=== PATIENT | female | born 1960 | race Caucasian/White ===

== ENCOUNTER 2022-06-11 15:00 | Outpatient (RCR) | payer BC, SELFPAY ==
--- NOTE | 2022-05-21 16:33 | ONC.NURNOTE ---
zometa treatment plan q 28 days x 3 cycles, then q 3 months is plan per most recent office note by [place] Augustine CNP on 05/07/22. First cycle given 04/30/22. Documented in old clinical record. Added cycle 2 and 3 of zometa into [facility] on behalf of patient. Will need next set of orders from oncology for [id number] plan.
[2022-05-22 15:28] LABS: Basophils Absolute Auto 0.05 K/uL (0.00-0.30); Basophils Percent Auto 0.9 % (0.0-3.0); Eosinophils Absolute Auto 0.02 K/uL (0.00-0.50); Eosinophils Percent Auto 0.4 % (0.0-7.0); Hematocrit 34.9 % (33.0-51.0); Hemoglobin* 11.7 gm/dL (12.0-16.0); Immature Granulocytes Abs Auto 0.06 K/uL (0.00-0.30); Lymphocytes Absolute Auto 1.61 K/uL (0.90-2.90); Lymphocytes Percent Auto 28.6 % (20-44); Mean Corpuscular HGB Conc 34 gm/dL (32-36); Mean Corpuscular Hemoglobin 31 pg (26-34); Mean Corpuscular Volume 91 fL (80-100); Monocytes Percent Auto 9.8 % (0.0-11.0); Neutrophils Absolute Auto 3.34 K/uL (1.7-7.0); Neutrophils Percent Auto 59.2 % (42.0-72.0); Platelet Count* 295 K/uL (140-440); RDW Coefficient of Variation % 16.6 % (11.5-15.5); Red Blood Count 3.82 m/uL (4.00-5.20); White Blood Count* 5.63 K/uL (4.50-11.00)
[2022-05-22 15:47] LABS: Slide Review Reflex No
[2022-05-22] MEDS: SODIUM CHLORIDE 0.9 % (FLUSH) 10 ML SYRINGE IVF (16:03)
[2022-05-22 16:23] LABS: Albumin* 4.1 g/dL (3.3-5.0); Chloride* 106 mmol/L (96-114); Sodium* 137 mmol/L (135-149)
[2022-05-22 16:24] LABS: Potassium* 3.5 mmol/L (3.6-5.1)
[2022-05-22 16:26] LABS: Alanine Aminotransferase* 17 U/L (4-35); Alkaline Phosphatase* 72 U/L (40-150); Aspartate Amino Transferase* 33 U/L (12-35); Bilirubin Total* 0.5 mg/dL (0.1-1.5); Blood Urea Nitrogen* 16 mg/dL (7-30); Carbon Dioxide* 23 mmol/L (20-32); Creatinine* 0.9 mg/dL (0.5-1.5); Est. Creatinine Clearance* 60.93; Estimated Glomerular Filt Rate 73.19; Glucose* 115 mg/dL (60-115); Total Protein* 6.5 g/dL (6.0-8.3)
[2022-05-22 16:27] LABS: Calcium* 9.3 mg/dL (8.4-10.6)
[2022-05-25 19:53] LABS: Cancer Antigen 27.29 353.2 U/mL (<=39.0)
--- NOTE | 2022-05-28 15:41 | ONC.NURNOTE ---
Carolyn requested that her Zometa be moved to coincide with lab and provider appts rescheduled for 06/11/22
--- NOTE | 2022-06-05 18:54 | ONC.NURNOTE ---
Authorization: User: Adeline Jay Date: 04/24/22 13:07 Type: Eligibility Determination Note... Received request for prior auth for Zometa ([id number]). Per [facility] on behalf of [facility], clinical review is not required. valid 04/24/2022-07/22/2022. Order ID [id number]
[2022-06-10 15:06] LABS: Basophils Percent Auto 0.6 % (0.0-3.0); Eosinophils Percent Auto 4.2 % (0.0-7.0); Hematocrit 34.6 % (33.0-51.0); Hemoglobin* 11.5 gm/dL (12.0-16.0); Lymphocytes Percent Auto 37.3 % (20-44); Mean Corpuscular HGB Conc 33 gm/dL (32-36); Mean Corpuscular Hemoglobin 31 pg (26-34); Mean Corpuscular Volume 92 fL (80-100); Monocytes Percent Auto 3.3 % (0.0-11.0); Neutrophils Percent Auto 54.6 % (42.0-72.0); Platelet Count* 228 K/uL (140-440); RDW Coefficient of Variation % 16.1 % (11.5-15.5); Red Blood Count 3.76 m/uL (4.00-5.20); White Blood Count* 3.32 K/uL (4.50-11.00)
[2022-06-10 15:29] LABS: Albumin* 3.8 g/dL (3.3-5.0); Chloride* 105 mmol/L (96-114)
[2022-06-10 15:30] LABS: Potassium* 3.3 mmol/L (3.6-5.1); Sodium* 134 mmol/L (135-149)
[2022-06-10 15:31] LABS: Slide Review Reflex No
[2022-06-10 15:32] LABS: Bilirubin Total* 0.3 mg/dL (0.1-1.5); Carbon Dioxide* 22 mmol/L (20-32); Creatinine* 1.4 mg/dL (0.5-1.5); Est. Creatinine Clearance* 39.17; Estimated Glomerular Filt Rate 43 ml/min; Total Protein* 5.9 g/dL (6.0-8.3)
[2022-06-10 15:33] LABS: Alanine Aminotransferase* 19 U/L (4-35); Alkaline Phosphatase* 68 U/L (40-150); Aspartate Amino Transferase* 25 U/L (12-35); Blood Urea Nitrogen* 17 mg/dL (7-30); Calcium* 9.2 mg/dL (8.4-10.6); Glucose* 111 mg/dL (60-115)
[2022-06-11] MEDS: ZOLEDRONIC ACID 3 MG in 0.9 % SODIUM CHLORIDE 100 ml 100 ML 420 MG IVPB (15:43)
[2022-06-11] MEDS: HEPARIN 500 UNIT/5 ML SYRINGE IVF (16:04)
[2022-06-11] MEDS: SODIUM CHLORIDE 0.9 % (FLUSH) 10 ML SYRINGE IVF (16:04)
--- NOTE | 2022-06-11 16:25 | ONC.NURNOTE ---
Breast Transit Operations Supervisor Note Pt here today to f/u 2 weeks of Verzenio and monthly labs/Zometa; she is tolerating well. Per Lorie Rubio CNP, pt to continue same dosing; she will call for a refill when needed and notify BCN if any issues. Appts made to f/u with labs/Lorie/Zometa in 4 weeks.
== END 2022-06-21 23:59 | disposition home or self-care (01) ==
LOC: CCIC 15:00
PROVIDERS: PCP Physician Assistant; Visit Provider Nurse Practitioner Family
DX: C50.912 Malignant neoplasm of unspecified site of left female breast (principal); Z17.0 Estrogen receptor positive status [ER+]; Z79.810 Long term (current) use of selective estrogen receptor modulators (SERMs)
CPT/HCPCS: 36415; 36591; 80053; 85025; 86300; 96374; 99212; 99214; J1642; J3489

== ENCOUNTER 2022-09-17 14:18 | Outpatient (CLI) | payer BC, SELFPAY ==
--- NOTE | 2022-09-17 14:45 | CRLHL7_ITS ---
For Patients: As a result of the Century Cures Act, medical imaging exams and procedure reports are released immediately into your electronic medical record. You may view this report before your referring provider. If you have questions, please contact your health care provider. INDICATION: History of metastatic breast cancer patient status post bilateral mastectomy. Patient is ongoing systemic therapy. Exam is being performed for restaging. TECHNIQUE: The patient received 12.7 millicuries of 18 FDG (18 fluorodeoxyglucose) intravenously. PET-CT imaging has been performed from the mid skull to mid thigh level [address] images have been obtained for attenuation correction and localization only. Blood glucose level: 86 mg/dL. COMPARISON: PET-CT dated 04/16/2022. FINDINGS: Within the chest there is residual activity identified in the region of the right paratracheal region. Small lymph node is identified with a SUV max of 4.3 compared with 11.5 previously. Previous area of activity within the right hilum has nearly completely resolved. SUV max is 2.3 compared with 5.5 previously. No new areas of activity within the mediastinum are noted. Residual asymmetric area of increased activity in the left thyroid nodule is noted, SUV max is 3.9 and unchanged. There is a small linear density identified in the inferior lingula on the left. SUV max is 2.7 compared with 3.6 previously. The remaining lungs demonstrate no abnormal uptake. The patient is status post bilateral mastectomy. Chest wall and axilla demonstrates no abnormal uptake. The soft tissues of the neck demonstrate no significant abnormal uptake. The liver and spleen demonstrate no abnormal uptake. Pancreas and bilateral adrenal glands are within normal limits. Retrocrural region and retroperitoneum demonstrate no abnormal uptake. Iliac kirit chain and groin demonstrate no significant abnormal uptake. There are extensive skeletal metastases again identified throughout the axial and appendicular skeleton. Overall these demonstrate interval improvement. As an example, the activity within the thoracic spine vertebral body the SUV max is 7.3 compared with 15.1 previously. The SUV max within the lumbar spine 9.9 compared with 19.2 previously. The SUV max within the left iliac bone is in the 11.1 compared with 20.5 previously. SUV max within the left femoral head is 13.9 compared with 11.7. Similarly decreased activity within the contralateral right iliac bone and femur noted. Interval decrease activity within the bilateral shoulder region noted. SUV max on the left is 6.9 compared to 16.3. Interval decreased activity within the sternum, SUV max is 4.8 compared with 21.3 previously. IMPRESSION: 1. Overall improving PET-CT scan when compared to the prior study. 2. Extensive residual hypermetabolic skeletal lesions are identified throughout the axial and appendicular skeleton. Largest lesion along with the spine and pelvis as detailed above. These remain hypermetabolic but demonstrate interval decrease in overall SUV max values when compared to the prior study. 3. Improving activity identified within the right mediastinum and right hilum. Decreased activity within a linear inferior lingular nodule on the left. 4. Stable left thyroid nodule noted with increased activity. Dictated by Charles River MD @ 09/23/2022 10:12:24 AM (Electronically Signed)
== END 2022-09-17 14:19 | disposition home or self-care (01) ==
LOC: RAD 14:18
PROVIDERS: PCP Physician Assistant; Visit Provider Nurse Practitioner Family
DX: C79.89 Secondary malignant neoplasm of other specified sites (principal); M89.9 Disorder of bone, unspecified; E04.1 Nontoxic single thyroid nodule
CPT/HCPCS: 78815; A9552

== ENCOUNTER 2022-10-19 15:16 | Emergency (ER) | payer BC, SELFPAY ==
[2022-10-19 15:26] VITALS: BP 116/80; PULSE 102; RESP 18; TEMP 36.8; O2SAT 99; BMI 23.8
--- NOTE | 2022-10-19 18:02 | CRLHL7_ITS ---
For Patients: As a result of the Century Cures Act, medical imaging exams and procedure reports are released immediately into your electronic medical record. You may view this report before your referring provider. If you have questions, please contact your health care provider. INDICATION: Left-sided neck pain. TECHNIQUE: CT soft tissue of the neck was acquired with IV contrast. COMPARISON: PET-CT 04/16/2022. FINDINGS: Skull base: Unremarkable. Pharynx/Larynx/Trachea: Epiglottis is normal. Airway is patent. Adjacent soft tissues are normal. Salivary glands: Unremarkable. Thyroid gland: Unchanged partially calcified 1.2 cm left thyroid lobe nodule. Lymph nodes: No lymphadenopathy. Vessels: The left internal jugular vein is dominant. There is distension of the vein with hypodense material. A crescent of IV contrast is present within the vein superiorly; however, the vein is unopacified as it courses inferiorly to the level of the left chest port catheter. Bones: Ill-defined sclerotic foci within the C4, C6, and T4 vertebral bodies. Misc: Bilateral lens replacement. Partially imaged left-sided chest port. Atherosclerotic calcification of the bilateral carotid siphons. Lung apices: Unremarkable. IMPRESSION: Distended, unopacified left internal jugular vein with hypodense material superior to the level of the left chest port catheter. This could be on the basis of mixing artifact; however, thrombus cannot be entirely excluded. Recommend ultrasound for further evaluation Sclerotic foci within the C4, C6, and T4 vertebral body. These may represent hemangiomas; however, metastatic lesions cannot be excluded in the setting of malignancy. Please note that all CT scans at this facility use dose modulation, iterative reconstruction, and/or weight-based dosing when appropriate to reduce radiation dose to as low as reasonably achievable. Dictated by Arya Peralta MD @ 10/19/2022 7:41:53 PM (Electronically Signed)
--- NOTE | 2022-10-19 18:04 | ED.NECK ---
HPI - Neck Pain/Injury General Chief Complaint: Neck Injury/Pain Stated Complaint: neck pain Time Seen by Provider: 10/19/22 15:39 History of Present Illness HPI Narrative: This 62-year-old female comes in from oncology clinic with concern of pain and swelling in the left anterior neck. She has a history of breast cancer with metastatic disease. She has a port in place that is in the left upper anterior chest. She states that she also is had a deep venous thrombus in the upper extremity and had been on Xarelto but had trouble refilling this medicine. She is no longer on any anticoagulant. She does not report any chest pain or shortness of breath. She has mild swelling and distinct tenderness in the left anterior neck. Related Data Home Medications Medication Instructions Recorded Confirmed acetaminophen 325 mg capsule 650 mg PO Q4H PRN 06/09/22 10/19/22 calcium citrate 315 mg 1 tab PO QDAY 06/09/22 10/19/22 calcium-vitamin D3 6.25 mcg (250 unit) tablet (Citracal + Vitamin D Maximum) cholecalciferol (vitamin D3) 50 50 mcg PO QDAY 06/09/22 10/19/22 mcg (2,000 unit) capsule ibuprofen 400 mg tablet 400 mg PO TID 06/09/22 10/19/22 tamoxifen 20 mg tablet 20 mg PO QDAY 06/09/22 10/19/22 loratadine 10 mg tablet 10 mg PO .prn 06/11/22 10/19/22 multivitamin 1 tab PO QAM 06/11/22 10/19/22 Previous Rx's Medication Instructions Recorded potassium chloride 20 mEq 20 meq PO BID #120 tabs 08/06/22 tablet,extended release(part/cryst) abemaciclib 150 mg tablet 150 mg PO BID #60 tabs 10/08/22 (Verzenio) rivaroxaban 10 mg tablet (Xarelto) 10 mg PO QDAY #30 tabs 10/19/22 Allergies Allergy/AdvReac Type Severity Reaction Status Date / Time Bees Allergy Severe anaphalayti Uncoded 07/09/22 14:40 c Review of Systems Status of ROS: Reports: 10 or more systems reviewed and unremarkable except as noted in History and below Narrative: Constitutional: No fevers, no weight gain or loss. Eyes: No discharge. No vision changes. HENT: No congestion, no sore throat, no ear pain. Pain and swelling in the left anterior neck. Cardiovascular: No chest pain, no palpitations. Respiratory: No shortness of breath, no wheezes, no cough. Gastrointestinal: No abdominal pain, no vomiting, no diarrhea. Genitourinary: No dysuria, no hematuria. Musculoskeletal: Normal range of motion. Skin: No rashes, no pruritis. Neurological: No dizziness, weakness, sensory change, speech change. Endo/Heme/Allergies: No bruising or bleeding. No polydipsia. Pysch: no suicidality, no anxiety, no insomnia. All other systems reviewed and are negative. [facility] Medical History (Updated 10/19/22 @ 20:12 by Kenn Hope MD) Central venous catheter in place DVT of axillary vein, acute right Social History Smoking Status: Never smoker Do you use any of these nicotine containing products: None Second hand tobacco smoke exposure: No How often do you have a drink containing alcohol: never How often do you have six or more drinks on one occasion: Never AUDIT-C Alcohol total score: 0 Non-prescribed substance use: denies use service: No Exam Narrative: Exam Narrative: Constitutional: Well-developed, well-nourished, no acute distress. HEENT: There is a palpable tube extending from a port up into the left anterior neck. She has tenderness in this area with mild swelling. Neck: Normal range of motion. Nontender. Supple. Heart: Regular. No murmurs. Normal rate. Intact distal pulses. Lungs: Clear to auscultation. No chest discomfort. No wheezes, rhonchi, or rales. Abdomen: Normal bowel sounds. Nontender. No rebound tenderness. Genitalia: Deferred. Back: No midline tenderness. Normal range of motion. Extremities: Normal range of motion. No injury. Skin: Intact. No rash. Warm. No erythema or pallor. Neurologic: No altered sensation. No weakness. Alert and oriented. Psychiatric: No suicidality. No anxiety or depression. No insomnia. Nursing notes and vitals signs are reviewed. Const: Vital Signs, click to edit/add: Vital Signs - 24 hr 10/19/22 15:26 Temperature 98.2 F Pulse Rate [Right Pulse Oximeter] 102 H Respiratory Rate 18 Blood Pressure [Ri ght Upper Arm] 116/80 Pulse Oximetry 99 Oxygen Delivery Me thod Room Air Course Vital Signs Vital signs: Initial Vital Signs Temperature 98.2 F 10/19/22 15:26 Temperature Source Temporal Artery Scan 10/19/22 15:26 Pulse Rate 102 H 10/19/22 15:26 Respiratory Rate 18 10/19/22 15:26 Blood Pressure 116/80 10/19/22 15:26 Blood Pressure Mean 92 10/19/22 15:26 Blood Pressure Position Sitting 10/19/22 15:26 Pulse Oximetry 99 10/19/22 15:26 Oxygen Delivery Method 10/19/22 15:26 Vital Signs Temperature 98.2 F 10/19/22 15:26 Pulse Rate 102 H 10/19/22 15:26 Respiratory Rate 18 10/19/22 15:26 Blood Pressure 116/80 10/19/22 15:26 Pulse Oximetry 99 10/19/22 15:26 Oxygen Delivery Method 10/19/22 15:26 Temperature 98.2 F 10/19/22 15:26 Pulse Rate 102 H 10/19/22 15:26 Respiratory Rate 18 10/19/22 15:26 Blood Pressure 116/80 10/19/22 15:26 Pulse Oximetry 99 10/19/22 15:26 Oxygen Delivery Method 10/19/22 15:26 MDM - Neck Pain/Injury MDM Narrative Medical decision making narrative: This patient comes in with pain in her left anterior neck just superior to her port. She states the last time her port was accessed was about a month ago. This was accessed today for labs and arrangement for CT scan of the soft tissue of her neck with contrast. She did have heparin placed into the port and states that she is feeling better now. CT imaging does show evidence of a hypodense material in this area that could be suspicious for thrombus. The patient states that she was on Xarelto and is supposed to be continuing on this medicine but had trouble getting it refilled. She states that she does have a refill that she can get at the pharmacy tomorrow. I did discuss the role of an ultrasound to further evaluate this area. The patient declined this study for now. She did receive an oral dose of Eliquis here and will be able to continue with anticoagulant treatment tomorrow as she fills her prescription. Lab Data Labs: Lab Results 10/19/22 10/19/22 10/19/22 Range/Units 18:25 18:25 18:25 WBC 5.30 (4.50-11.00) K/uL RBC 3.20 L (4.00-5.20) m/uL Hgb 11.6 L (12.0-16.0) gm/dL Hct 33.5 (33.0-51.0) % MCV 105 H (80-100) fL MCH 36 H (26-34) pg MCHC 35 (32-36) gm/dL RDW Coeff of Delfino 12.8 (11.5-15.5) % Plt Count 179 (140-440) K/uL Neut % (Auto) 60.0 (42.0-72.0) % Lymph % (Auto) 30.2 (20-44) % [place] % (Auto) 8.1 (0.0-11.0) % Eos % (Auto) 0.4 (0.0-7.0) % Baso % (Auto) 0.9 (0.0-3.0) % Neut # (Auto) 3.18 (1.7-7.0) K/uL Lymph # (Auto) 1.60 (0.90-2.90) K/uL [place] # (Auto) 0.40 (0.00-0.90) K/UL Eos # (Auto) 0.02 (0.00-0.50) K/uL Baso # (Auto) 0.05 (0.00-0.30) K/uL Abs Immat Gran (auto) 0.02 (0.00-0.30) K/uL Imm/Tot Granulo (auto) 0.4 % INR 1.03 (0.91-1.10) Sodium 137 (135-149) mmol/L Potassium 4.2 (3.6-5.1) mmol/L Chloride 109 (96-114) mmol/L Carbon Dioxide 23 (20-32) mmol/L BUN 14 (7-30) mg/dL Creatinine 1.2 (0.5-1.5) mg/dL Estimated Creat Clear 38.94 Estimated GFR 52 ml/min Glucose 76 (60-115) mg/dL Calcium 9.1 (8.4-10.6) mg/dL Total Bilirubin 0.5 (0.1-1.5) mg/dL Direct Bilirubin 0.1 (0.0-0.5) mg/dL AST 23 (12-35) U/L ALT 18 (4-35) U/L Alkaline Phosphatase 46 (40-150) U/L Total Protein 6.6 (6.0-8.3) g/dL Albumin 4.0 (3.3-5.0) g/dL Imaging Data CT Neck soft tissue: Radiologist's impression: Distended, unopacified left internal jugular vein with hypodense material superior to the level of the left chest port catheter. This could be on the basis of mixing artifact; however, thrombus cannot be entirely excluded. Recommend ultrasound for further evaluation Sclerotic foci within the C4, C6, and T4 vertebral body. These may represent hemangiomas; however, metastatic lesions cannot be excluded in the setting of malignancy. Discharge Plan Discharge Clinical Impression: DVT (deep venous thrombosis), Breast cancer metastasized to bone Patient Disposition: Home, Self-Care Additional Instructions: Take Xarelto as prescribed. Follow up with MD or return if worsening symptoms occur. Prescriptions: No Action tamoxifen 20 mg tablet 20 mg PO QDAY Label Comments: TAKE 1 TABLET BY MOUTH DAILY ibuprofen 400 mg tablet 400 mg PO TID cholecalciferol (vitamin D3) 50 mcg (2,000 unit) capsule 50 mcg PO QDAY calcium citrate-vitamin D3 [Citracal + D Maximum] 315 mg-6.25 mcg (250 unit) tablet 1 tab PO QDAY acetaminophen 325 mg capsule 650 mg PO Q4H PRN loratadine 10 mg tablet 10 mg PO .prn multivitamin Tablet 1 tab PO QAM potassium chloride 20 mEq tablet,ER particles/crystals 20 meq PO BID Qty: 120 3RF Verzenio 150 mg tablet 150 mg PO BID Qty: 60 6RF Xarelto 10 mg tablet 10 mg PO QDAY Qty: 30 3RF Follow Up/Referrals: Francie Marcos PA [Primary Care Provider] - [facility]: [facility] Info Instructions
[2022-10-19 18:37] LABS: Basophils Absolute Auto 0.05 K/uL (0.00-0.30); Basophils Percent Auto 0.9 % (0.0-3.0); Eosinophils Absolute Auto 0.02 K/uL (0.00-0.50); Eosinophils Percent Auto 0.4 % (0.0-7.0); Hematocrit 33.5 % (33.0-51.0); Hemoglobin* 11.6 gm/dL (12.0-16.0); Immature Granulocytes Abs Auto 0.02 K/uL (0.00-0.30); Immature Granulocytes Pct Auto 0.4 %; Lymphocytes Percent Auto 30.2 % (20-44); Mean Corpuscular HGB Conc 35 gm/dL (32-36); Mean Corpuscular Hemoglobin 36 pg (26-34); Mean Corpuscular Volume 105 fL (80-100); Monocytes Percent Auto 8.1 % (0.0-11.0); Neutrophils Absolute Auto 3.18 K/uL (1.7-7.0); Platelet Count* 179 K/uL (140-440); RDW Coefficient of Variation % 12.8 % (11.5-15.5)
[2022-10-19 18:47] LABS: Slide Review Reflex No
[2022-10-19 18:52] LABS: Chloride* 109 mmol/L (96-114)
[2022-10-19 18:53] LABS: Potassium* 4.2 mmol/L (3.6-5.1); Sodium* 137 mmol/L (135-149)
[2022-10-19 18:54] LABS: INR 1.03 (0.91-1.10); Prothrombin Time 14.1 Seconds
[2022-10-19 18:55] LABS: Aspartate Amino Transferase* 23 U/L (12-35); Bilirubin Direct* 0.1 mg/dL (0.0-0.5); Bilirubin Total* 0.5 mg/dL (0.1-1.5); Blood Urea Nitrogen* 14 mg/dL (7-30); Carbon Dioxide* 23 mmol/L (20-32); Creatinine* 1.2 mg/dL (0.5-1.5); Est. Creatinine Clearance* 38.94; Estimated Glomerular Filt Rate 52 ml/min; Total Protein* 6.6 g/dL (6.0-8.3)
[2022-10-19 18:56] LABS: Alanine Aminotransferase* 18 U/L (4-35); Alkaline Phosphatase* 46 U/L (40-150); Calcium* 9.1 mg/dL (8.4-10.6); Glucose* 76 mg/dL (60-115)
[2022-10-19] MEDS: HEPARIN 500 UNIT/5 ML SYRINGE IVF (20:31)
== END 2022-10-19 20:29 | disposition home or self-care (01) ==
PROVIDERS: Emergency Provider Emergency Medicine Emergency Medical Services; PCP Physician Assistant
DX: C50.919 Malignant neoplasm of unspecified site of unspecified female breast (principal); C79.51 Secondary malignant neoplasm of bone; I82.409 Acute embolism and thrombosis of unspecified deep veins of unspecified lower extremity
CPT/HCPCS: 36415; 70491; 80048; 80076; 85025; 85610; 99284; J1642; Q9967

== ENCOUNTER 2022-12-04 15:00 | Outpatient (RCR) | payer BC, SELFPAY ==
[2022-07-08 15:37] LABS: Basophils Percent Auto 1.1 % (0.0-3.0); Eosinophils Percent Auto 0.5 % (0.0-7.0); Hematocrit 31.3 % (33.0-51.0); Hemoglobin* 10.7 gm/dL (12.0-16.0); Immature Granulocytes Abs Auto 0.01 K/uL (0.00-0.30); Lymphocytes Percent Auto 39.3 % (20-44); Mean Corpuscular HGB Conc 34 gm/dL (32-36); Mean Corpuscular Hemoglobin 32 pg (26-34); Mean Corpuscular Volume 95 fL (80-100); Monocytes Percent Auto 7.9 % (0.0-11.0); Neutrophils Percent Auto 50.9 % (42.0-72.0); Platelet Count* 232 K/uL (140-440); RDW Coefficient of Variation % 18.2 % (11.5-15.5); White Blood Count* 3.79 K/uL (4.50-11.00)
[2022-07-08 15:55] LABS: Slide Review Reflex No
[2022-07-08 16:01] LABS: Chloride* 105 mmol/L (96-114)
[2022-07-08 16:02] LABS: Albumin* 3.7 g/dL (3.3-5.0); Potassium* 3.5 mmol/L (3.6-5.1); Sodium* 136 mmol/L (135-149)
[2022-07-08 16:05] LABS: Alanine Aminotransferase* 46 U/L (4-35); Alkaline Phosphatase* 58 U/L (40-150); Aspartate Amino Transferase* 49 U/L (12-35); Bilirubin Total* 0.1 mg/dL (0.1-1.5); Blood Urea Nitrogen* 18 mg/dL (7-30); Carbon Dioxide* 22 mmol/L (20-32); Creatinine* 1.3 mg/dL (0.5-1.5); Estimated Glomerular Filt Rate 47 ml/min; Glucose* 126 mg/dL (60-115); Total Protein* 6.3 g/dL (6.0-8.3)
[2022-07-08 16:06] LABS: Calcium* 9.1 mg/dL (8.4-10.6)
[2022-07-09] MEDS: ZOLEDRONIC ACID 3 MG in 0.9 % SODIUM CHLORIDE 100 ml 100 ML 420 MG IVPB (15:34)
[2022-07-09] MEDS: SODIUM CHLORIDE 0.9 % (FLUSH) 10 ML SYRINGE IVF (16:32)
[2022-07-09] MEDS: HEPARIN 500 UNIT/5 ML SYRINGE IVF (16:32)
[2022-07-09] MEDS: 0.9 % SODIUM CHLORIDE 250 ml IV (16:32)
[2022-07-11 01:22] LABS: Cancer Antigen 27.29 439.9 U/mL (<=39.0)
[2022-08-05 15:24] LABS: Basophils Percent Auto 1.4 % (0.0-3.0); Eosinophils Percent Auto 0.8 % (0.0-7.0); Hematocrit 30.4 % (33.0-51.0); Hemoglobin* 10.6 gm/dL (12.0-16.0); Immature Granulocytes Abs Auto 0.01 K/uL (0.00-0.30); Lymphocytes Percent Auto 38.7 % (20-44); Mean Corpuscular HGB Conc 35 gm/dL (32-36); Mean Corpuscular Hemoglobin 34 pg (26-34); Mean Corpuscular Volume 97 fL (80-100); Monocytes Percent Auto 7.1 % (0.0-11.0); Neutrophils Percent Auto 51.7 % (42.0-72.0); Platelet Count* 201 K/uL (140-440); RDW Coefficient of Variation % 18.1 % (11.5-15.5); Red Blood Count 3.12 m/uL (4.00-5.20); White Blood Count* 3.67 K/uL (4.50-11.00)
[2022-08-05 15:44] LABS: Albumin* 3.9 g/dL (3.3-5.0); Chloride* 104 mmol/L (96-114); Potassium* 3.1 mmol/L (3.6-5.1); Sodium* 135 mmol/L (135-149)
[2022-08-05 15:46] LABS: Creatinine* 1.3 mg/dL (0.5-1.5); Estimated Glomerular Filt Rate 47 ml/min; Slide Review Reflex No
[2022-08-05 15:47] LABS: Alanine Aminotransferase* 47 U/L (4-35); Alkaline Phosphatase* 51 U/L (40-150); Aspartate Amino Transferase* 36 U/L (12-35); Bilirubin Total* 0.4 mg/dL (0.1-1.5); Blood Urea Nitrogen* 11 mg/dL (7-30); Carbon Dioxide* 23 mmol/L (20-32); Glucose* 145 mg/dL (60-115); Total Protein* 6.2 g/dL (6.0-8.3)
[2022-08-05 15:48] LABS: Calcium* 8.6 mg/dL (8.4-10.6)
[2022-08-09 01:26] LABS: Cancer Antigen 27.29 448.7 U/mL (<=39.0)
[2022-09-02 15:22] LABS: Basophils Percent Auto 1.5 % (0.0-3.0); Hematocrit 31.8 % (33.0-51.0); Hemoglobin* 10.8 gm/dL (12.0-16.0); Lymphocytes Percent Auto 42.9 % (20-44); Mean Corpuscular HGB Conc 34 gm/dL (32-36); Mean Corpuscular Hemoglobin 36 pg (26-34); Mean Corpuscular Volume 106 fL (80-100); Monocytes Percent Auto 8.6 % (0.0-11.0); Platelet Count* 220 K/uL (140-440); RDW Coefficient of Variation % 15.8 % (11.5-15.5); White Blood Count* 3.96 K/uL (4.50-11.00)
[2022-09-02 15:24] LABS: Slide Review Reflex No
[2022-09-02 15:35] LABS: Chloride* 109 mmol/L (96-114); Potassium* 3.9 mmol/L (3.6-5.1); Sodium* 136 mmol/L (135-149)
[2022-09-02 15:38] LABS: Alanine Aminotransferase* 23 U/L (4-35); Alkaline Phosphatase* 65 U/L (40-150); Aspartate Amino Transferase* 27 U/L (12-35); Bilirubin Total* 0.3 mg/dL (0.1-1.5); Blood Urea Nitrogen* 15 mg/dL (7-30); Carbon Dioxide* 20 mmol/L (20-32); Creatinine* 1.3 mg/dL (0.5-1.5); Estimated Glomerular Filt Rate 47 ml/min; Glucose* 87 mg/dL (60-115); Total Protein* 6.4 g/dL (6.0-8.3)
[2022-09-02] MEDS: SODIUM CHLORIDE 0.9 % (FLUSH) 10 ML SYRINGE IVF (16:05)
[2022-09-02] MEDS: HEPARIN 500 UNIT/5 ML SYRINGE IVF (16:05)
[2022-09-06 02:05] LABS: Cancer Antigen 27.29 337.9 U/mL (<=39.0)
--- NOTE | 2022-09-08 09:04 | ONC.NURNOTE ---
Addendum entered by Romy Farley RN 09/08/22 14:24: PET Scan order and supporting documentation faxed to [facility]. Original Note: PET scheduled for 09/17/22 at 1445, 10/01/22 already full. Hat Block Maker left message for patient with PET scan information, and told [facility] will be calling her.
--- NOTE | 2022-10-01 12:58 | URNOTE ---
Request received for authorization for Zoledronic Acid ([id number]). Prior authorization per [facility] on behalf of [place], Zoledronic Acid approved #[id number] for 3 treatments from 10/07/22 to 06/16/23.
[2022-10-07] MEDS: SODIUM CHLORIDE 0.9 % (FLUSH) 10 ML SYRINGE IVF (15:10)
[2022-10-07] MEDS: HEPARIN 500 UNIT/5 ML SYRINGE IVF (15:11)
[2022-10-07 15:26] LABS: Basophils Absolute Auto 0.05 K/uL (0.00-0.30); Basophils Percent Auto 1.1 % (0.0-3.0); Eosinophils Absolute Auto 0.02 K/uL (0.00-0.50); Eosinophils Percent Auto 0.4 % (0.0-7.0); Hematocrit 34.4 % (33.0-51.0); Hemoglobin* 11.5 gm/dL (12.0-16.0); Immature Granulocytes Abs Auto 0.01 K/uL (0.00-0.30); Immature Granulocytes Pct Auto 0.2 %; Lymphocytes Percent Auto 35.2 % (20-44); Mean Corpuscular HGB Conc 33 gm/dL (32-36); Mean Corpuscular Hemoglobin 36 pg (26-34); Mean Corpuscular Volume 108 fL (80-100); Neutrophils Absolute Auto 2.45 K/uL (1.7-7.0); Neutrophils Percent Auto 54.1 % (42.0-72.0); Platelet Count* 242 K/uL (140-440); RDW Coefficient of Variation % 12.8 % (11.5-15.5); White Blood Count* 4.54 K/uL (4.50-11.00)
[2022-10-07 15:28] LABS: Slide Review Reflex No
[2022-10-07 15:58] LABS: Albumin* 4.1 g/dL (3.3-5.0); Chloride* 110 mmol/L (96-114); Potassium* 3.8 mmol/L (3.6-5.1); Sodium* 136 mmol/L (135-149)
[2022-10-07 16:00] LABS: Aspartate Amino Transferase* 24 U/L (12-35); Bilirubin Total* 0.4 mg/dL (0.1-1.5); Carbon Dioxide* 21 mmol/L (20-32); Creatinine* 1.3 mg/dL (0.5-1.5); Estimated Glomerular Filt Rate 47 ml/min; Total Protein* 6.5 g/dL (6.0-8.3)
[2022-10-07 16:01] LABS: Alanine Aminotransferase* 22 U/L (4-35); Alkaline Phosphatase* 48 U/L (40-150); Blood Urea Nitrogen* 13 mg/dL (7-30); Calcium* 8.5 mg/dL (8.4-10.6); Glucose* 120 mg/dL (60-115)
--- NOTE | 2022-10-08 15:27 | ONC.NURNOTE ---
creatine clearence 35.63. ok to give Zometa 4mg per Tmi Augustine BRAILLE TEACHER
[2022-10-08] MEDS: ZOLEDRONIC ACID 4 MG in 0.9 % SODIUM CHLORIDE 100 ml 100 ML 420 MG IVPB (15:43)
[2022-10-08] MEDS: HEPARIN 500 UNIT/5 ML SYRINGE IVF (15:44)
[2022-10-08] MEDS: 0.9 % SODIUM CHLORIDE 250 ml IV (15:44)
[2022-10-08] MEDS: SODIUM CHLORIDE 0.9 % (FLUSH) 10 ML SYRINGE IVF (15:45)
[2022-10-09 22:49] LABS: Cancer Antigen 27.29 261.1 U/mL (<=39.0)
[2022-11-04 15:28] LABS: Chloride* 112 mmol/L (96-114); Potassium* 3.9 mmol/L (3.6-5.1); Sodium* 140 mmol/L (135-149)
[2022-11-04 15:30] LABS: Creatinine* 1.3 mg/dL (0.5-1.5); Estimated Glomerular Filt Rate 47 ml/min
[2022-11-04 15:31] LABS: Alanine Aminotransferase* 20 U/L (4-35); Alkaline Phosphatase* 48 U/L (40-150); Aspartate Amino Transferase* 25 U/L (12-35); Bilirubin Total* 0.4 mg/dL (0.1-1.5); Blood Urea Nitrogen* 17 mg/dL (7-30); Carbon Dioxide* 24 mmol/L (20-32); Glucose* 71 mg/dL (60-115); Total Protein* 6.4 g/dL (6.0-8.3)
[2022-11-04 15:32] LABS: Basophils Percent Auto 1.2 % (0.0-3.0); Calcium* 9.2 mg/dL (8.4-10.6); Eosinophils Percent Auto 0.6 % (0.0-7.0); Hematocrit 31.9 % (33.0-51.0); Hemoglobin* 10.9 gm/dL (12.0-16.0); Lymphocytes Percent Auto 43.1 % (20-44); Mean Corpuscular HGB Conc 34 gm/dL (32-36); Mean Corpuscular Hemoglobin 36 pg (26-34); Mean Corpuscular Volume 105 fL (80-100); Monocytes Percent Auto 7.5 % (0.0-11.0); Neutrophils Percent Auto 47.6 % (42.0-72.0); Platelet Count* 236 K/uL (140-440); RDW Coefficient of Variation % 12.8 % (11.5-15.5); Red Blood Count 3.05 m/uL (4.00-5.20); White Blood Count* 3.46 K/uL (4.50-11.00)
[2022-11-04 15:33] LABS: Slide Review Reflex No
[2022-11-07 13:41] LABS: Cancer Antigen 27.29 212.1 U/mL (<=39.0)
[2022-12-03 15:08] LABS: Basophils Percent Auto 0.9 % (0.0-3.0); Eosinophils Percent Auto 0.6 % (0.0-7.0); Hematocrit 29.4 % (33.0-51.0); Hemoglobin* 10.3 gm/dL (12.0-16.0); Mean Corpuscular HGB Conc 35 gm/dL (32-36); Mean Corpuscular Hemoglobin 36 pg (26-34); Mean Corpuscular Volume 104 fL (80-100); Monocytes Percent Auto 7.1 % (0.0-11.0); Neutrophils Percent Auto 42.4 % (42.0-72.0); Platelet Count* 168 K/uL (140-440); RDW Coefficient of Variation % 14.1 % (11.5-15.5); Red Blood Count 2.83 m/uL (4.00-5.20); White Blood Count* 3.51 K/uL (4.50-11.00)
[2022-12-03 15:10] LABS: Slide Review Reflex No
[2022-12-03 15:25] LABS: Albumin* 3.7 g/dL (3.3-5.0); Chloride* 110 mmol/L (96-114)
[2022-12-03 15:26] LABS: Sodium* 138 mmol/L (135-149)
[2022-12-03 15:28] LABS: Aspartate Amino Transferase* 25 U/L (12-35); Bilirubin Total* 0.4 mg/dL (0.1-1.5); Carbon Dioxide* 20 mmol/L (20-32); Creatinine* 1.3 mg/dL (0.5-1.5); Estimated Glomerular Filt Rate 47 ml/min
[2022-12-03 15:29] LABS: Alanine Aminotransferase* 22 U/L (4-35); Alkaline Phosphatase* 45 U/L (40-150); Blood Urea Nitrogen* 9 mg/dL (7-30); Calcium* 8.7 mg/dL (8.4-10.6); Glucose* 138 mg/dL (60-115)
[2022-12-07 02:47] LABS: Cancer Antigen 27.29 153.6 U/mL (<=39.0)
== END 2023-01-04 23:59 | disposition home or self-care (01) ==
LOC: CCIC 15:00
PROVIDERS: Internal Medicine Medical Oncology; PCP Physician Assistant; Referring Provider Physician Assistant; Visit Provider Nurse Practitioner Family
DX: C50.912 Malignant neoplasm of unspecified site of left female breast (principal); Z17.0 Estrogen receptor positive status [ER+]; I82.A11 Acute embolism and thrombosis of right axillary vein; E87.6 Hypokalemia
CPT/HCPCS: 36415; 36591; 80053; 85025; 86300; 96374; 96409; 99204; 99212; 99214; 99215; J1642; J3489; J7050

== ENCOUNTER 2023-02-18 14:31 | Outpatient (CLI) | payer BC, SELFPAY ==
--- NOTE | 2023-02-18 14:45 | CRLHL7_ITS ---
For Patients: As a result of the 21st Century Cures Act, medical imaging exams and procedure reports are released immediately into your electronic medical record. You may view this report before your referring provider. If you have questions, please contact your health care provider. INDICATION: History of metastatic breast cancer to the skeletal system. Patient with prior chemotherapy. Exam is being performed for restaging. TECHNIQUE: Patient received 12.1 millicuries of 18 FDG (18 fluorodeoxyglucose) intravenously. PET-CT imaging has been performed from the mid skull to mid thigh level at [address] images have been obtained for attenuation correction and localization only. Blood glucose level: 96 mg/dL. COMPARISON: 09/17/2022 PET-CT. FINDINGS: Within the chest there has been interval resolution of hypermetabolic right paratracheal and right hilar lymph node. There is residual increased activity identified in the upper left mediastinum associated with the posterior left thyroid. The SUV max is 3.5 versus 3.9 previously. No new hypermetabolic lymph nodes are seen in the mediastinum or hilar regions. The lungs demonstrate no significant abnormal uptake. No suspicious infiltrates or masses are seen. The bilateral axilla and chest wall demonstrate no significant abnormal uptake. Patient is status post bilateral mastectomy. The neck demonstrates symmetric salivary and oropharyngeal activity, no suspicious hypermetabolic lymph nodes are seen. Skullbase is unremarkable. Liver and spleen demonstrate no significant abnormal uptake. Pancreas and bilateral adrenal glands are within normal limits. The retrocrural region and retroperitoneum demonstrate no abnormal uptake. The iliac kirit chain and groin demonstrate no significant abnormal uptake. Small gallstones are noted. There is a small cyst in the right adnexa. Patient status post hysterectomy. Skeletal system demonstrates multiple areas of abnormal uptake identified throughout the skeletal system consistent with residual viable tumor. This includes multiple lesions throughout the spine, pelvis, bilateral femurs, bilateral shoulders, sternum. Overall there has been interval improvement when compared to the prior study. As an example, the multiple lesions adjacent to the thoracic spine SUV max is 5.8 compared with 7.2 previously. The left acetabular lesion SUV max is 7.8 versus 11.1 previously. The hypermetabolic lesion in the left femoral head SUV max is 8.5 compared with 11.6. Similarly the other lesions throughout the pelvis have demonstrated interval improvement. The multiple large lesions throughout the sacrum have decreased. SUV max right sacrum is 6.6 compared with 10.2 previously. There are scattered sclerotic lesions noted throughout the skeletal system. No significant new skeletal lesions are seen. IMPRESSION: 1. Improving PET-CT scan when compared to the prior study. 2. There are numerous abnormal hypermetabolic residual skeletal lesions consistent with residual viable tumor. Overall these demonstrate interval improvement and less hypermetabolic activity. No significant new skeletal lesions are seen. 3. Previous focus of activity in the right paratracheal and right hilar region has resolved. There is persistent activity along the left thyroid which is relatively stable. No significant new soft tissue metastases are seen. 4. Patient status post bilateral mastectomy. No suspicious chest wall lesions are seen. Dictated by Charles River MD @ 02/24/2023 9:59:11 AM (Electronically Signed)
== END 2023-02-18 14:32 | disposition home or self-care (01) ==
PROVIDERS: PCP Physician Assistant; Visit Provider Nurse Practitioner Family
DX: C79.89 Secondary malignant neoplasm of other specified sites (principal)
CPT/HCPCS: 78815; A9552

== ENCOUNTER 2023-05-21 15:00 | Outpatient (RCR) | payer BC, SELFPAY ==
[2023-01-06 15:44] LABS: Eosinophils Percent Auto 0.3 % (0.0-7.0); Hematocrit 29.8 % (33.0-51.0); Hemoglobin* 10.4 gm/dL (12.0-16.0); Immature Granulocytes Pct Auto 0.3 %; Lymphocytes Percent Auto 44.5 % (20-44); Mean Corpuscular HGB Conc 35 gm/dL (32-36); Mean Corpuscular Hemoglobin 37 pg (26-34); Mean Corpuscular Volume 107 fL (80-100); Monocytes Percent Auto 7.6 % (0.0-11.0); Neutrophils Percent Auto 46.3 % (42.0-72.0); Platelet Count* 201 K/uL (140-440); RDW Coefficient of Variation % 14.1 % (11.5-15.5); Red Blood Count 2.79 m/uL (4.00-5.20); White Blood Count* 3.93 K/uL (4.50-11.00)
[2023-01-06 15:45] LABS: Slide Review Reflex No
[2023-01-06 16:02] LABS: Albumin* 3.6 g/dL (3.3-5.0); Chloride* 112 mmol/L (96-114); Potassium* 3.9 mmol/L (3.6-5.1); Sodium* 137 mmol/L (135-149)
[2023-01-06 16:04] LABS: Aspartate Amino Transferase* 33 U/L (12-35); Bilirubin Total* 0.4 mg/dL (0.1-1.5); Carbon Dioxide* 20 mmol/L (20-32); Creatinine* 1.5 mg/dL (0.5-1.5); Estimated Glomerular Filt Rate 39 ml/min; Total Protein* 6.1 g/dL (6.0-8.3)
[2023-01-06 16:05] LABS: Alanine Aminotransferase* 21 U/L (4-35); Alkaline Phosphatase* 41 U/L (40-150); Blood Urea Nitrogen* 14 mg/dL (7-30); Calcium* 8.7 mg/dL (8.4-10.6); Glucose* 80 mg/dL (60-115)
[2023-01-07] MEDS: ZOLEDRONIC ACID 4 MG in 0.9 % SODIUM CHLORIDE 100 ml 100 ML 420 MG IVPB (15:07)
[2023-01-07 15:12] LABS: Magnesium* 1.7 mg/dL (1.5-2.6)
--- NOTE | 2023-01-07 15:19 | ONC.NURNOTE ---
pts creat. 1.5 , est. grf 39. per Lorie O DIRECTOR MEETINGS decrease dose of Zometa to 3mg. Pharmacy aware. no xtra fluids ordered per Lorie O. DIRECTOR MEETINGS
[2023-01-07] MEDS: ZOLEDRONIC ACID 3 MG in 0.9 % SODIUM CHLORIDE 100 ml 100 ML 415 MG IVPB (15:44)
[2023-01-09 05:28] LABS: Cancer Antigen 27.29 130.2 U/mL (<=39.0)
[2023-02-03 15:27] LABS: Basophils Percent Auto 1.1 % (0.0-3.0); Eosinophils Percent Auto 0.6 % (0.0-7.0); Hematocrit 30.7 % (33.0-51.0); Hemoglobin* 10.4 gm/dL (12.0-16.0); Immature Granulocytes Pct Auto 0.3 %; Lymphocytes Percent Auto 37.7 % (20-44); Mean Corpuscular HGB Conc 34 gm/dL (32-36); Mean Corpuscular Hemoglobin 37 pg (26-34); Mean Corpuscular Volume 110 fL (80-100); Monocytes Percent Auto 8.1 % (0.0-11.0); Neutrophils Percent Auto 52.2 % (42.0-72.0); Platelet Count* 171 K/uL (140-440); RDW Coefficient of Variation % 13.8 % (11.5-15.5); White Blood Count* 3.58 K/uL (4.50-11.00)
[2023-02-03 15:28] LABS: Slide Review Reflex No
[2023-02-03 15:40] LABS: Chloride* 112 mmol/L (96-114)
[2023-02-03 15:41] LABS: Albumin* 3.6 g/dL (3.3-5.0); Sodium* 138 mmol/L (135-149)
[2023-02-03 15:44] LABS: Alanine Aminotransferase* 21 U/L (4-35); Alkaline Phosphatase* 40 U/L (40-150); Aspartate Amino Transferase* 27 U/L (12-35); Bilirubin Total* 0.3 mg/dL (0.1-1.5); Blood Urea Nitrogen* 13 mg/dL (7-30); Carbon Dioxide* 20 mmol/L (20-32); Creatinine* 1.3 mg/dL (0.5-1.5); Estimated Glomerular Filt Rate 47 ml/min; Glucose* 85 mg/dL (60-115); Total Protein* 6.1 g/dL (6.0-8.3)
[2023-02-03 15:45] LABS: Calcium* 9.1 mg/dL (8.4-10.6)
--- NOTE | 2023-02-05 16:16 | ONC.NURNOTE ---
Pet scheduled for 02/18/23 @ 1445. Order, insurance card, records faxed.
[2023-02-05 18:39] LABS: Cancer Antigen 27.29 111.9 U/mL (<=39.0)
[2023-03-03 15:10] LABS: Basophils Percent Auto 1.2 % (0.0-3.0); Eosinophils Percent Auto 0.5 % (0.0-7.0); Hematocrit 31.5 % (33.0-51.0); Hemoglobin* 10.7 gm/dL (12.0-16.0); Immature Granulocytes Pct Auto 0.9 %; Lymphocytes Percent Auto 31.6 % (20-44); Mean Corpuscular HGB Conc 34 gm/dL (32-36); Mean Corpuscular Hemoglobin 37 pg (26-34); Mean Corpuscular Volume 109 fL (80-100); Monocytes Percent Auto 8.1 % (0.0-11.0); Neutrophils Percent Auto 57.7 % (42.0-72.0); Platelet Count* 212 K/uL (140-440); RDW Coefficient of Variation % 12.8 % (11.5-15.5); White Blood Count* 4.34 K/uL (4.50-11.00)
[2023-03-03 15:11] LABS: Slide Review Reflex No
[2023-03-03 15:19] LABS: Albumin* 3.8 g/dL (3.3-5.0); Chloride* 109 mmol/L (96-114); Potassium* 4.1 mmol/L (3.6-5.1); Sodium* 136 mmol/L (135-149)
[2023-03-03 15:22] LABS: Alanine Aminotransferase* 24 U/L (4-35); Alkaline Phosphatase* 44 U/L (40-150); Aspartate Amino Transferase* 25 U/L (12-35); Bilirubin Total* 0.3 mg/dL (0.1-1.5); Blood Urea Nitrogen* 12 mg/dL (7-30); Carbon Dioxide* 21 mmol/L (20-32); Creatinine* 1.2 mg/dL (0.5-1.5); Estimated Glomerular Filt Rate 52 ml/min; Glucose* 94 mg/dL (60-115); Total Protein* 6.3 g/dL (6.0-8.3)
[2023-03-05 23:07] LABS: Cancer Antigen 27.29 109.8 U/mL (<=39.0)
[2023-04-07 15:22] LABS: Basophils Percent Auto 1.1 % (0.0-3.0); Eosinophils Percent Auto 0.8 % (0.0-7.0); Hematocrit 31.6 % (33.0-51.0); Hemoglobin* 10.8 gm/dL (12.0-16.0); Immature Granulocytes Pct Auto 0.5 %; Lymphocytes Percent Auto 40.2 % (20-44); Mean Corpuscular HGB Conc 34 gm/dL (32-36); Mean Corpuscular Hemoglobin 37 pg (26-34); Mean Corpuscular Volume 108 fL (80-100); Monocytes Percent Auto 9.8 % (0.0-11.0); Neutrophils Percent Auto 47.6 % (42.0-72.0); Platelet Count* 213 K/uL (140-440); RDW Coefficient of Variation % 13.2 % (11.5-15.5); Red Blood Count 2.92 m/uL (4.00-5.20); White Blood Count* 3.76 K/uL (4.50-11.00)
[2023-04-07 15:26] LABS: Chloride* 104 mmol/L (96-114)
[2023-04-07 15:27] LABS: Albumin* 3.7 g/dL (3.3-5.0); Sodium* 135 mmol/L (135-149)
[2023-04-07 15:28] LABS: Potassium* 3.8 mmol/L (3.6-5.1)
[2023-04-07 15:30] LABS: Alanine Aminotransferase* 26 U/L (4-35); Alkaline Phosphatase* 46 U/L (40-150); Aspartate Amino Transferase* 35 U/L (12-35); Bilirubin Total* 0.3 mg/dL (0.1-1.5); Blood Urea Nitrogen* 11 mg/dL (7-30); Carbon Dioxide* 23 mmol/L (20-32); Creatinine* 1.4 mg/dL (0.5-1.5); Est. Creatinine Clearance* 33.38; Estimated Glomerular Filt Rate 43 ml/min; Slide Review Reflex No; Total Protein* 6.2 g/dL (6.0-8.3)
[2023-04-07 15:31] LABS: Calcium* 9.7 mg/dL (8.4-10.6); Glucose* 108 mg/dL (60-115)
--- NOTE | 2023-04-08 14:25 | ONC.FOLLOWUP ---
Intake Vital Signs 03/04/23 14:52 Height 157.48 cm Weight 60.384 kg Intake Visit Reasons: breast cancer Allergies Bees Allergy (Severe, Uncoded 07/09/22 14:40) anaphalaytic Home Medications Zoledronic Acid 3 mg/ Sodium (Chloride) 103.75 mls @ 0 mls/hr IVPB ONCE ONE Stop: 04/08/23 23:59 Referred by:: JARROD Heart HPI HPI Patient Seen On:: April 08, 2023 [facility] Medical History (Updated 01/07/23 @ 14:49 by Nadege Baptiste PA-C) Cramp in lower leg ?R25.2 - Cramp and spasm (ICD-10) Central venous catheter in place ?Z78.9 - Other specified health status (ICD-10) DVT of axillary vein, acute right ?I82.A11 - Acute embolism and thrombosis of right axillary vein (ICD-10) Social History Smoking Status: Former smoker (7-8 years ago) Do you use any of these nicotine containing products: None Second hand tobacco smoke exposure: No How often do you have a drink containing alcohol: never How often do you have six or more drinks on one occasion: Never AUDIT-C Alcohol total score: 0 Non-prescribed substance use: denies use service: No Results Results [facility] Chemistry: Sodium 135 mmol/L (135-149) 04/07/23 Potassium 3.8 mmol/L (3.6-5.1) 04/07/23 Chloride 104 mmol/L (96-114) 04/07/23 Carbon Dioxide 23 mmol/L (20-32) 04/07/23 Calcium 9.7 mg/dL (8.4-10.6) 04/07/23 Glucose 108 mg/dL (60-115) 04/07/23 BUN 11 mg/dL (7-30) 04/07/23 Creatinine 1.4 mg/dL (0.5-1.5) 04/07/23 Total Protein 6.2 g/dL (6.0-8.3) 04/07/23 Albumin 3.7 g/dL (3.3-5.0) 04/07/23 AST 35 U/L (12-35) 04/07/23 ALT 26 U/L (4-35) 04/07/23 Alkaline Phosphatase 46 U/L (40-150) 04/07/23 Total Bilirubin 0.3 mg/dL (0.1-1.5) 04/07/23 Estimated GFR 43 ml/min 04/07/23 [facility] Hematology: WBC 3.76 K/uL (4.50-11.00) L 04/07/23 RBC 2.92 m/uL (4.00-5.20) L 04/07/23 Hgb 10.8 gm/dL (12.0-16.0) L 04/07/23 Hct 31.6 % (33.0-51.0) L 04/07/23 MCV 108 fL (80-100) H 04/07/23 MCH 37 pg (26-34) H 04/07/23 MCHC 34 gm/dL (32-36) 04/07/23 Plt Count 213 K/uL (140-440) 04/07/23 Neut % (Auto) 47.6 % (42.0-72.0) 04/07/23 Neut # (Auto) 1.80 K/uL (1.7-7.0) 04/07/23 Lymph % (Auto) 40.2 % (20-44) 04/07/23 [place] % (Auto) 9.8 % (0.0-11.0) 04/07/23 Eos % (Auto) 0.8 % (0.0-7.0) 04/07/23 Baso % (Auto) 1.1 % (0.0-3.0) 04/07/23 Hypothyroidism Results Results Hypothyroid Results: No Data to Display
[2023-04-10 03:45] LABS: Cancer Antigen 27.29 92.2 U/mL (<=39.0)
[2023-05-19 15:14] LABS: Basophils Absolute Auto 0.06 K/uL (0.00-0.30); Basophils Percent Auto 1.3 % (0.0-3.0); Eosinophils Absolute Auto 0.09 K/uL (0.00-0.50); Hematocrit 31.6 % (33.0-51.0); Hemoglobin* 10.7 gm/dL (12.0-16.0); Immature Granulocytes Abs Auto 0.01 K/uL (0.00-0.30); Immature Granulocytes Pct Auto 0.2 %; Lymphocytes Absolute Auto 1.91 K/uL (0.90-2.90); Lymphocytes Percent Auto 41.6 % (20-44); Mean Corpuscular HGB Conc 34 gm/dL (32-36); Mean Corpuscular Hemoglobin 36 pg (26-34); Mean Corpuscular Volume 108 fL (80-100); Monocytes Percent Auto 8.3 % (0.0-11.0); Neutrophils Absolute Auto 2.14 K/uL (1.7-7.0); Neutrophils Percent Auto 46.6 % (42.0-72.0); Platelet Count* 222 K/uL (140-440); RDW Coefficient of Variation % 13.6 % (11.5-15.5); Red Blood Count 2.94 m/uL (4.00-5.20); White Blood Count* 4.59 K/uL (4.50-11.00)
[2023-05-19 15:25] LABS: Slide Review Reflex No
[2023-05-19 15:36] LABS: Albumin* 3.7 g/dL (3.3-5.0); Chloride* 106 mmol/L (96-114)
[2023-05-19 15:37] LABS: Potassium* 3.9 mmol/L (3.6-5.1); Sodium* 135 mmol/L (135-149)
[2023-05-19 15:39] LABS: Alkaline Phosphatase* 41 U/L (40-150); Aspartate Amino Transferase* 24 U/L (12-35); Bilirubin Total* 0.3 mg/dL (0.1-1.5); Carbon Dioxide* 22 mmol/L (20-32); Creatinine* 1.4 mg/dL (0.5-1.5); Est. Creatinine Clearance* 33.38; Estimated Glomerular Filt Rate 43 ml/min; Total Protein* 6.2 g/dL (6.0-8.3)
[2023-05-19 15:40] LABS: Alanine Aminotransferase* 22 U/L (4-35); Blood Urea Nitrogen* 13 mg/dL (7-30); Calcium* 9.1 mg/dL (8.4-10.6); Glucose* 70 mg/dL (60-115)
--- NOTE | 2023-05-27 11:33 | URNOTE ---
Request received for authorization for Zoledronic Acid ([id number]). Prior authorization per [facility] on behalf of FRANDY Mitchell Zoledronic Acid clinical review not required #[id number].
== END 2023-07-05 23:59 | disposition home or self-care (01) ==
LOC: CCIC 15:00
PROVIDERS: Clinical Nurse Specialist; Internal Medicine Hematology & Oncology; Physician Assistant; PCP Physician Assistant; Referring Provider Physician Assistant; Visit Provider Nurse Practitioner Family
DX: C50.912 Malignant neoplasm of unspecified site of left female breast (principal); Z17.0 Estrogen receptor positive status [ER+]; Z79.810 Long term (current) use of selective estrogen receptor modulators (SERMs); K52.1 Toxic gastroenteritis and colitis; N18.9 Chronic kidney disease, unspecified
CPT/HCPCS: 36415; 36591; 80053; 83735; 85025; 86300; 96365; 96374; 99212; 99213; 99214; 99215; J3489

== ENCOUNTER 2023-08-19 14:37 | Outpatient (CLI) | payer BC, SELFPAY ==
--- NOTE | 2023-08-19 15:30 | CRLHL7_ITS ---
For Patients: As a result of the Century Cures Act, medical imaging exams and procedure reports are released immediately into your electronic medical record. You may view this report before your referring provider. If you have questions, please contact your health care provider. CLINICAL HISTORY: Metastatic breast cancer. TECHNIQUE: Following IV injection of 07-xaaypa-9-deoxyglucose (FDG) and a standard uptake period of approximately 60 minutes, a non-contrast CT scan followed by a PET scan were acquired along the length of the body from the mid portion of the head to the mid thighs. The non-contrast CT was used for anatomic localization and photon attenuation correction of the PET scan. Blood Glucose Level (mg/dL): 95 FDG Dose (mCi): 12.5 COMPARISON: PET-CT scans dated 16 Apr 2022 and 23 January 2021. FINDINGS: Head/Neck: Slightly decreased activity in the left lobe of the thyroid gland, SUV max 3.2 previously 3.9. No other abnormal activity identified in the head and neck. Chest: Left-sided Port-A-Cath. Resolution of the mediastinal and right hilar adenopathy. No axillary adenopathy. The lungs show focal ground-glass opacity in the anterior aspect of the right lung apex is new, SUV max 3.0. Small subpleural nodular opacity in the anterior aspect of the right upper lobe is new, SUV max 4.3. No other focal pulmonary opacities. No pneumothorax. Abdomen/Pelvis: No focal abnormalities identified in the visualized portions of the liver, spleen, pancreas, adrenal glands, and kidneys. No hydronephrosis. The GI tract is incompletely distended but shows no gross abnormalities. No retroperitoneal, pelvic sidewall, or mesenteric adenopathy. Atherosclerotic vascular calcifications. Bones: Diffuse sclerotic bone metastases with significant improvement in the active lesions, examples: Left humeral head SUV max 13.9 previously 2.9. L4 vertebral body SUV max 4.1 previously 11.6. L1 vertebral body SUV max 5.4 previously 14.6 Sacrum, SUV max 4.7 previously 17.9. IMPRESSION: 1. Resolution of the mediastinal and right hilar adenopathy. 2. Diffuse bone metastases are improved. 3. Two small new pulmonary opacities in the right upper lobe may represent an infectious/inflammatory process. Dictated by Demetrio Barbosa MD @ 08/25/2023 6:08:58 AM ----- ADDENDUM ----- Addendum : Under the Bones section, the report should read: Left humeral head SUV max 4.1 previously 16.3. Dictated by Demetrio Barbosa MD @ Aug 26 2023 1:31PM Signed by:?Demetrio Barbosa MD @08/25/2023 6:08:58 AM (Electronic Signature)
== END 2023-08-19 14:38 | disposition home or self-care (01) ==
PROVIDERS: PCP Student in an Organized Health Care Education/Training Program; Visit Provider Internal Medicine Hematology & Oncology
DX: C79.81 Secondary malignant neoplasm of breast (principal); R91.8 Other nonspecific abnormal finding of lung field; C79.89 Secondary malignant neoplasm of other specified sites
CPT/HCPCS: 78815; A9552

== ENCOUNTER 2023-12-02 15:20 | Outpatient (RCR) | payer BC, OTHER, SELFPAY ==
[2023-07-06 15:21] LABS: Sodium* 137 mmol/L (135-149)
[2023-07-06 15:23] LABS: Basophils Percent Auto 0.8 % (0.0-3.0); Eosinophils Percent Auto 1.1 % (0.0-7.0); Hematocrit 28.1 % (33.0-51.0); Hemoglobin* 9.6 gm/dL (12.0-16.0); Lymphocytes Percent Auto 36.1 % (20-44); Mean Corpuscular HGB Conc 34 gm/dL (32-36); Mean Corpuscular Hemoglobin 37 pg (26-34); Mean Corpuscular Volume 108 fL (80-100); Monocytes Percent Auto 9.4 % (0.0-11.0); Neutrophils Percent Auto 52.6 % (42.0-72.0); Platelet Count* 188 K/uL (140-440); RDW Coefficient of Variation % 13.3 % (11.5-15.5); Red Blood Count 2.61 m/uL (4.00-5.20); White Blood Count* 3.63 K/uL (4.50-11.00)
[2023-07-06 15:24] LABS: Slide Review Reflex No
[2023-07-06 15:39] LABS: Albumin* 3.4 g/dL (3.3-5.0); Chloride* 106 mmol/L (96-114)
[2023-07-06 15:40] LABS: Potassium* 3.7 mmol/L (3.6-5.1)
[2023-07-06 15:42] LABS: Alanine Aminotransferase* 24 U/L (4-35); Alkaline Phosphatase* 43 U/L (40-150); Aspartate Amino Transferase* 29 U/L (12-35); Bilirubin Total* 0.3 mg/dL (0.1-1.5); Blood Urea Nitrogen* 10 mg/dL (7-30); Calcium* 8.3 mg/dL (8.4-10.6); Carbon Dioxide* 19 mmol/L (20-32); Creatinine* 1.1 mg/dL (0.5-1.5); Estimated Glomerular Filt Rate 57 ml/min; Glucose* 137 mg/dL (60-115); Total Protein* 5.8 g/dL (6.0-8.3)
[2023-07-07] MEDS: ZOLEDRONIC ACID 3.3 MG in 0.9 % SODIUM CHLORIDE 100 ml 100 ML 416.5 MG IVPB (15:42)
[2023-07-07] MEDS: SODIUM CHLORIDE 0.9 % (FLUSH) 10 ML SYRINGE IVF (16:07)
[2023-07-07] MEDS: HEPARIN 500 UNIT/5 ML SYRINGE IVF (16:07)
[2023-07-09 01:00] LABS: Cancer Antigen 27.29 80.3 U/mL (<=39.0)
[2023-08-19 15:19] LABS: Albumin* 3.7 g/dL (3.3-5.0); Chloride* 105 mmol/L (96-114)
[2023-08-19 15:20] LABS: Sodium* 135 mmol/L (135-149)
[2023-08-19 15:21] LABS: Basophils Absolute Auto 0.04 K/uL (0.00-0.30); Basophils Percent Auto 0.9 % (0.0-3.0); Eosinophils Absolute Auto 0.03 K/uL (0.00-0.50); Eosinophils Percent Auto 0.6 % (0.0-7.0); Hematocrit 29.6 % (33.0-51.0); Hemoglobin* 10.2 gm/dL (12.0-16.0); Immature Granulocytes Abs Auto 0.02 K/uL (0.00-0.30); Immature Granulocytes Pct Auto 0.4 %; Lymphocytes Absolute Auto 1.55 K/uL (0.90-2.90); Lymphocytes Percent Auto 33.5 % (20-44); Mean Corpuscular HGB Conc 35 gm/dL (32-36); Mean Corpuscular Hemoglobin 37 pg (26-34); Mean Corpuscular Volume 107 fL (80-100); Monocytes Percent Auto 7.4 % (0.0-11.0); Neutrophils Absolute Auto 2.64 K/uL (1.7-7.0); Neutrophils Percent Auto 57.2 % (42.0-72.0); Platelet Count* 214 K/uL (140-440); RDW Coefficient of Variation % 13.5 % (11.5-15.5); Red Blood Count 2.78 m/uL (4.00-5.20); White Blood Count* 4.62 K/uL (4.50-11.00)
[2023-08-19 15:22] LABS: Anion Gap 8 mEq/L (7-15); Aspartate Amino Transferase* 29 U/L (12-35); Bilirubin Total* 0.4 mg/dL (0.1-1.5); Carbon Dioxide* 22 mmol/L (20-32); Creatinine* 1.2 mg/dL (0.5-1.5); Estimated Glomerular Filt Rate 51 ml/min; Total Protein* 6.4 g/dL (6.0-8.3)
[2023-08-19 15:23] LABS: Alanine Aminotransferase* 23 U/L (4-35); Alkaline Phosphatase* 50 U/L (40-150); Blood Urea Nitrogen* 9 mg/dL (7-30); Calcium* 8.9 mg/dL (8.4-10.6); Glucose* 85 mg/dL (60-115); Slide Review Reflex No
[2023-08-21 18:25] LABS: Cancer Antigen 27.29 83.8 U/mL (<=39.0)
[2023-08-25 14:48] VITALS: BP 122/73; PULSE 107; RESP 16; TEMP 36.3; O2SAT 100
[2023-09-15 15:16] LABS: Basophils Absolute Auto 0.03 K/uL (0.00-0.30); Basophils Percent Auto 0.7 % (0.0-3.0); Eosinophils Absolute Auto 0.02 K/uL (0.00-0.50); Eosinophils Percent Auto 0.4 % (0.0-7.0); Hematocrit 30.7 % (33.0-51.0); Hemoglobin* 10.4 gm/dL (12.0-16.0); Immature Granulocytes Abs Auto 0.02 K/uL (0.00-0.30); Immature Granulocytes Pct Auto 0.4 %; Lymphocytes Absolute Auto 1.31 K/uL (0.90-2.90); Mean Corpuscular HGB Conc 34 gm/dL (32-36); Mean Corpuscular Hemoglobin 36 pg (26-34); Mean Corpuscular Volume 107 fL (80-100); Neutrophils Absolute Auto 2.77 K/uL (1.7-7.0); Neutrophils Percent Auto 61.5 % (42.0-72.0); Platelet Count* 199 K/uL (140-440); Red Blood Count 2.88 m/uL (4.00-5.20); White Blood Count* 4.51 K/uL (4.50-11.00)
[2023-09-15 15:20] LABS: Slide Review Reflex No
[2023-09-15 15:48] LABS: Albumin* 3.6 g/dL (3.3-5.0); Chloride* 106 mmol/L (96-114); Sodium* 136 mmol/L (135-149)
[2023-09-15 15:49] LABS: Potassium* 3.1 mmol/L (3.6-5.1)
[2023-09-15 15:51] LABS: Alkaline Phosphatase* 58 U/L (40-150); Anion Gap 6 mEq/L (7-15); Aspartate Amino Transferase* 42 U/L (12-35); Bilirubin Total* 0.3 mg/dL (0.1-1.5); Blood Urea Nitrogen* 11 mg/dL (7-30); Carbon Dioxide* 24 mmol/L (20-32); Creatinine* 1.1 mg/dL (0.5-1.5); Estimated Glomerular Filt Rate 57 ml/min; Total Protein* 6.1 g/dL (6.0-8.3)
[2023-09-15 15:52] LABS: Alanine Aminotransferase* 20 U/L (4-35); Calcium* 9.1 mg/dL (8.4-10.6); Glucose* 83 mg/dL (60-115)
--- NOTE | 2023-09-16 12:18 | ONC.NURNOTE ---
Addendum entered by Romy Farley RN 09/22/23 10:11: Recheck of potassium 4.0 on 09/20. Reviewed results with Carole Williamson APRN. Left message with pt that potassium level improved and to take potassium as prescribed. Instructed pt to call if she has any questions. Addendum entered by Romy Farley RN 09/16/23 16:04: Discussed with Carole Williamson APRN. Carloe would like pt to come in on 09/17 to recheck her potassium. Left message for pt to call [facility] in the morning to schedule an appt. Original Note: Left message for pt to call [facility] regarding labs from yesterday. K-3.1. Need clarification if pt is taking her potassium supplement? Any diarrhea? Other symptoms?
[2023-09-20] MEDS: HEPARIN 500 UNIT/5 ML SYRINGE IVF (15:21)
[2023-09-20] MEDS: SODIUM CHLORIDE 0.9 % (FLUSH) 10 ML SYRINGE IVF (15:21)
[2023-10-04 15:11] LABS: Basophils Absolute Auto 0.03 K/uL (0.00-0.30); Basophils Percent Auto 0.6 % (0.0-3.0); Eosinophils Absolute Auto 0.01 K/uL (0.00-0.50); Eosinophils Percent Auto 0.2 % (0.0-7.0); Hematocrit 31.6 % (33.0-51.0); Hemoglobin* 10.7 gm/dL (12.0-16.0); Immature Granulocytes Abs Auto 0.03 K/uL (0.00-0.30); Immature Granulocytes Pct Auto 0.6 %; Lymphocytes Absolute Auto 1.53 K/uL (0.90-2.90); Lymphocytes Percent Auto 32.1 % (20-44); Mean Corpuscular HGB Conc 34 gm/dL (32-36); Mean Corpuscular Hemoglobin 36 pg (26-34); Mean Corpuscular Volume 107 fL (80-100); Neutrophils Absolute Auto 2.78 K/uL (1.7-7.0); Neutrophils Percent Auto 58.5 % (42.0-72.0); Platelet Count* 179 K/uL (140-440); RDW Coefficient of Variation % 13.7 % (11.5-15.5); Red Blood Count 2.96 m/uL (4.00-5.20); White Blood Count* 4.76 K/uL (4.50-11.00)
[2023-10-04 15:24] LABS: Albumin* 3.7 g/dL (3.3-5.0); Chloride* 107 mmol/L (96-114); Sodium* 137 mmol/L (135-149)
[2023-10-04 15:25] LABS: Potassium* 3.8 mmol/L (3.6-5.1)
[2023-10-04 15:27] LABS: Alanine Aminotransferase* 26 U/L (4-35); Alkaline Phosphatase* 55 U/L (40-150); Anion Gap 8 mEq/L (7-15); Aspartate Amino Transferase* 63 U/L (12-35); Bilirubin Total* 0.2 mg/dL (0.1-1.5); Blood Urea Nitrogen* 13 mg/dL (7-30); Carbon Dioxide* 22 mmol/L (20-32); Creatinine* 1.2 mg/dL (0.5-1.5); Estimated Glomerular Filt Rate 51 ml/min; Total Protein* 6.3 g/dL (6.0-8.3)
[2023-10-04 15:28] LABS: Calcium* 9.4 mg/dL (8.4-10.6); Glucose* 142 mg/dL (60-115)
[2023-10-04 15:37] LABS: Slide Review Reflex No
[2023-10-05 14:53] VITALS: BP 110/77; PULSE 103; RESP 16; TEMP 36.1; O2SAT 98
[2023-10-05] MEDS: ZOLEDRONIC ACID 3.3 MG in 0.9 % SODIUM CHLORIDE 100 ml 100 ML 420 MG IVPB (15:21)
[2023-10-05] MEDS: SODIUM CHLORIDE 0.9 % (FLUSH) 10 ML SYRINGE IVF (15:41)
[2023-10-05] MEDS: HEPARIN 500 UNIT/5 ML SYRINGE IVF (15:41)
[2023-11-01 15:37] LABS: Alanine Aminotransferase* 23 U/L (4-35); Alkaline Phosphatase* 44 U/L (40-150); Aspartate Amino Transferase* 28 U/L (12-35); Basophils Percent Auto 0.9 % (0.0-3.0); Bilirubin Total* 0.3 mg/dL (0.1-1.5); Blood Urea Nitrogen* 11 mg/dL (7-30); Calcium* 8.5 mg/dL (8.4-10.6); Carbon Dioxide* 22 mmol/L (20-32); Chloride* 108 mmol/L (96-114); Creatinine* 1.2 mg/dL (0.5-1.5); Eosinophils Percent Auto 0.5 % (0.0-7.0); Estimated Glomerular Filt Rate 51 ml/min; Glucose* 96 mg/dL (60-115); Hematocrit 32.2 % (33.0-51.0); Hemoglobin* 10.8 gm/dL (12.0-16.0); Immature Granulocytes Pct Auto 0.2 %; Lymphocytes Percent Auto 29.4 % (20-44); Mean Corpuscular HGB Conc 34 gm/dL (32-36); Mean Corpuscular Hemoglobin 36 pg (26-34); Mean Corpuscular Volume 108 fL (80-100); Monocytes Percent Auto 7.2 % (0.0-11.0); Neutrophils Percent Auto 61.8 % (42.0-72.0); Platelet Count* 190 K/uL (140-440); Potassium* 3.7 mmol/L (3.6-5.1); RDW Coefficient of Variation % 13.5 % (11.5-15.5); Red Blood Count 2.99 m/uL (4.00-5.20); Sodium* 136 mmol/L (135-149); Total Protein* 6.6 g/dL (6.0-8.3); White Blood Count* 4.28 K/uL (4.50-11.00)
[2023-11-01 15:39] LABS: Anion Gap 6 mEq/L (7-15)
[2023-11-01 15:41] LABS: Slide Review Reflex No
[2023-11-29] MEDS: SODIUM CHLORIDE 0.9 % (FLUSH) 10 ML SYRINGE IVF (15:33)
[2023-11-29] MEDS: HEPARIN 500 UNIT/5 ML SYRINGE IVF (15:33)
[2023-11-29 15:39] LABS: Basophils Absolute Auto 0.05 K/uL (0.00-0.30); Eosinophils Absolute Auto 0.02 K/uL (0.00-0.50); Eosinophils Percent Auto 0.4 % (0.0-7.0); Hematocrit 34.7 % (33.0-51.0); Hemoglobin* 11.5 gm/dL (12.0-16.0); Immature Granulocytes Abs Auto 0.01 K/uL (0.00-0.30); Immature Granulocytes Pct Auto 0.2 %; Lymphocytes Absolute Auto 1.27 K/uL (0.90-2.90); Lymphocytes Percent Auto 26.4 % (20-44); Mean Corpuscular HGB Conc 33 gm/dL (32-36); Mean Corpuscular Hemoglobin 36 pg (26-34); Mean Corpuscular Volume 107 fL (80-100); Monocytes Percent Auto 6.4 % (0.0-11.0); Neutrophils Absolute Auto 3.15 K/uL (1.7-7.0); Neutrophils Percent Auto 65.6 % (42.0-72.0); Platelet Count* 240 K/uL (140-440); RDW Coefficient of Variation % 13.5 % (11.5-15.5); Red Blood Count 3.23 m/uL (4.00-5.20); Slide Review Reflex No; White Blood Count* 4.81 K/uL (4.50-11.00)
[2023-11-29 15:47] LABS: Albumin* 4.2 g/dL (3.3-5.0); Chloride* 105 mmol/L (96-114); Potassium* 3.8 mmol/L (3.6-5.1); Sodium* 137 mmol/L (135-149)
[2023-11-29 15:49] LABS: Anion Gap 9 mEq/L (7-15); Bilirubin Total* 0.3 mg/dL (0.1-1.5); Carbon Dioxide* 23 mmol/L (20-32); Creatinine* 1.3 mg/dL (0.5-1.5); Estimated Glomerular Filt Rate 46 ml/min
[2023-11-29 15:50] LABS: Alanine Aminotransferase* 39 U/L (4-35); Alkaline Phosphatase* 62 U/L (40-150); Aspartate Amino Transferase* 29 U/L (12-35); Blood Urea Nitrogen* 13 mg/dL (7-30); Calcium* 8.7 mg/dL (8.4-10.6); Glucose* 131 mg/dL (60-115); Total Protein* 6.9 g/dL (6.0-8.3)
--- NOTE | 2023-12-03 09:50 | URNOTE ---
Request received for authorization for Zoledronic Acid (J3489). Prior authorization per [facility] Rep. Saritha Milligan, Zoledronic Acid prior authorization not required Ref# [id number].
== END 2024-01-02 23:59 | disposition home or self-care (01) ==
LOC: CCIC 15:20
PROVIDERS: Internal Medicine Hematology & Oncology; PCP Student in an Organized Health Care Education/Training Program; Referring Provider Student in an Organized Health Care Education/Training Program; Visit Provider Physician Assistant
DX: C50.912 Malignant neoplasm of unspecified site of left female breast (principal); Z17.0 Estrogen receptor positive status [ER+]; Z79.810 Long term (current) use of selective estrogen receptor modulators (SERMs); C79.81 Secondary malignant neoplasm of breast; C79.51 Secondary malignant neoplasm of bone; Z86.718 Personal history of other venous thrombosis and embolism; M25.552 Pain in left hip; Z79.01 Long term (current) use of anticoagulants
CPT/HCPCS: 36415; 36591; 80053; 84132; 85025; 86300; 96374; 99212; 99213; 99214; 99215; G0463; J1642; J3489

== ENCOUNTER 2024-03-02 13:02 | Outpatient (CLI) | payer OTHER, SELFPAY ==
--- NOTE | 2024-03-02 13:15 | PE_ITS ---
[facility] [address] [address] Phone:?[phone] Fax:?[phone] Referring Physician Information: Nadege Baptiste PA-C [address] [address] Phone:?[phone] Fax:?[phone] Patient:Kole Arnold.O.B:?1960 Sex:?Female Phone:?[phone] [facility] MRN:?[id number] Exam Date:?03/02/2024 EXAM: PET/CT EYES TO THIGHS, CANCER RESTAGING CLINICAL INFORMATION: Metastatic breast cancer. TECHNICAL INFORMATION: Helical acquisition of data was obtained from the orbits to the upper thighs with reconstruction of 3.75 mm thick images at 3.[address] data was used for attenuation correction. PET scanning was performed through the same anatomic range 60 minutes following administration of 11.36 mCi of 18-FDG delivered intravenously. The patient's glucose at the time of the injection was 85 mg/dL. PET, CT and PET/CT fusion images are interpreted using a computer viewing workstation. PET, CT and PET/CT fusion images were archived and saved in the patient's permanent medical record. COMPARISON: PET-CT from 08/19/2023. INTERPRETATION: Head and Neck: There are no abnormal hypermetabolic foci within the head or neck. There is physiologic uptake in the intracranial soft tissues. Chest: There are no abnormal hypermetabolic foci within the chest. Background mediastinal blood pool uptake has a maximum SUV of 2.1. No lung nodules or masses detected on this free-breathing exam. No lymphadenopathy detected. Left chest port catheter in situ. Abdomen and Pelvis: There are no abnormal hypermetabolic foci within the abdomen or pelvis. Background hepatic parenchymal uptake has a maximum SUV of 2.41. There is physiologic excretion of radiotracer in the urine and bowel. Skeleton, Musculature, and Integument: Diffuse sclerotic bone metastases, with worsened disease burden since July 2023. Index lesions include: ...a) left humeral head lesion (Se 2 Im 46) has a maximum SUV of 9.88, previously 13.9. ...b) L1 vertebral body lesion (Se 2 Im 143) has a maximum SUV of 23.02, previously 5.4. ...c) L4 vertebral body lesion (Se 2 Im 174) has a maximum SUV of 13.1, previously 4.1. ...d) sacral lesion (Se 2 Im 189) has a maximum SUV of 11.04, previously 4.7. Multiple new lesions are scattered throughout the spine, acetabula, and proximal extremities. Possible new uptake involving the spinal cord/dura (e.g., Se 2 Im 138) with maximum SUV of 9.73. Right maxillary uptake (Se 2 Im 27) has a maximum SUV of 11.45, indeterminate but possibly inflammatory/periodontal. CONCLUSION: 1. When compared to the PET-CT from July 2023, there is worsened skeletal metastatic disease burden, with index lesions provided above. 2. Possible new abnormal uptake along the spinal cord/dura. Recommend contrast- enhanced MRI of the spine (at least thoracolumbar) for further evaluation. Electronically signed on 03/06/2024 11:09:00 AM by Arya Mcghee M.D.
== END 2024-03-02 13:03 | disposition home or self-care (01) ==
LOC: RAD 13:03
PROVIDERS: PCP Student in an Organized Health Care Education/Training Program; Visit Provider Physician Assistant
DX: R79.89 Other specified abnormal findings of blood chemistry (principal); C50.919 Malignant neoplasm of unspecified site of unspecified female breast
CPT/HCPCS: 78815; A9552

== ENCOUNTER 2024-03-07 15:20 | Outpatient (CLI) | payer OTHER, SELFPAY ==
--- NOTE | 2024-03-07 15:30 | MR_ITS ---
Patient: LYLA SUAREZ Facility:?[facility] Patient ID:?[id number] Site Patient ID:?[id number]. Site :?1960 Study:?MRI-Spine Lumbar W/WO 15 CC DOTAREM-03/07/2024 5:29:27 PM Ordering Physician:DANA DURAN Final Report: ----- ADDENDUM ----- On further review, it should be noted that there is diffuse pathologic leptomeningeal enhancement throughout the mid and distal thoracic cord and conus medullaris, as well as scattered along the cauda equina nerve roots, compatible with metastatic disease. Dictated by Martha tSevens MD @ Mar 30 2024 3:19PM Indication: Secondary malignant neoplasm Technique: Multiplanar, multisequence, MRI of the lumbar spine, obtained without and with contrast. A total of 15 mL of Dotarem IV contrast was administered. Comparison: PET-CT 03/02/2024, MRI lumbar spine 03/26/2022 Findings: The normal lumbar lordosis is preserved. Redemonstration of widespread osseous metastases throughout the visualized lumbosacral spine and bony pelvis. Vertebral body heights are grossly maintained, without evidence of recent pathologic fracture. No suspicious enhancing soft tissue identified to suggest extraosseous spread of neoplasm. The conus medullaris terminates at L2. No concerning findings identified in the paraspinal soft tissues. Incidental small right renal cysts. Unremarkable included SI joints. T12-L1: No significant neural foraminal or spinal canal stenosis. L1-L2: Trace degenerative retrolisthesis. No significant neural foraminal or spinal canal stenosis. L2-L3: Trace degenerative retrolisthesis, mild facet arthropathy. No significant neural foraminal or spinal canal stenosis. L3-L4: Mild facet arthropathy. No significant neural foraminal or spinal canal stenosis. L4-L5: Shallow posterior disc bulge, moderate left asymmetric facet arthropathy. Mild bilateral neural foraminal narrowing. No spinal canal stenosis. L5-S1: Broad-based central disc protrusion, contacting/dorsally displacing the descending S1 nerve roots without imaging evidence of impingement, stable. Moderate facet arthropathy. No significant neural foraminal or central spinal canal stenosis. Impression: 1. Redemonstration of widespread osseous metastases involving the included spine and bony pelvis. No evidence of recent pathologic fracture or extraosseous spread of neoplasm. 2. At L5-S1, stable broad-based central disc protrusion contacts/dorsally displaces the descending S1 nerve roots without imaging evidence of impingement. 3. No high-grade neural foraminal or central spinal canal stenosis. Dictated by Martha Stevens MD @ 03/08/2024 11:54:16 AM Signed by:?Martha Stevens MD @03/08/2024 11:54:16 AM (Electronic Signature)
--- NOTE | 2024-03-07 16:30 | MR_ITS ---
Patient: LYLA SUAREZ Facility:?[facility] Patient ID:?[id number] Site Patient ID:?[id number]. Site :?1960 Study:?MRI-Spine Thoracic W/WO 15 CC DOTAREM-03/07/2024 5:29:03 PM Ordering Physician:DANA DURAN Final Report: ADDENDUM: On further review, it should be noted that there is diffuse pathologic leptomeningeal enhancement throughout the mid and distal thoracic cord and conus medullaris, as well as scattered along the cauda equina nerve roots, compatible with metastatic disease. Martha Stevens D.O. [employer] [email or web address] / Indication: Secondary malignant neoplasm Technique: Multiplanar, multisequence, MRI of the thoracic spine, obtained without and with contrast. A total of 15 mL of Dotarem IV contrast was administered. Comparison: PET-CT 03/02/2024, MRI thoracic spine 03/26/2022 Findings: The normal thoracic kyphosis is preserved. No significant spondylolisthesis. Redemonstration of widespread osseous metastases involving the anterior and posterior elements of every visualized vertebral level. No evidence of recent pathologic fracture. No suspicious enhancing soft tissue lesions to suggest extraosseous spread of neoplasm. Scattered spondylosis, with shallow degenerative disc bulges and multilevel facet arthropathy. No high-grade neural foraminal or spinal canal stenosis. The spinal cord appears normal in course, caliber, and intrinsic signal. No concerning findings identified in the paraspinal soft tissues. IMPRESSION: 1. Redemonstration of widespread osseous metastases, without evidence of extraosseous extension or recent pathologic fracture. 2. Scattered spondylosis, without high-grade neural foraminal or spinal canal stenosis. Dictated by Martha Stevens MD @ 03/08/2024 11:45:34 AM Signed by:?Martha Stevens MD @03/08/2024 11:45:34 AM (Electronic Signature)
== END 2024-03-07 15:21 | disposition home or self-care (01) ==
PROVIDERS: PCP Student in an Organized Health Care Education/Training Program; Visit Provider Internal Medicine Hematology & Oncology
DX: C79.51 Secondary malignant neoplasm of bone (principal); M50.23 Other cervical disc displacement, cervicothoracic region
CPT/HCPCS: 72157; 72158; A9575

== ENCOUNTER 2024-03-16 07:01 | Outpatient (CLI) | payer OTHER, SELFPAY ==
--- NOTE | 2024-03-16 07:21 | MR_ITS ---
Patient: LYLA SUAREZ Facility:?[facility] Patient ID:?[id number] Site Patient ID:?[id number]. Site :?1960 Study:?MRI-Head W/ and W/O Cont 15 CC DOTAREM-03/16/2024 10:47:33 AM Ordering Physician:?MASSIMO OVERTON Final Report: Indication: Breast cancer. Evaluate for metastases. Technique: Noncontrast sagittal T1, axial FLAIR, T2 turbo spine echo, and diffusion weighted images. Supplemental post contrast T1 weighted axial and coronal sequences are provided after administration of 15 mL gadolinium-based IV contrast. Comparison: No prior studies available for comparison at this institution. Findings: The ventricles, sulci and gyri are normal size, shape and contour for age. The midline structures are centrally located with no evidence of shift. There are no suspicious intra or extra-axial fluid collections. No evidence of restricted diffusion to suggest acute ischemia. The pituitary gland, optic chiasm, and cerebellar tonsils are unremarkable. Expected flow voids in the cavernous carotids and basilar artery. No abnormal contrast enhancement involving the brain parenchyma, meninges. A 1.6 cm T1 hypointense T2 hyperintense enhancing lesion in the right frontal bone, as well as a small lesion in the clivus compatible with osseous metastases. Bilateral pseudophakia. Moderate mucosal thickening in the right maxillary sinus. Leftward deviation of the nasal septum. Trace mastoid effusions. Impression: 1. Few osseous metastases in the calvarium. No intracranial extension. 2. No acute intracranial abnormality. Dictated by Remigio Stoner MD @ 03/16/2024 3:10:10 PM Signed by:?Remigio Stoner MD @03/16/2024 3:10:10 PM (Electronic Signature)
--- NOTE | 2024-03-16 08:15 | MR_ITS ---
Patient: LYLA SUAREZ Facility:?[facility] Patient ID:?[id number] Site Patient ID:?[id number]. Site :?1960 Study:?MRI-Spine Cervical W/WO 15 CC DOTAREM-03/16/2024 10:48:19 AM Ordering Physician:MASSIMO CADENA Final Report: Indication: Breast cancer. Evaluate for metastases. Technique: Noncontrast sagittal T1, T2, STIR and axial GRE sequences are provided. Sagittal and axial T1 postcontrast images obtained after administration of 15 cc Dotarem IV contrast. Comparison: PET-CT 03/02/2024 Findings: Normal alignment. Mild loss of T1 vertebral body height due to superior and inferior endplate compression fractures. T1 hypointense T2 hyperintense enhancing lesions are noted in the C5, C7 T1 and T2 vertebral bodies and in the T1 and T2 spinous processes compatible with osseous metastases. No abnormal intramedullary spinal cord signal. Left-sided chest wall Port-A-Cath. Retropharyngeal course of the right ICA. Partially calcified 1.5 centimeter left thyroid lobe nodule. C1-2: No spinal canal stenosis. C2-3: No significant spinal canal stenosis or neural foramen narrowing. C3-4: Small central protrusion. Bilateral facet arthrosis. Mild spinal canal narrowing and contact with the ventral cord surface. No neural foramen narrowing. C4-5: No significant spinal canal stenosis or neural foramen narrowing. C5-6: Small central disc protrusion indents the thecal sac without significant spinal canal stenosis. Moderate left facet arthrosis. Mild left neural foramen narrowing. C6-7: No significant spinal canal stenosis or neural foramen narrowing. C7-T1: No significant spinal canal stenosis or neural foramen narrowing. T1-T2: No significant spinal canal stenosis or neural foramen narrowing. Impression: 1. Enhancing marrow replacing lesions in the C5, C7, T1 and T2 vertebral bodies compatible with osseous metastases. No evidence of extraosseous or epidural tumor extension. 2. Mild loss of T1 vertebral body height due to superior and inferior endplate pathologic compression fractures. 3. A central disc herniation at C3-4 contacts the ventral cord surface and results in mild spinal canal narrowing. Otherwise no significant spinal canal stenosis or neural foramen narrowing. 4. Partially calcified 1.5 centimeter left thyroid lobe nodule. Dictated by Remigio Stoner MD @ 03/16/2024 2:56:00 PM Signed by:?Remigio Stoner MD @03/16/2024 2:56:00 PM (Electronic Signature)
== END 2024-03-16 07:02 | disposition home or self-care (01) ==
LOC: MRI 07:02
PROVIDERS: PCP Student in an Organized Health Care Education/Training Program; Visit Provider Student in an Organized Health Care Education/Training Program
DX: C50.912 Malignant neoplasm of unspecified site of left female breast (principal); C79.49 Secondary malignant neoplasm of other parts of nervous system; M89.9 Disorder of bone, unspecified; M50.21 Other cervical disc displacement, high cervical region; E04.1 Nontoxic single thyroid nodule
CPT/HCPCS: 70553; 72156; A9575

== ENCOUNTER 2024-04-14 09:42 | Emergency (ER) | payer OTHER, SELFPAY ==
[2024-04-14] VITALS (23 sets, daily range): BP systolic 96–109; BP diastolic 55–73; PULSE 70–102; RESP 16–22; TEMP 37.1; O2SAT 95–100; BMI 22.7
--- NOTE | 2024-04-14 10:45 | ED.GENADULT ---
HPI - General Adult General Time Seen by Provider: 10:45 Date Seen: 04/14/24 Chief complaint: Difficulty Swallowing Stated complaint: Difficulty swallowing Time Seen by Provider: 04/14/24 10:45 Source: patient and RN notes reviewed Mode of arrival: ambulatory Limitations: no limitations History of Present Illness HPI narrative: This 63-year-old female is coming in with pain and difficulty swallowing. She states it feels like it is inside at the base of her neck behind that when she swallows. She is having no difficulty breathing. There is no pain in her mouth no mouth sores no pain in the upper throat when swallowing. She does not have anything caught but states she has had difficulty even swallowing the smallest bites. Symptoms started on Wednesday with more of a tickle or irritation and has progressed to severe pain. She is having difficulty even swallowing liquids, has an emesis bag near her but is not needing to spit out her saliva yet. She has had no fevers, no chills. She is getting radiation this week for stage IV breast cancer, getting radiation to her spine and brain. She states the 1st 3 days she did get radiation through the chest wall. She did drive herself here today. States she does not need anything for pain at this time. She obviously is not been getting good oral intake in. Her daughter is been driving her to her treatments at [place]. She is also getting chemotherapy per report. Patient is on Xarelto, has a history of DVT an her axillary vein on the right side. Related Data Home Medications ?Medication ?Instructions ?Recorded ?Confirmed acetaminophen 325 mg capsule 650 mg PO Q4H PRN 06/09/22 03/28/24 cholecalciferol (vitamin D3) 50 50 mcg PO QDAY 06/09/22 03/28/24 mcg (2,000 unit) capsule loratadine 10 mg tablet 10 mg PO DAILY PRN 06/11/22 03/28/24 multivitamin 1 tab PO QAM 06/11/22 03/28/24 calcium citrate 315 mg 2 tab PO BID 11/05/22 03/28/24 calcium-vitamin D3 6.25 mcg (250 unit) tablet (Citracal + Vitamin D Maximum) ibuprofen 400 mg tablet 400 mg PO TID PRN 01/07/23 03/28/24 loperamide 2 mg capsule (Imodium 2 mg PO Q6H PRN 04/08/23 03/28/24 A-D) albuterol sulfate 90 mcg/actuation 2 puff inhalation Q2H PRN 05/21/23 03/28/24 aerosol inhaler Previous Rx's ?Medication ?Instructions ?Recorded prochlorperazine maleate 5 mg 5 mg PO BID PRN nausea and 03/06/24 tablet (Compazine) vomiting #30 tabs potassium chloride 20 mEq 20 meq PO QDAY #120 tabs 03/29/24 tablet,extended release(part/cryst) rivaroxaban 10 mg tablet (Xarelto) 10 mg PO QDAY #30 tabs 03/29/24 miscellaneous medical supply #60 mL 04/14/24 sucralfate 1 gram tablet (Carafate) 1 g PO Q6H PRN #180 tabs 04/14/24 Allergies Allergy/AdvReac Type Severity Reaction Status Date / Time Bees Allergy Severe anaphalayti Uncoded 04/14/24 12:32 c Review of Systems Status of ROS: Reports: 6 or more systems reviewed and unremarkable except as noted in History and below [facility] Medical History Cramp in lower leg ?R25.2 - Cramp and spasm (ICD-10) Central venous catheter in place ?Z78.9 - Other specified health status (ICD-10) DVT of axillary vein, acute right ?I82.A11 - Acute embolism and thrombosis of right axillary vein (ICD-10) Social History Smoking Status: Former smoker Do you use any of these nicotine containing products: None Second hand tobacco smoke exposure: No How often do you have a drink containing alcohol: never How often do you have six or more drinks on one occasion: Never AUDIT-C Alcohol total score: 0 Non-prescribed substance use: denies use service: No Exam Const: Vital Signs, click to edit/add: Vital Signs - 24 hr 04/14/24 09:50 04/14/24 10:52 04/14/24 11:29 Temperature 98.8 F Pulse Rate 84 Pulse Rate [Pulse Oximeter] 102 H Respiratory Rate 22 Blood Pressure Blood Pressure [Ri ght Upper Arm] 109/70 Pulse Oximetry 98 98 98 Oxygen Delivery Me thod Room Air 04/14/24 11:30 04/14/24 11:31 04/14/24 11:45 Temperature Pulse Rate 81 80 72 Pulse Rate [Pulse Oximeter] Respiratory Rate Blood Pressure 96/58 L Blood Pressure [Ri ght Upper Arm] Pulse Oximetry 97 97 96 Oxygen Delivery Me thod 04/14/24 12:00 04/14/24 12:02 04/14/24 12:32 Temperature Pulse Rate 73 82 79 Pulse Rate [Pulse Oximeter] Respiratory Rate Blood Pressure 101/55 L Blood Pressure [Ri ght Upper Arm] Pulse Oximetry 95 96 100 Oxygen Delivery Me thod 04/14/24 12:45 04/14/24 13:00 04/14/24 13:02 Temperature Pulse Rate 79 95 89 Pulse Rate [Pulse Oximeter] Respiratory Rate Blood Pressure 106/73 Blood Pressure [Ri ght Upper Arm] Pulse Oximetry 100 99 98 Oxygen Delivery Me thod That this 63-year-old female is alert, interactive, no apparent distress. She is able to speak normally, speech is normal, can speak in complete sentences. Pupils equal round reactive, sclera clear, face atraumatic. Oropharynx shows bifid uvula but otherwise no mucosa changes, posterior pharynx is normal, no oral pharyngeal swelling. She has no mouth sores. Neck is supple, no adenopathy, no masses, no reproducible tenderness. Lungs are clear, good air entry, no wheezing or crackles. CV slightly fast but regular, no murmur, normal S1-S2, no S3-S4. Abdomen is soft, nontender, nondistended, no organomegaly. See no skin changes of the anterior chest wall. Documenting provider has reviewed patient's vital signs: yes Course Course ED Course: This patient certainly is at risk for esophagitis from radiation. She is not having any complaints of any airway compromise. She does not have food bolus impaction at this time. Will proceed with soft tissue neck CT. Will talk to endoscopy, do see the patient is on Xarelto. This patient maybe above are abilities for endoscopy here but she may very well need 1. Will get baseline labs, start IV fluids. Reevaluation(s) Time of Reevaluation #1: 13:02 Reevaluation #1: Reviewed with patient that we are waiting her soft tissue neck CT to be read, I actually have not seen images yet. Her white blood count is low, she is on chemotherapy but we did review that her absolute neutrophil count is 500. She is not febrile. Did review with her though that this is more concerning to me given her symptoms that infection could start and take off. I am awaiting a call back from Oncology at [place]. She states she is post to be there for radiation at 5:00 p.m. today anyway. I have reviewed with her that she may need to be transferred, maybe on IV antibiotics. She would prefer to go by car if possible, will keep that in mind if we can do so. She denies any need for any pain management. Her IV fluids were just recently started. Time of Reevaluation #2: 14:21 Reevaluation #2: Patient tolerated the oral Carafate emulsion and the viscous lidocaine. Feels less painful swallowing already. Plans to discharge to home, will send these medications in. She is very aware to watch for fever. Consultations Consultation #1: Natalie CARPIO at the transfer center at [place] was contacted. She is going to await the soft tissue neck CT images to go through. Have reviewed with her that I did discuss this with 1 of our endoscopists . Given that this could be esophagitis, patient being on Xarelto and low white blood count, she really is not an acceptable candidate for us to do here. She very well may need endoscopy in this workup. Awaiting soft tissue neck CT. 1:24 p.m.: Did speak with Dr. Hartman from Radiation Oncology. He thinks we should try some viscous lidocaine, see if that will allow her to drink. I did ask about adding an Carafate, he thought that certainly would be fine. She does not have a fever. He would like to try these 1st, patient is stable to trial this. If this does not help her symptoms, she can proceed to the ER later tonight after her radiation treatment. Did review this with the patient afterwards. She is happy with this plan. Will see if she can tolerate some viscous lidocaine and Carafate here. Time: 12:42 Vital Signs Vital signs: Initial Vital Signs Temperature 98.8 F 04/14/24 09:50 Temperature Source Temporal Artery Scan 04/14/24 09:50 Pulse Rate 102 H 04/14/24 09:50 Pulse Rhythm Regular 04/14/24 09:50 Respiratory Rate 04/14/24 09:50 Blood Pressure 109/70 04/14/24 09:50 Blood Pressure Mean 83 04/14/24 09:50 Blood Pressure Position Supine 04/14/24 09:50 Pulse Oximetry 98 04/14/24 09:50 Oxygen Delivery Method Room Air 04/14/24 09:50 Vital Signs Temperature 98.8 F 04/14/24 09:50 Pulse Rate 102 H 04/14/24 09:50 Respiratory Rate 04/14/24 09:50 Blood Pressure 109/70 04/14/24 09:50 Pulse Oximetry 98 04/14/24 09:50 Oxygen Delivery Method Room Air 04/14/24 09:50 Temperature 98.8 F 04/14/24 09:50 Pulse Rate 89 04/14/24 13:02 Respiratory Rate 04/14/24 09:50 Blood Pressure 106/73 04/14/24 13:02 Pulse Oximetry 98 04/14/24 13:02 Oxygen Delivery Method Room Air 04/14/24 09:50 Medications Administered Medications: Discontinued Medications Generic Name Dose Route Start Last Admin Trade Name Freq PRN Reason Stop Dose Admin Lactated Ringer's 1,000 mls @ 500 mls/hr 04/14/24 11:11 04/14/24 14:16 Lactated Ringers 1000 Ml IV 04/14/24 13:10 1,200 mls/hr .Q2H ISABELLE Infusion Lidocaine HCl 10 ml 04/14/24 13:32 04/14/24 14:05 Lidocaine Viscous 2% 15 Ml Solution SWISH/SWAL 04/14/24 13:33 10 ml ONCE ONE Administration Sucralfate 1 gm 04/14/24 13:33 04/14/24 14:05 Sucralfate 1 Gm Tablet PO 04/14/24 13:34 1 gm ONCE ONE Administration Medical Decision Making Lab Data Lab results reviewed: Yes I reviewed the patient's lab results Labs: Lab Results 04/14/24 Range/Units 11:30 WBC 1.05 L* (4.50-11.00) K/uL RBC 2.71 L (4.00-5.20) m/uL Hgb 9.4 L (12.0-16.0) gm/dL Hct 28.0 L (33.0-51.0) % MCV 103 H (80-100) fL MCH 35 H (26-34) pg MCHC 34 (32-36) gm/dL RDW Coeff of Delfino 13.3 (11.5-15.5) % Plt Count 131 L (140-440) K/uL Neut % (Auto) 48.5 (42.0-72.0) % Lymph % (Auto) 28.6 (20-44) % [place] % (Auto) 19.0 H (0.0-11.0) % Eos % (Auto) 1.9 (0.0-7.0) % Baso % (Auto) 1.0 (0.0-3.0) % Neut # (Auto) 0.50 L (1.7-7.0) K/uL Lymph # (Auto) 0.30 L (0.90-2.90) K/uL [place] # (Auto) 0.20 (0.00-0.90) K/UL Eos # (Auto) 0.00 (0.00-0.50) K/uL Baso # (Auto) 0.00 (0.00-0.30) K/uL Abs Immat Gran (auto) 0.00 (0.00-0.30) K/uL Imm/Tot Granulo (auto) 1.0 % Sodium 137 (135-149) mmol/L Potassium 3.8 (3.6-5.1) mmol/L Chloride 113 (96-114) mmol/L Carbon Dioxide 25 (20-32) mmol/L Anion Gap -1 L (7-15) mEq/L BUN 10 (7-30) mg/dL Creatinine 0.8 (0.5-1.5) mg/dL Estimated Creat Clear 41.90 Estimated GFR 83 ml/min Glucose 76 (60-115) mg/dL Lactate 0.6 (0.5-1.9) mmol/L Calcium 8.2 L (8.4-10.6) mg/dL Total Bilirubin 0.5 (0.1-1.5) mg/dL AST 24 (12-35) U/L ALT 18 (4-35) U/L Alkaline Phosphatase 71 (40-150) U/L C-Reactive Protein 2.5 H (0.5-1.0) mg/dL Total Protein 6.2 (6.0-8.3) g/dL Albumin 3.5 (3.3-5.0) g/dL Procalcitonin 0.12 (<0.50) ng/mL Discharge Plan Discharge Clinical Impression: Pain on swallowing Patient Disposition: Home, Self-Care Condition: Stable Instructions: Esophagitis (ED) Additional Instructions: I do think that you have developed esophagitis as a complication from the radiation. Try the viscous lidocaine and Carafate (will need to mix with some water to emulsify) to help with symptoms. If this isn't helping, if you feel that you are worsening at any point, would have you re-evaluated and consider [place] for this if stable to get there. May need small frequent sips of liquids and very soft foods in small bites until you are improving. Activity Level: Activity as Tolerated Prescriptions: New sucralfate [Carafate] 1 gram tablet 1 g PO Q6H PRNQty: 180 3RF Rx Instructions: Mix in small amount of water to make a slurry to be able to drink. (DME) miscellaneous medical supply Liquid See Rx Instructions .Route Qty: 60 1RF Rx Instructions: Viscous lidocaine, 5-10 mL q.6 hours p.r.n., 60 mL No Action albuterol sulfate 90 mcg/actuation HFA aerosol inhaler 2 puff inhalation Q2H PRN prochlorperazine maleate [Compazine] 5 mg tablet 5 mg PO BID PRN (Reason: nausea and vomiting) Qty: 30 0RF cholecalciferol (vitamin D3) 50 mcg (2,000 unit) capsule 50 mcg PO QDAY acetaminophen 325 mg capsule 650 mg PO Q4H PRN loratadine 10 mg tablet 10 mg PO DAILY PRN multivitamin Tablet 1 tab PO QAM calcium citrate-vitamin D3 [Citracal + D Maximum] 315 mg-6.25 mcg (250 unit) tablet 2 tab PO BID ibuprofen 400 mg tablet 400 mg PO TID PRN loperamide [Imodium A-D] 2 mg capsule 2 mg PO Q6H PRN Xarelto 10 mg tablet 10 mg PO QDAY Qty: 30 3RF potassium chloride 20 mEq tablet,ER particles/crystals 20 meq PO QDAY Qty: 120 3RF Follow Up/Referrals: Nahomi Valera PA-C [Primary Care Provider] - Stand Alone Forms: [employer] Info Instructions
--- NOTE | 2024-04-14 10:52 | CRLHL7_ITS ---
For Patients: As a result of the Century Cures Act, medical imaging exams and procedure reports are released immediately into your electronic medical record. You may view this report before your referring provider. If you have questions, please contact your health care provider. INDICATION: DIFFICULTY SWALLOWING TECHNIQUE: CT soft tissue of the neck was acquired with 57CC ISOVUE 370 IV contrast. COMPARISON: PET-CT March 02, 2024. FINDINGS: Skull base: Unremarkable. Pharynx/Larynx/Trachea: Epiglottis is normal. Airway is patent. Adjacent soft tissues are normal. Salivary glands: Unremarkable. Thyroid gland: Subcentimeter hypodense left thyroid nodule. Lymph nodes: No lymphadenopathy. Vessels: Unremarkable for age. Bones: Diffuse skeletal sclerotic metastases lesions again noted. Misc: No inflammation or fluid collection. Or fluid collection. Moderate mucosal thickening and periosteal thickening of the maxillary wall, likely sequela of chronic sinusitis. Left IJ port. Lung apices: Unremarkable. IMPRESSION: 1. No identifiable cause for the patient`s reported difficulty swallowing. If there is further clinical concern recommend endoscopic evaluation. 2. Diffuse skeletal sclerotic metastases lesions again noted. 3. Moderate right maxillary mucosal thickening and periosteal thickening of the maxillary wall, likely sequela of chronic sinusitis. Please note that all CT scans at this facility use dose modulation, iterative reconstruction, and/or weight-based dosing when appropriate to reduce radiation dose to as low as reasonably achievable. Dictated by Quinten Hale MD @ 04/14/2024 1:07:40 PM (Electronically Signed)
[2024-04-14 11:37] LABS: Lactate* 0.6 mmol/L (0.5-1.9)
[2024-04-14 11:41] LABS: Eosinophils Percent Auto 1.9 % (0.0-7.0); Hemoglobin* 9.4 gm/dL (12.0-16.0); Lymphocytes Percent Auto 28.6 % (20-44); Mean Corpuscular HGB Conc 34 gm/dL (32-36); Mean Corpuscular Hemoglobin 35 pg (26-34); Mean Corpuscular Volume 103 fL (80-100); Neutrophils Percent Auto 48.5 % (42.0-72.0); Platelet Count* 131 K/uL (140-440); RDW Coefficient of Variation % 13.3 % (11.5-15.5); Red Blood Count 2.71 m/uL (4.00-5.20)
[2024-04-14 11:53] LABS: Chloride* 113 mmol/L (96-114)
[2024-04-14 11:54] LABS: Albumin* 3.5 g/dL (3.3-5.0); Sodium* 137 mmol/L (135-149)
[2024-04-14 11:55] LABS: Potassium* 3.8 mmol/L (3.6-5.1); Slide Review Reflex No; White Blood Count* 1.05 K/uL (4.50-11.00)
[2024-04-14 11:57] LABS: Anion Gap -1 mEq/L (7-15); Bilirubin Total* 0.5 mg/dL (0.1-1.5); Carbon Dioxide* 25 mmol/L (20-32); Creatinine* 0.8 mg/dL (0.5-1.5); Estimated Glomerular Filt Rate 83 ml/min
[2024-04-14 11:58] LABS: Alanine Aminotransferase* 18 U/L (4-35); Alkaline Phosphatase* 71 U/L (40-150); Aspartate Amino Transferase* 24 U/L (12-35); Blood Urea Nitrogen* 10 mg/dL (7-30); Calcium* 8.2 mg/dL (8.4-10.6); Glucose* 76 mg/dL (60-115); Total Protein* 6.2 g/dL (6.0-8.3)
[2024-04-14 12:00] LABS: C Reactive Protein* 2.5 mg/dL (0.5-1.0)
[2024-04-14 12:14] LABS: Procalcitonin* 0.12 ng/mL (<0.50)
[2024-04-14] MEDS: LACTATED RINGERS 1000 ML 1,000 ML 500 ML IV (13:14)
[2024-04-14] MEDS: SUCRALFATE 1 GM TABLET PO (14:05)
[2024-04-14] MEDS: HEPARIN 500 UNIT/5 ML SYRINGE IVF (15:00)
== END 2024-04-14 15:00 | disposition home or self-care (01) ==
PROVIDERS: Emergency Provider Family Medicine; PCP Student in an Organized Health Care Education/Training Program
DX: R13.19 Other dysphagia (principal)
CPT/HCPCS: 36415; 70491; 80053; 83605; 84145; 85025; 86140; 94761; 96361; 96374; 99284; 99285; A9270; J1642; J7120; Q9967

== ENCOUNTER 2024-06-15 15:37 | Emergency (ER) | payer OTHER, SELFPAY ==
[2024-06-15] VITALS (23 sets, daily range): BP systolic 92–107; BP diastolic 56–69; PULSE 81–114; RESP 18; TEMP 36.1–37.2; O2SAT 97–100; BMI 19.4
--- NOTE | 2024-06-15 16:21 | CRLHL7_ITS ---
For Patients: As a result of the Century Cures Act, medical imaging exams and procedure reports are released immediately into your electronic medical record. You may view this report before your referring provider. If you have questions, please contact your health care provider. INDICATION: Dizziness. TECHNIQUE: Multiplanar multisequence MR imaging of the brain prior to and following intravenous contrast. COMPARISON: MRI brain 05/14/2022. FINDINGS: Mild diffuse cerebral volume loss. No mass effect or midline shift. Few punctate FLAIR hyperintensities in the supratentorial white matter, typical for minimal chronic microvascular ischemic changes. No pathologic intracranial enhancement. No intracranial hemorrhage or pathologic extra-axial fluid collection. No diffusion restriction to suggest acute infarction. The major arterial flow voids of the skullbase are preserved. Thinning of the ocular lenses. Moderately severe right maxillary sinus mucosal thickening. Small bilateral mastoid effusions. IMPRESSION: 1. No acute intracranial abnormality. 2. Mild diffuse cerebral volume loss and minimal chronic microvascular ischemic changes. 3. Small bilateral mastoid effusions. Dictated by Bora Hurley MD @ 06/15/2024 5:46:45 PM (Electronically Signed)
[2024-06-15 16:51] LABS: Lactate* 1.4 mmol/L (0.5-1.9)
[2024-06-15 17:00] LABS: Basophils Percent Auto 0.6 % (0.0-3.0); Lymphocytes Percent Auto 15.6 % (20-44); Mean Corpuscular HGB Conc 34 gm/dL (32-36); Mean Corpuscular Hemoglobin 34 pg (26-34); Mean Corpuscular Volume 100 fL (80-100); Monocytes Percent Auto 17.5 % (0.0-11.0); Neutrophils Percent Auto 66.3 % (42.0-72.0); Platelet Count* 124 K/uL (140-440); RDW Coefficient of Variation % 16.9 % (11.5-15.5)
[2024-06-15 17:20] LABS: Chloride* 101 mmol/L (96-114); Sodium* 129 mmol/L (135-149)
[2024-06-15 17:21] LABS: Potassium* 3.7 mmol/L (3.6-5.1); Slide Review Reflex Yes
[2024-06-15 17:22] LABS: Est. Creatinine Clearance* 44.27; Estimated Glomerular Filt Rate 64 ml/min
[2024-06-15 17:23] LABS: Alkaline Phosphatase* 51 U/L (40-150); Anion Gap 5 mEq/L (7-15); Aspartate Amino Transferase* 25 U/L (12-35); Bilirubin Direct* 0.3 mg/dL (0.0-0.5); Bilirubin Total* 0.6 mg/dL (0.1-1.5); Blood Urea Nitrogen* 8 mg/dL (7-30); Carbon Dioxide* 23 mmol/L (20-32); Total Protein* 6.2 g/dL (6.0-8.3)
[2024-06-15 17:24] LABS: Alanine Aminotransferase* 13 U/L (4-35); Calcium* 8.9 mg/dL (8.4-10.6); Glucose* 97 mg/dL (60-115); Magnesium* 1.9 mg/dL (1.5-2.6)
[2024-06-15 17:26] LABS: Hemoglobin* 7.7 gm/dL (12.0-16.0); White Blood Count* 1.54 K/uL (4.50-11.00)
[2024-06-15 17:35] LABS: Troponin I* 0.02 ng/mL (0.01-0.04)
[2024-06-15 17:42] LABS: PCR FLU A Negative PCR FLU A (Negative); PCR FLU B Negative PCR FLU B (Negative); SARS PCR* Negative SARS-CoV-2 (Negative)
[2024-06-15] MEDS: 0.9 % SODIUM CHLORIDE 1000 ml 1,000 ML IV (17:51)
--- NOTE | 2024-06-15 17:59 | ED.GENADULT ---
HPI - General Adult General Chief complaint: Unspecified Complaint, Adult Stated complaint: Imbalance Time Seen by Provider: 06/15/24 16:01 Source: patient Mode of arrival: ambulatory Limitations: no limitations History of Present Illness HPI narrative: 63-year-old female presenting today with dizziness. Patient states that she ?feels like a drunken jackscrew man?. She states that she feels wobbly when she walks and she really has to concentrate hard not to fall. She does deny falling. She denies the room spinning around her. She denies nausea or vomiting. She states that she has felt this way for several days now. She denies any vision or hearing changes. Patient denies any recent illness. Patient has a history of breast cancer with metastasis. Her diagnosis was 1st done in 2013. She has had years of chemotherapy he and recent radiation that just ended in a March of this year. 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 Patient is due for a follow-up next week where she will have a brain MRI and PET scan done. She has had chronic anemia due to her her therapies and cancer. Related Data Home Medications ?Medication ?Instructions ?Recorded ?Confirmed acetaminophen 325 mg capsule 650 mg PO Q4H PRN 06/09/22 05/03/24 cholecalciferol (vitamin D3) 50 50 mcg PO QDAY 06/09/22 05/03/24 mcg (2,000 unit) capsule loratadine 10 mg tablet 10 mg PO DAILY PRN 06/11/22 05/03/24 multivitamin 1 tab PO QAM 06/11/22 05/03/24 calcium citrate 315 mg 2 tab PO BID 11/05/22 05/03/24 calcium-vitamin D3 6.25 mcg (250 unit) tablet (Citracal + Vitamin D Maximum) ibuprofen 400 mg tablet 400 mg PO TID PRN 01/07/23 05/03/24 albuterol sulfate 90 mcg/actuation 2 puff inhalation Q2H PRN 05/21/23 05/03/24 aerosol inhaler potassium chloride 20 mEq 20 meq PO BID 05/03/24 05/31/24 tablet,extended release(part/cryst) Previous Rx's ?Medication ?Instructions ?Recorded prochlorperazine maleate 5 mg 5 mg PO BID PRN nausea and 03/06/24 tablet (Compazine) vomiting #30 tabs rivaroxaban 10 mg tablet (Xarelto) 10 mg PO QDAY #30 tabs 03/29/24 miscellaneous medical supply #60 mL 04/14/24 cyclobenzaprine 5 mg tablet 5 mg PO QHS #30 tabs 05/03/24 hydrocodone 5 mg-acetaminophen 325 1 tab PO Q8H PRN pain #60 tabs 05/03/24 mg tablet Allergies Allergy/AdvReac Type Severity Reaction Status Date / Time bee venom protein (honey bee) Allergy Verified 05/31/24 13:46 Review of Systems Status of ROS: Reports: 10 or more systems reviewed and unremarkable except as noted in History and below [facility] Medical History Cramp in lower leg ?R25.2 - Cramp and spasm (ICD-10) Central venous catheter in place ?Z78.9 - Other specified health status (ICD-10) DVT of axillary vein, acute right ?I82.A11 - Acute embolism and thrombosis of right axillary vein (ICD-10) Social History Smoking Status: Smoker, status unknown Do you use any of these nicotine containing products: None Second hand tobacco smoke exposure: No How often do you have a drink containing alcohol: never How often do you have six or more drinks on one occasion: Never AUDIT-C Alcohol total score: 0 Non-prescribed substance use: denies use service: No Exam Narrative: Exam Narrative: Frail appearing patient in no acute distress. Alert and oriented x3. Answers questions appropriately. Mood and affect are appropriate. Thoughts are goal oriented and rational. No tangential or magical thinking noted. Patient speaks in full sentences without needing to catch her breath. HEENT: Normocephalic atraumatic, patient does not have any hair. Pupils are equally round reactive to light. Extraocular muscles are intact. Conjunctivae are moist without any icterus noted, quite pale. Dry, pale mucous membranes. Cardiovascular: Regular rhythm, tachycardic. Lungs: Clear to auscultation bilaterally. Abdomen: Soft with normal bowel sounds. Extremities: Bilateral lower extremities are without edema. For delete that Skin: Well perfused without any obvious rashes. Strength is 5/5 of the upper and lower extremities. Cranial nerves 3-12 are normal. [id number] is normal. There is no nystagmus either horizontally or vertically. Const: Vital Signs, click to edit/add: Vital Signs - 24 hr 06/15/24 15:46 06/15/24 18:34 06/15/24 18:37 Temperature 98.9 F Pulse Rate 93 Pulse Rate [Left P ulse Oximeter] 114 H Respiratory Rate Blood Pressure Blood Pressure [Ri ght Upper Arm] 107/69 Pulse Oximetry 98 100 100 Oxygen Delivery Me thod Room Air 06/15/24 18:37 06/15/24 18:45 06/15/24 20:19 Temperature 97.9 F Pulse Rate 90 90 Pulse Rate [Left P ulse Oximeter] 93 Respiratory Rate Blood Pressure 99/59 L Blood Pressure [Ri ght Upper Arm] 105/56 L Pulse Oximetry 100 100 99 Oxygen Delivery Me thod Room Air 06/15/24 20:35 06/15/24 21:20 Temperature 97.1 F L 97 F L Pulse Rate 86 88 Pulse Rate [Left P ulse Oximeter] Respiratory Rate 18 18 Blood Pressure 101/65 97/60 Blood Pressure [Ri ght Upper Arm] Pulse Oximetry Oxygen Delivery Me thod Course Course ED Course: IV was established we did start the patient on L of normal saline. Labs were drawn. I did call the Cancer Center: I spoke to Nora who is aware of this patient and familiar with her. She requested that we get her brain MRI today to make sure there are no lesions causing her dizziness and lack of balance. Again, she was going to get this done next week anyways. 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 EKG, read by me, shows sinus tachycardia with a pulse of 101. CBC did return showing a white cell count of 1.54 and hemoglobin of 7.7. This has to be the lowest that it has been. Sodium is low at 129, normal potassium. Normal BUN and creatinine. Normal LFTs. Normal troponin. Normal CRP. Negative for influenza and COVID. Brain MRI returned without any evidence of brain metastasis. We discussed risks and benefits of a blood transfusion, I do think that the benefits would outweigh the risks at this time as I do think that the patient's symptoms are likely due to her significant anemia. Patient wishes to proceed and we transfuse 1 unit of blood. She felt much better after treatment was ready for discharge. Pulse normalized. Vital Signs Vital signs: Initial Vital Signs Temperature 98.9 F 06/15/24 15:46 Temperature Source Tympanic 06/15/24 15:46 Pulse Rate 114 H 06/15/24 15:46 Blood Pressure 107/69 06/15/24 15:46 Blood Pressure Mean 81 06/15/24 15:46 Pulse Oximetry 98 06/15/24 15:46 Oxygen Delivery Method Room Air 06/15/24 15:46 Vital Signs Temperature 98.9 F 06/15/24 15:46 Pulse Rate 114 H 06/15/24 15:46 Blood Pressure 107/69 06/15/24 15:46 Pulse Oximetry 98 06/15/24 15:46 Oxygen Delivery Method Room Air 06/15/24 15:46 Temperature 97 F L 06/15/24 21:20 Pulse Rate 88 06/15/24 21:20 Respiratory Rate 18 06/15/24 21:20 Blood Pressure 97/60 06/15/24 21:20 Pulse Oximetry 99 06/15/24 20:19 Oxygen Delivery Method Room Air 06/15/24 18:37 Medications Administered Medications: Generic Name Dose Route Start Last Admin Trade Name Freq PRN Reason Stop Dose Admin Sodium Chloride 250 ml 06/15/24 17:24 06/15/24 20:30 0.9 % Sodium Chloride 250 Ml IV 06/16/24 23:59 250 ml ONCE PRN Administration Discontinued Medications Generic Name Dose Route Start Last Admin Trade Name Freq PRN Reason Stop Dose Admin Sodium Chloride 1,000 mls @ 1,000 mls/hr 06/15/24 16:15 06/15/24 18:50 0.9 % Sodium Chloride 1000 Ml IV 06/15/24 17:14 Infused .Q1H ISABELLE Infusion Medical Decision Making MDM Narrative Medical decision making narrative: 63-year-old female with metastatic breast cancer, presenting with dizziness and feeling off balance. Found to be profoundly anemic. Feeling significantly better after fluids and blood transfusion. Patient will follow-up with her oncology team. Medical Records Medical records reviewed: Yes I reviewed the patient's medical records Lab Data Lab results reviewed: Yes I reviewed the patient's lab results Labs: Lab Results 07/25/24 07/25/24 07/25/24 Range/Units 16:30 16:35 17:48 WBC 1.54 L* (4.50-11.00) K/uL RBC 2.30 L (4.00-5.20) m/uL Hgb 7.7 L* (12.0-16.0) gm/dL Hct 23.0 L (33.0-51.0) % MCV 100 (80-100) fL MCH 34 (26-34) pg MCHC 34 (32-36) gm/dL RDW Coeff of Delf[place] 16.9 H (11.5-15.5) % Plt Count 124 L (140-440) K/uL Neut % (Auto) 66.3 (42.0-72.0) % Lymph % (Auto) 15.6 L (20-44) % [place] % (Auto) 17.5 H (0.0-11.0) % Eos % (Auto) 0.0 (0.0-7.0) % Baso % (Auto) 0.6 (0.0-3.0) % Neut # (Auto) 1.00 L (1.7-7.0) K/uL Lymph # (Auto) 0.20 L (0.90-2.90) K/uL [place] # (Auto) 0.30 (0.00-0.90) K/UL Eos # (Auto) 0.00 (0.00-0.50) K/uL Baso # (Auto) 0.00 (0.00-0.30) K/uL Abs Immat Gran (auto) 0.00 (0.00-0.30) K/uL Imm/Tot Granulo (auto) 0.0 % Diff Slide Review Acceptable Review (Acceptable) Sodium 129 L (135-149) mmol/L Potassium 3.7 (3.6-5.1) mmol/L Chloride 101 (96-114) mmol/L Carbon Dioxide 23 (20-32) mmol/L Anion Gap 5 L (7-15) mEq/L BUN 8 (7-30) mg/dL Creatinine 1.0 (0.5-1.5) mg/dL Estimated Creat Clear 44.27 Estimated GFR 64 ml/min Glucose 97 (60-115) mg/dL Lactate 1.4 (0.5-1.9) mmol/L Calcium 8.9 (8.4-10.6) mg/dL Magnesium 1.9 (1.5-2.6) mg/dL Total Bilirubin 0.6 (0.1-1.5) mg/dL Direct Bilirubin 0.3 (0.0-0.5) mg/dL AST 25 (12-35) U/L ALT 13 (4-35) U/L Alkaline Phosphatase 51 (40-150) U/L Troponin I 0.02 (0.01-0.04) ng/mL C-Reactive Protein 1.0 (0.5-1.0) mg/dL Total Protein 6.2 (6.0-8.3) g/dL Albumin 4.0 (3.3-5.0) g/dL Urine Color (Yellow) Urine Appearance (Clear) Urine pH (5.0-8.5) Ur Specific [place] (1.000-1.030) Urine Protein (Negative) Urine Glucose (UA) (Negative) Urine Ketones (Negative) Urine Blood (Negative) Urine Nitrite (Negative) Urine Bilirubin (Negative) Urine Urobilinogen (0.2-1.0) Ur Leukocyte Esterase (Negative) Urine RBC (0-2) Urine WBC (0-5) Ur Squamous Epith Cells (None-Few) Urine Bacteria (None) SARS-CoV-2 (PCR) Negative SARS-CoV-2 (Negative) Influenza Type A (PCR) Negative PCR FLU A (Negative) Influenza Type B (PCR) Negative PCR FLU B (Negative) Blood Type O Positive Antibody Screen NEGATIVE Crossmatch (AHG) See Detail 06/15/24 Range/Units 18:26 WBC (4.50-11.00) K/uL RBC (4.00-5.20) m/uL Hgb (12.0-16.0) gm/dL Hct (33.0-51.0) % MCV (80-100) fL MCH (26-34) pg MCHC (32-36) gm/dL RDW Coeff of Delfino (11.5-15.5) % Plt Count (140-440) K/uL Neut % (Auto) (42.0-72.0) % Lymph % (Auto) (20-44) % [place] % (Auto) (0.0-11.0) % Eos % (Auto) (0.0-7.0) % Baso % (Auto) (0.0-3.0) % Neut # (Auto) (1.7-7.0) K/uL Lymph # (Auto) (0.90-2.90) K/uL [place] # (Auto) (0.00-0.90) K/UL Eos # (Auto) (0.00-0.50) K/uL Baso # (Auto) (0.00-0.30) K/uL Abs Immat Gran (auto) (0.00-0.30) K/uL Imm/Tot Granulo (auto) % Diff Slide Review (Acceptable) Sodium (135-149) mmol/L Potassium (3.6-5.1) mmol/L Chloride (96-114) mmol/L Carbon Dioxide (20-32) mmol/L Anion Gap (7-15) mEq/L BUN (7-30) mg/dL Creatinine (0.5-1.5) mg/dL Estimated Creat Clear Estimated GFR ml/min Glucose (60-115) mg/dL Lactate (0.5-1.9) mmol/L Calcium (8.4-10.6) mg/dL Magnesium (1.5-2.6) mg/dL Total Bilirubin (0.1-1.5) mg/dL Direct Bilirubin (0.0-0.5) mg/dL AST (12-35) U/L ALT (4-35) U/L Alkaline Phosphatase (40-150) U/L Troponin I (0.01-0.04) ng/mL C-Reactive Protein (0.5-1.0) mg/dL Total Protein (6.0-8.3) g/dL Albumin (3.3-5.0) g/dL Urine Color Yellow (Yellow) Urine Appearance Clear (Clear) Urine pH 6.5 (5.0-8.5) Ur Specific [place] 1.010 (1.000-1.030) Urine Protein Negative (Negative) Urine Glucose (UA) Negative (Negative) Urine Ketones Negative (Negative) Urine Blood Negative (Negative) Urine Nitrite Negative (Negative) Urine Bilirubin Negative (Negative) Urine Urobilinogen 0.2 (0.2-1.0) Ur Leukocyte Esterase Trace A (Negative) Urine RBC 0-2 (0-2) Urine WBC 2-5 (0-5) Ur Squamous Epith Cells None (None-Few) Urine Bacteria None (None) SARS-CoV-2 (PCR) (Negative) Influenza Type A (PCR) (Negative) Influenza Type B (PCR) (Negative) Blood Type Antibody Screen Crossmatch (AHG) Imaging Data MR Brain: Attestation: I have reviewed the pertinent imaging results. Radiologist's impression: [place] [address] Diagnostic Imaging Report Patient: Kimmy Castro MR#: [id number] : 1960 Acct:[id number] Loc: ED Service Date: 06/15/[address]: Ordering Physician: Mariajose Santa M.D. Date of Service: 06/15/24 Procedure(s): MR head/brain wo/w con Accession Number(s): [id number] cc: Nahomi Valera PA-C; Mariajose Santa M.D.~ For Patients: As a result of the Cures Act, medical imaging exams and procedure reports are released immediately into your electronic medical record. You may view this report before your referring provider. If you have questions, please contact your health care provider. INDICATION: Dizziness. TECHNIQUE: Multiplanar multisequence MR imaging of the brain prior to and following intravenous contrast. COMPARISON: MRI brain 05/14/2022. FINDINGS: Mild diffuse cerebral volume loss. No mass effect or midline shift. Few punctate FLAIR hyperintensities in the supratentorial white matter, typical for minimal chronic microvascular ischemic changes. No pathologic intracranial enhancement. No intracranial hemorrhage or pathologic extra-axial fluid collection. No diffusion restriction to suggest acute infarction. The major arterial flow voids of the skullbase are preserved. Thinning of the ocular lenses. Moderately severe right maxillary sinus mucosal thickening. Small bilateral mastoid effusions. IMPRESSION: 1. No acute intracranial abnormality. 2. Mild diffuse cerebral volume loss and minimal chronic microvascular ischemic changes. 3. Small bilateral mastoid effusions. ECG Data Attestation: I personally reviewed and interpreted this ECG as follows: Discharge Plan Discharge Clinical Impression: Anemia of chronic disease, Dizziness Patient Disposition: Home, Self-Care Condition: Improved Additional Instructions: Follow-up with your primary care or oncology team as scheduled. Prescriptions: No Action albuterol sulfate 90 mcg/actuation HFA aerosol inhaler 2 puff inhalation Q2H PRN prochlorperazine maleate [Compazine] 5 mg tablet 5 mg PO BID PRN (Reason: nausea and vomiting) Qty: 30 0RF cholecalciferol (vitamin D3) 50 mcg (2,000 unit) capsule 50 mcg PO QDAY acetaminophen 325 mg capsule 650 mg PO Q4H PRN loratadine 10 mg tablet 10 mg PO DAILY PRN multivitamin Tablet 1 tab PO QAM calcium citrate-vitamin D3 [Citracal + D Maximum] 315 mg-6.25 mcg (250 unit) tablet 2 tab PO BID ibuprofen 400 mg tablet 400 mg PO TID PRN potassium chloride 20 mEq tablet,ER particles/crystals 20 meq PO BID cyclobenzaprine 5 mg tablet 5 mg PO QHS Qty: 30 1RF Hold Instructions: pt doesn't think she is taking hydrocodone-acetaminophen 5-325 mg tablet 1 tab PO Q8H PRN (Reason: pain) Qty: 60 0RF (DME) miscellaneous medical supply Liquid See Rx Instructions .Route Qty: 60 1RF Rx Instructions: Viscous lidocaine, 5-10 mL q.6 hours p.r.n., 60 mL Xarelto 10 mg tablet 10 mg PO QDAY Qty: 30 3RF Follow Up/Referrals: Nahomi Valera PA-C [Primary Care Provider] - Stand Alone Forms: MyHealth Info Instructions
[2024-06-15 18:52] LABS: Appearance Urine Clear (Clear); Bilirubin Urine Negative (Negative); Blood Urine Negative (Negative); Color Urine Yellow (Yellow); Glucose Urine Negative (Negative); Ketones Urine Negative (Negative); Leukocyte Esterase Urine Trace (Negative); Nitrite Urine Negative (Negative); Protein Urine Negative (Negative); Urobilinogen Urine 0.2 (0.2-1.0); pH Urine 6.5 (5.0-8.5)
[2024-06-15 19:09] LABS: RBC Urine 0-2 (0-2)
[2024-06-15] MEDS: 0.9 % SODIUM CHLORIDE 250 ml IV (20:30)
[2024-06-15 21:18] LABS: Slide Review Acceptable Review (Acceptable)
[2024-06-15] MEDS: HEPARIN 500 UNIT/5 ML SYRINGE IVF (22:24)
== END 2024-06-15 22:31 | disposition home or self-care (01) ==
PROVIDERS: Emergency Provider Family Medicine; PCP Student in an Organized Health Care Education/Training Program
DX: R42 Dizziness and giddiness (principal); D63.8 Anemia in other chronic diseases classified elsewhere
CPT/HCPCS: 36415; 36430; 70553; 80048; 80076; 81001; 83605; 83735; 84484; 85025; 86140; 86850; 86900; 86901; 86922; 87086; 87186; 87631; 93005; 94761; 99285; A9575; J1642; J7030; J7050; P9016

== ENCOUNTER 2024-06-23 08:31 | Outpatient (CLI) | payer OTHER, SELFPAY ==
--- NOTE | 2024-06-23 08:15 | CRLHL7_ITS ---
For Patients: As a result of the Century Cures Act, medical imaging exams and procedure reports are released immediately into your electronic medical record. You may view this report before your referring provider. If you have questions, please contact your health care provider. INDICATION: Metastatic breast cancer. COMPARISON: 06/22/2024. TECHNIQUE: Sagittal T1, T2, and STIR sequences. Axial T2/gradient sequences. Post gadolinium T1 weighted sequences. FINDINGS: Normal vertebral body alignment. No fractures. No vertebral body loss of height. No spondylolisthesis. No ligamentous injury. No suspicious osseous lesions. Normal cord signal. No intradural mass or lesion. Multilevel abnormal osseous low T1 and T2 signal intensity lesions with enhancement the largest of which involves the C7 vertebral body. Finds consistent with widespread osseous metastases. Largest lesion at C7 correlates with the hypermetabolic activity seen on previous PET scan. No pathologic fractures. No tumor extending in the epidural space. Normal cord signal. No intradural mass or lesion. C1-2: No spinal canal narrowing. C2-3: No spinal canal or neural foraminal narrowing. C3-4: Disk degeneration posterior disc bulge. No narrowing of spinal canal. Mild narrowing of the right neural foramen. No narrowing of the left neural foramen. C4-5: No spinal canal or neural foraminal narrowing. C5-6: Disc generation posted disc bulge. Mild narrowing of spinal canal. No neural foraminal narrowing. C6-7: No spinal canal neural foraminal narrowing. C7-T1: No spinal canal or neural foraminal narrowing. No spinal canal or neural foraminal narrowing in the visualized thoracic spine. IMPRESSION: 1. Normal alignment. No fractures. 2. Normal cord signal. 3. Multilevel abnormal low T1 and T2 signal intensity lesions within the cervical spine, visualized upper thoracic spine, and clivus consistent with . Metastases. Largest lesion at C7 correlates with PET scan findings 4. No pathologic fractures. No tumor extending into the epidural space. 5. At C3-4, mild narrowing of the right neural foramen 6. At C5-6, mild narrowing of the spinal canal. 7. No spinal canal or neural foraminal narrowing at the remaining levels Dictated by Emmett Winston MD @ 06/25/2024 2:57:14 PM (Electronically Signed)
--- NOTE | 2024-06-23 09:15 | CRLHL7_ITS ---
For Patients: As a result of the Century Cures Act, medical imaging exams and procedure reports are released immediately into your electronic medical record. You may view this report before your referring provider. If you have questions, please contact your health care provider. INDICATION: Metastatic breast cancer. COMPARISON: 06/22/2024 PET scan. TECHNIQUE: Sagittal T1, T2, and STIR sequences. Axial T1 and T2 weighted sequences. FINDINGS: Normal vertebral body alignment. No fractures. No spondylolisthesis. Widespread osseous metastases throughout the lumbar spine, sacrum, and bilateral iliac bones. Abnormal enhancement along the surface of the lower thoracic cord and conus and involving the cauda equina nerve roots consistent with leptomeningeal metastases. Mild lumbar spondylosis. T12-L1 L1-2 L2-3: No spinal canal neural foraminal narrowing. L3-4: No spinal canal or neural foraminal narrowing. L4-5: Annular bulge. No narrowing of spinal canal. No neural foraminal narrowing. L5-S1: Disc degeneration posterior disc bulge. No narrowing of spinal canal. No impingement of the traversing S1 nerve roots. No neural foraminal narrowing. Degenerative changes of the SI joints. No presacral edema inflammation. IMPRESSION: 1. Normal alignment. No fractures. 2. Widespread osseous metastases. No pathologic fractures 3. 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 Mild lumbar spondylosis Dictated by Emmett Winston MD @ 06/25/2024 3:09:00 PM (Electronically Signed)
--- NOTE | 2024-06-23 10:15 | CRLHL7_ITS ---
For Patients: As a result of the Century Cures Act, medical imaging exams and procedure reports are released immediately into your electronic medical record. You may view this report before your referring provider. If you have questions, please contact your health care provider. INDICATION: Metastatic breast cancer. COMPARISON: PET scan 06/22/2024. Technique Sagittal T1, T2, and STIR sequences. Axial T2/gradient sequences. FINDINGS: Normal vertebral body facet alignment. Widespread osseous metastases throughout the thoracic and visualized upper lumbar spine. No pathologic fractures. Known tumor extending into the epidural space. Post gamma imaging demonstrates abnormal nodular enhancement along the surface of the midthoracic cord through the conus. Additional, there is abnormal enhancement and thickening of the visualized cauda equina nerve roots. Overall, finds the concerning for leptomeningeal metastases. No abnormal signal intensity of the cord parenchyma. Thoracic spondylosis with multilevel disc degeneration and facet arthropathy. No prominent disc protrusions or herniations. No spinal canal neural foraminal narrowing at all levels of the thoracic spine. IMPRESSION: 1. Normal alignment. No pathologic fractures. 2. Widespread osseous metastases. 3. Post gadolinium imaging demonstrates abnormal nodular enhancement along the surface of the mid and lower thoracic cord to the conus with the thickening enhancement of the cauda equina nerve roots. 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 4. No tumor extending into the epidural space. 5. Thoracic spondylosis Dictated by Emmett Winston MD @ 06/25/2024 3:04:37 PM (Electronically Signed)
== END 2024-06-23 08:32 | disposition home or self-care (01) ==
LOC: MRI 08:31
PROVIDERS: PCP Student in an Organized Health Care Education/Training Program; Visit Provider Internal Medicine Hematology & Oncology
DX: C50.919 Malignant neoplasm of unspecified site of unspecified female breast (principal); M50.222 Other cervical disc displacement at C5-C6 level; M50.21 Other cervical disc displacement, high cervical region; M47.894 Other spondylosis, thoracic region; M47.896 Other spondylosis, lumbar region
CPT/HCPCS: 72156; 72157; 72158; 99211; A9575

== ENCOUNTER 2024-06-28 13:30 | Outpatient (RCR) | payer OTHER, SELFPAY ==
[2024-01-03 15:32] LABS: Basophils Absolute Auto 0.05 K/uL (0.00-0.30); Basophils Percent Auto 0.9 % (0.0-3.0); Eosinophils Absolute Auto 0.02 K/uL (0.00-0.50); Eosinophils Percent Auto 0.4 % (0.0-7.0); Hematocrit 30.7 % (33.0-51.0); Hemoglobin* 10.2 gm/dL (12.0-16.0); Immature Granulocytes Abs Auto 0.08 K/uL (0.00-0.30); Immature Granulocytes Pct Auto 1.4 %; Lymphocytes Absolute Auto 1.19 K/uL (0.90-2.90); Lymphocytes Percent Auto 21.2 % (20-44); Mean Corpuscular HGB Conc 33 gm/dL (32-36); Mean Corpuscular Hemoglobin 34 pg (26-34); Mean Corpuscular Volume 102 fL (80-100); Monocytes Percent Auto 11.7 % (0.0-11.0); Neutrophils Absolute Auto 3.62 K/uL (1.7-7.0); Neutrophils Percent Auto 64.4 % (42.0-72.0); Platelet Count* 322 K/uL (140-440); RDW Coefficient of Variation % 13.4 % (11.5-15.5); White Blood Count* 5.62 K/uL (4.50-11.00)
[2024-01-03 15:36] LABS: Slide Review Reflex No
[2024-01-03 17:10] LABS: Albumin* 3.7 g/dL (3.3-5.0); Chloride* 101 mmol/L (96-114); Sodium* 135 mmol/L (135-149)
[2024-01-03 17:12] LABS: Creatinine* 1.2 mg/dL (0.5-1.5); Estimated Glomerular Filt Rate 51 ml/min
[2024-01-03 17:13] LABS: Alanine Aminotransferase* 29 U/L (4-35); Alkaline Phosphatase* 84 U/L (40-150); Anion Gap 5 mEq/L (7-15); Aspartate Amino Transferase* 34 U/L (12-35); Bilirubin Total* 0.4 mg/dL (0.1-1.5); Blood Urea Nitrogen* 9 mg/dL (7-30); Calcium* 9.2 mg/dL (8.4-10.6); Carbon Dioxide* 29 mmol/L (20-32); Glucose* 141 mg/dL (60-115); Total Protein* 6.9 g/dL (6.0-8.3)
[2024-01-04 15:00] VITALS: BP 109/69; PULSE 105; RESP 16; TEMP 35.9; O2SAT 96
[2024-01-04] MEDS: ZOLEDRONIC ACID 3.3 MG in 0.9 % SODIUM CHLORIDE 100 ml 100 ML 350 MG IVPB (15:31)
[2024-01-04] MEDS: 0.9 % SODIUM CHLORIDE 250 ml IV (15:59)
[2024-01-04] MEDS: SODIUM CHLORIDE 0.9 % (FLUSH) 10 ML SYRINGE IVF (15:59)
[2024-01-04] MEDS: HEPARIN 500 UNIT/5 ML SYRINGE IVF (15:59)
[2024-01-06 15:15] LABS: Potassium* 5.1 mmol/L (3.6-5.1)
--- NOTE | 2024-01-06 15:42 | ONC.NURNOTE ---
Patient called with potassium results, these were reviewed with INVESTMENT DIRECTOR. Patient instructed to just take one tablet tomorrow, then go back to one tablet twice daily starting Saturay. Patient verbalized understanding and will be in next month for another lab draw.
[2024-01-31] MEDS: SODIUM CHLORIDE 0.9 % (FLUSH) 10 ML SYRINGE IVF (15:00)
[2024-01-31] MEDS: HEPARIN 500 UNIT/5 ML SYRINGE IVF (15:00)
[2024-01-31 15:16] LABS: Basophils Percent Auto 0.9 % (0.0-3.0); Eosinophils Percent Auto 0.3 % (0.0-7.0); Hematocrit 31.8 % (33.0-51.0); Hemoglobin* 10.6 gm/dL (12.0-16.0); Lymphocytes Percent Auto 38.3 % (20-44); Mean Corpuscular HGB Conc 33 gm/dL (32-36); Mean Corpuscular Hemoglobin 35 pg (26-34); Mean Corpuscular Volume 105 fL (80-100); Monocytes Percent Auto 10.6 % (0.0-11.0); Neutrophils Percent Auto 49.9 % (42.0-72.0); Platelet Count* 199 K/uL (140-440); RDW Coefficient of Variation % 15.2 % (11.5-15.5); Red Blood Count 3.04 m/uL (4.00-5.20)
[2024-01-31 15:29] LABS: Albumin* 4.1 g/dL (3.3-5.0); Chloride* 107 mmol/L (96-114); Slide Review Reflex No
[2024-01-31 15:30] LABS: Potassium* 3.9 mmol/L (3.6-5.1); Sodium* 136 mmol/L (135-149)
[2024-01-31 15:32] LABS: Anion Gap 4 mEq/L (7-15); Bilirubin Total* 0.5 mg/dL (0.1-1.5); Carbon Dioxide* 25 mmol/L (20-32); Creatinine* 1.2 mg/dL (0.5-1.5); Estimated Glomerular Filt Rate 51 ml/min
[2024-01-31 15:33] LABS: Alanine Aminotransferase* 26 U/L (4-35); Alkaline Phosphatase* 68 U/L (40-150); Aspartate Amino Transferase* 29 U/L (12-35); Blood Urea Nitrogen* 7 mg/dL (7-30); Calcium* 9.2 mg/dL (8.4-10.6); Glucose* 97 mg/dL (60-115); Total Protein* 6.8 g/dL (6.0-8.3)
[2024-02-28 15:17] LABS: Basophils Percent Auto 1.4 % (0.0-3.0); Eosinophils Percent Auto 0.2 % (0.0-7.0); Hemoglobin* 11.6 gm/dL (12.0-16.0); Lymphocytes Percent Auto 35.6 % (20-44); Mean Corpuscular HGB Conc 33 gm/dL (32-36); Mean Corpuscular Hemoglobin 35 pg (26-34); Mean Corpuscular Volume 105 fL (80-100); Monocytes Percent Auto 9.4 % (0.0-11.0); Neutrophils Percent Auto 53.4 % (42.0-72.0); Platelet Count* 271 K/uL (140-440); RDW Coefficient of Variation % 15.3 % (11.5-15.5); Red Blood Count 3.35 m/uL (4.00-5.20); White Blood Count* 4.35 K/uL (4.50-11.00)
[2024-02-28 15:22] LABS: Slide Review Reflex No
[2024-02-28 15:59] LABS: Chloride* 104 mmol/L (96-114)
[2024-02-28 16:00] LABS: Albumin* 4.3 g/dL (3.3-5.0); Sodium* 135 mmol/L (135-149)
[2024-02-28 16:01] LABS: Potassium* 4.2 mmol/L (3.6-5.1)
[2024-02-28 16:03] LABS: Alanine Aminotransferase* 30 U/L (4-35); Alkaline Phosphatase* 74 U/L (40-150); Anion Gap 5 mEq/L (7-15); Aspartate Amino Transferase* 31 U/L (12-35); Bilirubin Total* 0.3 mg/dL (0.1-1.5); Blood Urea Nitrogen* 11 mg/dL (7-30); Carbon Dioxide* 26 mmol/L (20-32); Creatinine* 1.2 mg/dL (0.5-1.5); Estimated Glomerular Filt Rate 51 ml/min; Glucose* 85 mg/dL (60-115); Total Protein* 7.3 g/dL (6.0-8.3)
[2024-02-28 16:04] LABS: Calcium* 9.8 mg/dL (8.4-10.6)
--- NOTE | 2024-03-09 08:53 | ONC.NURNOTE ---
Refill request for Verzenio 150mg was sent to our office from [facility]. Per Dr. Fry last visit note, this medication is discontinued. Systems Testing Laboratory Technician called [facility] to discontinue sending refill requests.
--- NOTE | 2024-03-09 13:22 | URNOTE ---
?Request received for authorization for?Doxil (Doxorubicin (Liposomal))? (Q2050). Prior authorization is approved by [facility] Ref#[id number], date range: 03-20-2024 to 03-20-2025.
--- NOTE | 2024-03-14 15:52 | ONC.NURNOTE ---
Coordination of Care ~03/06 Liquid Biopsy sent 03/13 Radiation Oncology consult 03/14 Ang f/u; plan to start Doxil after radiation complete. Heart Echo pending scheduling around radiation schedule. 03/15 Possible Simulation in [place] for proton beam tx 03/16 MRI head and cervical spine -- ordered per Rad Tx (Originally Dr. Fry ordered Head MRI, but our order cancelled as not to duplicate.) 03/20 Treatment planning with Rad Tx originally scheduled for this day, but then moved up to possibly 03/15. BNNs following.
--- NOTE | 2024-03-20 16:44 | ONC.NURNOTE ---
Reviewed [facility] testing with Dr. Fry. Plan will still be to proceed with Doxil. Dr. Fry will discuss with [facility] team to see if it is appropriate to give a dose of Doxil prior to her radiation treatments starting 04/03. I left a message with Carolyn encouraging her to schedule her ECHO [facility] so that we can proceed with treatment. Will await Dr. Fry final recommendation.
--- NOTE | 2024-03-22 13:10 | ONC.NURNOTE ---
Addendum entered by Carolyn Hamm 03/23/24 15:18: Patient will have her ECHO 03/24 at [facility]. We will review the results with Dr. Fry on 03/27. I left a message with patient to see if she is available to tentatively start treatment on 03/28 with teaching prior. Original Note: I reviewed the plan of care with Dr. Fry. She would ideally like Carolyn to get her first Doxil infusion the beginning of next week (03/27 or 03/28) so that we do not interfere with her radiation appointments starting on 04/03 in [place]. I left a message with Carolyn informing her of the same. I have faxed an order for her ECHO to be done at [place] with [facility] ([phone]). We will wait to re-schedule her local ECHO and new start chemo 03/30 until we know if it is possible to get it done sooner at [place].
[2024-03-24 11:18] LABS: Basophils Percent Auto 1.3 % (0.0-3.0); Hematocrit 32.9 % (33.0-51.0); Hemoglobin* 11.1 gm/dL (12.0-16.0); Immature Granulocytes Pct Auto 0.3 %; Lymphocytes Percent Auto 36.7 % (20-44); Mean Corpuscular HGB Conc 34 gm/dL (32-36); Mean Corpuscular Hemoglobin 35 pg (26-34); Mean Corpuscular Volume 104 fL (80-100); Monocytes Percent Auto 14.6 % (0.0-11.0); Neutrophils Percent Auto 46.1 % (42.0-72.0); Platelet Count* 219 K/uL (140-440); RDW Coefficient of Variation % 14.4 % (11.5-15.5); Red Blood Count 3.15 m/uL (4.00-5.20); White Blood Count* 3.98 K/uL (4.50-11.00)
[2024-03-24 11:32] LABS: Chloride* 104 mmol/L (96-114)
[2024-03-24 11:33] LABS: Potassium* 3.9 mmol/L (3.6-5.1); Sodium* 139 mmol/L (135-149)
[2024-03-24 11:35] LABS: Anion Gap 9 mEq/L (7-15); Carbon Dioxide* 26 mmol/L (20-32); Estimated Glomerular Filt Rate 64 ml/min
[2024-03-24 11:36] LABS: Alanine Aminotransferase* 21 U/L (4-35); Alkaline Phosphatase* 59 U/L (40-150); Aspartate Amino Transferase* 28 U/L (12-35); Bilirubin Total* 0.3 mg/dL (0.1-1.5); Blood Urea Nitrogen* 8 mg/dL (7-30); Glucose* 109 mg/dL (60-115); Total Protein* 6.6 g/dL (6.0-8.3)
[2024-03-24 22:59] LABS: Slide Review Reflex No
[2024-03-28 13:14] VITALS: BP 114/78; PULSE 100; RESP 16; TEMP 36.4; O2SAT 99
[2024-03-28] MEDS: SODIUM CHLORIDE 0.9 % (FLUSH) 10 ML SYRINGE IVF ×2 (13:45→16:12)
[2024-03-28] MEDS: 5 % DEXTROSE 250 ML IV (14:16)
--- NOTE | 2024-03-28 14:17 | PC.NURSE ---
Pt present today at [facility] for her first dose of Doxil. Full pt assessment done. Pt education reviewed with Carolyn. RN noted hand/foot syndrome as a side effect. During property supervisor, Carolyn explained that for the last month she has been experiencing constant burning sensation in her feet. She also describes the sensation as dry and tight. Carolyn applies lotion frequently which offers immediate relief but then after the lotion absorbs/dries, she has the sensation return. Carolyn also shares that since her first treatment of chemo, she has tingling in her fingers adn toes when they are submerged in water. Drying the skin immediately resolves those symptoms. This newer foot burning is different and has only been going on for about a month. Discussed above symptoms with Dr. Fry. ok'd proceeding with treatment today. MD will discuss this neuropathy at their next visit. Also of note, pt inquired about Zometa infusion. No current orders. Discussed this with MD as well and this was also deferred to their next visit. No Zometa infusion scheduled at this time. Carolyn needs refills of Xarelto and Potassium. Will ask MD to refill when present at [facility] next.
[2024-03-28] MEDS: dexAMETHasone 10 MG in 0.9 % SODIUM CHLORIDE 100 ml 100 ML 420 MG IVPB (14:20)
[2024-03-28] MEDS: HEPARIN 500 UNIT/5 ML SYRINGE IVF (16:12)
--- NOTE | 2024-03-28 16:27 | ONC.NURNOTE ---
Pt tolerated first doxil without difficulty. Instructed pt to take Prochlorperazine this evening and again in the morning. Script is written for 2x/day. Instructed pt to call [facility] if she is having additional nausea. Pt verbalized understanding of plan of care.
--- NOTE | 2024-03-29 13:08 | ONC.NURNOTE ---
Follow up call to patient to see how she tolerated her first chemotherapy. Left patient message and encouraged her to call back with questions. Also informed patient of the followin. We will plan to hold Zometa until return visit in April 2. We will see her back with labs 05/02 at 3:30, doctor visit and infusion 05/03 at 1:00.
[2024-04-18 15:01] VITALS: BP 118/68; PULSE 108; RESP 20; TEMP 36.6; O2SAT 99
[2024-04-18 15:05] VITALS: BP 113/79; PULSE 123
[2024-04-18] MEDS: 0.9 % SODIUM CHLORIDE 1000 ml 1,000 ML IV (15:22)
--- NOTE | 2024-04-18 15:30 | ONC.NURNOTE ---
Addendum entered and electronically signed by Carole Maier APRN 04/18/24 17:59: Received return call from Shruthi Hammonds PA-C for Dr. Charles Ibarra regarding below. She shared that she discussed pt with Dr. Ibarra prior to our call. Discussed recent ED visit at [facility] for symptoms of radiation associated esophagitis. As per below. Requested treatment recommendation for IVF 3x per week prn dehydration, and repeat CBC, BMP lab work which we can complete for pt here and fax lab results back to them. Recommend for pt to try tums to help with calcium if she is not currently able to take her calcium citrate due to esophagitis. Shruthi will call Ms. Castro regarding trial of magic mouthwash, liquid tylenol or ibuprofen for pain control, electrolyte drinks. Confirmed with Shruthi that Ms. Castro is due for routine follow up with Dr. Subha Fry, [facility] on 05/03/24. Current chemotherapy has been on hold since 03/15 when Ms. Castro was referred to [facility] due to brain mets, spinal mets. Original Note: Pt presented to [facility] with concerns for dehydration. She notes she was seen in ED over the weekend for pain with swallowing; see Dr. 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 Pt is using viscous lidocaine and carafate as directed; she reports her pain is lower in her esophagus and is not covered by the swish and spit meds. She is sipping fluids throughout the day; estimates ~ 8oz water, milk and carnation instant breakfast/equivalent protein shake. She is able to eat small amounts of applesauce, cottage cheese, overcooked mac and cheese, mashed potatoes and gravy and popsicles. VS show stable BP but HR increased from 108 to 123 with standing. She denies dizziness or lightheadedness with position changes. Wt loss ~2 kg from previous wt. Reviewed with Carole Renee APRN. Pt's last Rad Tx 04/14. 1L NS IV given today. Pt also neutropenic per ED labs; WBC 1.05, ANC 0.5. Placed call to Dr. Charles Ibarra / [facility] - Юлия p: [phone]. Requesting treatment recommendations for local symptom management. Юлия sent priority msg to Dr. Ibarra. Previously scheduled to f/u in [address] Fry for beginning chemotx.
[2024-04-18] MEDS: HEPARIN 500 UNIT/5 ML SYRINGE IVF (16:27)
[2024-04-18] MEDS: SODIUM CHLORIDE 0.9 % (FLUSH) 10 ML SYRINGE IVF (16:27)
[2024-04-21 13:00] VITALS: BP 101/72; PULSE 111; RESP 18; TEMP 36.8; O2SAT 100
[2024-04-21 13:10] VITALS: BP 103/72; PULSE 120
[2024-04-21] MEDS: 0.9 % SODIUM CHLORIDE 1000 ml 1,000 ML IV (13:10)
[2024-04-21] MEDS: SODIUM CHLORIDE 0.9 % (FLUSH) 10 ML SYRINGE IVF (13:19)
[2024-04-21 13:26] LABS: Basophils Percent Auto 0.8 % (0.0-3.0); Hematocrit 28.5 % (33.0-51.0); Hemoglobin* 9.5 gm/dL (12.0-16.0); Immature Granulocytes Pct Auto 1.6 %; Lymphocytes Percent Auto 13.9 % (20-44); Mean Corpuscular HGB Conc 33 gm/dL (32-36); Mean Corpuscular Hemoglobin 34 pg (26-34); Mean Corpuscular Volume 102 fL (80-100); Monocytes Percent Auto 30.3 % (0.0-11.0); Neutrophils Percent Auto 53.4 % (42.0-72.0); Platelet Count* 219 K/uL (140-440); RDW Coefficient of Variation % 13.7 % (11.5-15.5); Red Blood Count 2.79 m/uL (4.00-5.20); White Blood Count* 2.44 K/uL (4.50-11.00)
[2024-04-21 13:28] LABS: Slide Review Reflex No
[2024-04-21 13:42] LABS: Potassium* 3.1 mmol/L (3.6-5.1); Sodium* 139 mmol/L (135-149)
[2024-04-21 13:43] LABS: Chloride* 104 mmol/L (96-114)
[2024-04-21 13:45] LABS: Anion Gap 7 mEq/L (7-15); Blood Urea Nitrogen* 9 mg/dL (7-30); Carbon Dioxide* 28 mmol/L (20-32); Creatinine* 0.9 mg/dL (0.5-1.5); Estimated Glomerular Filt Rate 72 ml/min; Glucose* 97 mg/dL (60-115)
[2024-04-21] MEDS: POTASSIUM CHLORIDE 10 MEQ/100 ML PIGGYBACK 100 MEQ IVPB ×2 (14:01→15:06)
--- NOTE | 2024-04-21 14:08 | ONC.NURNOTE ---
Pt here today for labs/IVF for poor PO intake d/t radiation esophagitis. She notes that her [facility] team, Shruthi Hammonds CNP, ordered Magic Mouthwash (1:1:1) 15 ml swish and swallow QID PRN. She began this last night and is having significant improvement in pain with swallowing. She continues to sip liquids and eat small amounts of soft food throughout the day, but notes her urine is quite concentrated when voiding. She began 2 Tums/day for low calcium and is tolerating sucking on them. Pt asks if she can dissolve her potassium pills in applesauce to help swallowing. Pt asked this Wednesday and we recommended this. She has not been taking her potassium since then; today K 3.1. Nahomi Mcclain RN managing [facility]; she reviewed with Carole Renee APRN, who ordered IV K replacement and will adjust followup next week accordingly per Carole's recommendations.
[2024-04-24] MEDS: SODIUM CHLORIDE 0.9 % (FLUSH) 10 ML SYRINGE IVF ×2 (13:00→14:09)
[2024-04-24] MEDS: 0.9 % SODIUM CHLORIDE 1000 ml 1,000 ML IV (13:00)
[2024-04-24 13:03] VITALS: BP 96/66; PULSE 112; RESP 17; TEMP 36.9; O2SAT 96
[2024-04-24 13:04] VITALS: BP 100/67; PULSE 120
[2024-04-24 13:15] LABS: Potassium* 3.7 mmol/L (3.6-5.1)
[2024-04-24] MEDS: HEPARIN 500 UNIT/5 ML SYRINGE IVF (14:09)
--- NOTE | 2024-04-25 14:54 | ONC.NURNOTE ---
Patient's doxil is off of her schedule from the regimen. This was due to her radiation, she will be assessed to restart on 05/03/2024 as scheduled.
[2024-04-27 15:07] LABS: Eosinophils Percent Auto 0.3 % (0.0-7.0); Hematocrit 27.6 % (33.0-51.0); Hemoglobin* 9.2 gm/dL (12.0-16.0); Immature Granulocytes Pct Auto 0.6 %; Lymphocytes Percent Auto 11.1 % (20-44); Mean Corpuscular HGB Conc 33 gm/dL (32-36); Mean Corpuscular Hemoglobin 34 pg (26-34); Mean Corpuscular Volume 103 fL (80-100); Monocytes Percent Auto 19.7 % (0.0-11.0); Neutrophils Percent Auto 67.3 % (42.0-72.0); Platelet Count* 211 K/uL (140-440); RDW Coefficient of Variation % 13.8 % (11.5-15.5); Red Blood Count 2.69 m/uL (4.00-5.20); White Blood Count* 3.15 K/uL (4.50-11.00)
[2024-04-27 15:08] LABS: Slide Review Reflex No
[2024-04-27 15:26] LABS: Chloride* 104 mmol/L (96-114); Potassium* 3.8 mmol/L (3.6-5.1); Sodium* 136 mmol/L (135-149)
[2024-04-27 15:29] LABS: Anion Gap 5 mEq/L (7-15); Blood Urea Nitrogen* 5 mg/dL (7-30); Carbon Dioxide* 27 mmol/L (20-32); Creatinine* 0.8 mg/dL (0.5-1.5); Estimated Glomerular Filt Rate 83 ml/min
[2024-04-27 15:30] LABS: Calcium* 9.1 mg/dL (8.4-10.6); Glucose* 111 mg/dL (60-115)
[2024-05-02] MEDS: HEPARIN 500 UNIT/5 ML SYRINGE IVF (14:53)
[2024-05-02] MEDS: SODIUM CHLORIDE 0.9 % (FLUSH) 10 ML SYRINGE IVF (14:53)
[2024-05-02 15:19] LABS: Basophils Percent Auto 0.6 % (0.0-3.0); Chloride* 102 mmol/L (96-114); Eosinophils Percent Auto 0.3 % (0.0-7.0); Hematocrit 29.5 % (33.0-51.0); Hemoglobin* 9.7 gm/dL (12.0-16.0); Immature Granulocytes Pct Auto 0.6 %; Lymphocytes Percent Auto 11.2 % (20-44); Mean Corpuscular HGB Conc 33 gm/dL (32-36); Mean Corpuscular Hemoglobin 34 pg (26-34); Mean Corpuscular Volume 103 fL (80-100); Monocytes Percent Auto 21.2 % (0.0-11.0); Neutrophils Percent Auto 66.1 % (42.0-72.0); Platelet Count* 242 K/uL (140-440); RDW Coefficient of Variation % 14.2 % (11.5-15.5); Red Blood Count 2.87 m/uL (4.00-5.20); White Blood Count* 3.58 K/uL (4.50-11.00)
[2024-05-02 15:20] LABS: Albumin* 4.2 g/dL (3.3-5.0); Sodium* 136 mmol/L (135-149)
[2024-05-02 15:22] LABS: Anion Gap 9 mEq/L (7-15); Aspartate Amino Transferase* 26 U/L (12-35); Bilirubin Total* 0.5 mg/dL (0.1-1.5); Carbon Dioxide* 25 mmol/L (20-32); Creatinine* 0.9 mg/dL (0.5-1.5); Estimated Glomerular Filt Rate 72 ml/min
[2024-05-02 15:23] LABS: Alanine Aminotransferase* 16 U/L (4-35); Alkaline Phosphatase* 57 U/L (40-150); Blood Urea Nitrogen* 8 mg/dL (7-30); Calcium* 9.8 mg/dL (8.4-10.6); Glucose* 80 mg/dL (60-115); Total Protein* 6.7 g/dL (6.0-8.3)
[2024-05-02 15:29] LABS: Slide Review Reflex No
[2024-05-03] MEDS: dexAMETHasone 10 MG in 0.9 % SODIUM CHLORIDE 100 ml 100 ML 404 MG IVPB (14:26)
--- NOTE | 2024-05-03 14:30 | ONC.NURNOTE ---
Per Dr. Fry, we will continue to hold Zometa. We will discuss at her next visit in June.
[2024-05-03] MEDS: 5 % DEXTROSE 250 ML IV (16:01)
[2024-05-03] MEDS: HEPARIN 500 UNIT/5 ML SYRINGE IVF (16:01)
[2024-05-03] MEDS: SODIUM CHLORIDE 0.9 % (FLUSH) 10 ML SYRINGE IVF (16:01)
--- NOTE | 2024-05-08 08:45 | ONC.NURNOTE ---
Patient scheduled for PET/CT at [facility] 06/22 at 2:30. Orders and supporting records faxed to [facility].
[2024-05-30] MEDS: SODIUM CHLORIDE 0.9 % (FLUSH) 10 ML SYRINGE IVF (15:13)
[2024-05-30] MEDS: HEPARIN 500 UNIT/5 ML SYRINGE IVF (15:13)
[2024-05-30 15:22] LABS: Basophils Percent Auto 0.6 % (0.0-3.0); Hematocrit 26.1 % (33.0-51.0); Hemoglobin* 8.6 gm/dL (12.0-16.0); Immature Granulocytes Pct Auto 1.2 %; Lymphocytes Percent Auto 9.6 % (20-44); Mean Corpuscular HGB Conc 33 gm/dL (32-36); Mean Corpuscular Hemoglobin 33 pg (26-34); Mean Corpuscular Volume 101 fL (80-100); Neutrophils Percent Auto 58.6 % (42.0-72.0); Platelet Count* 244 K/uL (140-440); RDW Coefficient of Variation % 15.6 % (11.5-15.5); Red Blood Count 2.58 m/uL (4.00-5.20); White Blood Count* 3.33 K/uL (4.50-11.00)
[2024-05-30 15:23] LABS: Slide Review Reflex No
[2024-05-30 15:36] LABS: Albumin* 3.9 g/dL (3.3-5.0)
[2024-05-30 15:37] LABS: Chloride* 102 mmol/L (96-114); Potassium* 3.6 mmol/L (3.6-5.1); Sodium* 134 mmol/L (135-149)
[2024-05-30 15:39] LABS: Anion Gap 11 mEq/L (7-15); Aspartate Amino Transferase* 26 U/L (12-35); Bilirubin Total* 0.4 mg/dL (0.1-1.5); Carbon Dioxide* 21 mmol/L (20-32); Creatinine* 0.8 mg/dL (0.5-1.5); Estimated Glomerular Filt Rate 83 ml/min; Total Protein* 6.4 g/dL (6.0-8.3)
[2024-05-30 15:40] LABS: Alanine Aminotransferase* 14 U/L (4-35); Alkaline Phosphatase* 73 U/L (40-150); Blood Urea Nitrogen* 11 mg/dL (7-30); Calcium* 9.3 mg/dL (8.4-10.6); Glucose* 118 mg/dL (60-115)
[2024-05-31 13:33] VITALS: BP 110/70; PULSE 95; TEMP 36.5; O2SAT 100
[2024-05-31] MEDS: SODIUM CHLORIDE 0.9 % (FLUSH) 10 ML SYRINGE IVF ×2 (14:25→16:04)
[2024-05-31] MEDS: dexAMETHasone 10 MG in 0.9 % SODIUM CHLORIDE 100 ml 100 ML 404 MG IVPB (14:27)
[2024-05-31] MEDS: HEPARIN 500 UNIT/5 ML SYRINGE IVF (16:05)
--- NOTE | 2024-06-12 15:36 | ONC.NURNOTE ---
Patient left a note for BCN to request an appointment to discuss new neuropathy. BCN called patient x2 to obtain additional information and to assist with scheduling. Left message requesting return call.
--- NOTE | 2024-06-15 15:22 | ONC.NURNOTE ---
Patient called to report a new onset of neurologic changes. She states that starting Wednesday, she is having a hard time walking and staying upright. 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 She also reports feeling shaky and having a hard time holding objects. Patient denies vision changes, headaches, incontinence, pain or dizziness. Patient reports she has been working all week and driving herself. Patient is drinking an adequate amount of fluids but reports decreased PO intake due to taste changes. Patient is due for scans next week. Discussed with EDISON Patel. Patient instructed to report to the ED immediately for assessment. Report called to SHIRIN Henry in ED.
--- NOTE | 2024-06-16 11:30 | ONC.NURNOTE ---
Lm for pt checking in after ED visit yesterday and 1 unit prbc transfusion. Requested pt call back today or Wednesday to give update on symptoms. Updated pt that with brain MRI completed yesterday in ED, she does not have to repeat the previously scheduled brain MRI 06/23. Reinforced that she is still scheduled for the other MRI's her spine that day. Arrival time updated from 0715 to 0815.
--- NOTE | 2024-06-19 16:53 | ONC.NURNOTE ---
Call to patient to check on status. Unable to reach patient. Patient later returned message to [facility], states she is doing pretty good and denies need for additional intervention.
[2024-06-22] MEDS: SODIUM CHLORIDE 0.9 % (FLUSH) 10 ML SYRINGE IVF (13:25)
[2024-06-22] MEDS: HEPARIN 500 UNIT/5 ML SYRINGE IVF (13:26)
[2024-06-27 15:19] LABS: Basophils Percent Auto 1.4 % (0.0-3.0); Eosinophils Percent Auto 0.5 % (0.0-7.0); Hematocrit 28.7 % (33.0-51.0); Hemoglobin* 9.6 gm/dL (12.0-16.0); Immature Granulocytes Pct Auto 0.5 %; Lymphocytes Percent Auto 11.5 % (20-44); Mean Corpuscular HGB Conc 33 gm/dL (32-36); Mean Corpuscular Hemoglobin 33 pg (26-34); Mean Corpuscular Volume 99 fL (80-100); Monocytes Percent Auto 29.4 % (0.0-11.0); Neutrophils Percent Auto 56.7 % (42.0-72.0); Platelet Count* 190 K/uL (140-440); RDW Coefficient of Variation % 16.8 % (11.5-15.5); Red Blood Count 2.89 m/uL (4.00-5.20); White Blood Count* 2.18 K/uL (4.50-11.00)
[2024-06-27 15:31] LABS: Slide Review Reflex No
[2024-06-27 15:37] LABS: Albumin* 3.9 g/dL (3.3-5.0); Chloride* 106 mmol/L (96-114); Potassium* 3.5 mmol/L (3.6-5.1); Sodium* 134 mmol/L (135-149)
[2024-06-27 15:39] LABS: Bilirubin Total* 0.7 mg/dL (0.1-1.5); Creatinine* 0.7 mg/dL (0.5-1.5); Estimated Glomerular Filt Rate 98 ml/min
[2024-06-27 15:40] LABS: Alanine Aminotransferase* 12 U/L (4-35); Alkaline Phosphatase* 59 U/L (40-150); Anion Gap 6 mEq/L (7-15); Aspartate Amino Transferase* 25 U/L (12-35); Blood Urea Nitrogen* 6 mg/dL (7-30); Carbon Dioxide* 22 mmol/L (20-32); Glucose* 86 mg/dL (60-115); Total Protein* 6.4 g/dL (6.0-8.3)
[2024-06-27 15:41] LABS: Calcium* 9.4 mg/dL (8.4-10.6)
[2024-06-28] MEDS: ZOLEDRONIC ACID 3.3 MG in 0.9 % SODIUM CHLORIDE 100 ml 100 ML 416 MG IVPB (15:05)
[2024-06-28] MEDS: HEPARIN 500 UNIT/5 ML SYRINGE IVF (15:28)
[2024-06-28] MEDS: SODIUM CHLORIDE 0.9 % (FLUSH) 10 ML SYRINGE IVF (15:28)
--- NOTE | 2024-06-29 14:08 | URNOTE ---
Addendum entered by Adeline Jay RN 07/07/24 11:01: dates for Udenyca are 06/29/2024-12/30/2024 Addendum entered by Adeline Jay RN 07/07/24 10:58: Udenyca has been approved for 7 doses 06/29/2024-06/29/2025. REf #[id number] Original Note: Sacituzumab govitecan-hziy (J9317), Fosaprepitant (J1453) and Palonosetron (J2469) has been approved by [facility], 06/29/2024-06/29/2025. ref #[id number] Udenyca Q5111 is pending with [facility]. ref #[id number]
== END 2024-07-01 23:59 | disposition home or self-care (01) ==
LOC: CCIC 13:30
PROVIDERS: Clinical Nurse Specialist; Physician Assistant; PCP Student in an Organized Health Care Education/Training Program; Referring Provider Student in an Organized Health Care Education/Training Program; Visit Provider Internal Medicine Hematology & Oncology
DX: C50.912 Malignant neoplasm of unspecified site of left female breast (principal); Z17.0 Estrogen receptor positive status [ER+]; C79.51 Secondary malignant neoplasm of bone; K52.1 Toxic gastroenteritis and colitis; Z79.811 Long term (current) use of aromatase inhibitors; Z79.01 Long term (current) use of anticoagulants; Z90.11 Acquired absence of right breast and nipple
CPT/HCPCS: 36415; 36591; 78815; 80048; 80053; 84132; 85025; 96360; 96361; 96365; 96366; 96374; 96376; 96413; 99211; 99214; 99215; G0463; A9552; J1100; J1642; J3480; J3489; J7030; J7050; Q2050

== ENCOUNTER 2024-09-01 07:52 | Outpatient (CLI) | payer OTHER, SELFPAY ==
--- NOTE | 2024-09-01 07:15 | CRLHL7_ITS ---
For Patients: As a result of the Century Cures Act, medical imaging exams and procedure reports are released immediately into your electronic medical record. You may view this report before your referring provider. If you have questions, please contact your health care provider. Indication : Breast cancer. COMPARISON: 06/15/2024. PET scan 08/31/2024. TECHNIQUE: Multiplanar T1, T2, FLAIR and diffusion-weighted imaging. Post gadolinium T1 weighted sequences. FINDINGS: Mild generalized volume loss. Few scattered foci of T2/FLAIR signal hyperintense to within the white matter of both cerebral hemispheres and lisa are nonspecific but likely represent chronic small vessel ischemic changes. No intracranial hemorrhage. No abnormal ventricular dilatation. Intracranial vascular flow voids are preserved. No mass effect or midline shift. No restricted diffusion to suggest acute ischemia. No susceptibility artifact of remote hemorrhage. No abnormal enhancement or enhancing lesions within the brain parenchyma. Bilateral orbits are unremarkable. Normal appearing sella. Visualized paranasal sinuses are unremarkable. Small bilateral mastoid effusions. IMPRESSION: 1. No acute intracranial abnormality. 2. No abnormal enhancement or enhancing lesions. No intracranial metastases 3. Mild generalized cerebral volume loss. Few scattered foci of T2 signal within the white matter of both cerebral hemispheres and lisa are nonspecific but likely represent chronic deep white matter small vessel ischemic changes. 4. No acute or chronic intracranial hemorrhage. Dictated by Emmett Winston MD @ 09/02/2024 10:30:32 PM (Electronically Signed)
--- NOTE | 2024-09-01 08:15 | CRLHL7_ITS ---
For Patients: As a result of the Century Cures Act, medical imaging exams and procedure reports are released immediately into your electronic medical record. You may view this report before your referring provider. If you have questions, please contact your health care provider. INDICATION: Breast cancer. COMPARISON: 06/23/2024 and PET scan 08/31/2024. TECHNIQUE: Sagittal T1, T2, and STIR sequences. Axial T2/gradient sequences.. Post gadolinium T1 weighted sequences. FINDINGS: Normal vertebral body and facet alignment. No fractures. No vertebral body loss of height. No spondylolisthesis. No evidence injury. Compared to the previous exam, again noted are widespread osseous metastases throughout the thoracic and visualized upper lumbar spine. No pathologic fractures. No spondylolisthesis. No tumor extending into the epidural space. There is stable nodular enhancement along the surface of the midthoracic cord through the conus consistent with leptomeningeal metastases. Similarly, there is stable abnormal thickening and enhancement of the cauda equina nerve roots also consistent with leptomeningeal metastases. Otherwise, normal signal intensity of the cord. Stable thoracic spondylosis. No prominent disc protrusions or herniations. No spinal canal or neural foraminal narrowing at all levels of the thoracic spine. IMPRESSION: 1. No interval change. 2. Stable widespread osseous metastases. No tumor extending into the epidural space. 3. Stable nodular enhancement along the surface of the mid thoracic cord through the conus. Abnormal thickening and enhancement of the cauda equina nerve roots. 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 4. No spinal canal or neural foraminal narrowing at all levels. 5. Stable thoracic spondylosis Dictated by Emmett Winston MD @ 09/02/2024 10:40:32 PM (Electronically Signed)
--- NOTE | 2024-09-01 09:15 | CRLHL7_ITS ---
For Patients: As a result of the Century Cures Act, medical imaging exams and procedure reports are released immediately into your electronic medical record. You may view this report before your referring provider. If you have questions, please contact your health care provider. INDICATION: Breast cancer. COMPARISON: PET scan 08/31/2024. TECHNIQUE: Sagittal T1, T2, and STIR sequences. Axial T2/gradient sequences.. Post gadolinium T1 weighted sequences FINDINGS: Normal vertebral body facet alignment. No fractures. No vertebral body loss of height. No spondylolisthesis. No evidence injury. Stable multilevel abnormal low T1 and T2 signal intensity lesions of the cervical vertebral bodies most prominent within the C7 vertebral body. Corresponding enhancement. Finding again is consistent with the osseous metastases. Post gadolinium imaging also demonstrates patchy enhancement along the dorsal surface of the cord at C3-4 and C7 through T2 which may represent leptomeningeal metastases. Otherwise, normal cord signal. C1-2: No spinal canal narrowing. C2-3: No spinal canal or neural foraminal narrowing. C3-4: Disk degeneration. Posterior disc bulge or disc osteophyte complex. No narrowing of spinal canal. No neural foraminal narrowing. C4-5: No spinal canal neural foraminal narrowing. C5-6: Disc degeneration with posterior disc bulge or disc osteophyte complex. Mild narrowing of spinal canal. No neural foraminal narrowing. C6-7: Disc degeneration. No spinal canal or neural foraminal narrowing. C7-T1: No spinal canal or neural foraminal narrowing. No spinal canal or neural foraminal narrowing in the visualized upper thoracic spine. IMPRESSION: 1. Normal alignment. No fractures. 2. Stable multilevel osseous metastases the largest of which is at C7. 3. No tumor extending into the epidural space. 4. Patchy enhancement along the dorsal surface of the cord at C3-4 and C7 through T2 may represent leptomeningeal metastases. 5. Otherwise normal cord signal. 6. At C5-6, mild narrowing of the spinal canal Dictated by Emmett Winston MD @ 09/02/2024 10:35:24 PM (Electronically Signed)
--- NOTE | 2024-09-01 10:15 | CRLHL7_ITS ---
For Patients: As a result of the Century Cures Act, medical imaging exams and procedure reports are released immediately into your electronic medical record. You may view this report before your referring provider. If you have questions, please contact your health care provider. INDICATION: Breast cancer. COMPARISON: PET scan 08/31/2024. MRI 06/23/2024. TECHNIQUE: Sagittal T1, T2, and STIR sequences. Axial T1 and T2 weighted sequences. Post gadolinium T1 weighted sequences. FINDINGS: Compared to the previous exam, stable widespread osseous metastases of lumbar spine, sacrum, and visualized iliac bones. No pathologic fractures. Stable abnormal enhancement along the surface of the lower thoracic cord and conus and involving the cauda equina nerve roots consistent with leptomeningeal metastases. Stable mild lumbar spondylosis. T12-L1 L1-2 L2-3: No spinal canal or neural foraminal narrowing. L3-4: No spinal canal or neural foraminal narrowing. L4-5: Annular bulge. No spinal canal or neural foraminal narrowing. L5-S1: Disc degeneration posterior disc bulge. No spinal canal or neural foraminal narrowing. Degenerative changes of the SI joints. Normal paraspinal soft tissues. IMPRESSION: 1. No interval change. 2. Stable widespread osseous metastases. 3. Stable leptomeningeal metastases. 4. No spinal canal or neural foraminal narrowing at all levels. 5. Mild lumbar spondylosis Dictated by Emmett Winston MD @ 09/02/2024 10:42:57 PM (Electronically Signed)
== END 2024-09-01 07:53 | disposition home or self-care (01) ==
LOC: MRI 07:52
PROVIDERS: PCP Student in an Organized Health Care Education/Training Program; Visit Provider Internal Medicine Hematology & Oncology
DX: C50.919 Malignant neoplasm of unspecified site of unspecified female breast (principal); M50.222 Other cervical disc displacement at C5-C6 level; M47.894 Other spondylosis, thoracic region; M47.896 Other spondylosis, lumbar region; M89.9 Disorder of bone, unspecified; G96.198 Other disorders of meninges, not elsewhere classified
CPT/HCPCS: 70553; 72156; 72157; 72158; A9575

== ENCOUNTER 2024-09-08 12:24 | Outpatient (CLI) | payer OTHER, SELFPAY ==
--- NOTE | 2024-09-08 13:00 | CRLHL7_ITS ---
For Patients: As a result of the Century Cures Act, medical imaging exams and procedure reports are released immediately into your electronic medical record. You may view this report before your referring provider. If you have questions, please contact your health care provider. Indication: Metastatic disease, pain Technique: Two views right femur Comparison: CT-PET 08/31/2024 Findings: Multifocal sclerotic metastatic foci are present through the right hemipelvis and right proximal femur. Chronic hypertrophic spurring at the greater trochanter and iliac crest. No pathologic fracture. The knee joint appears maintained without synovitis. Incidental soft tissue density in the medial distal thigh posteriorly. Impression: Metastatic osseous lesions are present within the right hemipelvis and proximal right femur without significant change. No pathologic fracture. Extensive enthesopathy at the iliac crest and greater trochanter. Dictated by Remigio Mejia MD @ 09/11/2024 12:25:13 PM (Electronically Signed)
--- NOTE | 2024-09-08 13:15 | CRLHL7_ITS ---
For Patients: As a result of the Cures Act, medical imaging exams and procedure reports are released immediately into your electronic medical record. You may view this report before your referring provider. If you have questions, please contact your health care provider. Indication: Hip pain Technique: Pelvis and right hip 3 views Comparison: CT PET 08/31/2024 Findings: Multifocal blastic metastatic lesions are present bilaterally. No pathologic fracture. Chronic ossicle adjacent to the left lateral acetabulum. Spurring at the iliac crests and greater trochanters. Incidental right pelvic phleboliths. Impression: Multifocal metastatic osseous disease, similar to the prior study without acute pathologic fracture. Dictated by Remigio Mejia MD @ 09/11/2024 12:26:40 PM (Electronically Signed)
== END 2024-09-08 12:25 | disposition home or self-care (01) ==
LOC: RAD 12:25
PROVIDERS: PCP Student in an Organized Health Care Education/Training Program; Visit Provider Internal Medicine Hematology & Oncology
DX: M25.551 Pain in right hip (principal); M89.761 Major osseous defect, right lower leg; M89.9 Disorder of bone, unspecified
CPT/HCPCS: 73502; 73552

== ENCOUNTER 2024-09-13 15:20 | Outpatient (CLI) | payer OTHER, SELFPAY | END 2024-09-13 15:21 | disposition home or self-care (01) | LOC: NFLDREF 09-14 11:12 | PROVIDERS: PCP Student in an Organized Health Care Education/Training Program; Referring Provider Student in an Organized Health Care Education/Training Program; Visit Provider Internal Medicine Hematology & Oncology | DX: C79.81 Secondary malignant neoplasm of breast (principal); D64.9 Anemia, unspecified | CPT/HCPCS: 80053; 85025 ==

== ENCOUNTER 2024-11-03 07:14 | Outpatient (CLI) | payer OTHER, SELFPAY ==
--- NOTE | 2024-11-03 07:15 | CRLHL7_ITS ---
For Patients: As a result of the Century Cures Act, medical imaging exams and procedure reports are released immediately into your electronic medical record. You may view this report before your referring provider. If you have questions, please contact your health care provider. INDICATION: Breast cancer. TECHNIQUE: Multiplanar multisequence MR imaging of the brain prior to and following intravenous contrast. COMPARISON: MRI brain 09/01/2024. FINDINGS: Mild diffuse cerebral volume loss. No mass effect or midline shift. Stable FLAIR hyperintensities in the supratentorial white matter, typical for mild chronic microvascular ischemic changes. No pathologic intracranial enhancement. No intracranial hemorrhage or pathologic extra-axial fluid collection. No diffusion restriction to suggest acute infarction. The major arterial flow voids of the skullbase are preserved. Thinning of the ocular lenses. Mild to moderate right maxillary sinus mucosal thickening. Left temporomandibular joint effusion. Small bilateral mastoid effusions. IMPRESSION: No acute intracranial abnormality or evidence for intracranial metastatic disease. No significant change compared to the prior MRI. Dictated by Bora Hurley MD @ 11/05/2024 8:02:33 PM (Electronically Signed)
--- NOTE | 2024-11-03 08:15 | CRLHL7_ITS ---
For Patients: As a result of the Century Cures Act, medical imaging exams and procedure reports are released immediately into your electronic medical record. You may view this report before your referring provider. If you have questions, please contact your health care provider. Indication: Breast cancer Technique: MR Cervical Spine: Multisequence multiplanar postcontrast MRI through the cervical spine. Sagittal T1 pre, T2, STIR, T1 post FS, and axial T2 and T1 post FS sequences obtained. MR Thoracic Spine: Multisequence multiplanar postcontrast MRI through the thoracic spine. Sagittal T1 pre, T2, STIR, T1 post FS, and axial T2 and T1 post FS sequences obtained. MR Lumbar Spine: Multisequence multiplanar postcontrast MRI through the lumbar spine. Sagittal T1 pre, T2, STIR, T1 post FS, and axial T2, T1 pre and post sequences obtained. 15 mL Dotarem IV contrast Comparison: MRI of the cervical, thoracic, and lumbar spine performed 09/01/2024, PET-CT performed 08/31/2024 Findings: Cervical Spine: Alignment: No significant malalignment appreciated. Cord: No cord signal abnormality is appreciated. Again noted are areas of enhancement along the outer margins of the cord compatible with leptomeningeal metastases. This overall appears not significantly changed compared to prior examination. Marrow: Diffuse heterogeneous marrow with enhancing metastases, overall not significantly changed from prior examination. No interval fracture. Cervical levels: Minimal degenerative changes with no high-grade central or foraminal stenosis. Soft tissues: Unremarkable. Thoracic Spine: Alignment: No significant malalignment appreciated. Cord: No cord signal abnormality is appreciated. Again noted are areas of enhancement along the outer margins of the cord compatible with leptomeningeal metastasis. This overall appears not significantly changed compared to prior examination. Marrow: Diffuse heterogeneous marrow with enhancing metastases, overall not significantly changed from prior examination. No interval fracture. Thoracic levels: Minimal degenerative changes with no high-grade central or foraminal stenosis appreciated. Soft tissues: Trace pleural effusions. Lumbar Spine: Alignment: No significant malalignment appreciated. Cauda equina and nerve roots: Diffuse nodular enhancement of the cauda equina nerve roots compatible with leptomeningeal metastasis. This overall appears unchanged from prior examination. Marrow: Diffuse heterogeneous marrow with enhancing metastases, overall not significantly changed from prior examination. No interval fracture. Lumbar levels: Mild degenerative changes similar appearance to prior examination with no high-grade central or foraminal stenosis appreciated. Soft tissues: Unremarkable. Impression: No significant interval change. Similar appearance of leptomeningeal metastases throughout the cervical, thoracic, and lumbar spine, along with diffuse osseous metastases, overall appearing similar to prior studies dated 09/01/2024. Dictated by Billy Ley MD @ 11/06/2024 12:58:55 AM (Electronically Signed)
== END 2024-11-03 07:15 | disposition home or self-care (01) ==
LOC: MRI 07:14
PROVIDERS: PCP Student in an Organized Health Care Education/Training Program; Visit Provider Physician Assistant
DX: C50.919 Malignant neoplasm of unspecified site of unspecified female breast (principal); C79.51 Secondary malignant neoplasm of bone; G96.198 Other disorders of meninges, not elsewhere classified
CPT/HCPCS: 70553; 72156; 72157; 72158; A9575

== ENCOUNTER 2024-11-25 15:03 | Outpatient (CLI) | payer OTHER, SELFPAY ==
--- NOTE | 2024-11-25 16:00 | PE_ITS ---
[facility] [address] [facility] [address] Phone:?[phone] Fax:?[phone] Referring Physician Information: Subha Fry M.D. [address] [facility] [address] Phone:?[phone] Fax:?[phone] Patient:?Kimmy Castro D.O.B:?1960 Sex:?Female Phone:?[phone] [facility] MRN:?[id number] Exam Date:?11/25/2024 EXAM:?PET EYES TO THIGHS, CANCER RESTAGING CLINICAL INFORMATION: Breast cancer, assess treatment response TECHNICAL INFORMATION: Helical acquisition of data was obtained from the orbits to the upper thighs with reconstruction of 3.75 mm thick images at 3.[address] data was used for attenuation correction. PET scanning was performed through the same anatomic range 60 minutes following administration of 11.86 mCi of 18-FDG delivered intravenously. The patient's glucose at the time of the injection was 91 mg/dL. PET, CT and PET/CT fusion images are interpreted using a computer viewing workstation. PET, CT and PET/CT fusion images were archived and saved in the patient's permanent medical record. COMPARISON: PET/CT 08/31/2024 and other prior exams INTERPRETATION: Mediastinal blood pool activity: 1.45 Background liver parenchymal uptake: 1.93 Head and Neck: There are no abnormal hypermetabolic foci within the head or neck. There is physiologic uptake in the intracranial soft tissues. Chest: There are no abnormal hypermetabolic foci within the chest. No lung nodules or masses detected on this free-breathing exam. No lymphadenopathy detected. Centrilobular emphysema. Left chest wall paxton catheter. Coronary artery atherosclerosis. Abdomen and Pelvis: There are no abnormal hypermetabolic foci within the abdomen or pelvis. There is physiologic excretion of radiotracer in the urine and bowel. Cholelithiasis. Aortoiliac atherosclerosis. Mild to moderate stool burden. The uterus is surgically absent. Skeleton, Musculature, and Integument: Redemonstrated diffuse sclerotic osseous metastasis with reference lesions below: * Left humeral head lesion (series 202 image 32) with an SUV max of 7.16, previously 9.28. * L1 vertebral body lesion (series 202 image 128) with an SUV max of 6.04, previously 9.26. * L4 vertebral body lesion (series 202 image 159) with an SUV max of 7.29, previously 9.74. * Sacral lesions (series 202 image 185) with an SUV max of 6.17, previously 5.83. * Proximal left femoral lesion (series 202 image 218) with an SUV max of 10.36, previously 20.71. * Sternal lesion (series 202 image 68) with an SUV max of 12.23, previously 16.13. CONCLUSION: Since the comparison exam PET/CT from 08/31/2024, there is overall similar appearance of diffuse osseous metastasis with slightly decreased metabolic activity. Electronically signed on 11/27/2024 4:45:00 PM by Raphael Will D.O
== END 2024-11-25 15:04 | disposition home or self-care (01) ==
LOC: RAD 15:04
PROVIDERS: PCP Student in an Organized Health Care Education/Training Program; Visit Provider Internal Medicine Hematology & Oncology
DX: C50.412 Malignant neoplasm of upper-outer quadrant of left female breast (principal); M89.9 Disorder of bone, unspecified
CPT/HCPCS: 78815; A9552

== ENCOUNTER 2024-12-13 07:42 | Emergency (ER) | payer OTHER, SELFPAY ==
[2024-12-13 07:52] VITALS: BP 105/72; PULSE 106; RESP 20; TEMP 37.1; O2SAT 97; BMI 17.0
--- NOTE | 2024-12-13 08:13 | ED.GENADULT ---
HPI - General Adult General Chief complaint: Chest Pain Stated complaint: Chest pain, vomiting Time Seen by Provider: 12/13/24 08:05 History of Present Illness HPI narrative: This 64-year-old female comes in reporting left-sided chest discomfort with nausea and some vomiting. She states that she went to a different emergency department yesterday and they did not do anything for her. She however did get a prescription for cefdinir to treat a urinary tract infection. She attempted to take this medicine twice and had vomiting soon thereafter. She arrives here with normal vital signs. She does have a history of metastatic breast cancer. She has metastatic disease in her left thigh bone. She did have a PET scan within the last week that was negative for any other activity. She states that the pain began about a day and a half ago and is constant since then. She states that it feels a little bit better if she presses on her left chest wall. She does not report any lightheadedness, shortness of breath, diaphoresis, or exercise intolerance. She did recently receive chemotherapy treatment but states that she normally tolerates this rather well. Related Data Home Medications ?Medication ?Instructions ?Recorded ?Confirmed acetaminophen 325 mg capsule 650 mg PO Q4H PRN 06/09/22 12/13/24 cholecalciferol (vitamin D3) 50 50 mcg PO QDAY 06/09/22 12/13/24 mcg (2,000 unit) capsule loratadine 10 mg tablet 10 mg PO DAILY PRN 06/11/22 12/13/24 multivitamin 1 tab PO QAM 06/11/22 12/13/24 calcium 315 mg (as 2 tab PO BID 11/05/22 12/13/24 citrate)-vitamin D3 6.25 mcg (250 unit) tablet (Citracal + Vitamin D Maximum) ibuprofen 400 mg tablet 400 mg PO TID PRN 01/07/23 12/13/24 albuterol sulfate 90 mcg/actuation 2 puff inhalation Q2H PRN 05/21/23 12/13/24 aerosol inhaler vitamin B complex 1 cap PO QDAY 08/16/24 12/13/24 abemaciclib 150 mg tablet mg PO 12/13/24 (Verzenio) Previous Rx's ?Medication ?Instructions ?Recorded miscellaneous medical supply #60 mL 04/14/24 prochlorperazine maleate 5 mg 5 mg PO BID PRN nausea and 06/28/24 tablet (Compazine) vomiting #30 tabs potassium chloride 20 mEq 20 meq PO BID #180 tabs 10/05/24 tablet,extended release(part/cryst) rivaroxaban 10 mg tablet (Xarelto) 10 mg PO QDAY #30 tabs 11/28/24 Allergies Allergy/AdvReac Type Severity Reaction Status Date / Time bee venom protein (honey bee) Allergy Verified 12/13/24 07:58 Review of Systems Status of ROS: Reports: 10 or more systems reviewed and unremarkable except as noted in History and below Narrative: Constitutional: No fevers, no weight gain or loss. Eyes: No discharge. No vision changes. HENT: No congestion, no sore throat, no ear pain. Cardiovascular: No palpitations. Respiratory: No shortness of breath, no wheezes, no cough. Gastrointestinal: No abdominal pain, no diarrhea. Nausea with vomiting. Genitourinary: No dysuria, no hematuria. Musculoskeletal: Normal range of motion. Skin: No rashes, no pruritis. Neurological: No dizziness, weakness, sensory change, speech change. Endo/Heme/Allergies: No bruising or bleeding. No polydipsia. Pysch: no suicidality, no anxiety, no insomnia. All other systems reviewed and are negative. [facility] Medical History Cramp in lower leg ?R25.2 - Cramp and spasm (ICD-10) Central venous catheter in place ?Z78.9 - Other specified health status (ICD-10) DVT of axillary vein, acute right ?I82.A11 - Acute embolism and thrombosis of right axillary vein (ICD-10) Social History Smoking Status: Former smoker Do you use any of these nicotine containing products: None Second hand tobacco smoke exposure: No How often do you have a drink containing alcohol: never How often do you have six or more drinks on one occasion: Never AUDIT-C Alcohol total score: 0 Non-prescribed substance use: denies use service: No Exam Narrative: Exam Narrative: Constitutional: Well-developed, well-nourished, no acute distress. HEENT: Normocephalic, atraumatic. Neck: Normal range of motion. Nontender. Supple. Heart: Regular. No murmurs. Normal rate. Intact distal pulses. Lungs: Clear to auscultation. No chest discomfort. No wheezes, rhonchi, or rales. Abdomen: Normal bowel sounds. Nontender. No rebound tenderness. Genitalia: Deferred. Back: No midline tenderness. Normal range of motion. Extremities: Normal range of motion. No injury. Skin: Intact. No rash. Warm. No erythema or pallor. Neurologic: No altered sensation. No weakness. Alert and oriented. Psychiatric: No suicidality. No anxiety or depression. No insomnia. Nursing notes and vitals signs are reviewed. Const: Vital Signs, click to edit/add: Vital Signs - 24 hr 12/13/24 07:52 Temperature 98.7 F Pulse Rate [Pulse Oximeter] 106 H Respiratory Rate 20 Blood Pressure [Ri ght Upper Arm] 105/72 Pulse Oximetry 97 Oxygen Delivery Me thod Room Air Course Vital Signs Vital signs: Initial Vital Signs Temperature 98.7 F 12/13/24 07:52 Temperature Source Temporal Artery Scan 12/13/24 07:52 Pulse Rate 106 H 12/13/24 07:52 Respiratory Rate 20 12/13/24 07:52 Blood Pressure 105/72 12/13/24 07:52 Blood Pressure Mean 83 12/13/24 07:52 Blood Pressure Position Sitting 12/13/24 07:52 Pulse Oximetry 97 12/13/24 07:52 Oxygen Delivery Method Room Air 12/13/24 07:52 Vital Signs Temperature 98.7 F 12/13/24 07:52 Pulse Rate 106 H 12/13/24 07:52 Respiratory Rate 20 12/13/24 07:52 Blood Pressure 105/72 12/13/24 07:52 Pulse Oximetry 97 12/13/24 07:52 Oxygen Delivery Method Room Air 12/13/24 07:52 Temperature 98.7 F 12/13/24 07:52 Pulse Rate 106 H 12/13/24 07:52 Respiratory Rate 20 12/13/24 07:52 Blood Pressure 105/72 12/13/24 07:52 Pulse Oximetry 97 12/13/24 07:52 Oxygen Delivery Method Room Air 12/13/24 07:52 Medications Administered Medications: Discontinued Medications Generic Name Dose Route Start Last Admin Trade Name Freq PRN Reason Stop Dose Admin Sodium Chloride 500 mls @ 500 mls/hr 12/13/24 08:12 12/13/24 09:45 0.9 % Sodium Chloride 500 Ml IV 12/13/24 09:11 Infused .Q1H ONE Infusion Ondansetron HCl 4 mg 12/13/24 08:12 12/13/24 08:43 Ondansetron 2 Mg/Ml Inj IVP 12/13/24 08:13 4 mg ONCE ONE Administration Medical Decision Making MDM Narrative Medical decision making narrative: This patient comes in feeling that she would benefit from some IV fluids. An IV was established through her port and she did receive 500 mL of normal saline. She states that she is feeling much better. I did check labs and these returned with reassuring results. Her troponin is 0. I did not check a D-dimer as she is on an anticoagulant. The patient feels okay to return home to continue her current plans. Lab Data Labs: Lab Results 12/13/24 12/13/24 Range/Units 08:13 08:43 WBC 8.67 (4.50-11.00) K/uL RBC 3.12 L (4.00-5.20) m/uL Hgb 10.4 L (12.0-16.0) gm/dL Hct 31.0 L (33.0-51.0) % MCV 99 (80-100) fL MCH 33 (26-34) pg MCHC 34 (32-36) gm/dL RDW Coeff of Delfino 15.4 (11.5-15.5) % Plt Count 171 (140-440) K/uL Neut % (Auto) 84.1 H (42.0-72.0) % Lymph % (Auto) 3.0 L (20-44) % [place] % (Auto) 11.2 H (0.0-11.0) % Eos % (Auto) 0.1 (0.0-7.0) % Baso % (Auto) 0.1 (0.0-3.0) % Neut # (Auto) 7.30 H (1.7-7.0) K/uL Lymph # (Auto) 0.30 L (0.90-2.90) K/uL [place] # (Auto) 1.00 H (0.00-0.90) K/UL Eos # (Auto) 0.01 (0.00-0.50) K/uL Baso # (Auto) 0.01 (0.00-0.30) K/uL Abs Immat Gran (auto) 0.13 (0.00-0.30) K/uL Imm/Tot Granulo (auto) 1.5 % Sodium 134 L (135-149) mmol/L Potassium 3.4 L (3.6-5.1) mmol/L Chloride 99 (96-114) mmol/L Carbon Dioxide 28 (20-32) mmol/L Anion Gap 7 (7-15) mEq/L BUN 13 (7-30) mg/dL Creatinine 0.7 (0.5-1.5) mg/dL Estimated Creat Clear 38.35 Estimated GFR 97 ml/min Glucose 106 (60-115) mg/dL Calcium 8.9 (8.4-10.6) mg/dL POC Troponin I 0.00 L (0.01-0.04) ng/ml Discharge Plan Discharge Clinical Impression: Malignant neoplasm metastatic to left breast, Fluid volume depletion Patient Disposition: Home, Self-Care Condition: Stable Additional Instructions: Continue current plans. Follow up with MD return if worsening. Prescriptions: No Action albuterol sulfate 90 mcg/actuation HFA aerosol inhaler 2 puff inhalation Q2H PRN vitamin B complex Capsule 1 cap PO QDAY Xarelto 10 mg tablet 10 mg PO QDAY Qty: 30 3RF cholecalciferol (vitamin D3) 50 mcg (2,000 unit) capsule 50 mcg PO QDAY acetaminophen 325 mg capsule 650 mg PO Q4H PRN loratadine 10 mg tablet 10 mg PO DAILY PRN multivitamin Tablet 1 tab PO QAM calcium citrate-vitamin D3 [Citracal + D Maximum] 315 mg-6.25 mcg (250 unit) tablet 2 tab PO BID ibuprofen 400 mg tablet 400 mg PO TID PRN prochlorperazine maleate [Compazine] 5 mg tablet 5 mg PO BID PRN (Reason: nausea and vomiting) Qty: 30 0RF potassium chloride 20 mEq tablet,ER particles/crystals 20 meq PO BID Qty: 180 0RF (DME) miscellaneous medical supply Liquid See Rx Instructions .Route Qty: 60 1RF Rx Instructions: Viscous lidocaine, 5-10 mL q.6 hours p.r.n., 60 mL Verzenio 150 mg tablet PO Patient Comments: [NO ORIGINAL SIG] Follow Up/Referrals: Nahomi Valera PA-C [Primary Care Provider] - Stand Alone Forms: [employer] Info Instructions
[2024-12-13] MEDS: ONDANSETRON 2 MG/ML inj 4 MG IVP (08:43)
[2024-12-13] MEDS: 0.9 % SODIUM CHLORIDE 500 ML 500 ML IV (08:43)
[2024-12-13 08:55] LABS: Basophils Absolute Auto 0.01 K/uL (0.00-0.30); Basophils Percent Auto 0.1 % (0.0-3.0); Eosinophils Absolute Auto 0.01 K/uL (0.00-0.50); Eosinophils Percent Auto 0.1 % (0.0-7.0); Hemoglobin* 10.4 gm/dL (12.0-16.0); Immature Granulocytes Abs Auto 0.13 K/uL (0.00-0.30); Immature Granulocytes Pct Auto 1.5 %; Mean Corpuscular HGB Conc 34 gm/dL (32-36); Mean Corpuscular Hemoglobin 33 pg (26-34); Mean Corpuscular Volume 99 fL (80-100); Monocytes Percent Auto 11.2 % (0.0-11.0); Neutrophils Percent Auto 84.1 % (42.0-72.0); Platelet Count* 171 K/uL (140-440); RDW Coefficient of Variation % 15.4 % (11.5-15.5); Red Blood Count 3.12 m/uL (4.00-5.20); White Blood Count* 8.67 K/uL (4.50-11.00)
[2024-12-13 09:08] LABS: Slide Review Reflex Yes
[2024-12-13 09:09] LABS: Chloride* 99 mmol/L (96-114)
[2024-12-13 09:10] LABS: Potassium* 3.4 mmol/L (3.6-5.1); Sodium* 134 mmol/L (135-149)
[2024-12-13 09:12] LABS: Creatinine* 0.7 mg/dL (0.5-1.5); Est. Creatinine Clearance* 38.35; Estimated Glomerular Filt Rate 97 ml/min
[2024-12-13 09:13] LABS: Anion Gap 7 mEq/L (7-15); Blood Urea Nitrogen* 13 mg/dL (7-30); Calcium* 8.9 mg/dL (8.4-10.6); Carbon Dioxide* 28 mmol/L (20-32); Glucose* 106 mg/dL (60-115)
[2024-12-13 10:24] LABS: Slide Review Acceptable Review (Acceptable)
== END 2024-12-13 10:12 | disposition home or self-care (01) ==
PROVIDERS: Emergency Provider Emergency Medicine Emergency Medical Services; PCP Student in an Organized Health Care Education/Training Program
DX: C50.912 Malignant neoplasm of unspecified site of left female breast (principal); E86.9 Volume depletion, unspecified
CPT/HCPCS: 36415; 80048; 84484; 85025; 96361; 96374; 96375; 99284; J2405; J7030

== ENCOUNTER 2024-12-14 19:09 | Emergency (ER) | payer OTHER, SELFPAY ==
[2024-12-14 19:22] VITALS: BP 105/68; PULSE 104; RESP 18; TEMP 37.2; O2SAT 95; BMI 17.0
[2024-12-14 20:45] LABS: PCR FLU A Negative PCR FLU A (Negative); PCR FLU B Negative PCR FLU B (Negative); PCR RSV Negative PCR RSV (Negative); SARS PCR* Negative SARS-CoV-2 (Negative)
--- NOTE | 2024-12-14 22:15 | ED.GENADULT ---
HPI - General Adult General Chief complaint: Nausea/Vomiting Stated complaint: vomiting, dehydrated Time Seen by Provider: 12/14/24 22:07 History of Present Illness HPI narrative: This 64-year-old female has breast cancer and is undergoing chemotherapy. She comes in with report of cough, nausea, and vomiting. She states that she has not eaten much recently. She did go to a different ER and was prescribed an antibiotic which she did not tolerate as she vomited soon thereafter. She states that she did not fill the prescription because of this initial dose given at that time. She is not sure what the antibiotic was to be treating. She was seen by me somewhat recently with similar situations and did improve with IV fluids. She arrives here with normal vital signs except she does have mild tachycardia. Nasal pharyngeal swab is negative for viruses tested prior to arrival here. Related Data Home Medications ?Medication ?Instructions ?Recorded ?Confirmed acetaminophen 325 mg capsule 650 mg PO Q4H PRN 06/09/22 12/13/24 cholecalciferol (vitamin D3) 50 50 mcg PO QDAY 06/09/22 12/13/24 mcg (2,000 unit) capsule loratadine 10 mg tablet 10 mg PO DAILY PRN 06/11/22 12/13/24 multivitamin 1 tab PO QAM 06/11/22 12/13/24 calcium 315 mg (as 2 tab PO BID 11/05/22 12/13/24 citrate)-vitamin D3 6.25 mcg (250 unit) tablet (Citracal + Vitamin D Maximum) ibuprofen 400 mg tablet 400 mg PO TID PRN 01/07/23 12/13/24 albuterol sulfate 90 mcg/actuation 2 puff inhalation Q2H PRN 05/21/23 12/13/24 aerosol inhaler vitamin B complex 1 cap PO QDAY 08/16/24 12/13/24 abemaciclib 150 mg tablet mg PO 12/13/24 (Verzenio) Previous Rx's ?Medication ?Instructions ?Recorded miscellaneous medical supply #60 mL 04/14/24 prochlorperazine maleate 5 mg 5 mg PO BID PRN nausea and 06/28/24 tablet (Compazine) vomiting #30 tabs potassium chloride 20 mEq 20 meq PO BID #180 tabs 10/05/24 tablet,extended release(part/cryst) rivaroxaban 10 mg tablet (Xarelto) 10 mg PO QDAY #30 tabs 11/28/24 Allergies Allergy/AdvReac Type Severity Reaction Status Date / Time bee venom protein (honey bee) Allergy Verified 12/14/24 19:29 Review of Systems Status of ROS: Reports: 10 or more systems reviewed and unremarkable except as noted in History and below Narrative: Constitutional: No fevers. Eyes: No discharge. No vision changes. HENT: No congestion, no sore throat, no ear pain. Cardiovascular: No chest pain, no palpitations. Respiratory: No shortness of breath, no wheezes. She reports a cough. Gastrointestinal: No abdominal pain, no vomiting, no diarrhea. Genitourinary: No dysuria, no hematuria. Musculoskeletal: Normal range of motion. Skin: No rashes, no pruritis. Neurological: No dizziness, weakness, sensory change, speech change. Endo/Heme/Allergies: No bruising or bleeding. No polydipsia. Pysch: no suicidality, no anxiety, no insomnia. All other systems reviewed and are negative. [facility] Medical History Cramp in lower leg ?R25.2 - Cramp and spasm (ICD-10) Central venous catheter in place ?Z78.9 - Other specified health status (ICD-10) DVT of axillary vein, acute right ?I82.A11 - Acute embolism and thrombosis of right axillary vein (ICD-10) Social History Smoking Status: Former smoker Do you use any of these nicotine containing products: None Second hand tobacco smoke exposure: No How often do you have a drink containing alcohol: never How often do you have six or more drinks on one occasion: Never AUDIT-C Alcohol total score: 0 Non-prescribed substance use: denies use service: No Exam Narrative: Exam Narrative: Constitutional: No acute distress. HEENT: Normocephalic, atraumatic. Neck: Normal range of motion. Nontender. Supple. Heart: Regular. No murmurs. Normal rate. Intact distal pulses. Lungs: Clear to auscultation. No chest discomfort. No wheezes, rhonchi, or rales. Abdomen: Normal bowel sounds. Nontender. No rebound tenderness. Genitalia: Deferred. Back: No midline tenderness. Normal range of motion. Extremities: Normal range of motion. No injury. Skin: Intact. No rash. Warm. No erythema or pallor. Neurologic: No altered sensation. No weakness. Alert and oriented. Psychiatric: No suicidality. No anxiety or depression. No insomnia. Nursing notes and vitals signs are reviewed. Const: Vital Signs, click to edit/add: Vital Signs - 24 hr 12/14/24 19:22 12/14/24 23:54 Temperature 99 F 98.8 F Pulse Rate [Right Pulse Oximeter] 104 H 84 Respiratory Rate 18 18 Blood Pressure [Ri ght Upper Arm] 105/68 126/67 Pulse Oximetry 95 91 Oxygen Delivery Me thod Room Air Room Air Course Vital Signs Vital signs: Initial Vital Signs Temperature 99 F 12/14/24 19:22 Temperature Source Temporal Artery Scan 12/14/24 19:22 Pulse Rate 104 H 12/14/24 19:22 Pulse Rhythm Regular 12/14/24 19:22 Respiratory Rate 18 12/14/24 19:22 Blood Pressure 105/68 12/14/24 19:22 Blood Pressure Mean 80 12/14/24 19:22 Blood Pressure Position Sitting 12/14/24 19:22 Pulse Oximetry 95 12/14/24 19:22 Oxygen Delivery Method Room Air 12/14/24 19:22 Vital Signs Temperature 99 F 12/14/24 19:22 Pulse Rate 104 H 12/14/24 19:22 Respiratory Rate 18 12/14/24 19:22 Blood Pressure 105/68 12/14/24 19:22 Pulse Oximetry 95 12/14/24 19:22 Oxygen Delivery Method Room Air 12/14/24 19:22 Temperature 98.8 F 12/14/24 23:54 Pulse Rate 84 12/14/24 23:54 Respiratory Rate 18 12/14/24 23:54 Blood Pressure 126/67 12/14/24 23:54 Pulse Oximetry 91 12/14/24 23:54 Oxygen Delivery Method Room Air 12/14/24 23:54 Medications Administered Medications: Generic Name Dose Route Start Last Admin Trade Name Freq PRN Reason Stop Dose Admin Dextrose/Lactated Ringer's 1,000 mls @ 1,000 mls/hr 12/14/24 22:32 12/14/24 23:10 5 % Dextrose In Lac Ringer's IV 1,000 mls/hr .Q1H ISABELLE Administration Discontinued Medications Generic Name Dose Route Start Last Admin Trade Name Kanika PRN Reason Stop Dose Admin Ondansetron HCl 4 mg 12/14/24 22:14 12/14/24 22:51 Ondansetron 2 Mg/Ml Inj IVP 12/14/24 22:15 4 mg ONCE ONE Administration Medical Decision Making MDM Narrative Medical decision making narrative: This patient has breast cancer and is under going chemotherapy. She comes in with nausea and has not taken much to eat and drink. She does arrive with normal vital signs except for a slight tachycardia. An IV was established through her port where she did receive D5 half lactated Ringer's. This also included Zofran 4 mg. She states that she is feeling better. She does have follow-up appointments with her cancer care providers. She received a [employer] prescription for Zofran. Lab Data Labs: Lab Results 12/14/24 12/14/24 Range/Units 19:30 22:50 WBC 13.45 H (4.50-11.00) K/uL RBC 3.28 L (4.00-5.20) m/uL Hgb 10.9 L (12.0-16.0) gm/dL Hct 33.0 (33.0-51.0) % MCV 101 H (80-100) fL MCH 33 (26-34) pg MCHC 33 (32-36) gm/dL RDW Coeff of Delfino 15.6 H (11.5-15.5) % Plt Count 204 (140-440) K/uL Neut % (Auto) 82.1 H (42.0-72.0) % Lymph % (Auto) 2.4 L (20-44) % [place] % (Auto) 13.4 H (0.0-11.0) % Eos % (Auto) 0.1 (0.0-7.0) % Baso % (Auto) 0.1 (0.0-3.0) % Neut # (Auto) 11.00 H (1.7-7.0) K/uL Lymph # (Auto) 0.30 L (0.90-2.90) K/uL [place] # (Auto) 1.80 H (0.00-0.90) K/UL Eos # (Auto) 0.00 (0.00-0.50) K/uL Baso # (Auto) 0.00 (0.00-0.30) K/uL Abs Immat Gran (auto) 0.30 (0.00-0.30) K/uL Imm/Tot Granulo (auto) 1.9 % Sodium 134 L (135-149) mmol/L Potassium 3.3 L (3.6-5.1) mmol/L Chloride 101 (96-114) mmol/L Carbon Dioxide 24 (20-32) mmol/L Anion Gap 9 (7-15) mEq/L BUN 14 (7-30) mg/dL Creatinine 0.7 (0.5-1.5) mg/dL Estimated Creat Clear 38.35 Estimated GFR 97 ml/min Glucose 105 (60-115) mg/dL Calcium 8.7 (8.4-10.6) mg/dL SARS-CoV-2 (PCR) Negative SARS-CoV-2 (Negative) Influenza Type A (PCR) Negative PCR FLU A (Negative) Influenza Type B (PCR) Negative PCR FLU B (Negative) RSV (PCR) Negative PCR RSV (Negative) Discharge Plan Discharge Clinical Impression: Fluid volume depletion Patient Disposition: Home, Self-Care Condition: Stable Additional Instructions: Take frequent fluids and increase diet as tolerated. Follow up with primary physicians as scheduled and needed. Return if worsening. Prescriptions: No Action albuterol sulfate 90 mcg/actuation HFA aerosol inhaler 2 puff inhalation Q2H PRN vitamin B complex Capsule 1 cap PO QDAY Xarelto 10 mg tablet 10 mg PO QDAY Qty: 30 3RF cholecalciferol (vitamin D3) 50 mcg (2,000 unit) capsule 50 mcg PO QDAY acetaminophen 325 mg capsule 650 mg PO Q4H PRN loratadine 10 mg tablet 10 mg PO DAILY PRN multivitamin Tablet 1 tab PO QAM calcium citrate-vitamin D3 [Citracal + D Maximum] 315 mg-6.25 mcg (250 unit) tablet 2 tab PO BID ibuprofen 400 mg tablet 400 mg PO TID PRN prochlorperazine maleate [Compazine] 5 mg tablet 5 mg PO BID PRN (Reason: nausea and vomiting) Qty: 30 0RF potassium chloride 20 mEq tablet,ER particles/crystals 20 meq PO BID Qty: 180 0RF (DME) miscellaneous medical supply Liquid See Rx Instructions .Route Qty: 60 1RF Rx Instructions: Viscous lidocaine, 5-10 mL q.6 hours p.r.n., 60 mL Verzenio 150 mg tablet PO Patient Comments: [NO ORIGINAL SIG] Follow Up/Referrals: Nahomi Valera PA-C [Primary Care Provider] - Stand Alone Forms: [employer] Info Instructions
[2024-12-14] MEDS: ONDANSETRON 2 MG/ML inj 4 MG IVP (22:51)
[2024-12-14] MEDS: 5 % DEXTROSE IN LAC RINGER'S 1,000 ML 1000 ML IV (23:10)
[2024-12-14 23:19] LABS: Chloride* 101 mmol/L (96-114); Potassium* 3.3 mmol/L (3.6-5.1); Sodium* 134 mmol/L (135-149)
[2024-12-14 23:21] LABS: Basophils Percent Auto 0.1 % (0.0-3.0); Eosinophils Percent Auto 0.1 % (0.0-7.0); Hemoglobin* 10.9 gm/dL (12.0-16.0); Immature Granulocytes Pct Auto 1.9 %; Lymphocytes Percent Auto 2.4 % (20-44); Mean Corpuscular HGB Conc 33 gm/dL (32-36); Mean Corpuscular Hemoglobin 33 pg (26-34); Mean Corpuscular Volume 101 fL (80-100); Monocytes Percent Auto 13.4 % (0.0-11.0); Neutrophils Percent Auto 82.1 % (42.0-72.0); Platelet Count* 204 K/uL (140-440); RDW Coefficient of Variation % 15.6 % (11.5-15.5); Red Blood Count 3.28 m/uL (4.00-5.20); White Blood Count* 13.45 K/uL (4.50-11.00)
[2024-12-14 23:22] LABS: Anion Gap 9 mEq/L (7-15); Blood Urea Nitrogen* 14 mg/dL (7-30); Carbon Dioxide* 24 mmol/L (20-32); Creatinine* 0.7 mg/dL (0.5-1.5); Est. Creatinine Clearance* 38.35; Estimated Glomerular Filt Rate 97 ml/min; Slide Review Reflex No
[2024-12-14 23:23] LABS: Calcium* 8.7 mg/dL (8.4-10.6); Glucose* 105 mg/dL (60-115)
[2024-12-14 23:54] VITALS: BP 126/67; PULSE 84; RESP 18; TEMP 37.1; O2SAT 91
[2024-12-15] MEDS: HEPARIN 500 UNIT/5 ML SYRINGE IVF (00:27)
== END 2024-12-15 00:42 | disposition home or self-care (01) ==
PROVIDERS: Emergency Provider Emergency Medicine Emergency Medical Services; PCP Student in an Organized Health Care Education/Training Program
DX: E86.9 Volume depletion, unspecified (principal); Z92.21 Personal history of antineoplastic chemotherapy; Z95.828 Presence of other vascular implants and grafts
CPT/HCPCS: 36415; 80048; 85025; 87631; 96361; 96374; 96375; 99284; J1642; J2405

== ENCOUNTER 2024-12-18 14:59 | Outpatient (CLI) | payer OTHER, SELFPAY ==
--- NOTE | 2024-12-18 15:15 | CRLHL7_ITS ---
For Patients: As a result of the Century Cures Act, medical imaging exams and procedure reports are released immediately into your electronic medical record. You may view this report before your referring provider. If you have questions, please contact your health care provider. INDICATION: Progressive upper respiratory symptoms. Immunocompromised. History of breast cancer. TECHNIQUE: Chest 2 views. COMPARISON: PET-CT 11/25/2024. MRI thoracic spine 11/03/2024. FINDINGS: Left-sided Port-A-Cath terminates in the distal SVC. No pneumothorax or definite pleural effusion. New patchy ill-defined opacities in the left lung. Cardiac and mediastinal contours are within normal limits. Upper abdomen and osseous structures as imaged show no acute abnormality. Multifocal sclerotic osseous metastasis are similar in appearance. IMPRESSION: Multifocal left lung opacities concerning for pneumonia or disease progression. Dictated by Yifan Hickman MD @ 12/18/2024 3:31:46 PM (Electronically Signed)
== END 2024-12-18 15:00 | disposition home or self-care (01) ==
LOC: RAD 15:00
PROVIDERS: PCP Student in an Organized Health Care Education/Training Program; Visit Provider Physician Assistant
DX: J06.9 Acute upper respiratory infection, unspecified (principal); Z85.3 Personal history of malignant neoplasm of breast
CPT/HCPCS: 71046

== ENCOUNTER 2024-12-18 16:52 | Inpatient (IN) | payer OTHER, SELFPAY ==
[2024-12-18 16:52] VITALS: O2SAT 82
[2024-12-18 17:02] VITALS: BP 103/68; PULSE 104; RESP 22; TEMP 37; O2SAT 92; O2SAT 94; BMI 18.1
[2024-12-18 17:05] VITALS: O2SAT 90
--- NOTE | 2024-12-18 17:23 | P.IMHP_ITS ---
Hospitalist- H&P: HPI History of Present Illness Date Seen: 12/18/24 Chief complaint: Direct admit Narrative: Kimmy Castro is a 64 year old female with a history of metastatic breast cancer who was seen in the oncology clinic today for illness. She has had a productive cough for about 1 week, no hemoptysis. No fevers or chest pain. Intermittent wheezing at home. Energy level is quite low and she has needed assistance with ADLs. Also noted to have vesicular rash over her trunk for the past 1-2 days. Last week, she was seen in the ER (12/13) with abdominal pain, diagnosed with UTI and placed on Cefdinir; then had emesis and seen again in ER (12/14) for v omiting, symptoms improved with IVFs and Dramamine. In Oncology Clinic, she had a chest x-ray that revealed multifocal L lung opacities concerning for pneumonia or disease progression. WBC 9 with PMN predominance, Na of 128, K of 3.1, negative COVID/RSV/Flu A and B. Oxygen saturation as low as 82% on RA. She was directly admitted to the hospital for acute hypoxic respiratory failure in the setting of PNA and known metastatic breast cancer. Histories updated below, Nahomi Valera is PCP at [facility]. Review of Systems Status of ROS: Reports: 10 or more systems reviewed and unremarkable except as noted in History and below Narrative: - decreased po intake over the past few days, no vomiting - Cefdinir and Dramamine only new exposures regarding rash, + itchy PFSH PFSH Medical History (Updated 12/18/24 @ 20:06 by Loreto Zuñiga MD) Breast cancer metastasized to multiple sites ?C50.919 - Malignant neoplasm of unspecified site of unspecified female breast (ICD-10) Leptomeningeal disease ?G96.198 - Other disorders of meninges, not elsewhere classified (ICD-10) Malignant neoplasm metastatic to left breast ?C79.81 - Secondary malignant neoplasm of breast (ICD-10) 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 ?C50.919 - Malignant neoplasm of unspecified site of unspecified female breast (ICD-10) CKD (chronic kidney disease) ?N18.9 - Chronic kidney disease, unspecified (ICD-10) S/P radiation therapy < 4 weeks ago ?Z92.3 - Personal history of irradiation (ICD-10) Left hip pain ?M25.552 - Pain in left hip (ICD-10) Metastasis to bone ?C79.51 - Secondary malignant neoplasm of bone (ICD-10) Central venous catheter in place ?Z78.9 - Other specified health status (ICD-10) DVT of axillary vein, acute right ?I82.A11 - Acute embolism and thrombosis of right axillary vein (ICD-10) Surgical History (Updated 12/18/24 @ 19:24 by Loreto Zuñiga MD) H/O mastectomy ?Z90.10 - Acquired absence of unspecified breast and nipple (ICD-10) Social History (Updated 12/18/24 @ 20:01 by Loreto Zuñiga MD) Narrative: Lives independently in [place], adult children check on her regularly. Daughter Telma would be medical decision maker if needed. Nonsmoker, no ETOH. Requests no intubation, would be open to one round of CPR. What is your current living situation?: I presently have a place to live Problems where you live: no known problems Problems where you live details: none In the past 12 months, utilities in danger of being shut off: no In past 12 months, lack of transportation kept you from medical appts, meetings, work, or getting things needed for daily living: no In the past 12 mos, have been you worried that your food would run out before you had money to buy more?: never true In the past 12 mos, the food you bought just didn't last and you didn't have mon ey to buy more?: never true Highest level of school completed/degree received: high school graduate Smoking Status: Former smoker Do you use any of these nicotine containing products: None Second hand tobacco smoke exposure: No How often do you have a drink containing alcohol: never How often do you have six or more drinks on one occasion: Never AUDIT-C Alcohol total score: 0 Non-prescribed substance use: denies use Caffeine: Yes How often does anyone, including family, friends and others, physically hurt you : never How often does anyone, including family, friends and others, insult or talk down to you: never How often does anyone, including family, friends and others, threaten you with harm: never How often does anyone, including family, friends and others, scream or curse at you: never service: No Meds Home Medications and Allergies Home Medications ?Medication ?Instructions ?Recorded ?Confirmed ?Type acetaminophen 325 mg capsule 650 mg PO Q4H PRN 06/09/22 12/18/24 History cholecalciferol (vitamin D3) 50 50 mcg PO QDAY 06/09/22 12/18/24 History mcg (2,000 unit) capsule loratadine 10 mg tablet 10 mg PO DAILY PRN 06/11/22 12/18/24 History multivitamin 1 tab PO QAM 06/11/22 12/18/24 History calcium 315 mg (as 2 tab PO BID 11/05/22 12/18/24 History citrate)-vitamin D3 6.25 mcg (250 unit) tablet (Citracal + Vitamin D Maximum) ibuprofen 400 mg tablet 400 mg PO TID PRN 01/07/23 12/18/24 History albuterol sulfate 90 mcg/actuation 2 puff inhalation Q2H PRN 05/21/23 12/18/24 History aerosol inhaler vitamin B complex 1 cap PO QDAY 08/16/24 12/18/24 History Allergies Allergy/AdvReac Type Severity Reaction Status Date / Time bee venom protein (honey bee) Allergy Verified 12/14/24 19:29 Exam Narrative: Exam Narrative: GEN: Alert and oriented, appears cachectic and chronically ill HEENT: EOMIs bilaterally, no scleral icterus CV: Sinus tachycardia, no concerning murmurs heard, heart sounds distant R: Intermittent coughing paroxysms during exam, no wheezing, bibasilar rhonchi that clears with cough Ext: wwp, no edema Skin: Rash on trunk with innumerable vesicular lesions, none currently draining, no excoriations Neuro: Nonfocal, no resting tremor, gait not observed Psych: Appropriate Const: Vital Signs, click to edit/add: Vital Signs - 24 hr 12/18/24 17:02 12/18/24 17:05 Temperature 98.6 F Pulse Rate [Right Radial] 104 H Blood Pressure [Ri ght Arm] 103/68 Pulse Oximetry 92 90 Oxygen Delivery Me thod Nasal Cannula Nasal Cannula Oxygen Flow Rate 2 2 Assessment and Plan Assessment and plan (1) Acute hypoxic respiratory failure: Problem comment: - noted to have L sided infiltrate on CXR 12/18/24 - Zosyn 12/18/24, RT referral, supplemental oxygen - ddx: disease progression, CHF, viral process, unlikely PE as anticoagulated - per Oncology: Sacituzumab can cause pneumonitis (would expect this to be bilateral) - low threshold for CT with any worsening of symptoms Status: Acute (2) Rash: Problem comment: - ddx: drug reaction, viral process (VZV, HSV), contact dermatitis - bacterial culture collected in Oncology, will collect a second swab for HSV/VZV Status: Acute (3) Hyponatremia: Problem comment: - noted over the past few weeks (was 134, currently 128) - 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 + poor po intake of solutes - nutrition consultation, IVFs, will not fluid restrict on admission given poor po intake at baseline, encourage protein supplementation Status: Acute (4) DVT of axillary vein, acute right: Problem comment: - 2015, anticoagulated chronically Status: Chronic (5) Breast cancer metastasized to multiple sites: Problem comment: - lung, bone, leptomeningeal disease - follows with Oncology team locally, currently on Sacituzamab (holding in the setting of acute illness) Status: Acute Plan - per above - Rivaroxaban for ppx - daughter updated at bedside, questions answered - patient appropriate for inpatient status given acute hypoxic respiratory failure, metastatic breast cancer, deconditioned status, high risk for disease complications
[2024-12-18] MEDS: 0.9 % SODIUM CHLORIDE 1000 ml 1,000 ML 125 ML IV (17:51)
[2024-12-18] MEDS: POTASSIUM CHLORIDE 10 MEQ CAPSULE ER 20 MEQ PO ×2 (17:51→21:22)
[2024-12-18] MEDS: PIPERACILLIN/TAZOBACTAM 3.375 GM in 0.9 % SODIUM CHLORIDE Mini-bag 100 ML IVPB (17:52)
[2024-12-18] MEDS: SODIUM CHLORIDE 0.9 % (FLUSH) 10 ML SYRINGE 5 ML IVF (17:52)
--- NOTE | 2024-12-18 18:36 | PC.NURSE ---
End of Shift Note: Patient was a direct admit from [facility]. She was hypoxic upon arrival. RT was in to see her as she arrived. Taught patient the use of aerobik. She is alert and orientated no complaints of pain. Tolerating regular diet. Need to get a few more lab test which may have to hand off to the next shift.
[2024-12-18 21:20] VITALS: BP 101/70; PULSE 91; RESP 16; TEMP 36.8; O2SAT 90
[2024-12-18 23:00] VITALS: PULSE 89; RESP 16
[2024-12-19] VITALS (16 sets, daily range): BP systolic 80–120; BP diastolic 62–72; PULSE 87–119; RESP 18–24; TEMP 36.7–37.7; O2SAT 86–94; BMI 18.1
[2024-12-19] MEDS: PIPERACILLIN/TAZOBACTAM 3.375 GM in 0.9 % SODIUM CHLORIDE Mini-bag 100 ML IVPB ×5 (00:16→23:48)
[2024-12-19 01:01] LABS: Legionella pneumo Ag Urine L. pneumo Negative (Negative); S pneumo Ag Urine S. pneumo Negative (Negative)
[2024-12-19] MEDS: 0.9 % SODIUM CHLORIDE 1000 ml 1,000 ML 125 ML IV ×2 (03:55→16:38)
[2024-12-19 06:12] LABS: Basophils Absolute Auto 0.01 K/uL (0.00-0.30); Basophils Percent Auto 0.1 % (0.0-3.0); Hematocrit 25.6 % (33.0-51.0); Hemoglobin* 8.5 gm/dL (12.0-16.0); Immature Granulocytes Abs Auto 0.09 K/uL (0.00-0.30); Immature Granulocytes Pct Auto 1.1 %; Lymphocytes Percent Auto 6.8 % (20-44); Mean Corpuscular HGB Conc 33 gm/dL (32-36); Mean Corpuscular Hemoglobin 33 pg (26-34); Mean Corpuscular Volume 99 fL (80-100); Platelet Count* 144 K/uL (140-440); RDW Coefficient of Variation % 15.9 % (11.5-15.5); White Blood Count* 8.14 K/uL (4.50-11.00)
[2024-12-19 06:16] LABS: Slide Review Reflex No
[2024-12-19 06:38] LABS: Albumin* 2.4 g/dL (3.3-5.0); Chloride* 104 mmol/L (96-114); Potassium* 3.6 mmol/L (3.6-5.1); Sodium* 132 mmol/L (135-149)
--- NOTE | 2024-12-19 06:39 | PC.NURSE ---
End of shift summary: Pt has been A&O, afebrile and VSS. Ax1 with 2ww to bathroom. She maintained O2 sats > 90% on 3L NC overnight. She was increased from 2L d/t O2 reading at 88-89% and feeling very SOB after ambulating. LS have bibasilar rhonchi. Wet, non-productive cough overnight, encouraged use of Aerobika. No edema noted, plexi pulses in place. TELE read NSR overnight. Left chest port patent & infusing NS @ 125 mL/hr. Vesicular rash noted throughout abdomen, flank, bilateral thighs, bilateral upper arms and on face. Wound culture obtained and varicella PCR drawn. IV Acyclovir q8H initiated. Pt slept well in between cares, up to the bathroom once & lindsay colored urine noted. Droplet & chemo precautions ongoing. ?
[2024-12-19 06:40] LABS: Creatinine* 0.5 mg/dL (0.5-1.5); Est. Creatinine Clearance* 40.82; Estimated Glomerular Filt Rate 105 ml/min
[2024-12-19 06:41] LABS: Alanine Aminotransferase* 26 U/L (4-35); Alkaline Phosphatase* 67 U/L (40-150); Anion Gap 5 mEq/L (7-15); Aspartate Amino Transferase* 40 U/L (12-35); Bilirubin Total* 0.2 mg/dL (0.1-1.5); Blood Urea Nitrogen* 10 mg/dL (7-30); Carbon Dioxide* 23 mmol/L (20-32); Glucose* 101 mg/dL (60-115); Total Protein* 4.4 g/dL (6.0-8.3)
[2024-12-19 06:42] LABS: Magnesium* 1.9 mg/dL (1.5-2.6)
[2024-12-19 06:58] LABS: Procalcitonin* 0.35 ng/mL (<0.50)
--- NOTE | 2024-12-19 07:26 | PM.IMPN1 ---
Progress Note: A&P Assessment and plan (1) Acute hypoxic respiratory failure: Problem details: - noted to have L sided infiltrate on CXR 12/18/24 - Zosyn 12/18/24, added azithromycin 12/19, RT referral, supplemental oxygen - ddx: disease progression, CHF, viral process, unlikely PE as anticoagulated - per Oncology: Sacituzumab can cause pneumonitis (would expect this to be bilateral) -onc requesting chest/abdomen/pelvis CT 12/19 Status: Acute (2) Community acquired pneumonia: Problem details: -zosyn, azithromycin, nebs, RT support, NC oxygen to titrate pulse ox >90% -Legionella and strep pneumo negative. Status: Acute (3) Breast cancer metastasized to multiple sites: Problem details: - bone, leptomeningeal disease - follows with Oncology team locally, currently on Sacituzamab (holding in the setting of acute illness) Status: Acute (4) Rash: Problem details: - ddx: drug reaction, viral process (VZV, HSV), contact dermatitis - bacterial culture collected in Oncology, will collect a second swab for HSV/VZV Status: Acute (5) Hyponatremia: Problem details: - noted over the past few weeks - 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 and poor po intake of solutes - nutrition consultation, IVFs, will not fluid restrict on admission given poor po intake at baseline, encourage protein supplementation Status: Acute (6) Hypokalemia due to loss of potassium: Problem details: -replace, follow Status: Acute (7) Anemia of chronic disease: Problem details: trend, transfuse when less than 7 or if active bleeding 12/19 = 8.5 Status: Acute (8) History of DVT (deep vein thrombosis): Problem details: - right axillary vein, 2014, anticoagulated chronically Status: Acute (9) Central venous catheter in place: Problem details: Left chest portacath Status: Acute Subjective Date Seen: 12/19/24 Interval history: Daily Progress Note - Hospital Medicine #: 2 CC: Non neutropenic fever, community-acquired pneumonia, vesicular rash consistent with varicella, widely metastatic breast cancer 24 HOUR UPDATE: About the same. Coughing is productive. Feels weak. End of shift summary: Pt has been A&O, afebrile and VSS. Ax1 with 2ww to bathroom. She maintained O2 sats > 90% on 3L NC overnight. She was increased from 2L d/t O2 reading at 88-89% and feeling very SOB after ambulating. LS have bibasilar rhonchi. Wet, non-productive cough overnight, encouraged use of Aerobika. No edema noted, plexi pulses in place. TELE read NSR overnight. Left chest port patent & infusing NS @ 125 mL/hr. Vesicular rash noted throughout abdomen, flank, bilateral thighs, bilateral upper arms and on face. Wound culture obtained and varicella PCR drawn. IV Acyclovir q8H initiated. Pt slept well in between cares, up to the bathroom once & lindsay colored urine noted. Droplet & chemo precautions ongoing. Notable Labs, Micro, Rads, Interventions: Her blood pressures have been soft but map has been greater than 65. Her pulses been 90s to low 100s. She is mildly tachypneic in the low 20s. She is currently afebrile and satting 92% on 2 L. Her CBC reveals an acute on chronic anemia, hemoglobin 8.5. Normocytic. Likely from chronic disease. Her platelets are normal in her white blood cell count is normal. Her sodium has improved to 132. Her renal function is normal. Her glucose is 101. Her albumin has markedly decreased overnight. Procalcitonin is normal. Negative strep pneumo and Legionella. Varicella PCR pending Blood cultures from 12/18 are negative to date. Preliminarily lesion culture is negative to date. Objective: Cachectic. Chronically ill. Aj. Vitals: see above Lungs: Wheezing and rhonchi bilaterally but worse on the left. Cardiac: S1S2. Disposition/Potential discharge - Home with home health in 2-3 days. Today I spent 50minutes seeing the patient, reviewing Expanse and EPIC notes/diagnostics, discussing the care plan with our care time that includes social work, PT/OT, pharmacy, RT, chcf and documenting my impressions and plan in the medical record. ? Exam Const: Vital Signs, click to edit/add: Vital Signs - 24 hr 12/18/24 16:52 12/18/24 17:02 12/18/24 17:02 Temperature 98.6 F Pulse Rate Pulse Rate [Right Radial] 104 H Respiratory Rate 22 Blood Pressure [Ri ght Arm] 103/68 Pulse Oximetry 82 L 92 94 Oxygen Delivery Me thod Room Air Nasal Cannula Nasal Cannula Oxygen Flow Rate 2 2 12/18/24 17:05 12/18/24 21:20 12/18/24 23:00 Temperature 98.2 F Pulse Rate 89 Pulse Rate [Right Radial] 91 Respiratory Rate 16 Blood Pressure [Ri ght Arm] 101/70 Pulse Oximetry 90 90 Oxygen Delivery Me thod Nasal Cannula Nasal Cannula Oxygen Flow Rate 2 2 12/18/24 23:00 12/19/24 00:10 12/19/24 00:20 Temperature 98.1 F Pulse Rate Pulse Rate [Right Radial] 89 94 Respiratory Rate 16 18 18 Blood Pressure [Ri ght Arm] 103/67 Pulse Oximetry 90 90 Oxygen Delivery Me thod Nasal Cannula Nasal Cannula Oxygen Flow Rate 2 2 12/19/24 00:25 12/19/24 00:31 12/19/24 04:00 Temperature 98.5 F Pulse Rate Pulse Rate [Right Radial] 87 Respiratory Rate 22 20 18 Blood Pressure [Ri ght Arm] 80/63 L Pulse Oximetry 86 L 92 93 Oxygen Delivery Me thod Nasal Cannula Nasal Cannula Nasal Cannula Oxygen Flow Rate 2 3 3 Labs Labs: Laboratory Results - last 24 hr 12/19/24 12/19/24 00:15 Unknown WBC 8.14 RBC 2.60 L Hgb 8.5 L Hct 25.6 L MCV 99 MCH 33 MCHC 33 RDW Coeff of Delfino 15.9 H Plt Count 144 Neut % (Auto) 86.0 H Lymph % (Auto) 6.8 L Imperial % (Auto) 6.0 Eos % (Auto) 0.0 Baso % (Auto) 0.1 Neut # (Auto) 7.00 Lymph # (Auto) 0.60 L Imperial # (Auto) 0.50 Eos # (Auto) 0.00 Baso # (Auto) 0.01 Abs Immat Gran (auto) 0.09 Imm/Tot Granulo (auto) 1.1 Sodium 132 L Potassium 3.6 Chloride 104 Carbon Dioxide 23 Anion Gap 5 L BUN 10 Creatinine 0.5 Estimated Creat Clear 40.82 Estimated GFR 105 Glucose 101 Calcium 7.0 L Magnesium 1.9 Total Bilirubin 0.2 AST 40 H ALT 26 Alkaline Phosphatase 67 Total Protein 4.4 L Albumin 2.4 L Procalcitonin 0.35 Urine L. pneumophilia Ag L. pneumo Negative Urine Strep pneumoniae Ag S. pneumo Negative
[2024-12-19] MEDS: POTASSIUM CHLORIDE 10 MEQ CAPSULE ER 20 MEQ PO ×2 (08:47→22:21)
[2024-12-19] MEDS: RIVAROXABAN 10 MG TABLET PO (08:48)
[2024-12-19] MEDS: AZITHROMYCIN 250 MG TABLET 500 MG PO (08:48)
[2024-12-19] MEDS: MULTIVITAMIN/MINERALS 1 TABLET 1 TAB PO (08:48)
--- NOTE | 2024-12-19 18:12 | PC.NURSE ---
End of Shift [id number]: Patient pleasant and cooperative. Patient vitally stable, lungs with Rhonchi/course, BS WNL, left chest port running NS at 125. Patient currently on 3 L NC with sats in the low 90s. Patient denies pain. Patient 1 assist/walker. Patient does not have much of an appetite but tolerating regular diet. Patient did not have breakfast but had a sandwich and banana for lunch and a popsicle for dinner. Patient has only used the toilet twice today but urinated larger amounts. Patient has spent majority of day in bed. Tele= sinus tachy. Patient with rash, pink papules on trunk, patient does not report itchiness.
[2024-12-20] VITALS (13 sets, daily range): BP systolic 117–129; BP diastolic 65–88; PULSE 99–118; RESP 22–23; TEMP 36.8–37.8; O2SAT 91–96; BMI 18.1
[2024-12-20] MEDS: ONDANSETRON 2 MG/ML inj 4 MG IVP (00:08)
[2024-12-20] MEDS: 0.9 % SODIUM CHLORIDE 1000 ml 1,000 ML 125 ML IV ×2 (02:51→13:34)
[2024-12-20] MEDS: PIPERACILLIN/TAZOBACTAM 3.375 GM in 0.9 % SODIUM CHLORIDE Mini-bag 100 ML IVPB ×3 (06:16→17:57)
[2024-12-20 06:43] LABS: Hematocrit 26.4 % (33.0-51.0); Hemoglobin* 8.7 gm/dL (12.0-16.0); Mean Corpuscular HGB Conc 33 gm/dL (32-36); Mean Corpuscular Hemoglobin 33 pg (26-34); Mean Corpuscular Volume 99 fL (80-100); Platelet Count* 145 K/uL (140-440); Red Blood Count 2.67 m/uL (4.00-5.20); White Blood Count* 9.38 K/uL (4.50-11.00)
[2024-12-20 06:46] LABS: Slide Review Reflex No
--- NOTE | 2024-12-20 06:52 | PC.NURSE ---
Shift note ([id number]): Patient pleasant, alert and oriented. Ambulated to bathroom with gait belt, walker and assist of one. Temp 99.7-99.9. Declined PRN Tylenol when offered. Denied itching or pain through the night.?
[2024-12-20 07:04] LABS: Albumin* 2.2 g/dL (3.3-5.0); Chloride* 101 mmol/L (96-114)
[2024-12-20 07:05] LABS: Potassium* 3.6 mmol/L (3.6-5.1); Sodium* 130 mmol/L (135-149)
[2024-12-20 07:07] LABS: Creatinine* 0.5 mg/dL (0.5-1.5); Est. Creatinine Clearance* 40.82; Estimated Glomerular Filt Rate 105 ml/min
[2024-12-20 07:08] LABS: Alanine Aminotransferase* 42 U/L (4-35); Alkaline Phosphatase* 79 U/L (40-150); Anion Gap 3 mEq/L (7-15); Aspartate Amino Transferase* 53 U/L (12-35); Bilirubin Direct* 0.2 mg/dL (0.0-0.5); Bilirubin Total* 0.2 mg/dL (0.1-1.5); Blood Urea Nitrogen* 6 mg/dL (7-30); Calcium* 7.3 mg/dL (8.4-10.6); Carbon Dioxide* 26 mmol/L (20-32); Glucose* 96 mg/dL (60-115); Phosphorus* 2.4 mg/dL (2.5-4.5); Total Protein* 3.8 g/dL (6.0-8.3)
[2024-12-20 07:27] LABS: C Reactive Protein* 17.9 mg/dL (0.5-1.0)
[2024-12-20 07:34] LABS: HCO3 VBG 26 mmol/L (21-28); PCO2 VBG 42 mmHG (40-50); PO2 VBG 54.8 mmHG (25-47); pH VBG 7.408 (7.32-7.43)
[2024-12-20] MEDS: MULTIVITAMIN/MINERALS 1 TABLET 1 TAB PO (08:32)
[2024-12-20] MEDS: RIVAROXABAN 10 MG TABLET PO (08:32)
[2024-12-20] MEDS: POTASSIUM CHLORIDE 10 MEQ CAPSULE ER 20 MEQ PO ×2 (08:32→20:10)
[2024-12-20] MEDS: AZITHROMYCIN 250 MG TABLET PO (08:32)
--- NOTE | 2024-12-20 09:22 | PM.IMPN1 ---
Progress Note: A&P Assessment and plan (1) Acute hypoxic respiratory failure: Problem details: - noted to have L sided infiltrate on CXR 12/18/24 - Zosyn 12/18/24, added azithromycin 12/19, RT referral, supplemental oxygen - ddx: disease progression, CHF, viral process, unlikely PE as anticoagulated - per Oncology: Sacituzumab can cause pneumonitis (would expect this to be bilateral) - CT C/A/P 12/19: Moderate to severe patchy B GGOs, L>R, small L pleural effusion (compatible with the reported pneumonia per formal radiology read) Status: Acute (2) Community acquired pneumonia: Problem details: - Zosyn, azithromycin, nebs, RT support, NC oxygen to titrate pulse ox >90% - Legionella and strep pneumo negative Status: Acute (3) Breast cancer metastasized to multiple sites: Problem details: - bone, leptomeningeal disease - follows with Oncology team locally, currently on Sacituzamab (holding in the setting of acute illness) Status: Acute (4) Rash: Problem details: - ddx: drug reaction, viral process (VZV, HSV), contact dermatitis - bacterial culture collected in Oncology (negative), Varicella PCR pending - on IV Acyclovir (12/18/24) Status: Acute (5) Hyponatremia: Problem details: - noted over the past few weeks - 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 and poor po intake of solutes - nutrition consultation, IVFs, will not fluid restrict given poor po intake at baseline, encourage protein supplementation Status: Acute (6) Hypokalemia due to loss of potassium: Problem details: - replace, follow Status: Acute (7) Anemia of chronic disease: Problem details: - trend, transfuse if Hgb < 7 or if active bleeding - Hgb 12/20: 8.7 Status: Acute (8) History of DVT (deep vein thrombosis): Problem details: - right axillary vein, 2015, anticoagulated chronically Status: Acute (9) Central venous catheter in place: Problem details: - Left chest portacath Status: Acute Plan - per above - continues to require inpatient level care; plans to go home with increased services when medically stable for d/c Subjective Date Seen: 12/20/24 Interval history: Carolyn was admitted to the hospital on 12/18/24 for community-acquired pneumonia and acute hypoxic respiratory failure in the setting of known metastatic breast cancer. She was also noted to have a rash concerning for varicella. Currently treating with Zosyn, azithromycin, and acyclovir. Remains hypoxic with an need for supplemental oxygen (1-3.5L) over the last 24 hours. Tmax 99.9 since yesterday. Still feeling somewhat weak this morning, therapies following. She's limited to ambulation between bathroom and her bed 2/2 fatigue and dyspnea. No pain, no other concerns for hospitalist team. Exam Narrative: Exam Narrative: GEN: Sitting comfortably in bedside chair, intermittently tachypneic. Appears chronically ill and cachectic HEENT: Alopecia, EOMIs bilaterally, no scleral icterus CV: Sinus tachycardia, no concerning murmurs R: Rhonchi throughout, clears with cough. Intermittent coughing paroxysms Ext: wwp, no concerning edema Skin: Persistent vesicular rash on trunk, some have formed eschar Neuro: No focal deficits or resting tremor Psych: Appropriate Const: Vital Signs, click to edit/add: Vital Signs - 24 hr 12/19/24 11:26 12/19/24 15:12 12/19/24 15:12 Temperature 98.5 F 98.6 F Pulse Rate Pulse Rate [Right Radial] 101 H 119 H 119 H Respiratory Rate 24 22 22 Blood Pressure [Ri t Arm] 109/64 116/62 Pulse Oximetry 92 90 Oxygen Delivery Me thod Nasal Cannula Nasal Cannula Oxygen Flow Rate 2 3.5 12/19/24 15:12 12/19/24 15:20 12/19/24 15:59 Temperature Pulse Rate 114 H Pulse Rate [Right Radial] Respiratory Rate 22 Blood Pressure [Ri t Arm] Pulse Oximetry 90 92 Oxygen Delivery Me thod Nasal Cannula Nasal Cannula Oxygen Flow Rate 3.5 3 12/19/24 19:00 12/19/24 22:22 12/19/24 22:47 Temperature 99.8 F H 99.9 F H Pulse Rate Pulse Rate [Right Radial] 105 H 108 H Respiratory Rate 20 18 18 Blood Pressure [Ri t Arm] 120/72 118/69 Pulse Oximetry 93 94 94 Oxygen Delivery Me thod Nasal Cannula Nasal Cannula Nasal Cannula Oxygen Flow Rate 3 3 12/19/24 23:00 12/20/24 03:00 12/20/24 07:07 Temperature 99.7 F H Pulse Rate 109 H 101 H Pulse Rate [Right Radial] 99 Respiratory Rate 22 Blood Pressure [Ri ght Arm] 124/72 Pulse Oximetry 91 Oxygen Delivery Me thod Nasal Cannula Oxygen Flow Rate 3.5 12/20/24 08:25 12/20/24 08:36 12/20/24 08:36 Temperature 98.6 F Pulse Rate Pulse Rate [Right Radial] 117 H 117 H Respiratory Rate 22 22 Blood Pressure [Ri ght Arm] 125/65 Pulse Oximetry 93 96 Oxygen Delivery Me thod Nasal Cannula Nasal Cannula Oxygen Flow Rate 2.5 2 12/20/24 08:36 Temperature Pulse Rate Pulse Rate [Right Radial] Respiratory Rate 22 Blood Pressure [Nd ght Arm] Pulse Oximetry 96 Oxygen Delivery Me thod Nasal Cannula Oxygen Flow Rate 2 Labs Labs: Laboratory Results - last 24 hr 12/20/24 06:10 WBC 9.38 RBC 2.67 L Hgb 8.7 L Hct 26.4 L MCV 99 MCH 33 MCHC 33 Plt Count 145 VBG pH 7.408 VBG pCO2 42 VBG pO2 54.8 H VBG HCO3 26 Sodium 130 L Potassium 3.6 Chloride 101 Carbon Dioxide 26 Anion Gap 3 L BUN 6 L Creatinine 0.5 Estimated Creat Clear 40.82 Estimated GFR 105 Glucose 96 Calcium 7.3 L Phosphorus 2.4 L Total Bilirubin 0.2 Direct Bilirubin 0.2 AST 53 H ALT 42 H Alkaline Phosphatase 79 C-Reactive Protein 17.9 H Total Protein 3.8 L Albumin 2.2 L
--- NOTE | 2024-12-20 19:56 | PC.NURSE ---
End of Shift: Patient pleasant and cooperative. Patient vitally stable, lungs with rhonchi, BS WNL, IV running NS at 125. Patient denies pain, and ambulates 1 assist/walker. Patient on 1 L oxygen by SD with sats in the low 90s. Patient tolerating regular diet and urinating well. Patient tolerating regular diet. Patient declined ensures today but had banana and milk twice today and pizza for dinner. Patients rash has become more itchy to the patient today. Tele=NSR.
[2024-12-21] VITALS (8 sets, daily range): BP systolic 120–134; BP diastolic 77–88; PULSE 99–122; RESP 20–24; TEMP 36.4–37.8; O2SAT 91–96
[2024-12-21] MEDS: PIPERACILLIN/TAZOBACTAM 3.375 GM in 0.9 % SODIUM CHLORIDE Mini-bag 100 ML IVPB ×4 (00:13→18:43)
[2024-12-21] MEDS: 0.9 % SODIUM CHLORIDE 1000 ml 1,000 ML 125 ML IV ×2 (03:07→15:20)
[2024-12-21 06:19] LABS: HCO3 VBG 30 mmol/L (21-28); Ionized Calcium* 1.11 mmol/L (1.11-1.30); PCO2 VBG 42 mmHG (40-50); PO2 VBG 36.9 mmHG (25-47); pH VBG 7.452 (7.32-7.43)
[2024-12-21 06:20] LABS: Hematocrit 24.9 % (33.0-51.0); Hemoglobin* 8.2 gm/dL (12.0-16.0); Mean Corpuscular HGB Conc 33 gm/dL (32-36); Mean Corpuscular Hemoglobin 32 pg (26-34); Mean Corpuscular Volume 98 fL (80-100); Platelet Count* 157 K/uL (140-440); Red Blood Count 2.55 m/uL (4.00-5.20); White Blood Count* 10.99 K/uL (4.50-11.00)
[2024-12-21 06:25] LABS: Slide Review Reflex No
[2024-12-21 06:42] LABS: Albumin* 2.5 g/dL (3.3-5.0); Chloride* 96 mmol/L (96-114)
[2024-12-21 06:43] LABS: Potassium* 3.3 mmol/L (3.6-5.1); Sodium* 129 mmol/L (135-149)
[2024-12-21 06:45] LABS: Alkaline Phosphatase* 125 U/L (40-150); Anion Gap 4 mEq/L (7-15); Aspartate Amino Transferase* 74 U/L (12-35); Bilirubin Direct* 0.3 mg/dL (0.0-0.5); Bilirubin Total* 0.5 mg/dL (0.1-1.5); Blood Urea Nitrogen* 4 mg/dL (7-30); Carbon Dioxide* 29 mmol/L (20-32); Creatinine* 0.5 mg/dL (0.5-1.5); Est. Creatinine Clearance* 40.82; Estimated Glomerular Filt Rate 105 ml/min; Total Protein* 4.7 g/dL (6.0-8.3)
[2024-12-21 06:46] LABS: Alanine Aminotransferase* 77 U/L (4-35); Calcium* 7.9 mg/dL (8.4-10.6); Glucose* 98 mg/dL (60-115)
[2024-12-21 07:01] LABS: C Reactive Protein* 18.4 mg/dL (0.5-1.0)
[2024-12-21 07:40] LABS: Varicella-Zoster Virus Source Blood; Varicella-Zoster Virus by PCR Detected
--- NOTE | 2024-12-21 07:50 | PM.IMPN1 ---
Progress Note: A&P Assessment and plan (1) Acute hypoxic respiratory failure: Problem details: - noted to have L sided infiltrate on CXR 12/18/24 - Zosyn 12/18/24, added azithromycin 12/19, RT referral, supplemental oxygen - ddx: disease progression, CHF, viral process, unlikely PE as anticoagulated - per Oncology: Sacituzumab can cause pneumonitis (would expect this to be bilateral) - CT C/A/P 12/19: Moderate to severe patchy B GGOs, L>R, small L pleural effusion (compatible with the reported pneumonia per formal radiology read) Status: Acute (2) Community acquired pneumonia: Problem details: - Zosyn, azithromycin, nebs, RT support, NC oxygen to titrate pulse ox >90% - Legionella and strep pneumo negative Status: Acute (3) Breast cancer metastasized to multiple sites: Problem details: - bone, leptomeningeal disease - follows with Oncology team locally, currently on Sacituzamab (holding in the setting of acute illness) Status: Acute (4) Rash: Problem details: - ddx: drug reaction, viral process (VZV, HSV), contact dermatitis - bacterial culture collected in Oncology (negative), Varicella PCR POSITIVE - on IV Acyclovir (12/18/24) Status: Acute (5) Hyponatremia: Problem details: - noted over the past few weeks - 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 and poor po intake of solutes - nutrition consultation, IVFs, will not fluid restrict given poor po intake at baseline, encourage protein supplementation Status: Acute (6) Hypokalemia due to loss of potassium: Problem details: - replace, follow Status: Acute (7) Anemia of chronic disease: Problem details: - trend, transfuse if Hgb < 7 or if active bleeding - Hgb 12/20: 8.7 Status: Acute (8) History of DVT (deep vein thrombosis): Problem details: - right axillary vein, 2015, anticoagulated chronically Status: Acute (9) Central venous catheter in place: Problem details: - Left chest portacath Status: Acute Plan - per above - Xarelto for ppx - still requiring hospital level care Subjective Date Seen: 12/21/24 Interval history: Carolyn was admitted to the hospital on 12/18/24 for community-acquired pneumonia and acute hypoxic respiratory failure in the setting of known metastatic breast cancer. She was also noted to have a rash, + VZV PCR. Currently treating with Zosyn, azithromycin, and acyclovir. Her oxygen needs have decreased over the past 24 hours (requiring 1L per NC) Tmax 101.1 in the last 24 hours. Continues to be tachycardic with exertion, no chest pain. Still feeling weak and easily exerted (only ambulating between bed and bathroom 2/2 BENITES and fatigue), therapies following. No pain, no other concerns for hospitalist team. Exam Narrative: Exam Narrative: GEN: Laying comfortably in bed, chronically ill/cachectic (baseline) HEENT: Alopecia, EOMIs bilaterally, no scleral icterus CV: RRR (rate in the 90s during my exam) R: Intermittent coughing paroxysms, no wheezing Ext: wwp, no concerning edema Skin: Vesicular rash on trunk, stable Neuro: Nonfocal Psych: Appropriate Const: Vital Signs, click to edit/add: Vital Signs - 24 hr 12/20/24 08:25 12/20/24 08:36 12/20/24 08:36 Temperature 98.6 F Pulse Rate Pulse Rate [Right Radial] 117 H 117 H Respiratory Rate 22 22 Blood Pressure [Ri ght Arm] 125/65 Pulse Oximetry 93 96 Oxygen Delivery Me thod Nasal Cannula Nasal Cannula Oxygen Flow Rate 2.5 2 12/20/24 08:36 12/20/24 11:17 12/20/24 11:21 Temperature 99.1 F Pulse Rate Pulse Rate [Right Radial] 108 H Respiratory Rate 22 22 Blood Pressure [Ri ght Arm] 123/81 Pulse Oximetry 96 96 94 Oxygen Delivery Me thod Nasal Cannula Nasal Cannula Nasal Cannula Oxygen Flow Rate 2 1.5 1 12/20/24 12:19 12/20/24 15:55 12/20/24 16:05 Temperature 99.2 F Pulse Rate Pulse Rate [Right Radial] 115 H Respiratory Rate 22 Blood Pressure [Ri ght Arm] 123/71 Pulse Oximetry 93 91 94 Oxygen Delivery Me thod Nasal Cannula Room Air Nasal Can nula Nasal Cannula Oxygen Flow Rate 0.5 1 1 12/20/24 16:05 12/20/24 16:05 12/20/24 16:31 Temperature Pulse Rate Pulse Rate [Right Radial] 115 H Respiratory Rate 22 22 Blood Pressure [Ri ght Arm] Pulse Oximetry 94 94 Oxygen Delivery Me thod Nasal Cannula Nasal Cannula Oxygen Flow Rate 1 1 12/20/24 16:35 12/20/24 19:00 12/20/24 23:00 Temperature 100.1 F H Pulse Rate 114 H Pulse Rate [Right Radial] 117 H Respiratory Rate 22 23 Blood Pressure [Ri ght Arm] 117/71 Pulse Oximetry 93 91 Oxygen Delivery Me thod Nasal Cannula Nasal Cannula Oxygen Flow Rate 1 1 12/20/24 23:00 12/20/24 23:00 12/21/24 03:00 Temperature 98.3 F 99.2 F Pulse Rate 109 H Pulse Rate [Right Radial] 118 H 112 H Respiratory Rate 23 20 Blood Pressure [Ri ght Arm] 129/88 Pulse Oximetry 92 93 Oxygen Delivery Me thod Nasal Cannula Nasal Cannula Oxygen Flow Rate 1 1 Labs Labs: Laboratory Results - last 24 hr 12/18/24 12/21/24 18:30 06:00 WBC 10.99 RBC 2.55 L Hgb 8.2 L Hct 24.9 L MCV 98 MCH 32 MCHC 33 Plt Count 157 VBG pH 7.452 H VBG pCO2 42 VBG pO2 36.9 VBG HCO3 30 H Sodium 129 L Potassium 3.3 L Chloride 96 Carbon Dioxide 29 Anion Gap 4 L BUN 4 L Creatinine 0.5 Estimated Creat Clear 40.82 Estimated GFR 105 Glucose 98 Calcium 7.9 L Ionized Calcium Saúl 1.11 Phosphorus 3.0 Total Bilirubin 0.5 Direct Bilirubin 0.3 AST 74 H ALT 77 H Alkaline Phosphatase 125 C-Reactive Protein 18.4 H Total Protein 4.7 L Albumin 2.5 L VZV (PCR) Source Blood VZV (Donnell-PCR) Quant Detected A
[2024-12-21] MEDS: ACETAMINOPHEN 325 MG TABLET 975 MG PO ×2 (09:32→15:31)
[2024-12-21] MEDS: RIVAROXABAN 10 MG TABLET PO (09:33)
[2024-12-21] MEDS: POTASSIUM CHLORIDE 10 MEQ CAPSULE ER 20 MEQ PO ×2 (09:33→20:25)
[2024-12-21] MEDS: AZITHROMYCIN 250 MG TABLET PO (09:33)
[2024-12-21] MEDS: MULTIVITAMIN/MINERALS 1 TABLET 1 TAB PO (09:33)
[2024-12-21] MEDS: 0.9 % SODIUM CHLORIDE 500 ML 500 ML IV (11:07)
--- NOTE | 2024-12-21 12:50 | PC.SOCIAL ---
Discharge planning: kiln worker met with pt to discuss early discharge planning. In rounds this morning it was shared that pt would be a good candidate for short-term rehab at a correction facility after discharge. kiln worker checked with pt's insurance and found that she does have coverage for short-term rehab at a correction facility for up to 120 days in a calendar year. Pt has met her yearly out of pocket deductible, but pt will still be responsible for 20% of the bill after insurance has paid their part. Pt shared that she does not think she can afford that and has family members that can stay with her when she discharges. Pt said either her sister or cousin can stay with her. Pt had to use the restroom, so this worker left the room, but pt did let this worker know before leaving the room that she would talk over the possibility of going to short-term rehab at discharge with her son and call this worker back if she had more questions/updates. Pt has this worker's contact information. kiln worker updated the provider on duty. Social work to follow-up as needed.
[2024-12-21] MEDS: POTASSIUM BICARB 25 MEQ EFFERVESCENT TAB PO ×2 (13:36→15:21)
--- NOTE | 2024-12-21 19:42 | PC.NURSE ---
End of shift-- Pleasant and cooperative, alert and oriented, but drowsy patient. VSS, though occasionally tachycardic today, and highest temp today was 100.0F. SPO2 maintained >90% on 1-1.5L O2 per n.c. She c/o a headache this evening, was given Tylenol with minimal relief and denied any other pain. LS diminished with occasional rhonchi noted. Pt has a frequent, moist non-productive cough. Telemetry shows sinus tachycardia. Pustules noted all over patient most closely clustered on patient's trunk. She stated that she has only minimal itching. She denied nausea, though appetite is poor. Pt ate a small breakfast, refused lunch and has eaten about half of her dinner. BS+ x4. She was up to the BR with assist of 1 and walker and tolerated it fair. She is unsteady. Family was at bedside this evening and appear loving and supportive. Report to SHIRIN Dumont.
[2024-12-22] VITALS (9 sets, daily range): BP systolic 126–140; BP diastolic 76–87; PULSE 96–127; RESP 16–22; TEMP 36.3–37; O2SAT 92–98
[2024-12-22] MEDS: PIPERACILLIN/TAZOBACTAM 3.375 GM in 0.9 % SODIUM CHLORIDE Mini-bag 100 ML IVPB ×4 (00:53→17:51)
[2024-12-22] MEDS: 0.9 % SODIUM CHLORIDE 1000 ml 1,000 ML 125 ML IV ×3 (00:56→23:37)
[2024-12-22 06:11] LABS: HCO3 VBG 26 mmol/L (21-28); PCO2 VBG 41 mmHG (40-50); PO2 VBG 50.2 mmHG (25-47)
[2024-12-22 06:14] LABS: Hematocrit 30.3 % (33.0-51.0); Mean Corpuscular HGB Conc 33 gm/dL (32-36); Mean Corpuscular Hemoglobin 33 pg (26-34); Mean Corpuscular Volume 98 fL (80-100); Platelet Count* 158 K/uL (140-440); Red Blood Count 3.08 m/uL (4.00-5.20); White Blood Count* 8.39 K/uL (4.50-11.00)
[2024-12-22 06:18] LABS: Slide Review Reflex No
[2024-12-22 06:27] LABS: Albumin* 2.7 g/dL (3.3-5.0); Chloride* 101 mmol/L (96-114); Sodium* 132 mmol/L (135-149)
[2024-12-22 06:29] LABS: Creatinine* 0.5 mg/dL (0.5-1.5); Est. Creatinine Clearance* 40.82; Estimated Glomerular Filt Rate 105 ml/min
[2024-12-22 06:30] LABS: Alanine Aminotransferase* 97 U/L (4-35); Alkaline Phosphatase* 161 U/L (40-150); Anion Gap 7 mEq/L (7-15); Aspartate Amino Transferase* 77 U/L (12-35); Bilirubin Direct* 0.4 mg/dL (0.0-0.5); Bilirubin Total* 0.6 mg/dL (0.1-1.5); Blood Urea Nitrogen* 5 mg/dL (7-30); Carbon Dioxide* 24 mmol/L (20-32); Glucose* 90 mg/dL (60-115); Total Protein* 5.2 g/dL (6.0-8.3)
[2024-12-22 06:31] LABS: Calcium* 8.1 mg/dL (8.4-10.6); Phosphorus* 3.1 mg/dL (2.5-4.5)
[2024-12-22 06:54] LABS: C Reactive Protein* 22.8 mg/dL (0.5-1.0)
--- NOTE | 2024-12-22 07:46 | PC.NURSE ---
Shift note ([id number]): Patient pleasant, alert and oriented. Slept well. Up to bathroom x2 during night. Ambulated with gait belt, walker and assist of one. Unsteady at times. Denied itching or pain. ?
[2024-12-22] MEDS: POTASSIUM CHLORIDE 10 MEQ CAPSULE ER 20 MEQ PO ×2 (09:06→21:50)
[2024-12-22] MEDS: RIVAROXABAN 10 MG TABLET PO (09:06)
[2024-12-22] MEDS: MULTIVITAMIN/MINERALS 1 TABLET 1 TAB PO (09:06)
[2024-12-22] MEDS: AZITHROMYCIN 250 MG TABLET PO (09:07)
--- NOTE | 2024-12-22 10:05 | P.IMPN_ITS ---
Progress Note: A&P Assessment and plan (1) Acute hypoxic respiratory failure: Problem details: - noted to have L sided infiltrate on CXR 12/18/24 - Zosyn 12/18/24, added azithromycin 12/19/24, RT referral, supplemental oxygen - ddx: disease progression, CHF, viral process, unlikely PE as anticoagulated - per Oncology: Sacituzumab can cause pneumonitis, history and exam most c/w pneumonia - CT C/A/P 12/19: Moderate to severe patchy B GGOs, L>R, small L pleural effusion (compatible with the reported pneumonia per formal radiology read) Status: Acute (2) Varicella: Problem details: - + PCR on admission - IV Acyclovir (12/18/24); treat for 7-10 days or until all lesions crusted over Status: Acute (3) Community acquired pneumonia: Problem details: - Zosyn, azithromycin, nebs, RT support, NC oxygen to titrate pulse ox >90% - Legionella and strep pneumo negative Status: Acute (4) Breast cancer metastasized to multiple sites: Problem details: - bone, leptomeningeal disease - follows with Oncology team locally, currently on Sacituzamab (holding in the setting of acute illness) Status: Acute (5) Elevated LFTs: Problem details: - mild, trending upward since admission - no abdominal pain, nausea, or vomiting - ddx: iatrogenic, varicella, disease progression - requested pharmacy med review 12/22 Status: Acute (6) Hyponatremia: Problem details: - noted over the past few weeks, mild - 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 and poor po intake of solutes - nutrition consultation, IVFs, will not fluid restrict given poor po intake at baseline, encourage protein supplementation Status: Acute (7) Hypokalemia due to loss of potassium: Problem details: - replace, follow Status: Acute (8) Anemia of chronic disease: Problem details: - trend, transfuse if Hgb < 7 or if active bleeding - Hgb 12/20: 8.7 Status: Acute (9) History of DVT (deep vein thrombosis): Problem details: - right axillary vein, 2014, anticoagulated chronically Status: Acute (10) Central venous catheter in place: Problem details: - Left chest portacath Status: Acute Plan - continue IV medications and oxygen supplementation, titrate down as tolerated - home with family when medically appropriate, possibly 1-2 days if continues to improve Subjective Date Seen: 12/22/24 Interval history: Carolyn was admitted to the hospital on 12/18/24 for community-acquired pneumonia and acute hypoxic respiratory failure in the setting of known metastatic breast cancer. She was also noted to have a rash, + VZV PCR. Currently treating with Zosyn, Azithromycin, and acyclovir. Her supplemental oxygen needs continue to decrease, currently stable on 1L per NC. Tmax 100.0 in the last 24 hours. Continues to be tachycardic with exertion, improving. No chest pain, + BENITES and fatigue with ambulation. Therapies following; recommending TCU vs home with 14/06 care. She plans to go home with family when medically appropriate. No pain, + small amounts of po intake, not tolerant of protein supplementation. No concerns for hospitalist team. Exam Narrative: Exam Narrative: GEN: Alert, sitting up in bed, appears more awake than yesterday, + cachexia HEENT: Alopecia, EOMIs bilaterally, no scleral icterus CV: Sinus tachycardia, HR 100s R: No wheezing, mild bibasilar rhonchi, better air movement today Ext: wwp, no concerning edema Skin: rash on trunk c/w varicella, approximately 60% of lesions crusted over Neuro: Nonfocal Psych: Appropriate Const: Vital Signs, click to edit/add: Vital Signs - 24 hr 12/21/24 11:01 12/21/24 11:04 12/21/24 15:00 Temperature 100.0 F H 100.0 F H Pulse Rate Pulse Rate [Right Radial] 112 H Respiratory Rate 24 20 Blood Pressure [Ri t Arm] 134/77 Pulse Oximetry 93 96 Oxygen Delivery Me thod Nasal Cannula Nasal Cannula Oxygen Flow Rate 1.5 1.5 12/21/24 15:00 12/21/24 15:00 12/21/24 15:22 Temperature 98.4 F Pulse Rate 101 H Pulse Rate [Right Radial] 106 H 106 H Respiratory Rate 20 20 Blood Pressure [Ri t Arm] 120/77 Pulse Oximetry 96 Oxygen Delivery Me thod Nasal Cannula Oxygen Flow Rate 1.5 12/21/24 19:00 12/21/24 23:00 12/22/24 00:10 Temperature 97.6 F Pulse Rate 99 Pulse Rate [Right Radial] 100 Respiratory Rate 20 22 Blood Pressure [Ri ght Arm] 130/88 Pulse Oximetry 92 95 Oxygen Delivery Me thod Nasal Cannula Nasal Cannula Oxygen Flow Rate 1 1 12/22/24 00:10 12/22/24 03:00 Temperature 97.3 F L 98.0 F Pulse Rate Pulse Rate [Right Radial] 96 111 H Respiratory Rate 22 [address] [facility] 132/81 133/84 Pulse Oximetry 95 92 Oxygen Delivery Me thod Nasal Cannula Nasal Cannula Oxygen Flow Rate 1 1 Labs Labs: Laboratory Results - last 24 hr 12/22/24 05:55 WBC 8.39 RBC 3.08 L Hgb 10.0 L Hct 30.3 L MCV 98 MCH 33 MCHC 33 Plt Count 158 VBG pH 7.400 VBG pCO2 41 VBG pO2 50.2 H VBG HCO3 26 Sodium 132 L Potassium 4.0 Chloride 101 Carbon Dioxide 24 Anion Gap 7 BUN 5 L Creatinine 0.5 Estimated Creat Clear 40.82 Estimated GFR 105 Glucose 90 Calcium 8.1 L Phosphorus 3.1 Total Bilirubin 0.6 Direct Bilirubin 0.4 AST 77 H ALT 97 H Alkaline Phosphatase 161 H C-Reactive Protein 22.8 H Total Protein 5.2 L Albumin 2.7 L
--- NOTE | 2024-12-22 23:54 | PC.NURSE ---
Pt alert, oriented and vitally stable, though tachycardic. Pt up via 1a, tolerates well. Port access, patent and running. Pt did have an episode of emesis, 100 cc, no nausea. Checked with pt 15 mins post, no complaints of nausea. Tele read sinus tach. Pt in bed, appears to be resting, call light within reach. ?
[2024-12-23] VITALS (10 sets, daily range): BP systolic 119–137; BP diastolic 71–86; PULSE 101–133; RESP 16–22; TEMP 36.4–36.9; O2SAT 90–99
[2024-12-23] MEDS: PIPERACILLIN/TAZOBACTAM 3.375 GM in 0.9 % SODIUM CHLORIDE Mini-bag 100 ML IVPB ×4 (00:48→18:16)
[2024-12-23 06:29] LABS: HCO3 VBG 27 mmol/L (21-28); PCO2 VBG 43 mmHG (40-50); PO2 VBG 35.2 mmHG (25-47)
--- NOTE | 2024-12-23 06:41 | PC.NURSE ---
End of shift [id number]: A&O pleasant and cooperative.denying pain. filing writer attempted to wean pt to room air. pt would desat to 87-88%. placed back on 1L and sats stayed in the high 90s. VS otherwise stable. up w/ A1 walker and GB. tolerated well. using call light appropriately.
[2024-12-23 06:47] LABS: Basophils Absolute Auto 0.02 K/uL (0.00-0.30); Basophils Percent Auto 0.2 % (0.0-3.0); Eosinophils Absolute Auto 0.05 K/uL (0.00-0.50); Eosinophils Percent Auto 0.5 % (0.0-7.0); Hematocrit 26.1 % (33.0-51.0); Hemoglobin* 8.5 gm/dL (12.0-16.0); Immature Granulocytes Pct Auto 4.3 %; Lymphocytes Percent Auto 8.5 % (20-44); Mean Corpuscular HGB Conc 33 gm/dL (32-36); Mean Corpuscular Hemoglobin 32 pg (26-34); Mean Corpuscular Volume 100 fL (80-100); Monocytes Percent Auto 9.7 % (0.0-11.0); Neutrophils Percent Auto 76.8 % (42.0-72.0); Platelet Count* 206 K/uL (140-440); RDW Coefficient of Variation % 16.6 % (11.5-15.5); Red Blood Count 2.62 m/uL (4.00-5.20); White Blood Count* 9.38 K/uL (4.50-11.00)
[2024-12-23 06:56] LABS: Slide Review Reflex No
[2024-12-23 06:58] LABS: Albumin* 2.8 g/dL (3.3-5.0); Chloride* 99 mmol/L (96-114)
[2024-12-23 06:59] LABS: Potassium* 3.8 mmol/L (3.6-5.1); Sodium* 132 mmol/L (135-149)
[2024-12-23 07:01] LABS: Creatinine* 0.5 mg/dL (0.5-1.5); Est. Creatinine Clearance* 40.82; Estimated Glomerular Filt Rate 105 ml/min
[2024-12-23 07:02] LABS: Alanine Aminotransferase* 76 U/L (4-35); Alkaline Phosphatase* 157 U/L (40-150); Anion Gap 7 mEq/L (7-15); Aspartate Amino Transferase* 45 U/L (12-35); Bilirubin Direct* 0.3 mg/dL (0.0-0.5); Bilirubin Total* 0.5 mg/dL (0.1-1.5); Blood Urea Nitrogen* 3 mg/dL (7-30); Calcium* 7.9 mg/dL (8.4-10.6); Carbon Dioxide* 26 mmol/L (20-32); Glucose* 94 mg/dL (60-115); Phosphorus* 3.2 mg/dL (2.5-4.5); Total Protein* 5.3 g/dL (6.0-8.3)
[2024-12-23 07:16] LABS: C Reactive Protein* 16.7 mg/dL (0.5-1.0)
[2024-12-23] MEDS: ONDANSETRON 2 MG/ML inj 4 MG IVP ×2 (08:25→14:20)
[2024-12-23] MEDS: IPRAT-ALBUT 0.5-2.5 MG/3 ML NEB 1 NEB IH (08:25)
[2024-12-23] MEDS: PROCHLORPERAZINE 10 MG TABLET 5 MG PO (10:13)
[2024-12-23] MEDS: ACETAMINOPHEN 325 MG TABLET 975 MG PO (10:47)
[2024-12-23] MEDS: 0.9 % SODIUM CHLORIDE 1000 ml 1,000 ML 125 ML IV ×2 (10:48→20:46)
--- NOTE | 2024-12-23 11:22 | RESP.RT ---
Oxygen assessment; Patient on 1 Lpm NC SaO2 98%, removed Oxygen, patient maintained SaO2 >95% on room air. Patient to use NC 1 Lpm when sleeping, during transfers to chair or bathroom as needed. Goal maintain SaO2 >90%, with Oxygen as needed. Noted patient is shallow breather, possibly more when sleeping.
[2024-12-23] MEDS: RIVAROXABAN 10 MG TABLET PO (12:13)
[2024-12-23] MEDS: AZITHROMYCIN 250 MG TABLET PO ×2 (12:14→12:18)
[2024-12-23] MEDS: SODIUM CHLORIDE 0.9 % (FLUSH) 10 ML SYRINGE 5 ML IVF (14:20)
--- NOTE | 2024-12-23 14:43 | PM.IMPN1 ---
Progress Note: A&P Assessment and plan (1) Acute hypoxic respiratory failure: Problem details: - Improving, off O2 on Dec 23. - noted to have L sided infiltrate on CXR 12/18/24 likely 2/2 PNA. - Zosyn 12/18/24, added azithromycin 12/19/24, RT referral, supplemental oxygen - ddx: disease progression, CHF, viral process, unlikely PE as anticoagulated - per Oncology: Sacituzumab can cause pneumonitis, history and exam most c/w pneumonia - CT C/A/P 12/19: Moderate to severe patchy B GGOs, L>R, small L pleural effusion (compatible with the reported pneumonia per formal radiology read) Status: Acute (2) Varicella: Problem details: - + PCR on admission - IV Acyclovir (12/18/24); treat for 7-10 days or until all lesions crusted over Status: Acute (3) Community acquired pneumonia: Problem details: - Zosyn, azithromycin, nebs, RT support, NC oxygen to titrate pulse ox >90% - Legionella and strep pneumo negative Status: Acute (4) Breast cancer metastasized to multiple sites: Problem details: - bone, leptomeningeal disease - follows with Oncology team locally, currently on Sacituzamab (holding in the setting of acute illness) Status: Acute (5) Elevated LFTs: Problem details: - mild, trending upward since admission - no abdominal pain, nausea, or vomiting - ddx: iatrogenic, varicella, disease progression - requested pharmacy med review 12/22 Status: Acute (6) Hyponatremia: Problem details: - noted over the past few weeks, mild - 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 and poor po intake of solutes - nutrition consultation, IVFs, will not fluid restrict given poor po intake at baseline, encourage protein supplementation Status: Acute (7) Hypokalemia due to loss of potassium: Problem details: - replace, follow Status: Acute (8) Anemia of chronic disease: Problem details: - trend, transfuse if Hgb < 7 or if active bleeding - Hgb 12/20: 8.7 Status: Acute (9) History of DVT (deep vein thrombosis): Problem details: - right axillary vein, 2015, anticoagulated chronically Status: Acute (10) Central venous catheter in place: Problem details: - Left chest portacath Status: Acute Plan -PT/OT recommending TCU vs home with 24/7 care. She plans to go home with family when medically appropriate. Time Spent With Patient Total time spent: Today I spent 50 minutes seeing the patient, reviewing Expanse and EPIC notes/diagnostics, discussing the care plan with our care time that includes social work, PT/OT, pharmacy, RT, retirement and documenting my impressions and plan in the medical record. Subjective Date Seen: 12/23/24 Interval history: Pt was seen and examined this AM. Pt states that she is nauseated, had vomited prior to my exam and anti-emetic Tx given. Small amounts of po intake, not tolerant of protein supplementation. PT/OT recommending TCU vs home with 24/7 care. She plans to go home with family when medically appropriate. Exam Narrative: Exam Narrative: Physical exam GENERAL: Frail, hair loss, no acute distress. HEAD AND NECK: Atraumatic, normocephalic CARDIOVASCULAR: RRR. Normal S1, S2. No murmurs. RESPIRATORY: Clear to auscultation B/L. Good air entry B/L. GASTROINTESTINAL: Not distended, not tender to palpation. NEUROLOGY: Alert, awake. Normal speech. PSYCH: Normal mood, normal affect. Const: Vital Signs, click to edit/add: Vital Signs - 24 hr 12/22/24 15:00 12/22/24 15:00 12/22/24 15:00 Temperature 97.7 F Pulse Rate 118 H Pulse Rate [Pulse Oximeter] 127 H Respiratory Rate 20 20 Blood Pressure [Ri ght Arm] 136/81 Pulse Oximetry 94 94 Oxygen Delivery Me thod Nasal Cannula Nasal Cannula Oxygen Flow Rate 1 1 12/22/24 15:00 12/22/24 21:49 12/22/24 23:03 Temperature 98.5 F Pulse Rate 100 Pulse Rate [Pulse Oximeter] 108 H 109 H Respiratory Rate 16 18 Blood Pressure [Ri ght Arm] 126/80 Pulse Oximetry 96 Oxygen Delivery Me thod Nasal Cannula Oxygen Flow Rate 1 12/22/24 23:38 12/22/24 23:44 12/23/24 03:23 Temperature 97.9 F Pulse Rate Pulse Rate [Pulse Oximeter] 108 H 101 H Respiratory Rate 16 18 Blood Pressure [Ri ght Arm] 137/76 Pulse Oximetry 97 93 99 Oxygen Delivery Me thod Nasal Cannula Room Air Nasal Cannula Oxygen Flow Rate 1 1 02/01/25 07:00 12/23/24 07:56 12/23/24 08:09 Temperature 97.6 F Pulse Rate 107 H Pulse Rate [Pulse Oximeter] 133 H Respiratory Rate 18 22 Blood Pressure [Ri ght Arm] 134/86 Pulse Oximetry 99 90 Oxygen Delivery Me thod Nasal Cannula Room Air Oxygen Flow Rate 1 12/23/24 11:20 Temperature Pulse Rate Pulse Rate [Pulse Oximeter] Respiratory Rate 20 [facility] Pulse Oximetry 97 Oxygen Delivery Me thod Nasal Cannula Oxygen Flow Rate 1 Labs Labs: Laboratory Results - last 24 hr 12/23/24 Unknown WBC 9.38 RBC 2.62 L Hgb 8.5 L Hct 26.1 L MCV 100 MCH 32 MCHC 33 RDW Coeff of Delfino 16.6 H Plt Count 206 Neut % (Auto) 76.8 H Lymph % (Auto) 8.5 L [place] % (Auto) 9.7 Eos % (Auto) 0.5 Baso % (Auto) 0.2 Neut # (Auto) 7.20 H Lymph # (Auto) 0.80 L [place] # (Auto) 0.90 Eos # (Auto) 0.05 Baso # (Auto) 0.02 Abs Immat Gran (auto) 0.40 H Imm/Tot Granulo (auto) 4.3 VBG pH 7.410 VBG pCO2 43 VBG pO2 35.2 VBG HCO3 27 Sodium 132 L Potassium 3.8 Chloride 99 Carbon Dioxide 26 Anion Gap 7 BUN 3 L Creatinine 0.5 Estimated Creat Clear 40.82 Estimated GFR 105 Glucose 94 Calcium 7.9 L Phosphorus 3.2 Total Bilirubin 0.5 Direct Bilirubin 0.3 AST 45 H ALT 76 H Alkaline Phosphatase 157 H C-Reactive Protein 16.7 H Total Protein 5.3 L Albumin 2.8 L
[2024-12-23] MEDS: diphenhydrAMINE 25 MG CAPSULE PO (16:14)
[2024-12-23] MEDS: POTASSIUM CHLORIDE 10 MEQ CAPSULE ER 20 MEQ PO (21:36)
[2024-12-24] VITALS (20 sets, daily range): BP systolic 131–157; BP diastolic 75–94; PULSE 109–133; RESP 16–22; TEMP 36.6–37.5; O2SAT 86–99
[2024-12-24] MEDS: PIPERACILLIN/TAZOBACTAM 3.375 GM in 0.9 % SODIUM CHLORIDE Mini-bag 100 ML IVPB ×4 (00:24→19:42)
[2024-12-24] MEDS: 0.9 % SODIUM CHLORIDE 1000 ml 1,000 ML 125 ML IV ×2 (05:56→22:28)
--- NOTE | 2024-12-24 06:11 | PC.NURSE ---
End of shift [id number]: A&O pleasant and cooperative. Reports nausea during the night. Pt refuses PRN medication. Emesis bag at bedside. Pt continent of the bladder. Pt had an incontinent/continent BM during the shift. Hourly Sign Language Interpreter attempted to wean pt to room air. Pt would desat to 86%. Placed back on 1L and sats stayed in the high 90s. A1 GB W. Using call light appropriately. Pt is in bed resting with call light in reach. No pain reported.
[2024-12-24 06:24] LABS: HCO3 VBG 25 mmol/L (21-28); PCO2 VBG 42 mmHG (40-50); PO2 VBG 49.4 mmHG (25-47); pH VBG 7.382 (7.32-7.43)
[2024-12-24 06:37] LABS: Basophils Absolute Auto 0.02 K/uL (0.00-0.30); Basophils Percent Auto 0.2 % (0.0-3.0); Eosinophils Absolute Auto 0.06 K/uL (0.00-0.50); Eosinophils Percent Auto 0.6 % (0.0-7.0); Hematocrit 23.1 % (33.0-51.0); Immature Granulocytes Abs Auto 0.47 K/uL (0.00-0.30); Immature Granulocytes Pct Auto 4.5 %; Lymphocytes Percent Auto 5.1 % (20-44); Mean Corpuscular HGB Conc 32 gm/dL (32-36); Mean Corpuscular Hemoglobin 32 pg (26-34); Mean Corpuscular Volume 100 fL (80-100); Monocytes Percent Auto 9.5 % (0.0-11.0); Neutrophils Percent Auto 80.1 % (42.0-72.0); Platelet Count* 228 K/uL (140-440); RDW Coefficient of Variation % 16.3 % (11.5-15.5); White Blood Count* 10.49 K/uL (4.50-11.00)
[2024-12-24 06:40] LABS: Hemoglobin* 7.4 gm/dL (12.0-16.0); Slide Review Reflex No
[2024-12-24 06:53] LABS: Albumin* 2.6 g/dL (3.3-5.0); Chloride* 101 mmol/L (96-114)
[2024-12-24 06:54] LABS: Potassium* 3.6 mmol/L (3.6-5.1); Sodium* 133 mmol/L (135-149)
[2024-12-24 06:56] LABS: Alkaline Phosphatase* 130 U/L (40-150); Anion Gap 8 mEq/L (7-15); Aspartate Amino Transferase* 39 U/L (12-35); Bilirubin Direct* 0.3 mg/dL (0.0-0.5); Bilirubin Total* 0.3 mg/dL (0.1-1.5); Carbon Dioxide* 24 mmol/L (20-32); Creatinine* 0.5 mg/dL (0.5-1.5); Est. Creatinine Clearance* 40.82; Estimated Glomerular Filt Rate 105 ml/min; Total Protein* 5.1 g/dL (6.0-8.3)
[2024-12-24 06:57] LABS: Alanine Aminotransferase* 62 U/L (4-35); Blood Urea Nitrogen* 3 mg/dL (7-30); Calcium* 7.7 mg/dL (8.4-10.6); Glucose* 64 mg/dL (60-115)
[2024-12-24 06:59] LABS: C Reactive Protein* 6.6 mg/dL (0.5-1.0)
[2024-12-24] MEDS: PANTOPRAZOLE SODIUM 40 MG INJ 80 MG IVP (07:55)
[2024-12-24] MEDS: RIVAROXABAN 10 MG TABLET PO (11:10)
[2024-12-24] MEDS: MULTIVITAMIN/MINERALS 1 TABLET 1 TAB PO (11:10)
[2024-12-24] MEDS: POTASSIUM CHLORIDE 10 MEQ CAPSULE ER 20 MEQ PO ×2 (11:10→21:22)
--- NOTE | 2024-12-24 13:11 | P.IMPN_ITS ---
Progress Note: A&P Assessment and plan (1) Acute hypoxic respiratory failure: Problem details: - Improving, off O2. Patient is able to ambulate off oxygen to the bathroom and back without shortness of breath with P.T./OT. - noted to have L sided infiltrate on CXR 12/18/24 likely 2/2 PNA. - Zosyn 12/18/24, added azithromycin 12/19/24, RT referral, supplemental oxygen - ddx: disease progression, CHF, viral process, unlikely PE as anticoagulated - per Oncology: Sacituzumab can cause pneumonitis, history and exam most c/w pneumonia - CT C/A/P 12/19: Moderate to severe patchy B GGOs, L>R, small L pleural effusion (compatible with the reported pneumonia per formal radiology read) Status: Acute (2) Varicella: Problem details: - + PCR on admission - IV Acyclovir (12/18/24); treat for 7-10 days or until all lesions crusted over Status: Acute (3) Community acquired pneumonia: Problem details: - Zosyn, azithromycin, nebs, RT support, NC oxygen to titrate pulse ox >90% - Legionella and strep pneumo negative Status: Acute (4) Breast cancer metastasized to multiple sites: Problem details: - bone, leptomeningeal disease - follows with Oncology team locally, currently on Sacituzamab (holding in the setting of acute illness) Status: Acute (5) Elevated LFTs: Problem details: - mild, trending upward since admission - no abdominal pain, nausea, or vomiting - ddx: iatrogenic, varicella, disease progression - requested pharmacy med review 12/22 Status: Acute (6) Hyponatremia: Problem details: - noted over the past few weeks, mild - 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 and poor po intake of solutes - nutrition consultation, IVFs, will not fluid restrict given poor po intake at baseline, encourage protein supplementation Status: Acute (7) Hypokalemia due to loss of potassium: Problem details: - replace, follow Status: Acute (8) Anemia of chronic disease: Problem details: - trend, transfuse if Hgb < 7 or if active bleeding - Hgb 12/20: 8.7 Status: Acute (9) History of DVT (deep vein thrombosis): Problem details: - right axillary vein, 2015, anticoagulated chronically Status: Acute (10) Central venous catheter in place: Problem details: - Left chest portacath Status: Acute Plan Home with family supervision 14/06 mostly on WednesdayDecember 25. Discussed with the patient and family and they are in agreement, this is what they want. Time Spent With Patient Total time spent: Today I spent 50 minutes seeing the patient, reviewing Expanse and EPIC notes/diagnostics, discussing the care plan with our care time that includes social work, PT/OT, pharmacy, RT, residential and documenting my impressions and plan in the medical record. Subjective Date Seen: 12/24/24 Interval history: Pt was seen and examined this AM. Pt states that she is feeling much better. Nausea improved. Planing to go home with family on Wednesday. Exam Narrative: Exam Narrative: GENERAL: Frail, hair loss, no acute distress. HEAD AND NECK: Atraumatic, normocephalic CARDIOVASCULAR: RRR. Normal S1, S2. No murmurs. RESPIRATORY: Clear to auscultation B/L. Good air entry B/L. GASTROINTESTINAL: Not distended, not tender to palpation. NEUROLOGY: Alert, awake. Normal speech. PSYCH: Normal mood, normal affect. Const: Vital Signs, click to edit/add: Vital Signs - 24 hr 12/23/24 15:00 12/23/24 15:00 12/23/24 16:16 Temperature 97.8 F Pulse Rate Pulse Rate [Pulse Oximeter] Pulse Rate [Right Radial] 117 H 117 H Respiratory Rate 16 16 16 Blood Pressure Blood Pressure [Ri ght Arm] 137/81 Pulse Oximetry 98 98 Oxygen Delivery Me thod Nasal Cannula Nasal Cannula Oxygen Flow Rate 1 1 12/23/24 19:00 12/23/24 22:43 12/23/24 23:00 Temperature 98.5 F 98.5 F Pulse Rate 111 H Pulse Rate [Pulse Oximeter] 109 H 107 H Pulse Rate [Right Radial] Respiratory Rate 18 16 Blood Pressure Blood Pressure [Ri ght Arm] 119/71 137/85 Pulse Oximetry 96 97 Oxygen Delivery Me thod Nasal Cannula Nasal Cannula Oxygen Flow Rate 1 1 12/23/24 23:00 12/24/24 03:00 12/24/24 07:00 Temperature 98 F Pulse Rate Pulse Rate [Pulse Oximeter] 110 H Pulse Rate [Right Radial] Respiratory Rate 16 18 Blood Pressure Blood Pressure [Ri ght Arm] 136/89 Pulse Oximetry 97 95 96 Oxygen Delivery Me thod Nasal Cannula Nasal Cannula Nasal Cannula Oxygen Flow Rate 1 1 2 12/24/24 07:00 12/24/24 08:01 12/24/24 10:13 Temperature 98.8 F 99.5 F Pulse Rate 113 H 121 H Pulse Rate [Pulse Oximeter] 124 H Pulse Rate [Right Radial] Respiratory Rate 16 18 Blood Pressure 137/77 Blood Pressure [Ri ght Arm] 139/78 Pulse Oximetry 86 L 96 Oxygen Delivery Me thod Room Air Room Air Oxygen Flow Rate 12/24/24 10:32 12/24/24 10:33 12/24/24 11:03 Temperature 99 F 97.8 F 98.5 F Pulse Rate 121 H 118 H 133 H Pulse Rate [Pulse Oximeter] Pulse Rate [Right Radial] Respiratory Rate 16 16 18 Blood Pressure 131/75 132/77 138/93 H Blood Pressure [Ri ght Arm] Pulse Oximetry 96 96 96 Oxygen Delivery Me thod Nasal Cannula Nasal Cannula Nasal Cannula Oxygen Flow Rate 2 2 1.5 12/24/24 11:33 12/24/24 12:03 12/24/24 12:33 Temperature 98.5 F 99.2 F 99.5 F Pulse Rate 119 H 113 H 112 H Pulse Rate [Pulse Oximeter] Pulse Rate [Right Radial] Respiratory Rate 22 18 16 Blood Pressure 133/86 154/89 H 157/88 H Blood Pressure [Ri ght Arm] Pulse Oximetry 97 99 97 Oxygen Delivery Me thod Nasal Cannula Nasal Cannula Nasal Cannula Oxygen Flow Rate 1.5 1.5 1.5 Labs Labs: Laboratory Results - last 24 hr 12/24/24 12/24/24 12/24/24 07:52 07:52 07:52 WBC RBC Hgb Hct MCV MCH MCHC RDW Coeff of Delfino Plt Count Neut % (Auto) Lymph % (Auto) [place] % (Auto) Eos % (Auto) Baso % (Auto) Neut # (Auto) Lymph # (Auto) [place] # (Auto) Eos # (Auto) Baso # (Auto) Abs Immat Gran (auto) Imm/Tot Granulo (auto) VBG pH VBG pCO2 VBG pO2 VBG HCO3 Sodium Potassium Chloride Carbon Dioxide Anion Gap BUN Creatinine Estimated Creat Clear Estimated GFR Glucose Calcium Phosphorus Total Bilirubin Direct Bilirubin AST ALT Alkaline Phosphatase C-Reactive Protein Total Protein Albumin Blood Type O Positive Cancelled Rho(D) Type Cancelled Antibody Screen NEGATIVE Cancelled Crossmatch ([facility]) See Detail 12/24/24 Unknown WBC 10.49 RBC 2.30 L Hgb 7.4 L* Hct 23.1 L MCV 100 MCH 32 MCHC 32 RDW Coeff of Delfino 16.3 H Plt Count 228 Neut % (Auto) 80.1 H Lymph % (Auto) 5.1 L [place] % (Auto) 9.5 Eos % (Auto) 0.6 Baso % (Auto) 0.2 Neut # (Auto) 8.40 H Lymph # (Auto) 0.50 L [place] # (Auto) 1.00 H Eos # (Auto) 0.06 Baso # (Auto) 0.02 Abs Immat Gran (auto) 0.47 H Imm/Tot Granulo (auto) 4.5 VBG pH 7.382 VBG pCO2 42 VBG pO2 49.4 H VBG HCO3 25 Sodium 133 L Potassium 3.6 Chloride 101 Carbon Dioxide 24 Anion Gap 8 BUN 3 L Creatinine 0.5 Estimated Creat Clear 40.82 Estimated GFR 105 Glucose 64 Calcium 7.7 L Phosphorus 3.0 Total Bilirubin 0.3 Direct Bilirubin 0.3 AST 39 H ALT 62 H Alkaline Phosphatase 130 C-Reactive Protein 6.6 H Total Protein 5.1 L Albumin 2.6 L Blood Type Rho(D) Type Antibody Screen Crossmatch ([facility])
[2024-12-24 18:27] LABS: Hemoglobin* 9.5 gm/dL (12.0-16.0)
--- NOTE | 2024-12-24 19:29 | PC.NURSE ---
shift note: pt received 1 unit PRB over 4 hours. Pt's HR elevated 120-130's at times and BP 150's x3 at end of transfusion. Temp elevated to 99.5 PO at end of transfusion. Dr. Greco notified verbally and no further orders given. Port patent. LS dim. Pt on 1.5 L pnc O2 to keep sats >90%. Pt tolerated breakfast and protein shake for lunch. No emesis or nausea. 2 moderate loose stool/urine mix. varicella on skin dry. buttocks red.
[2024-12-25] MEDS: PIPERACILLIN/TAZOBACTAM 3.375 GM in 0.9 % SODIUM CHLORIDE Mini-bag 100 ML IVPB ×2 (01:41→10:48)
[2024-12-25 01:48] VITALS: BP 135/84; PULSE 112; RESP 16; TEMP 37.1; O2SAT 95
[2024-12-25 06:52] LABS: Basophils Absolute Auto 0.03 K/uL (0.00-0.30); Basophils Percent Auto 0.3 % (0.0-3.0); Eosinophils Absolute Auto 0.06 K/uL (0.00-0.50); Eosinophils Percent Auto 0.6 % (0.0-7.0); Hematocrit 27.6 % (33.0-51.0); Hemoglobin* 9.1 gm/dL (12.0-16.0); Immature Granulocytes Abs Auto 0.55 K/uL (0.00-0.30); Immature Granulocytes Pct Auto 5.2 %; Lymphocytes Percent Auto 5.4 % (20-44); Mean Corpuscular HGB Conc 33 gm/dL (32-36); Mean Corpuscular Hemoglobin 32 pg (26-34); Mean Corpuscular Volume 96 fL (80-100); Monocytes Percent Auto 10.9 % (0.0-11.0); Neutrophils Percent Auto 77.6 % (42.0-72.0); Platelet Count* 243 K/uL (140-440); RDW Coefficient of Variation % 17.5 % (11.5-15.5); Red Blood Count 2.87 m/uL (4.00-5.20); White Blood Count* 10.56 K/uL (4.50-11.00)
--- NOTE | 2024-12-25 06:53 | PC.NURSE ---
End of shift [id number]: AxOx4, pleasant, and cooperative. Upon initial assessment, Pt reported having an emesis episode an hour prior. Pt had one episode during writers shift. Pt reported relief immediately after. Associate Consulting Engineer offered PRN nausea medication and Pt refused. A1 GB W. Continent of the bladder. Remained on 1.5 L NC with sats staying around 95%. Pt uses call light appropriately. Port remains patent. Denies pain. Call light within reach. ?
[2024-12-25 07:00] VITALS: PULSE 113
[2024-12-25 07:00] LABS: Slide Review Reflex No
[2024-12-25 07:09] LABS: Albumin* 2.7 g/dL (3.3-5.0); Chloride* 100 mmol/L (96-114); Potassium* 3.4 mmol/L (3.6-5.1); Sodium* 133 mmol/L (135-149)
[2024-12-25 07:11] LABS: Creatinine* 0.5 mg/dL (0.5-1.5); Est. Creatinine Clearance* 40.82; Estimated Glomerular Filt Rate 105 ml/min
[2024-12-25 07:12] LABS: Alanine Aminotransferase* 51 U/L (4-35); Alkaline Phosphatase* 121 U/L (40-150); Anion Gap 8 mEq/L (7-15); Aspartate Amino Transferase* 32 U/L (12-35); Bilirubin Direct* 0.2 mg/dL (0.0-0.5); Bilirubin Total* 0.4 mg/dL (0.1-1.5); Blood Urea Nitrogen* 2 mg/dL (7-30); Calcium* 7.9 mg/dL (8.4-10.6); Carbon Dioxide* 25 mmol/L (20-32); Glucose* 72 mg/dL (60-115); Phosphorus* 2.9 mg/dL (2.5-4.5); Total Protein* 5.3 g/dL (6.0-8.3)
[2024-12-25 08:15] VITALS: BP 138/90; PULSE 112; PULSE 113; RESP 16; TEMP 36.9; O2SAT 96
[2024-12-25] MEDS: POTASSIUM CHLORIDE 10 MEQ CAPSULE ER 30 MEQ PO (08:20)
[2024-12-25] MEDS: RIVAROXABAN 10 MG TABLET PO (08:20)
[2024-12-25] MEDS: MULTIVITAMIN/MINERALS 1 TABLET 1 TAB PO (08:20)
[2024-12-25 08:28] VITALS: RESP 20; O2SAT 92
[2024-12-25] MEDS: 0.9 % SODIUM CHLORIDE 1000 ml 1,000 ML 125 ML IV (09:35)
--- NOTE | 2024-12-25 10:39 | PM.DS1 ---
DS: Providers Provider Date Seen: 12/25/24 Date of admission: 12/18/24 17:21 Primary care physician: Nahomi Valera PA-C Admitting Clinician: Loreto Zuñiga MD Consults: 12/18/24 17:21 Consult to Nutrition [CONS] Routine Comment: Reason for consult:: Miscellaneous Consult to Physical Therapy [CONS] Routine Comment: Reason(s) for PT Consult:: Evaluate and Treat Any Restrictions?:: No Restrictions Consult to Respiratory Therapy [CONS] Routine Comment: Reason(s) for RT Consult:: Consult Consult to Customer Account Administrator [CONS] Routine Comment: Reason for Consult:: Discharge Planning Needs 12/18/24 17:23 Consult to Occupational Therapy [CONS] Routine Comment: Reason(s) for OT Consult:: Evaluate and Treat Any Restrictions?:: No Restrictions Attending Physician on discharge: LIANE MCFADDEN MD DS: Diagnosis Discharge Diagnosis (1) Acute hypoxic respiratory failure: Status: Acute Problem details: - Improving, off O2. Patient is able to ambulate off oxygen to the bathroom and back without shortness of breath with P.T./OT. - noted to have L sided infiltrate on CXR 12/18/24 likely 2/2 PNA. - Zosyn 12/18/24, added azithromycin 12/19/24, RT referral, supplemental oxygen - ddx: disease progression, CHF, viral process, unlikely PE as anticoagulated - per Oncology: Sacituzumab can cause pneumonitis, history and exam most c/w pneumonia - CT C/A/P 12/19: Moderate to severe patchy B GGOs, L>R, small L pleural effusion (compatible with the reported pneumonia per formal radiology read) (2) Varicella: Status: Acute Problem details: - + PCR on admission - IV Acyclovir (12/18/24); treat for 7-10 days or until all lesions crusted over (3) Community acquired pneumonia: Status: Acute Problem details: - Zosyn, azithromycin, nebs, RT support, NC oxygen to titrate pulse ox >90% - Legionella and strep pneumo negative (4) Breast cancer metastasized to multiple sites: Status: Acute Problem details: - bone, leptomeningeal disease - follows with Oncology team locally, currently on Sacituzamab (holding in the setting of acute illness) (5) Elevated LFTs: Status: Acute Problem details: - mild, trending upward since admission - no abdominal pain, nausea, or vomiting - ddx: iatrogenic, varicella, disease progression - requested pharmacy med review 12/22 (6) Hyponatremia: Status: Acute Problem details: - noted over the past few weeks, mild - 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 and poor po intake of solutes - nutrition consultation, IVFs, will not fluid restrict given poor po intake at baseline, encourage protein supplementation (7) Hypokalemia due to loss of potassium: Status: Acute Problem details: - replace, follow (8) Anemia of chronic disease: Status: Acute Problem details: - trend, transfuse if Hgb < 7 or if active bleeding - Hgb 12/20: 8.7 (9) History of DVT (deep vein thrombosis): Status: Acute Problem details: - right axillary vein, 2014, anticoagulated chronically (10) Central venous catheter in place: Status: Acute Problem details: - Left chest portacath DS: Summary Hospital Course Hospital Course: Kimmy Castro is a 64 year old female with a history of metastatic breast cancer who was seen in the oncology clinic today for illness. She has had a productive cough for about 1 week and hypoxia and was found w/ rash and +ve varicella PCR. Last week, she was seen in the ER (12/13) with abdominal pain, diagnosed with UTI and placed on Cefdinir; then had emesis and seen again in ER (12/14) for vomiting, symptoms improved with IVFs and Dramamine. Pt was admitted and treated for PNA w/ IV ABX, Tx chickenpox w/ Acyclovir and treated for chronic anemia w/ 1x PRBCs unit transfusion. Pt improved immensly and is currently off O2. Family prefers to care for pt at home w/ 14/06 care. PT/OT HH ordered. Pt to F/up after completing PO Abx w/ PCP and oncology. Status at Discharge Functional status at discharge: uses cane/walker Overall status at discharge: patient is progressing back to baseline Time Spent with Patient Time attestation: Total time spent providing and/or coordinating discharge services: 50 min Exam Narrative: Exam Narrative: Physical exam GENERAL: Comfortable, no acute distress. Off O2. HEAD AND NECK: Atraumatic, normocephalic CARDIOVASCULAR: RRR. Normal S1, S2. No murmurs. RESPIRATORY: Clear to auscultation B/L. Good air entry B/L. GASTROINTESTINAL: Not distended, not tender to palpation. NEUROLOGY: Alert, awake, oriented X 3. Normal speech. PSYCH: Normal mood, normal affect. Const: Vital Signs, click to edit/add: Vital Signs - 24 hr 12/24/24 11:00 12/24/24 11:03 12/24/24 11:33 Temperature 98.5 F 98.5 F 98.5 F Pulse Rate 133 H 119 H Pulse Rate [Pulse Oximeter] 133 H Respiratory Rate 18 18 22 Blood Pressure 138/93 H 133/86 Blood Pressure [Ri ght Arm] 138/93 H Pulse Oximetry 96 96 97 Oxygen Delivery Me thod Room Air Nasal Cannula Nasal Cannula Oxygen Flow Rate 1.5 1.5 12/24/24 12:03 12/24/24 12:33 12/24/24 13:03 Temperature 99.2 F 99.5 F 99.5 F Pulse Rate 113 H 112 H 119 H Pulse Rate [Pulse Oximeter] Respiratory Rate 18 16 16 Blood Pressure 154/89 H 157/88 H 157/88 H Blood Pressure [Ri ght Arm] Pulse Oximetry 99 97 97 Oxygen Delivery Me thod Nasal Cannula Nasal Cannula Nasal Cannula Oxygen Flow Rate 1.5 1.5 1.5 12/24/24 13:33 12/24/24 15:00 12/24/24 15:00 Temperature 99.1 F Pulse Rate 116 H Pulse Rate [Pulse Oximeter] 109 H Respiratory Rate 16 16 16 Blood Pressure 153/90 H Blood Pressure [Ri ght Arm] Pulse Oximetry 98 98 Oxygen Delivery Me thod Nasal Cannula Nasal Cannula Oxygen Flow Rate 1.5 1.5 12/24/24 16:40 12/24/24 19:00 12/24/24 22:32 Temperature 99.5 F 99.5 F Pulse Rate 118 H Pulse Rate [Pulse Oximeter] 113 H 117 H Respiratory Rate 18 18 Blood Pressure Blood Pressure [Ri ght Arm] 140/94 H 133/88 Pulse Oximetry 95 96 Oxygen Delivery Me thod Nasal Cannula Nasal Cannula Oxygen Flow Rate 1.5 1.5 12/24/24 22:42 12/24/24 22:49 12/24/24 22:55 Temperature Pulse Rate 109 H Pulse Rate [Pulse Oximeter] Respiratory Rate 18 18 Blood Pressure Blood Pressure [Ri ght Arm] Pulse Oximetry 96 Oxygen Delivery Me thod Nasal Cannula Oxygen Flow Rate 1.5 12/25/24 01:48 12/25/24 07:00 12/25/24 08:15 Temperature 98.7 F 98.4 F Pulse Rate 113 H Pulse Rate [Pulse Oximeter] 112 H 112 H Respiratory Rate 16 16 Blood Pressure Blood Pressure [Ri ght Arm] 135/84 138/90 H Pulse Oximetry 95 96 Oxygen Delivery Me thod Nasal Cannula Room Air Oxygen Flow Rate 1.5 0 12/25/24 08:15 12/25/24 08:28 Temperature Pulse Rate Pulse Rate [Pulse Oximeter] 113 H Respiratory Rate 20 Blood Pressure Blood Pressure [Ri ght Arm] Pulse Oximetry 92 Oxygen Delivery Me thod Room Air Oxygen Flow Rate DS: Data Data Completed and Pending Labs on day of discharge: Labs from last 24 hours 12/25/24 12/24/24 12/24/24 06:00 18:07 07:52 WBC 10.56 RBC 2.87 L Hgb 9.1 L 9.5 L Hct 27.6 L MCV 96 MCH 32 MCHC 33 RDW Coeff of Delfino 17.5 H Plt Count 243 Neut % (Auto) 77.6 H Lymph % (Auto) 5.4 L Dawes % (Auto) 10.9 Eos % (Auto) 0.6 Baso % (Auto) 0.3 Neut # (Auto) 8.20 H Lymph # (Auto) 0.60 L Dawes # (Auto) 1.20 H Eos # (Auto) 0.06 Baso # (Auto) 0.03 Abs Immat Gran (auto) 0.55 H Imm/Tot Granulo (auto) 5.2 Sodium 133 L Potassium 3.4 L Chloride 100 Carbon Dioxide 25 Anion Gap 8 BUN 2 L Creatinine 0.5 Estimated Creat Clear 40.82 Estimated GFR 105 Glucose 72 Calcium 7.9 L Phosphorus 2.9 Total Bilirubin 0.4 Direct Bilirubin 0.2 AST 32 ALT 51 H Alkaline Phosphatase 121 Total Protein 5.3 L Albumin 2.7 L Crossmatch (AHG) See Detail Discharge Plan Discharge Disposition: Home w/ Parent or Adult Date of Admission: 12/18/24 17:21 Attending Provider on Discharge: Liane Mcfadden Primary Care Provider: Nahomi Valera Condition: Improved Anticipated Discharge Date/Time: 12/25/24 10:08 Discharge Medications: New acyclovir 400 mg tablet 400 mg PO Q8H Qty: 9 0RF cefdinir 300 mg capsule 300 mg PO BID Qty: 4 0RF pantoprazole 40 mg tablet,delayed release (DR/EC) 40 mg PO DAILY Qty: 14 1RF ondansetron 4 mg tablet,disintegrating 4 mg PO Q8H PRN (Reason: nausea and vomiting) Qty: 15 0RF Continued albuterol sulfate 90 mcg/actuation HFA aerosol inhaler 2 puff inhalation Q2H PRN vitamin B complex Capsule 1 cap PO QDAY Xarelto 10 mg tablet 10 mg PO QDAY Qty: 30 3RF cholecalciferol (vitamin D3) 50 mcg (2,000 unit) capsule 50 mcg PO QDAY loratadine 10 mg tablet 10 mg PO DAILY PRN multivitamin Tablet 1 tab PO QAM calcium citrate-vitamin D3 [Citracal + D Maximum] 315 mg-6.25 mcg (250 unit) tablet 2 tab PO BID ibuprofen 400 mg tablet 400 mg PO TID PRN prochlorperazine maleate [Compazine] 5 mg tablet 5 mg PO BID PRN (Reason: nausea and vomiting) Qty: 30 0RF potassium chloride 20 mEq tablet,ER particles/crystals 20 meq PO BID Qty: 180 0RF (DME) miscellaneous medical supply Liquid See Rx Instructions .Route Qty: 60 1RF Rx Instructions: Viscous lidocaine, 5-10 mL q.6 hours p.r.n., 60 mL Changed acetaminophen 325 mg capsule 650 mg PO Q8H PRN10 Days Qty: 30 0RF Discontinued potassium chloride 20 mEq tablet extended release 20 meq PO QDAY Qty: 7 0RF Rx Instructions: take once daily for hypokalemia levofloxacin 750 mg tablet 750 mg PO QDAY Qty: 5 0RF Rx Instructions: take once daily Discharge Orders: Discharge Order (Routine); Ordered 12/25/24 Ordered By: Liane Mcfadden Patient Education: Acyclovir (By mouth), Cefdinir (By mouth), Pantoprazole (By mouth), Chickenpox (DC), Chickenpox (GEN), Pneumonia (DC) Additional Instructions: You need to follow-up with primary care physician within 1 week and check kidney function and liver function (follow-up). You need to follow-up with your oncologist is to follow-up with your cancer treatment. You need to complete the the antiviral antibiotic courses orally. You might need to use antiemetics for nausea & vomiting Activity Level: Activity as Tolerated Discharge Diet: Regular Follow Up Appointments: Nahomi Valera PA-C [Primary Care Provider] - 12/29/24 3:15 pm ([facility] for follow-up. ) Forms: [employer] Info Instructions
[2024-12-25 10:51] VITALS: BP 134/78; PULSE 124; RESP 20; TEMP 37; O2SAT 94
--- NOTE | 2024-12-25 11:18 | PC.SOCIAL ---
Addendum entered by ANNELISE Merino 12/25/24 12:09: Discharge planning: gas utility worker met with pt and her daughter, Telma, this morning along with pt's nurse during discharge instructions. gas utility worker informed pt and her daughter that this worker called pt's insurance, [facility], this morning to inquire about coverage for home health care physical therapy and this worker was told that pt's insurance coverage ended on 12/22/2024. Pt's daughter said that that information was wrong and that she paid pt's COBRA bill last Wednesday by check and that the check had already been cashed/cleared from their account. gas utility worker thought that [facility] could be behind on updating their system. Pt said that she was not interested in home care at this time and was fine with assistance from her family. gas utility worker explained to pt and her daughter that if they change their mind they could inquire with pt's PCP or Oncologist about home care for physical therapy. Pt does need 24/7 supervision right now and someone to assist her with walking, pt should also use her walker at all times. Social work to follow-up as needed. Original Note: Discharge planning: gas utility worker called pt's insurance [employer] customer service line to check if pt has coverage for home health care, as home health PT is being recommended for the pt by PT here in the hospital. gas utility worker found out from pt's insurance that her coverage ended on 12/22/2024. gas utility worker is not aware of any other insurance that the pt may have. gas utility worker will meet with the pt and her daughter to update them about this news. gas utility worker did update staff at the hospital with this news. Social work to follow-up as needed.
[2024-12-25] MEDS: HEPARIN 500 UNIT/5 ML SYRINGE IVF (11:32)
[2024-12-25] MEDS: SODIUM CHLORIDE 0.9 % (FLUSH) 10 ML SYRINGE 5 ML IVF (11:32)
--- NOTE | 2024-12-25 12:14 | PC.NURSE ---
Pt alert and oriented. Pt had no complaints of pain. Pt up with SBA with walker and gait belt. Pt's port heparin locked and deaccessed. Pt's daughter at bedside for discharge.
== END 2024-12-25 12:00 | disposition home or self-care (01) | DRG 193 ==
PROVIDERS: Family Medicine; Student in an Organized Health Care Education/Training Program; Admitting Provider Family Medicine; PCP Student in an Organized Health Care Education/Training Program; Visit Provider Family Medicine
DX: J18.9 Pneumonia, unspecified organism (principal); J96.01 Acute respiratory failure with hypoxia; C78.00 Secondary malignant neoplasm of unspecified lung; C79.51 Secondary malignant neoplasm of bone; R64 Cachexia; E22.2 Syndrome of inappropriate secretion of antidiuretic hormone; B01.9 Varicella without complication; Z68.1 Body mass index [BMI] 19.9 or less, adult; I82.A11 Acute embolism and thrombosis of right axillary vein; C50.919 Malignant neoplasm of unspecified site of unspecified female breast; G96.198 Other disorders of meninges, not elsewhere classified; D63.8 Anemia in other chronic diseases classified elsewhere; Z79.01 Long term (current) use of anticoagulants; E87.6 Hypokalemia; R74.01 Elevation of levels of liver transaminase levels; N18.9 Chronic kidney disease, unspecified; Z86.718 Personal history of other venous thrombosis and embolism; Z95.828 Presence of other vascular implants and grafts
CPT/HCPCS: 36415; 36430; 71045; 71260; 74177; 80053; 80069; 80076; 82330; 82803; 83735; 84145; 85018; 85025; 85027; 86140; 86787; 86850; 86900; 86901; 86922; 87040; 87252; 87449; 87899; 93005; 94664; 94761; 97110; 97112; 97116; 97161; 97165; 97530; 97535; A9153; A9270; J0133; J1642; J2405; J2470; J2543; J7030; P9016; Q9967

== ENCOUNTER 2024-12-29 08:46 | Inpatient (IN) | payer OTHER, SELFPAY ==
[2024-12-29] VITALS (41 sets, daily range): BP systolic 74–115; BP diastolic 49–82; PULSE 109–127; RESP 18–32; TEMP 36.7–38.6; O2SAT 93–97; BMI 18.1; BMI 17.1
--- OUTSIDE RECORDS SUMMARY | 2024-12-29 08:48 | XMS_ITS | Encounter Summary ---
Author Organization [facility] Address [address] [place] [address] Care Team Providers Care Cruise Guide Name Role Phone Unavailable Primary Care Provider Unavailabl e Reason for Visit * Reason Comments Back Pain Abdominal Pain RUQ abd pain Encounter Details Date Type Department Care Team (Late st Contact Info) Description 12/12/2024 10:49 PM ROBOTICS ENGINEER - 12/13/2024 12:35 AM [facility] Emergency [facility] [address] [place] [address] [phone] Morales Zaidi, P.A.-C. [address] [place] [address] [phone] Urinary Tract Infection Site Not Specified (Primary Dx) Discharge Disposition: Home or Self Care Social History Tobacco Use Types Packs/Day Years Used Date Smoking Tobacco: Former Cigarettes Smokeless Tobacco: Never Alcohol Use Standard Drinks/Week Comments Not Currently 0 (1 standard drink = 0.6 oz pur e alcohol) [facility] Utilities Answer Date Recorded In the past 12 months has baseclick, gas, oil, or water [employer] threatened to shut off services in your [...] your living situation today? [facility] live 04/06/2024 Comments Unknown Sex and Gender Information Value Date Recorded Sex Assigned at Female 04/06/2024 7:27 PM CDT Legal Sex Female 1:30 AM ROBOTICS ENGINEER Gender Identity Female 04/06/2024 7:27 PM CDT Sexual Orientation Straight 04/06/2024 7: 27 PM CDT documented as of this encounter Last Filed Vital Signs Vital Sign Reading Time Taken Comments Blood Pressure 118/80 12/13/2024 12:00 AM ROBOTICS ENGINEER Pulse - - Temperature 36.3 C (97.3 F) 12/12/2024 10:48 PM ROBOTICS ENGINEER Respiratory Rate 20 12/13/2024 12:00 AM ROBOTICS ENGINEER Oxygen Saturation 99% 12/13/2024 12:00 AM ROBOTICS ENGINEER Inhaled Oxygen Concentration - - Weight 44.7 kg (98 lb 8.7 oz) 12/12/2024 10:47 P M ROBOTICS ENGINEER Height - - Body Mass Index 18.13 02/18/2015 3:52 PM CDT documented in this encounter Discharge Instructions * Discharge Instructions* Morales Zaidi, P.A.-C. - 12/13/2024 12:19 AM ROBOTICS ENGINEER You appear to be suffering from a urinary tract infection. You are being placed on an antibiotic. Take this medication as prescribed. Please return to the ER if new symptoms develop, current symptomsworsen, or you becomes concerned. Otherwise please follow up with your care team. TICS ENGINEER * Attachments The following attachments cannot be sent through Care Everywhere. * Urinary Tract Infection Adult (Trinidadian) documented in this encounter Medications at Time of Discharge albuterol 90 mcg/actuation inhaler Inhale 1-2 puffs every 4 (four) hours as needed. 05/19/2023 cholecalciferol (Vitamin D3) 50 mcg (2,000 Unit) capsule daily. diphenhydrAMINE-l mte-nsnr-gau hydrox-simeth (FIRST-MOUTHWASH BLM) [phone] mg/30 mL suspensionIndicat ions:Esophagitis Unspecified Without Bleeding [...] tablet Take 10 mg by mouth. 01/20/2023 cefdinir (Omnicef) 300 mg capsuleIndication s:Urinary Tract Infection Site Not Specified Take 1 capsule (300 mg total) by mouth 2 (two) times a day before morning and evening meals for 5 days. 10 capsule 12/13/2024 5 documented as of this encounter ED Notes * Morales Zaidi P.A.-C. - 12/13/2024 12:35 AM CST SUBJECTIVE CHIEF COMPLAINT/REASON FOR VISIT Back Pain and Abdominal Pain (RUQ abd pain) HISTORY OF PRESENT ILLNESS 64-year-old female presents ER with complaints of pain and abdominal pain that began yesterday. Patient is currently undergoing treatment for malignant breast cancer. She denies fever, chills. She does note urinary frequency and foul- smelling urine is concerned about a possible UTI. History provided by: Patient and significant other REVIEW OF SYSTEMS All pertinent systems reviewed and are negative except as discussed in HPI OBJECTIVE Initial Vitals Temperature 12/12/24 2248 36.3 ??C Pulse -- Heart Rate 12/12/242247 108 Resp Rate 12/12/242247 20 Blood Pressure 12/12/242247 116/85 SpO2 12/12/242247 99 % Pain Score 12/12/242246 4 PHYSICAL EXAMINATION Constitutional: Nursing note and vitals reviewed. HENT: Head: Normocephalic and atraumatic. Nose: Nose normal. Mouth/Throat: Oropharynx is clear and moist. Mucous membranes are moist. Neck: Neck supple. Cardiovascular: Normal rate, regular rhythm, S1 normal, S2 normal and normal heart sounds. Pulmonary/Chest: Effort normal and breath sounds normal. Abdominal: Soft. Bowel sounds are normal. There is no abdominal tenderness. There is no rigidity, no rebound, no guarding, no CVA tenderness, no tenderness at McBurney's point, negative Cook's sign, no Psoas sign and no Rovsing's sign. Musculoskeletal: Cervical back: Neck supple. Neurological: Alert and oriented to person, place, and time. Skin: Skin is warm. ASSESSMENT/PLAN Assessment and Plan Patient appears well. Based on history, physical exam, and all information gathered in the ER today; I do not suspect urosepsis, acute surgical abdomen . Patient's symptoms appear consistent with UTI. Patient is placed on Omnicef. Would like for her to follow up closely with her oncology and PCP team to ensure resolution of symptoms.. Considered additional testing including imaging , but this does not appear to be indicated at this time given observable information at todays visit. I have reviewed patients previous clinic notes, ER visits, and laboratory testing. Admission does not appear to be indicate at this time, however pt's condition may change requiring repeat examination in the ER. P atient appears stable for continued care and work-up as inidicated as an outpatient. Patient will return to the ER if new symptoms develop, current symptoms worsen, symptoms fail to improve, patient becomes concerned. Patient discharged in good condition. . I reviewed the following external records: primary care records and office records. Final Diagnoses: as of 12/14/24 0637 Urinary Tract Infection Site Not Specified Morales Zaidi P.A.-C. 12/14/24 0638 TICS ENGINEER documented in this encounter Plan of Treatment Not on file documented as of this encounter Procedures Procedure Name Priority Date/Time Associated Diagnosis Comments URINALYSIS WITH MICROSCOPIC IF INDICATED, U Routine 12/12/2024 11:50 PM ROBOTICS ENGINEER HC URINALYSIS AUTO W MICRO Routine 12/12/2024 11:50 PM ROBOTICS ENGINEER SARS CORONAVIRUS 2, PCR RAPID, V STAT 12/12/2024 11:02 PM ROBOTICS ENGINEER GROUP A STREP PCR, THROAT STAT 12/12/2024 11:02 PM ROBOTICS ENGINEER INFLUENZA A, B, RSV, PCR, POCT STAT 12/12/2024 11:02 PM ROBOTICS ENGINEER MORPHOLOGY EVALUATION STAT 12/12/2024 11:01 PM ROBOTICS ENGINEER MANUAL DIFFERENTIAL, B STAT 11:01 PM ROBOTICS ENGINEER CBC WITH DIFFERENTIAL, B STAT 12/12/2024 11:01 PM ROBOTICS ENGINEER LIPASE, S/P STAT 12/12/2024 11:01 PM ROBOTICS ENGINEER COMPREHENSIVE METABOLIC PANEL, S/P STAT 12/12/2024 11:01 PM ROBOTICS ENGINEER documented in this encounter Results * (ABNORMAL) Microscopic Manual (12/12/2024 11:50 PM ROBOTICS ENGINEER) White Blood Cells 11-20(A) /hpf 12/13/2024 12:12 AM ROBOTICS ENGINEER CNFL Comment: ----REFERENCE VALUE---- Males: 0-3 Females: 0-10 Unknown: 0-10 Red Blood Cells Occ-2 0 - 2 /hpf 12/13/2024 12:12 AM ROBOTICS ENGINEER CNFL Squamous Cells Occ-3 /hpf 12/13/2024 12:12 AM ROBOTICS ENGINEER CNFL Bacteria Present(A) None Seen 12/13/2024 12:12 AM ROBOTICS ENGINEER CNFL Urine 12/12/2024 11:5 0 PM ROBOTICS ENGINEER 12/12/2024 11:50 PM ROBOTICS ENGINEER Morales Zaidi P.A.-C. LAB URINE ORDERABLES Fin al Result [facility] [address] [place] [address], [facility] CNFL [facility] [place] [address] * (ABNORMAL) Urinalysis with Microscopic if Indicated: Urine, Midstream (12/12/2024 11:50 PM ROBOTICS ENGINEER) Source Urine, Urine, Midstream 12/12/2024 11:50 PM ROBOTICS ENGINEER CNFL Clarity Cloudy(A) Clear 12/12/2024 11:53 PM ROBOTICS ENGINEER CNFL Color Yellow 12/12/2024 11:53 PM ROBOTICS ENGINEER CNFL Comment: ----REFERENCE VALUE---- Colorless Yellow Julia Blood Negative Negative 12/12/2024 11:53 PM ROBOTICS ENGINEER CNFL Nitrite Positive(A) Negative 12/12/2024 11:53 PM ROBOTICS ENGINEER CNFL Leukocyte Esterase Small(A) Negative 12/12/2024 11:53 PM ROBOTICS ENGINEER CNFL Protein 30(A) mg/dL 12/12/2024 11:53 PM ROBOTICS ENGINEER CNFL Comment: ----REFERENCE VALUE---- Negative Trace Glucose Negative Negative mg/dL 12/12/2024 11:53 PM ROBOTICS ENGINEER CNFL Ketones, QI(U) 15(A) Negative mg/dL 12/12/2024 11:53 PM ROBOTICS ENGINEER CNFL Bilirubin Negative Negative 12/12/2024 11:53 PM ROBOTICS ENGINEER CNFL pH 6.0 5.0 - 8.0 12/12/2024 11:53 PM ROBOTICS ENGINEER CNFL Specific [place] 1.025 1.001 - 1.035 12/12/2024 11:53 PM ROBOTICS ENGINEER CNFL Urobilinogen 0.2 0.2 - 1.0 mg/dL 12/12/2024 11:53 PM ROBOTICS ENGINEER CNFL Urine (Urine, Midstream) 12/12/2024 11:50 PM ROBOTICS ENGINEER 12/12/2024 11:50 PM ROBOTICS ENGINEER Morales Zaidi P.A.-C. LAB URINE ORDERABLES Fin al Result Performing Organization Address [facility]/ZIP Co de Phone Number [facility] [address] [place] [phone], [facility] in [address] [address] * Influenza A/B and RSV, PCR, Point of Care (12/12/2024 11:02 PM ROBOTICS ENGINEER) Influenza A, POCT Negative Negative 12/12/2024 11:31 PM ROBOTICS ENGINEER CNFL Influenza B, POCT Negative Negative 12/12/2024 11:31 PM ROBOTICS ENGINEER CNFL Resp Syncytial Virus, POCT Negative Negative 12/12/2024 11:31 PM ROBOTICS ENGINEER [facility] Swab (Nasopharynx) 12/12/2024 11:02 PM ROBOTICS ENGINEER 12/12/2024 11:06 PM ROBOTICS ENGINEER Morales Zaidi P.A.-C. LAB POCT ORDERABLES - DE VICE Final Result Performing Organization Address [facility]/ZIP Co de Phone Number [address] [address], [facility] in [address] [address] * SARS Coronavirus 2, PCR Rapid Symptomatic (12/12/2024 11:02 PM ROBOTICS ENGINEER) SARS CoV-2, PCR, Rapid, V Undetected Undetected 12/12/2024 11:08 PM ROBOTICS ENGINEER CNFL SARS Coronavirus 2, Source, Rapid Swab, Nasopharynx 12/12/2024 11:06 PM ROBOTICS ENGINEER CNFL Swab (Nasopharynx) 12/12/2024 11:02 PM ROBOTICS ENGINEER 12/12/2024 11:06 PM ROBOTICS ENGINEER Morales Zaidi P.A.-C. LAB MICROBIOLOGY - GENER AL ORDERABLES Final Result Performing Organization Address [facility] Co de Phone Number [facility] [address] [place] [id number], [facility] [address] * Group A Streptococcus PCR, Throat (12/12/2024 11:02 PM ROBOTICS ENGINEER) Strep Group A, PCR, POCT Negative Negative 12/12/2024 11:09 PM ROBOTICS ENGINEER CNFL Swab (Throat) 12/12/2024 11: 02 PM ROBOTICS ENGINEER 12/12/2024 11:06 PM ROBOTICS ENGINEER Morales Zaidi P.A.-C. LAB MICROBIOLOGY - GENER AL ORDERABLES Final Result Performing Organization Address [facility] Co de Phone Number [facility] [address] [place] [phone], [facility] [address] [address] * (ABNORMAL) Manual Differential, Blood (12/12/2024 11:01 PM ROBOTICS ENGINEER) Segmented Neutrophils 87(H) 50 - 75 % 12/13/2024 12:07 AM ROBOTICS ENGINEER CNFL Lymphocytes % 7(L) 18 - 42 % 12/13/2024 12:07 AM ROBOTICS ENGINEER CNFL Monocytes 6 2 - 11 % 12/13/2024 12:07 AM ROBOTICS ENGINEER CNFL Manual Absolute Neutrophil Count 6.44 1.56 - 6.45 x10(9)/L 12/13/2024 12:07 AM ROBOTICS ENGINEER CNFL Comment: ----ADDITIONAL INFORMATION---- The manual absolute neutrophil count is derived from a manual differential count and therefore is not exactly comparable to the automated absolute neutrophil count. Blood 12/12/2024 11:0 1 PM ROBOTICS ENGINEER 12/12/2024 11:03 PM ROBOTICS ENGINEER Morales Zaidi P.A.-C. LAB BLOOD ADD-ON Final R esult [address] [address], [address] [address] * (ABNORMAL) Morphology Evaluation (12/12/2024 11:01 PM ROBOTICS ENGINEER) RBC Morphology See Specific Findings 12/13/2024 12:07 AM ROBOTICS ENGINEER CNFL PLT Morphology Normal 12/13/2024 12:07 AM ROBOTICS ENGINEER CNFL PLT Estimate Adequate Adequate 12/13/2024 12:07 AM ROBOTICS ENGINEER CNFL Anisocytosis Slight(A) 12/13/2024 12:07 AM ROBOTICS ENGINEER CNFL Macrocytosis Slight(A) Not Seen 12/13/2024 12:07 AM ROBOTICS ENGINEER CNFL Blood 12/12/2024 11:0 1 PM ROBOTICS ENGINEER 12/12/2024 11:03 PM ROBOTICS ENGINEER us Morales Zaidi P.A.-C. LAB BLOOD ADD-ON Final R esult [address] [address], [address] [address] * Lipase (12/12/2024 11:01 PM ROBOTICS ENGINEER) Lipase, P 19 13 - 60 U/L 12/12/2024 11:22 PM ROBOTICS ENGINEER CNFL Blood (Blood, Venous) 12/12/2024 11:01 PM ROBOTICS ENGINEER 12/12/2024 11:03 PM ROBOTICS ENGINEER us Morales Zaidi P.A.-C. LAB BLOOD ADD-ON Final R esult [facility] [address] [place] [phone], [address] [address] * (ABNORMAL) Comprehensive Metabolic Panel (12/12/2024 11:01 PM ROBOTICS ENGINEER) Potassium, P 3.2(L) 3.6 - 5.2 mmol/L 12/12/2024 11:22 PM ROBOTICS ENGINEER CNFL Sodium, P 136 135 - 145 mmol/L 12/12/2024 11:22 PM ROBOTICS ENGINEER CNFL Chloride, P 104 98 - 107 mmol/L 12/12/2024 11:22 PM ROBOTICS ENGINEER CNFL Bicarbonate, P 23 22 - 29 mmol/L 12/12/2024 11:22 PM ROBOTICS ENGINEER CNFL Anion Gap, P 9 7 - 15 12/12/2024 11:22 PM ROBOTICS ENGINEER CNFL BUN (Blood Urea Nitrogen), P 10 6 - 21 mg/dL 12/12/2024 11:22 PM ROBOTICS ENGINEER CNFL Creatinine 0.64 0.59 - 1.04 mg/dL 12/12/2024 11:22 PM ROBOTICS ENGINEER CNFL Estimated GFR (eGFR) >90 >=60 mL/min/BS A 12/12/2024 11:22 PM ROBOTICS ENGINEER CNFL Comment: Estimated GFR calculated using the 2020 CKD_EPI creatinine equation. Calcium, Total, P 8.0(L) 8.8 - 10.2 mg/dL 12/12/2024 11:22 PM ROBOTICS ENGINEER CNFL Glucose, P 109 70 - 140 mg/dL 12/12/2024 11:22 PM ROBOTICS ENGINEER CNFL Protein, Total, P 5.3(L) 6.3 - 7.9 g/dL 12/12/2024 11:22 PM ROBOTICS ENGINEER CNFL Albumin, P 3.4(L) 3.5 - 5.0 g/dL 12/12/2024 11:22 PM ROBOTICS ENGINEER CNFL Aspartate Aminotransferase (AST), P 13 8 - 43 U/L 12/12/2024 11:22 PM ROBOTICS ENGINEER CNFL Alkaline Phosphatase, P 90 35 - 104 U/L 12/12/2024 11:22 PM ROBOTICS ENGINEER CNFL Alanine Aminotransferase (ALT), P 24 7 - 45 U/L 12/12/2024 11:22 PM ROBOTICS ENGINEER CNFL Bilirubin, Total, P 0.4 0.0 - 1.2 mg/dL 12/12/2024 11:22 PM ROBOTICS ENGINEER CNFL Blood (Blood, Venous) 12/12/2024 11:01 PM ROBOTICS ENGINEER 12/12/2024 11:03 PM ROBOTICS ENGINEER us Morales Zaidi P.A.-C. LAB BLOOD ADD-ON Final R esult [facility] [address] [place] [address], [facility] CNFL [facility] [place] [address] * (ABNORMAL) CBC with Differential, Blood (12/12/2024 11:01 PM ROBOTICS ENGINEER) Hemoglobin 9.8(L) 11.6 - 15.0 g/dL 12/12/2024 11:11 PM ROBOTICS ENGINEER CNFL Hematocrit 28.7(L) 35.5 - 44.9 % 12/12/2024 11:11 PM ROBOTICS ENGINEER CNFL Erythrocytes 2.89(L) 3.92 - 5.13 x10(12)/ L 12/12/2024 11:11 PM ROBOTICS ENGINEER CNFL MCV 99.3(H) 78.2 - 97.9 fL 12/12/2024 11:11 PM ROBOTICS ENGINEER CNFL RBC Distrib Width 15.2 12.2 - 16.1 % 12/12/2024 11:11 PM ROBOTICS ENGINEER CNFL Platelet Count 157 157 - 371 x10(9)/L 12/12/2024 11:11 PM ROBOTICS ENGINEER CNFL Leukocytes 7.4 3.4 - 9.6 x10(9)/L 12/12/2024 11:11 PM ROBOTICS ENGINEER CNFL Neutrophils See manual differential 1.56 - 6.45 x10(9)/L 12/12/2024 11:58 PM ROBOTICS ENGINEER CNFL Comment: REVISED RESULTS ----PREVIOUSLY REPORTED ---- 6.29 x10(9)/L Flagged as: Normal (Reported 12/12/2024 23:11) Lymphocytes CANCELED x10(9)/L 12/12/2024 11:58 PM ROBOTICS ENGINEER CNFL Comment: REVISED RESULTS ----PREVIOUSLY REPORTED ---- 0.44 x10(9)/L Flagged as: Abnormal_Low (Reported 12/12/2024 23:11) Monocytes CANCELED x10(9)/L 12/12/2024 11:58 PM ROBOTICS ENGINEER CNFL Comment: REVISED RESULTS ----PREVIOUSLY REPORTED ---- 0.58 x10(9)/L Flagged as: Normal (Reported 12/12/2024 23:11) Eosinophils CANCELED x10(9)/L 12/12/2024 11:58 PM ROBOTICS ENGINEER CNFL Comment: REVISED RESULTS ----PREVIOUSLY REPORTED ---- <0.04 x10(9)/L Flagged as: Normal (Reported 12/12/2024 23:11) Basophils CANCELED x10(9)/L 12/12/2024 11:58 PM ROBOTICS ENGINEER CNFL Comment: REVISED RESULTS ----PREVIOUSLY REPORTED ---- <0.04 x10(9)/L Flagged as: Normal (Reported 12/12/2024 23:11) Blood (Blood, Venous) 12/12/2024 11:01 PM ROBOTICS ENGINEER 12/12/2024 11:03 PM ROBOTICS ENGINEER Morales Zaidi P.A.-C. LAB BLOOD ADD-ON Edited Result - Final [facility] [address] [place] [address], [facility] [place] [address] documented in this encounter Visit Diagnoses Diagnosis Urinary Tract Infection Site Not Specified- Primary documented in this encounter Administered Medications Inactive Administered Medications - up to 3 most recent administrations Medication Order MAR Action Action Date Dose Rate Site cefdinir capsule 300 mg (Omnicef) 300 mg, oral, Once, On Wed12/13/24 at 0029, For 1 dose, Last order vomited up Administer 2 hours before or 6 hours after taking magnesium, aluminum (antacids, laxatives) or calcium and iron supplements (multivitamins); may be taken with calcium or iron if given with food., Drug Monitoring Program: Pharmacist to adjust medication dosing based on indication and drug clearance factors., Indications: Lower UTI, Non-CatheterIndications:Lower UTI, Non-Catheter Given 12/13/2024 12:31 AM ROBOTICS ENGINEER 300 mg documented in this encounter Active and Recently Administered Medications Times are shown in ROBOTICS ENGINEER. Scheduled Medication Order 12/11/2024 12/12/2024 12/13/2024 cefdinir capsule 300 mg (Omnicef) 300 mg, oral, Once, On Wed12/13/24 at 0019, For 1 dose, Administer 2 hours before or 6 hours after taking magnesium, aluminum (antacids, laxatives) or calcium and iron supplements (multivitamins); may be taken with calcium or iron if given with food., Drug Monitoring Program: Pharmacist to adjust medication dosing based on indication and drug clearance factors., Indications: Lower UTI, Non-Catheter 0022 (Canceled Entry - Provider: Del Ortega R.N. - Comment: Pt vomited pill) cefdinir capsule 300 mg (Omnicef) (COMPLETED) 300 mg, oral, Once, On Wed12/13/24 at 0029, For 1 dose, Last order vomited up Administer 2 hours before or 6 hours after taking magnesium, aluminum (antacids, laxatives) or calcium and iron supplements (multivitamins); may be taken with calcium or iron if given with food., Drug Monitoring Program: Pharmacist to adjust medication dosing based on indication and drug clearance factors., Indications: Lower UTI, Non-Catheter 0031 (Given - Provid er: Del Ortega R.N.) documented in this encounter Additional Health Concerns Infection Onset Date Last Indicated Resolved Time COVID19 Pending 12/12/2024 12/12/2024 12/12/2024 1 1:29 PM ROBOTICS ENGINEER documented as of this encounter
--- OUTSIDE RECORDS SUMMARY | 2024-12-29 08:48 | XMS_ITS | Clinical Summary ---
Author Organization [facility] Address [address] [place] [address] Care Team Providers Care Pug Mill Operator Name Role Phone Unavailable Primary Care Provider Unavailabl e Source Comments Patient records contain information from all sites at [facility]. For routine questions regarding patient records, call [phone] during business hours, M-F 8:00 AM - 5:00 PM Central Time. Record requests for emergency care only can be directed to [phone] at any time.[facility] Allergies Active Allergy Reactions Criticality Noted Date Comments Venom-Honey Bee Anaphylaxis High 02/18/2015 Medications diphenhydrAMINE -apxp-prdp-rxe hydrox-simeth (FIRST-MOUTHWAS H BLM) [phone] [phone] mg/30 mL suspensionIndic ations:Esophagi tis Unspecified Without Bleeding Swish and swallow 15 [...] Take 10 mg by mouth. 3 Active cefdinir (Omnicef) 300 mg capsuleIndicati ons:Urinary Tract Infection Site Not Specified Take 1 capsule (300 mg total) by mouth 2 (two) times a day before morning and evening meals for 5 days. 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 Urinary Tract Infection Site Not Specified (Primary Dx) Discharge Disposition: Home or Self Care 10/13/2024 2:36 PM NP - 10/13/2024 11:59 PM NP Hospital Encounter Department of Radiation Oncology in [address] [phone] Yahaira Beltrán M.D. Discharge Disposition: Home or Self Care 10/13/2024 Documentation Department of Radiation Oncology in [address] [phone] Yahaira Beltrán M.D. 10/12/2024 2:41 PM NP - 10/12/2024 11:59 PM NP Hospital Encounter Department of Radiation Oncology in [address] [phone] Yahaira Beltrán M.D. Discharge Disposition: Home or Self Care 10/11/2024 2:20 PM NP - 10/11/2024 4:26 PM NP Hospital Encounter Department of Radiation Oncology in [address] [phone] Yahaira Beltrán M.D. Secondary Malignant Neoplasm Bone (HCC); Malignant Neoplasm Of Breast Female Left (HCC) 10/11/2024 2:20 PM NP - 10/11/2024 11:59 PM NP Hospital Encounter Department of Radiation Oncology in [address] [phone] Yahaira Beltrán M.D. Discharge Disposition: Home or Self Care 10/10/2024 2:51 PM NP - 10/10/2024 11:59 PM NP Hospital Encounter Department of Radiation Oncology in [address] [phone] Yahaira Beltrán M.D. Discharge Disposition: Home or Self Care 10/09/2024 2:41 PM NP - 10/09/2024 11:59 PM NP Hospital Encounter Department of Radiation Oncology in [address] [phone] Yahaira Beltrán M.D. Discharge Disposition: Home or Self Care from Last 3 Months Family History Medical History Relation Name Comments Breast cancer Maternal Grandmother Relation Name Status Comments Maternal Grandmother Social History Tobacco Use Types Packs/Day Years Used Date Smoking Tobacco: Former Cigarettes Smokeless Tobacco: Never Tobacco Cessation:Counseling Given: Not Answered Alcohol Use Standard Drinks/Week Comments Not Currently 0 (1 standard drink = 0.6 oz pur e alcohol) [facility] Utilities Answer Date Recorded In the past 12 months has e [employer], gas, oil, or water [employer] threatened to shut off services in your [...] your living situation today? I have a [facility] place to live 04/06/2024 Comments Unknown Sex and Gender Information Value Date Recorded Sex Assigned at Female 04/06/2024 7:27 PM CDT Legal Sex Female 1:30 AM NP Gender Identity Female 04/06/2024 7:27 PM CDT Sexual Orientation Straight 04/06/2024 7: 27 PM CDT Last Filed Vital Signs Vital Sign Reading Time Taken Comments Blood Pressure 118/80 12/13/2024 12:00 AM NP Pulse 97 10/11/2024 2:47 PM NP Temperature 36.3 C (97.3 F) 12/12/2024 10:48 PM NP Respiratory Rate 20 12/13/2024 12:0 0 AM NP Oxygen Saturation 99% 12/13/2024 12: 00 AM NP Inhaled Oxygen Concentration - - Weight 44.7 kg (98 lb 8.7 oz) 12/12/2024 10:47 PM NP Height 157 cm (5' 1.81) 02/18/2015 3:5 2 PM CDT Vital sign result from Clinical Notes. Body Mass Index 18.13 02/18/2015 3:52 PM CDT Plan of Treatment Health Maintenance Due Date Last Done Comments CT Colonography 1961 Cologuard 1961 Colonoscopy 1961 Colorectal Cancer Screening 1961 FIT 1961 HIV Screening 1961 Hepatitis C Screening 1961 Pneumococcal vaccine (50+ years) (1 of 2 - PCV) 1980 Zoster Vaccines (1 of 2) 1980 COVID-19 Vaccine (3 - Pfizer risk series) 04/05/2021 03/08/2021, 02/15/2021 RSV vaccine - (32-36 weeks) or 60+ years (1 - Risk 60-74 years 1-dose series) 2021 DTaP,Tdap,and Td Vaccines (2 - Td or Tdap) 08/15/2024 08/15/2014, 06/25/2003 Influenza Vaccine (#1) 2024 Depression Screening (Annual PHQ-2) 11/22/2024 Fasting Glucose for Diabetes Screening 12/12/2027 12/12/2024 Lipid (Cholesterol) Screening 02/06/2028 02/05/2023 Mammogram Discontinued 07/10/2014, 07/06/2014 HPV Vaccines Aged Out No longer eligi ble based on patient's age to complete this topic IPV Vaccines Aged Out No longer eligi ble based on patient's age to complete this topic Procedures Procedure Name Priority Date/Time Associated Diagnosis Comments HC URINALYSIS AUTO W MICRO Routine 12/12/2024 11:50 PM NP URINALYSIS WITH MICROSCOPIC IF INDICATED, U Routine 12/12/2024 11:50 PM NP INFLUENZA A, B, RSV, PCR, POCT STAT 12/12/2024 11:02 PM NP SARS CORONAVIRUS 2, PCR RAPID, V STAT 12/12/2024 11:02 PM NP GROUP A STREP PCR, THROAT STAT 12/12/2024 11:02 PM NP MANUAL DIFFERENTIAL, B STAT 11:01 PM NP MORPHOLOGY EVALUATION STAT 12/12/2024 11:01 PM NP LIPASE, S/P STAT 12/12/2024 11:01 PM NP COMPREHENSIVE METABOLIC PANEL, S/P STAT 12/12/2024 11:01 PM NP CBC WITH DIFFERENTIAL, B STAT 12/12/2024 11:01 PM NP OUTSIDE NM PET Routine 11/25/2024 4:30 PM NP OUTSIDE MR NEURO Routine 11/03/2024 7:50 AM NP OUTSIDE MR NEURO Routine 11/03/2024 7:45 AM NP OUTSIDE MR NEURO Routine 11/03/2024 7:40 AM NP OUTSIDE MR NEURO Routine 11/03/2024 7:35 AM NP ARIA COURSE COMPLETE TREATMENT INFORMATION Routine 10/13/2024 2:49 PM NP ARIA DAILY TREATMENT INFORMATION Routine 10/13/2024 2:49 PM NP ARIA DAILY TREATMENT INFORMATION Routine 10/12/2024 2:59 PM NP ARIA DAILY TREATMENT INFORMATION Routine 10/11/2024 2:42 PM NP ARIA DAILY TREATMENT INFORMATION Routine 10/10/2024 3:08 PM NP ARIA DAILY TREATMENT INFORMATION Routine 10/09/2024 3:17 PM NP OUTSIDE MG MAMMOGRAM Routine 07/10/2014 8:18 AM CDT from Last 3 Months or Most Recently Relevant to Health Maintenance Results * (ABNORMAL) Urinalysis with Microscopic if Indicated: Urine, Midstream (12/12/2024 11:50 PM NP) Source Urine, Urine, Midstream 12/12/2024 11:50 PM NP CNFL Clarity Cloudy(A) Clear 12/12/2024 11:53 PM NP CNFL Color Yellow 12/12/2024 11:53 PM NP CNFL Comment: ----REFERENCE VALUE---- Colorless Yellow Julia Blood Negative Negative 12/12/2024 11:53 PM NP CNFL Nitrite Positive(A) Negative 12/12/2024 11:53 PM NP CNFL Leukocyte Esterase Small(A) Negative 12/12/2024 11:53 PM NP CNFL Protein 30(A) mg/dL 12/12/2024 11:53 PM NP CNFL Comment: ----REFERENCE VALUE---- Negative Trace Glucose Negative Negative mg/dL 12/12/2024 11:53 PM NP CNFL Ketones, QI(U) 15(A) Negative mg/dL 12/12/2024 11:53 PM NP CNFL Bilirubin Negative Negative 12/12/2024 11:53 PM NP CNFL pH 6.0 5.0 - 8.0 12/12/2024 11:53 PM NP CNFL Specific [place] 1.025 1.001 - 1.035 12/12/2024 11:53 PM NP CNFL Urobilinogen 0.2 0.2 - 1.0 mg/dL 12/12/2024 11:53 PM NP CNFL Urine (Urine, Midstream) 12/12/2024 11:50 PM NP 12/12/2024 11:50 PM NP us Morales Zaidi P.A.-C. LAB URINE ORDERABLES Fin al Result Performing Organization Address City/State/[facility] Co de Phone Number [facility] [address] [place] [address], [facility] CNFL [facility] [place] [address] * (ABNORMAL) Microscopic Manual (12/12/2024 11:50 PM NP) White Blood Cells 11-20(A) /hpf 12/13/2024 12:12 AM NP CNFL Comment: ----REFERENCE VALUE---- Males: 0-3 Females: 0-10 Unknown: 0-10 Red Blood Cells Occ-2 0 - 2 /hpf 12/13/2024 12:12 AM NP CNFL Squamous Cells Occ-3 /hpf 12/13/2024 12:12 AM NP CNFL Bacteria Present(A) None Seen 12/13/2024 12:12 AM NP CNFL Urine 12/12/2024 11:5 0 PM NP 12/12/2024 11:50 PM NP Morales Zaidi P.A.-C. LAB URINE ORDERABLES Fin al Result [address] [address], [facility] in [address] [address] * SARS Coronavirus 2, PCR Rapid Symptomatic (12/12/2024 11:02 PM NP) SARS CoV-2, PCR, Rapid, V Undetected Undetected 12/12/2024 11:08 PM NP [place] SARS Coronavirus 2, Source, Rapid Swab, Nasopharynx 12/12/2024 11:06 PM NP [facility] Swab (Nasopharynx) 12/12/2024 11:02 PM NP 12/12/2024 11:06 PM NP Morales Zaidi P.A.-C. LAB MICROBIOLOGY - GENER AL ORDERABLES Final Result Performing Organization Address [facility]/ZIP Co de Phone Number [facility] [address] [place] [phone], [facility] in [address] [address] * Group A Streptococcus PCR, Throat (12/12/2024 11:02 PM NP) Strep Group A, PCR, POCT Negative Negative 12/12/2024 11:09 PM NP CNFL Swab (Throat) 12/12/2024 11: 02 PM NP 12/12/2024 11:06 PM NP Morales Zaidi P.A.-C. LAB MICROBIOLOGY - GENER AL ORDERABLES Final Result [facility] [address] [place] [address], [facility] in [address] [address] * Influenza A/B and RSV, PCR, Point of Care (12/12/2024 11:02 PM NP) Influenza A, POCT Negative Negative 12/12/2024 11:31 PM NP CNFL Influenza B, POCT Negative Negative 12/12/2024 11:31 PM NP CNFL Resp Syncytial Virus, POCT Negative Negative 12/12/2024 11:31 PM NP CNFL Swab (Nasopharynx) 12/12/2024 11:02 PM NP 12/12/2024 11:06 PM NP Morales YeungC. LAB POCT ORDERABLES - DE VICE Final Result Performing Organization Address [facility]/ZIP Co de Phone Number [address] [address], [facility] in [address] [address] * (ABNORMAL) Morphology Evaluation (12/12/2024 11:01 PM NP) Pathologist [facility] RBC Morphology See Specific Findings 12/13/2024 12:07 AM NP CNFL PLT Morphology Normal 12/13/2024 12:07 AM NP CNFL PLT Estimate Adequate Adequate 12/13/2024 12:07 AM NP CNFL Anisocytosis Slight(A) 12/13/2024 12:07 AM NP CNFL Macrocytosis Slight(A) Not Seen 12/13/2024 12:07 AM NP CNFL Blood 12/12/2024 11:0 1 PM NP 12/12/2024 11:03 PM NP Morales YeungC. LAB BLOOD ADD-ON Final R esult [facility] [address] [place] [phone], [facility] in [address] [place] [address] * (ABNORMAL) Manual Differential, Blood (12/12/2024 11:01 PM NP) Pathologist [facility] Segmented Neutrophils 87(H) 50 - 75 % 12/13/2024 12:07 AM NP CNFL Lymphocytes % 7(L) 18 - 42 % 12/13/2024 12:07 AM NP CNFL Monocytes 6 2 - 11 % 12/13/2024 12:07 AM NP CNFL Manual Absolute Neutrophil Count 6.44 1.56 - 6.45 x10(9)/L 12/13/2024 12:07 AM NP CNFL Comment: ----ADDITIONAL INFORMATION---- The manual absolute neutrophil count is derived from a manual differential count and therefore is not exactly comparable to the automated absolute neutrophil count. Blood 12/12/2024 11:0 1 PM NP 12/12/2024 11:03 PM NP Morales Zaidi P.A.-C. LAB BLOOD ADD-ON Final R esult [facility] [address] [place] [phone], [facility] in [address] [address] * (ABNORMAL) CBC with Differential, Blood (12/12/2024 11:01 PM NP) Hemoglobin 9.8(L) 11.6 - 15.0 g/dL 12/12/2024 11:11 PM NP CNFL Hematocrit 28.7(L) 35.5 - 44.9 % 12/12/2024 11:11 PM NP CNFL Erythrocytes 2.89(L) 3.92 - 5.13 x10(12)/ L 12/12/2024 11:11 PM NP CNFL MCV 99.3(H) 78.2 - 97.9 fL 12/12/2024 11:11 PM NP CNFL RBC Distrib Width 15.2 12.2 - 16.1 % 12/12/2024 11:11 PM NP CNFL Platelet Count 157 157 - 371 x10(9)/L 12/12/2024 11:11 PM NP CNFL Leukocytes 7.4 3.4 - 9.6 x10(9)/L 12/12/2024 11:11 PM NP CNFL Neutrophils See manual differential 1.56 - 6.45 x10(9)/L 12/12/2024 11:58 PM NP CNFL Comment: REVISED RESULTS ----PREVIOUSLY REPORTED ---- 6.29 x10(9)/L Flagged as: Normal (Reported 12/12/2024 23:11) Lymphocytes CANCELED x10(9)/L 12/12/2024 11:58 PM NP CNFL Comment: REVISED RESULTS ----PREVIOUSLY REPORTED ---- 0.44 x10(9)/L Flagged as: Abnormal_Low (Reported 12/12/2024 23:11) Monocytes CANCELED x10(9)/L 12/12/2024 11:58 PM NP CNFL Comment: REVISED RESULTS ----PREVIOUSLY REPORTED ---- 0.58 x10(9)/L Flagged as: Normal (Reported 12/12/2024 23:11) Eosinophils CANCELED x10(9)/L 12/12/2024 11:58 PM NP CNFL Comment: REVISED RESULTS ----PREVIOUSLY REPORTED ---- <0.04 x10(9)/L Flagged as: Normal (Reported 12/12/2024 23:11) Basophils CANCELED x10(9)/L 12/12/2024 11:58 PM NP CNFL Comment: REVISED RESULTS ----PREVIOUSLY REPORTED ---- <0.04 x10(9)/L Flagged as: Normal (Reported 12/12/2024 23:11) Blood (Blood, Venous) 12/12/2024 11:01 PM NP 12/12/2024 11:03 PM NP us Morales Zaidi P.A.-C. LAB BLOOD ADD-ON Edited Result - Final Performing Organization Address City/State/[facility] Co de Phone Number [facility] [address] [place] [phone], [facility] CNFL [facility] in [address] [address] * Lipase (12/12/2024 11:01 PM NP) Lipase, P 19 13 - 60 U/L 12/12/2024 11:22 PM NP CNFL Blood (Blood, Venous) 12/12/2024 11:01 PM NP 12/12/2024 11:03 PM NP us Morales Zaidi P.A.-C. LAB BLOOD ADD-ON Final R esult [facility] [address] [place] [address], [facility] CNFL [facility] [place] [address] * (ABNORMAL) Comprehensive Metabolic Panel (12/12/2024 11:01 PM NP) Potassium, P 3.2(L) 3.6 - 5.2 mmol/L 12/12/2024 11:22 PM NP CNFL Sodium, P 136 135 - 145 mmol/L 12/12/2024 11:22 PM NP CNFL Chloride, P 104 98 - 107 mmol/L 12/12/2024 11:22 PM NP CNFL Bicarbonate, P 23 22 - 29 mmol/L 12/12/2024 11:22 PM NP CNFL Anion Gap, P 9 7 - 15 12/12/2024 11:22 PM NP CNFL BUN (Blood Urea Nitrogen), P 10 6 - 21 mg/dL 12/12/2024 11:22 PM NP CNFL Creatinine 0.64 0.59 - 1.04 mg/dL 12/12/2024 11:22 PM NP CNFL Estimated GFR (eGFR) >90 >=60 mL/min/BS A 12/12/2024 11:22 PM NP CNFL Comment: Estimated GFR calculated using the 2020 CKD_EPI creatinine equation. Calcium, Total, P 8.0(L) 8.8 - 10.2 mg/dL 12/12/2024 11:22 PM NP CNFL Glucose, P 109 70 - 140 mg/dL 12/12/2024 11:22 PM NP CNFL Protein, Total, P 5.3(L) 6.3 - 7.9 g/dL 12/12/2024 11:22 PM NP CNFL Albumin, P 3.4(L) 3.5 - 5.0 g/dL 12/12/2024 11:22 PM NP CNFL Aspartate Aminotransferase (AST), P 13 8 - 43 U/L 12/12/2024 11:22 PM NP CNFL Alkaline Phosphatase, P 90 35 - 104 U/L 12/12/2024 11:22 PM NP CNFL Alanine Aminotransferase (ALT), P 24 7 - 45 U/L 12/12/2024 11:22 PM NP CNFL Bilirubin, Total, P 0.4 0.0 - 1.2 mg/dL 12/12/2024 11:22 PM NP CNFL Blood (Blood, Venous) 12/12/2024 11:01 PM NP 12/12/2024 11:03 PM NP us Morales Zaidi P.A.-C. LAB BLOOD ADD-ON Final R esult [facility] [address] [place] [address], [facility] CNFL [facility] [place] [address] * PET skull to mid thigh-Outside NM Pet (11/25/2024 4:30 PM NP) 11/25/2024 4:27 PM NP Narrative [facility]IM[facility] - 11/25/2024 6:24 PM NP This order has been created and auto-finalized to support the import of outside images. If available, original interpretation can be found on the Media Tab in Chart Review, in Document Viewer, as an image in QREADS or as an Addendum. If a re-interpretation or overread is required please follow defined workflow. us Provider Not In System IMG NM PROCEDURES Final R esult [facility] NA * MR head/brain wo/w con-Outside MR Neuro (11/03/2024 7:50 AM NP) Only the most recent of4 resultswithin the time period is included. Narrative IIMS - 11/17/2024 10:14 AM NP This order has been created and auto-finalized to support the import of outside images. If available, original interpretation can be found on the Media Tab in Chart Review, in Document Viewer, as an image in QREADS or as an Addendum. If a re-interpretation or overread is required please follow defined workflow. us Provider Not In System IMG MRI PROCEDURES Final Result [facility] NA * Aria Course Complete Treatment Information (10/13/2024 2:49 PM NP) Course ID [id number] CARR ARIA Course Start Date 4 08:48 NP CARR ARIA Course End Date 4 13:21 NP CARR ARIA First Treatment Date 4 15:06 NP CARR ARIA Last Treatment Date 4 14:49 NP CARR ARIA Treatment Elapsed Days 4 CARR ARIA Reference Point [id number] CARR ARIA Dosage Given to Date cGy 2500 CARR ARIA Reference Point [id number] CARR ARIA Dosage Given to Date cGy 2500 CARR ARIA Plan ID [id number] CARR ARIA Fractions Treated to Date 5 CARR ARIA Planned Total Fractions 5 CARR ARIA Prescribed Dose Per Fraction 500 CARR ARIA Prescription Dose in cGy 2500 CARR ARIA Plan Primary Reference Point [id number] CARR ARIA Plan ID [id number] CARR ARIA Fractions Treated to Date 5 CARR ARIA Planned Total Fractions 5 CARR ARIA Prescribed Dose Per Fraction 500 CARR ARIA Prescription Dose in cGy 2500 CARR ARIA Plan Primary Reference Point [id number] CARR ARIA 10/13/2024 2:49 PM NP us Provider Not In System RADIATION ONCOLOGY ORDERA BLES Final Result CARR ARIA na * Aria Daily Treatment Information (10/13/2024 2:49 PM NP) Only the most recent of5 resultswithin the time period is included. Course ID [id number] CARR ARIA Course Start Date 4 08:48 NP CARR ARIA First Treatment Date 4 15:06 NP CARR ARIA Last Treatment Date 4 14:49 NP CARR ARIA Treatment Elapsed Days 4 CARR ARIA Reference Point [id number] CARR ARIA Dosage Given to Date cGy 2500 CARR ARIA Session Dosage Given 500 CARR ARIA Reference Point [id number] CARR ARIA Dosage Given to Date cGy 2500 CARR ARIA Session Dosage Given 500 CARR ARIA Plan ID [id number] CARR ARIA Fractions Treated to Date 5 CARR ARIA Planned Total Fractions 5 CARR ARIA Prescribed Dose Per Fraction 500 CARR ARIA Prescription Dose in cGy 2500 CARR ARIA Plan Primary Reference Point [id number] CARR ARIA Plan ID [id number] CARR ARIA Fractions Treated to Date 5 CARR ARIA Planned Total Fractions 5 CARR ARIA Prescribed Dose Per Fraction 500 CARR ARIA Prescription Dose in cGy 2500 CARR ARIA Plan Primary Reference Point [id number] CARR ARIA 10/13/2024 2:49 PM NP Provider Not In System RADIATION ONCOLOGY ORDERA BLES Final Result [facility] na * Outside MG Mammogram (07/10/2014 8:18 AM CDT) 07/10/2014 8:18 AM CDT Addenda Addendum by ProviderHolly M.D. on 07/10/2014 8:18 AM CDT ODM^^^MCR XR MAMMO POST CLIP PLCMT LT 07/10/2014 08:18:03 Historical Provider IMG BI PROCEDURES Final Resu lt [facility] [address] [place] [address], [facility] from Last 3 Months or Most Recently Relevant to Health Maintenance Insurance [facility]
--- OUTSIDE RECORDS SUMMARY | 2024-12-29 08:48 | XMS_ITS | Clinical Summary ---
Author Organization [employer] [facility] Address [place], [place] [address] Care Team Providers Care Webfed Offset Press Operator Name Role Phone Pcp, No Primary Care [...] Encounters Date Type Department Care Team Description 12/27/2024 Nurse Triage [facility] [address] [place] [address] Francie Marcos PA Vomiting 12/19/2024 Orders Only [facility] Scanner 1 scan: (1-Ord) [place], CHEST ABDOMEN PELVIS W/ CONTRAST, 12/19/2024 12/18/2024 Orders Only [facility] Scanner 1 scan: (1-Ord) [facility], XR CHEST 2V, 12/18/2024 11/25/2024 Orders Only [facility] Scanner 1 scan: (1-Ord) [place], SKULL TO MID THIGHS, 11/25/2024 11/08/2024 Telephone [facility] [address] [place] [address] Oneil العلي, AuD 11/03/2024 Orders Only [facility] Scanner 1 scan: (1-Ord) [facility], MR THORACIC SPINE WO/W CON, 11/03/2024 11/03/2024 Orders Only [facility] Scanner 1 scan: (1-Ord) [facility], MR LUMBAR SPINE WWO CONTRAST, 11/03/2024 11/03/2024 Orders Only [facility] Scanner 1 scan: (1-Ord) [facility], MR CERVICAL SPINE WWO CONTRAST, 11/03/2024 11/03/2024 Orders Only [facility] Scanner 1 scan: (1-Ord) [facility], MR HEAD/BRAIN WWO CONTRAST, 11/03/2024 10/06/2024 2:30 PM DOG HANDLER OR TRAINER Office Visit [facility] [address] [place] [address] Oneil العلي AuD Hearing Problem 10/05/2024 1:50 PM DOG HANDLER OR TRAINER Office Visit [facility] [address] [place] [address] Arya Pavon MD Hearing Problem (Having a hard time hearing-seems to be getting worse) 10/05/2024 Travel from Last 3 Months Immunizations Name Administration Dates Next Due COVID-19 vaccine (Conformiq 30mcg/0.3mL) P FMDV 03/08/2021,02/15/2021 Td (Age >=7 Years) 06/25/2003 Tdap [...] pur e alcohol) 2-3 times per month PHQ-2 Answer Date Recorded PHQ-2 TOTAL SCORE [...] is your housing situation today? 1 10/05/2024 Utilities Answer Date Recorded Do you have trouble paying f or utilities (for example, heat, electricity, water, phone)? 1 10/05/2024 Comments No Sex and Gender Information Value Date Recorded Sex Assigned at Not on file Legal Sex Female 6:22 AM DOG HANDLER OR TRAINER Gender Identity Not on file Sexual Orientation Not on file Obstetrics History Last Filed Vital Signs Vital Sign Reading Time Taken Comments Blood Pressure 125/78 10/05/2024 1:48 PM DOG HANDLER OR TRAINER Pulse 104 10/05/2024 1:48 PM DOG HANDLER OR TRAINER Temperature 36.8 C (98.3 F) 07/17/2021 2:48 PM CDT Respiratory Rate - - Oxygen Saturation 100% 10/05/2024 1:48 PM DOG HANDLER OR TRAINER Inhaled Oxygen Concentration - - Weight 46.3 kg (102 lb) 10/05/2024 1:48 PM DOG HANDLER OR TRAINER Height 155.4 cm (5' 1.18) 02/05/2023 2:50 PM CD T Body Mass Index 19.16 02/05/2023 2:50 PM CDT Plan of Treatment Upcoming Encounters Date Type Department Care Team (Late st Contact Info) Description 12/29/2024 3:15 PM DOG HANDLER OR TRAINER Office Visit [facility] [address] [place] [address] Nahomi Valera PA [address] [place] [address] Health Maintenance Due Date Last Done Comments [...] Procedure Name Priority Date/Time Associated Diagnosis Comments SCAN-CT INTERPRETATION 12:00 AM DOG HANDLER OR TRAINER SCAN-RADIOLOGY REPORT 12/18/2024 12:00 AM DOG HANDLER OR TRAINER SCAN-PET SCAN 11/25/2024 12:00 AM DOG HANDLER OR TRAINER SCAN-MRI INTERPRETATION 11/03/2024 12:00 AM DOG HANDLER OR TRAINER SCAN-MRI INTERPRETATION 11/03/2024 12:00 AM DOG HANDLER OR TRAINER SCAN-MRI INTERPRETATION 11/03/2024 12:00 AM DOG HANDLER OR TRAINER SCAN-MRI INTERPRETATION 11/03/2024 12:00 AM DOG HANDLER OR TRAINER OCCULT BLOOD IFOBT STOOL Routine 02/09/2023 10:57 AM CDT Screening for colon cancer LC LIPID PANEL AND CHOL/HDL RATIO Routine 02/05/2023 3:41 PM CDT Hyperlipidemia, unspecified hyperlipidemia type from Last 3 Months or Most Recently Relevant to Health Maintenance Results * SCAN-CT INTERPRETATION (12/19/2024 12:00 AM DOG HANDLER OR TRAINER) Anatomical Region Laterality Modality Other us Scanner OTHER Final Result * SCAN-RADIOLOGY REPORT (12/18/2024 12:00 AM DOG HANDLER OR TRAINER) Anatomical Region Laterality Modality Other us Scanner OTHER Final Result * SCAN-PET SCAN (11/25/2024 12:00 AM DOG HANDLER OR TRAINER) Anatomical Region Laterality Modality Other us Scanner OTHER Final Result * SCAN-MRI INTERPRETATION (11/03/2024 12:00 AM DOG HANDLER OR TRAINER) Only the most recent of4 resultswithin the time period is included. Anatomical Region Laterality Modality Other us Scanner OTHER Final Result * OCCULT BLOOD IFOBT STOOL (02/09/2023 10:57 AM CDT) STOOL BLOOD ,IFOBT Negative Negative 02/12/2023 9:44 AM CDT [facility] Stool STOOL SPECIMEN / Unknown Non-Blood / Unknown 02/09/2023 10:57 AM CDT 02/11/2023 10:57 AM CDT [facility] Final Resu lt [facility] [address] [place] [address], [place] [phone] * (ABNORMAL) LC LIPID PANEL AND CHOL/HDL RATIO (02/05/2023 3:41 PM CDT) Cholesterol, Total 205(H) 100 - 199 mg/dL 02/09/2023 9:10 AM CDT [facility] Triglycerides 215(H) 0 - 149 mg/dL 02/09/2023 9:10 AM CDT [facility] HDL Cholesterol 62 >39 mg/dL 9:10 AM CDT [facility] VLDL Cholesterol Pepe 37 5 - 40 mg/dL 02/09/2023 9:10 AM CDT [facility] LDL Chol Calc (NIH) 106(H) 0 - 99 mg/dL 02/09/2023 9:10 AM CDT [facility] T. Chol/HDL Ratio 3.3 0.0 - 4.4 ratio 02/09/2023 9:10 AM CDT [facility] Comment: T. Chol/HDL Ratio Men Women 1/2 Avg.Risk 3.4 3.3 Avg.Risk 5.0 4.4 2X Avg.Risk 9.6 7.1 3X Avg.Risk 23.4 11.0 Blood BLOOD SPECIMEN / Unknown Venipuncture / Unknown 02/05/2023 3:41 PM CDT 02/05/2023 3:42 PM CDT N[address]ative [facility] - 02/09/2023 9:10 AM CDT Performed at: 01 - [facility] [place] [id number] Logistics Clerk: Ferny Bro MD, Phone: [phone] us Francie GARAY SEND OUTS Final Resu lt [facility] [address] [place] [address], from Last 3 Months or Most Recently Relevant to Health Maintenance Insurance Care Teams Webfed Offset Press Operator Relationship Specialty Start Date End Date Pcp, No . PCP - General 05/19/23
--- OUTSIDE RECORDS SUMMARY | 2024-12-29 08:48 | XMS_ITS ---
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 Past Treatment and Therapy Plans No past plan information found. Past Radiation Episodes * IMRT: Bilateral HipOverview* First Treatment Date Last Treatment Date Treatment Site Technique Goal Episode Provider 10/09/2024 10/13/2024 Bilateral Hip IMRT Palliative Rosanna Santamaria, R.N. * Linked Problems Malignant Neoplasm Of Breast Female LeftSecondary Malignant Neoplasm Bone Treatment Courses* Course 2xHip 10/09/2024 - 10/13/2024 Treatment Period Fraction Dose Fractions Total Dose Plans Planned [id number] 10/09/2024 - 10/13/2024 500 cGy 5 / 5 2 ,500 cGy F1HipR 10/09/2024 - 10/13/2024 500 cGy 5 / 5 2 ,500 cGy Reference Points Delivered [id number] 10/09/2024 - 10/13/2024 2,500 cGy [id number] 10/09/2024 - 10/13/2024 2,500 cGy * Radiation Therapy: CraniospinalOverview* First Treatment Date Last Treatment Date Treatment Site Technique Goal Episode Provider 04/03/2024 04/14/2024 Craniospinal Palliative Liz Ortega, RYayaN. 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 Treatment Courses* Course 1pCraniospCSI 04/06/2024 - 04/14/2024 Treatment Period Fraction Dose Fractions Total Dose Plans Planned [id number] 04/06/2024 - 04/14/2024 300 cGy 7 / 7 2,100 cGy Reference Points Delivered [id number] 04/06/2024 - 04/14/2024 2,100 cGy * Course 1xCranioSpn 04/03/2024 - 04/05/2024 Treatment Period Fraction Dose Fractions Total Dose Plans Planned [id number] 04/03/2024 - 04/05/2024 300 cGy 3 / 10 3 ,000 cGy [id number] 04/03/2024 - 04/05/2024 300 cGy 3 / 10 3,000 cGy [id number] 04/03/2024 - 04/05/2024 300 cGy 3 / 10 3,000 cGy Reference Points Delivered [id number] 04/03/2024 - 04/05/2024 900 cGy [id number] 04/03/2024 - 04/05/2024 900 cGy [id number] 04/03/2024 - 04/05/2024 900 cGy
--- NOTE | 2024-12-29 09:13 | CRLHL7_ITS ---
For Patients: As a result of the Century Cures Act, medical imaging exams and procedure reports are released immediately into your electronic medical record. You may view this report before your referring provider. If you have questions, please contact your health care provider. INDICATION: Shortness of breath TECHNIQUE: Chest 2 views. COMPARISON: X-ray chest December 21, 2024 FINDINGS/ IMPRESSION: There is interval improvement in the lung aeration with improvement in multifocal pneumonia, predominantly in bilateral upper lobes. Persistent airspace opacity into the left mid and lower zone. Cardiac size is within normal limit without pulmonary edema. No effusion or pneumothorax. Left IJ [id number] catheter is in place. Dictated by Maritza Avila MD @ 12/29/2024 10:45:08 AM (Electronically Signed)
--- NOTE | 2024-12-29 09:33 | ED.GENADULT ---
HPI - General Adult General Chief complaint: Weakness Stated complaint: Vomiting Blood/Weakness Time Seen by Provider: 12/29/24 09:12 Source: patient and family Limitations: no limitations History of Present Illness HPI narrative: Patient is a 64-year-old female with a complex medical history, including metastatic breast cancer and leptomeningeal disease, presenting today with coffee ground emesis and dark stools that have been occurring for 1 week. Patient has not been taking her pantoprazole for approximately the same time because she vomits it back up whenever she takes it. She is also on daily Xarelto, this was held today by her family. Patient was recently admitted to the hospital for approximately 1 week for pneumonia. Breathing has improved, patient has not been hypoxic at home. Family denies fever until arrival in the ER today where she was noted to have a temperature of 101.4?. Patient has been weaker than usual, requiring more assistance. She is not having chest or abdominal pain. She vomits once or twice every day, vomit is dark black. She is currently receiving palliative cancer care. I discussed this patient with Nora from the cancer center who agreed that hospice care would be appropriate. Her current goal of care is palliative. Related Data Home Medications ?Medication ?Instructions ?Recorded ?Confirmed cholecalciferol (vitamin D3) 50 50 mcg PO DAILY 06/09/22 12/29/24 mcg (2,000 unit) capsule loratadine 10 mg tablet 10 mg PO DAILY PRN 06/11/22 12/29/24 multivitamin 1 tab PO QAM 06/11/22 12/29/24 calcium 315 mg (as 2 tab PO BID 11/05/22 12/29/24 citrate)-vitamin D3 6.25 mcg (250 unit) tablet (Citracal + Vitamin D Maximum) ibuprofen 400 mg tablet 400 mg PO TID PRN 01/07/23 12/29/24 albuterol sulfate 90 mcg/actuation 2 puff inhalation Q2H PRN 05/21/23 12/29/24 aerosol inhaler vitamin B complex 1 cap PO DAILY 08/16/24 12/29/24 rivaroxaban 10 mg tablet (Xarelto) 10 mg PO DAILY 12/29/24 12/29/24 Previous Rx's ?Medication ?Instructions ?Recorded miscellaneous medical supply #60 mL 04/14/24 prochlorperazine maleate 5 mg 5 mg PO BID PRN nausea and 06/28/24 tablet (Compazine) vomiting #30 tabs potassium chloride 20 mEq 20 meq PO BID #180 tabs 10/05/24 tablet,extended release(part/cryst) acetaminophen 325 mg capsule 650 mg (2 x 325 mg) PO Q8H PRN 10 12/25/24 days #30 caps ondansetron 4 mg disintegrating 4 mg PO Q8H PRN nausea and 12/25/24 tablet vomiting #15 tabs pantoprazole 40 mg tablet,delayed 40 mg PO DAILY #14 tabs 12/25/24 release Allergies Allergy/AdvReac Type Severity Reaction Status Date / Time bee venom protein (honey bee) Allergy Verified 12/29/24 09:00 Review of Systems Status of ROS: Reports: 10 or more systems reviewed and unremarkable except as noted in History and below [facility] Medical History History of DVT (deep vein thrombosis) ?Z86.718 - Personal history of other venous thrombosis and embolism (ICD-10) Chemotherapy management, encounter for ?Z51.11 - Encounter for antineoplastic chemotherapy (ICD-10) Breast cancer metastasized to multiple sites ?C50.919 - Malignant neoplasm of unspecified site of unspecified female breast (ICD-10) Leptomeningeal disease ?G96.198 - Other disorders of meninges, not elsewhere classified (ICD-10) Malignant neoplasm metastatic to left breast ?C79.81 - Secondary malignant neoplasm of breast (ICD-10) 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 ?C50.919 - Malignant neoplasm of unspecified site of unspecified female breast (ICD-10) CKD (chronic kidney disease) ?N18.9 - Chronic kidney disease, unspecified (ICD-10) S/P radiation therapy < 4 weeks ago ?Z92.3 - Personal history of irradiation (ICD-10) Left hip pain ?M25.552 - Pain in left hip (ICD-10) Metastasis to bone ?C79.51 - Secondary malignant neoplasm of bone (ICD-10) Central venous catheter in place ?Z78.9 - Other specified health status (ICD-10) DVT of axillary vein, acute right ?I82.A11 - Acute embolism and thrombosis of right axillary vein (ICD-10) Surgical History H/O mastectomy ?Z90.10 - Acquired absence of unspecified breast and nipple (ICD-10) Social History Narrative: Lives independently in [place], adult children check on her regularly. Daughter Telma would be medical decision maker if needed. Nonsmoker, no ETOH. Requests no intubation, would be open to one round of CPR. What is your current living situation?: I presently have a place to live Problems where you live: no known problems Problems where you live details: none In the past 12 months, utilities in danger of being shut off: no In past 12 months, lack of transportation kept you from medical appts, meetings, work, or getting things needed for daily living: no Highest level of school completed/degree received: high school graduate Smoking Status: Former smoker Do you use any of these nicotine containing products: None Second hand tobacco smoke exposure: No How often do you have a drink containing alcohol: never How often do you have six or more drinks on one occasion: Never AUDIT-C Alcohol total score: 0 Non-prescribed substance use: denies use Caffeine: Yes How often does anyone, including family, friends and others, physically hurt you: never How often does anyone, including family, friends and others, insult or talk down to you: never How often does anyone, including family, friends and others, threaten you with harm: never How often does anyone, including family, friends and others, scream or curse at you: never service: No Exam Narrative: Exam Narrative: A thin, frail patient in no acute distress. Answers questions appropriately. Awake, alert. HEENT: Normocephalic atraumatic. Pupils are equally round reactive to light. Extraocular muscles are intact. Conjunctivae are moist without any icterus noted, pale. Moist mucous membranes. Neck is supple. Cardiovascular: Tachycardic, S1-S2 present without murmurs. Lungs: Clear to auscultation bilaterally no wheezes rhonchi or rales are appreciated. Patient takes deep breaths without any discomfort. Abdomen: Soft and nontender nondistended with normal bowel sounds. Extremities: Bilateral lower extremities are without edema. Skin: Well perfused. Const: Vital Signs, click to edit/add: Vital Signs - 24 hr 12/29/24 08:58 12/29/24 09:00 12/29/24 09:01 Temperature 101.4 F H Pulse Rate 127 H 126 H Pulse Rate [Pulse Oximeter] 124 H Respiratory Rate 32 H Blood Pressure 115/82 Blood Pressure [Ri ght Upper Arm] 115/82 Pulse Oximetry 97 96 96 Oxygen Delivery Me thod Room Air 12/29/24 09:01 12/29/24 09:13 12/29/24 09:15 Temperature Pulse Rate 124 H 123 H Pulse Rate [Pulse Oximeter] Respiratory Rate Blood Pressure Blood Pressure [Ri ght Upper Arm] Pulse Oximetry 97 95 96 Oxygen Delivery Me thod 12/29/24 09:30 12/29/24 09:45 12/29/24 09:59 Temperature Pulse Rate 123 H 125 H 121 H Pulse Rate [Pulse Oximeter] Respiratory Rate Blood Pressure 88/59 L Blood Pressure [Ri ght Upper Arm] Pulse Oximetry 95 94 95 Oxygen Delivery Me thod 12/29/24 10:00 12/29/24 10:01 12/29/24 10:02 Temperature Pulse Rate 121 H 120 H 121 H Pulse Rate [Pulse Oximeter] Respiratory Rate Blood Pressure 88/59 L 88/63 L Blood Pressure [Ri ght Upper Arm] Pulse Oximetry 95 94 94 Oxygen Delivery Me thod 12/29/24 10:15 12/29/24 10:37 12/29/24 10:45 Temperature Pulse Rate 118 H 118 H 122 H Pulse Rate [Pulse Oximeter] Respiratory Rate Blood Pressure Blood Pressure [Ri ght Upper Arm] Pulse Oximetry 96 94 93 Oxygen Delivery Me thod 12/29/24 11:00 12/29/24 11:01 12/29/24 11:15 Temperature Pulse Rate 119 H 117 H 119 H Pulse Rate [Pulse Oximeter] Respiratory Rate Blood Pressure 111/75 Blood Pressure [Ri ght Upper Arm] Pulse Oximetry 96 96 95 Oxygen Delivery Me thod 12/29/24 11:30 12/29/24 11:31 12/29/24 11:32 Temperature Pulse Rate 121 H 119 H 119 H Pulse Rate [Pulse Oximeter] Respiratory Rate Blood Pressure 106/74 Blood Pressure [Ri ght Upper Arm] Pulse Oximetry 95 94 95 Oxygen Delivery Me thod 12/29/24 12:01 12/29/24 12:05 02/07/25 12:06 Temperature Pulse Rate 125 H 124 H Pulse Rate [Pulse Oximeter] Respiratory Rate Blood Pressure 81/49 L 90/60 Blood Pressure [Ri ght Upper Arm] Pulse Oximetry 97 95 Oxygen Delivery Me thod 12/29/24 12:15 12/29/24 12:30 12/29/24 12:31 Temperature 98.9 F Pulse Rate 119 H 120 H 121 H Pulse Rate [Pulse Oximeter] Respiratory Rate Blood Pressure 74/52 L Blood Pressure [Ri ght Upper Arm] Pulse Oximetry 94 94 95 Oxygen Delivery Me thod 12/29/24 12:36 12/29/24 12:45 12/29/24 12:47 Temperature Pulse Rate 120 H 122 H 120 H Pulse Rate [Pulse Oximeter] Respiratory Rate Blood Pressure 100/67 102/68 Blood Pressure [Ri ght Upper Arm] Pulse Oximetry 96 95 95 Oxygen Delivery Me thod 12/29/24 12:47 12/29/24 12:47 12/29/24 13:11 Temperature Pulse Rate 120 H 120 H 119 H Pulse Rate [Pulse Oximeter] Respiratory Rate Blood Pressure 102/68 102/68 108/78 Blood Pressure [Ri ght Upper Arm] Pulse Oximetry 95 95 96 Oxygen Delivery Me thod 12/29/24 13:12 12/29/24 13:17 12/29/24 13:30 Temperature Pulse Rate 119 H 120 H 116 H Pulse Rate [Pulse Oximeter] Respiratory Rate Blood Pressure Blood Pressure [Ri ght Upper Arm] Pulse Oximetry 94 94 94 Oxygen Delivery Me thod 12/29/24 13:31 12/29/24 13:45 12/29/24 14:00 Temperature Pulse Rate 117 H 119 H 115 H Pulse Rate [Pulse Oximeter] Respiratory Rate Blood Pressure 101/68 Blood Pressure [Ri ght Upper Arm] Pulse Oximetry 95 94 94 Oxygen Delivery Me thod 12/29/24 14:01 12/29/24 14:15 Temperature Pulse Rate 115 H 118 H Pulse Rate [Pulse Oximeter] Respiratory Rate Blood Pressure 87/61 L Blood Pressure [Ri ght Upper Arm] Pulse Oximetry 95 95 Oxygen Delivery Me thod Course Course ED Course: IV is established and patient is started on normal saline and IV pantoprazole. EKG, read by me, shows sinus tachycardia with a pulse of 127. Chest x-ray shows improvement of her pneumonia however, persistent opacity on the left. CBC shows a white cell count of 11.1, hemoglobin is 8.3 down from 9.1 four days ago. Triple swab is negative. Normal lactate. Chemistries are normal. LFTs are unremarkable. Normal troponin. CRP is elevated at 11.8. Blood cultures pending. UA shows 3+ ketones 1+ protein, 2+ bilirubin. Given her fever of unknown origin, she did receive a dose of Zosyn while she was in the ER. A chest CT was not done given the fact that patient has significantly improved from a respiratory standpoint. fast food services manager was consulted. Discussed with patient changing her power of employment attorney as the patient and family were requesting. Also discussed hospice services. Vital Signs Vital signs: Initial Vital Signs Pulse Rate 127 H 12/29/24 08:58 Pulse Oximetry 97 12/29/24 08:58 Vital Signs Pulse Rate 127 H 12/29/24 08:58 Pulse Oximetry 97 12/29/24 08:58 Temperature 98.9 F 12/29/24 12:15 Pulse Rate 118 H 12/29/24 14:15 Respiratory Rate 32 H 12/29/24 09:01 Blood Pressure 87/61 L 12/29/24 14:01 Pulse Oximetry 95 12/29/24 14:15 Oxygen Delivery Method Room Air 12/29/24 09:01 Medications Administered Medications: Discontinued Medications Generic Name Dose Route Start Last Admin Trade Name Freq PRN Reason Stop Dose Admin Sodium Chloride 500 mls @ 500 mls/hr 12/29/24 09:13 12/29/24 11:00 0.9 % Sodium Chloride 500 Ml IV 12/29/24 10:12 Infused .Q1H ONE Infusion Piperacillin Sod/Tazobactam 100 mls @ 200 mls/hr 12/29/24 12:14 12/29/24 14:00 Sod 3.375 gm/ Sodium Chloride IVPB 12/29/24 12:15 Infused ONCE ONE Infusion Pantoprazole Sodium 80 mg 12/29/24 09:13 12/29/24 09:52 Pantoprazole Sodium 40 Mg Inj IVP 12/29/24 09:14 80 mg ONCE ONE Administration Medical Decision Making [facility] Narrative Medical decision making narrative: 64-year-old female presenting with GI bleed, fever of unknown origin in the setting of metastatic cancer. Patient will be admitted for further management at this time. Lab Data Lab results reviewed: Yes I reviewed the patient's lab results Labs: Lab Results 12/29/24 12/29/24 12/29/24 Range/Units 09:08 09:14 09:50 WBC 11.10 H (4.50-11.00) K/uL RBC 2.61 L (4.00-5.20) m/uL Hgb 8.3 L (12.0-16.0) gm/dL Hct 25.8 L (33.0-51.0) % MCV 99 (80-100) fL MCH 32 (26-34) pg MCHC 32 (32-36) gm/dL RDW Coeff of Delfino 16.7 H (11.5-15.5) % Plt Count 313 (140-440) K/uL Neut % (Auto) 84.3 H (42.0-72.0) % Lymph % (Auto) 4.4 L (20-44) % [place] % (Auto) 9.9 (0.0-11.0) % Eos % (Auto) 0.2 (0.0-7.0) % Baso % (Auto) 0.3 (0.0-3.0) % Neut # (Auto) 9.40 H (1.7-7.0) K/uL Lymph # (Auto) 0.50 L (0.90-2.90) K/uL [place] # (Auto) 1.10 H (0.00-0.90) K/UL Eos # (Auto) 0.00 (0.00-0.50) K/uL Baso # (Auto) 0.00 (0.00-0.30) K/uL Abs Immat Gran (auto) 0.10 (0.00-0.30) K/uL Imm/Tot Granulo (auto) 0.9 % Sodium 137 (135-149) mmol/L Potassium 4.0 (3.6-5.1) mmol/L Chloride 99 (96-114) mmol/L Carbon Dioxide 31 (20-32) mmol/L Anion Gap 7 (7-15) mEq/L BUN 17 (7-30) mg/dL Creatinine 0.6 (0.5-1.5) mg/dL Estimated Creat Clear 40.82 Estimated GFR 101 ml/min Glucose 100 (60-115) mg/dL Lactate 0.9 (0.5-1.9) mmol/L Calcium 9.3 (8.4-10.6) mg/dL Magnesium 1.9 (1.5-2.6) mg/dL Total Bilirubin 0.4 (0.1-1.5) mg/dL Direct Bilirubin 0.3 (0.0-0.5) mg/dL AST 29 (12-35) U/L ALT 40 H (4-35) U/L Alkaline Phosphatase 82 (40-150) U/L Troponin I < 0.01 L (0.01-0.04) ng/mL C-Reactive Protein 11.8 H (0.5-1.0) mg/dL NT-Pro-B Natriuret Pep 153 pg/mL Total Protein 5.9 L (6.0-8.3) g/dL Albumin 3.2 L (3.3-5.0) g/dL Urine Color Yellow (Yellow) Urine Appearance Clear (Clear) Urine pH 6.0 (5.0-8.5) Ur Specific [place] >= 1.030 (1.000-1.030) Urine Protein 1+ A (Negative) Urine Glucose (UA) Negative (Negative) Urine Ketones 3+ A (Negative) Urine Blood Negative (Negative) Urine Nitrite Negative (Negative) Urine Bilirubin 2+ A (Negative) Urine Urobilinogen 0.2 (0.2-1.0) Ur Leukocyte Esterase Negative (Negative) Urine RBC 0-2 (0-2) Urine WBC 0-2 (0-5) Ur Squamous Epith Cells Few (None-Few) Other Sediment Moderate A (None) Urine Bacteria None (None) Urine Yeast Moderate A (None) SARS-CoV-2 (PCR) Negative SARS-CoV-2 (Negative) Influenza Type A (PCR) Negative PCR FLU A (Negative) Influenza Type B (PCR) Negative PCR FLU B (Negative) RSV (PCR) Negative PCR RSV (Negative) Imaging Data Chest x-ray: Attestation: I have reviewed the pertinent imaging results. Radiologist's impression: Chest 2 views. COMPARISON: X-ray chest December 21, 2024 FINDINGS/ IMPRESSION: There is interval improvement in the lung aeration with improvement in multifocal pneumonia, predominantly in bilateral upper lobes. Persistent airspace opacity into the left mid and lower zone. Cardiac size is within normal limit without pulmonary edema. No effusion or pneumothorax. Left IJ [id number] catheter is in place. ECG Data Attestation: I personally reviewed and interpreted this ECG as follows: Discharge Plan Discharge Clinical Impression: Fever of unknown origin, Anemia, GI bleed Patient Disposition: Admitted As Observation Condition: Stable Prescriptions: No Action albuterol sulfate 90 mcg/actuation HFA aerosol inhaler 2 puff inhalation Q2H PRN vitamin B complex Capsule 1 cap PO DAILY cholecalciferol (vitamin D3) 50 mcg (2,000 unit) capsule 50 mcg PO DAILY loratadine 10 mg tablet 10 mg PO DAILY PRN multivitamin Tablet 1 tab PO QAM calcium citrate-vitamin D3 [Citracal + D Maximum] 315 mg-6.25 mcg (250 unit) tablet 2 tab PO BID ibuprofen 400 mg tablet 400 mg PO TID PRN prochlorperazine maleate [Compazine] 5 mg tablet 5 mg PO BID PRN (Reason: nausea and vomiting) Qty: 30 0RF potassium chloride 20 mEq tablet,ER particles/crystals 20 meq PO BID Qty: 180 0RF (DME) miscellaneous medical supply Liquid See Rx Instructions .Route Qty: 60 1RF Rx Instructions: Viscous lidocaine, 5-10 mL q.6 hours p.r.n., 60 mL pantoprazole 40 mg tablet,delayed release (DR/EC) 40 mg PO DAILY Qty: 14 1RF ondansetron 4 mg tablet,disintegrating 4 mg PO Q8H PRN (Reason: nausea and vomiting) Qty: 15 0RF acetaminophen 325 mg capsule 650 mg PO Q8H PRN10 Days Qty: 30 0RF Xarelto 10 mg tablet 10 mg PO DAILY Follow Up/Referrals: Nahomi Valera PA-C [Primary Care Provider] -
[2024-12-29] MEDS: 0.9 % SODIUM CHLORIDE 500 ML 500 ML IV (09:52)
[2024-12-29] MEDS: PANTOPRAZOLE SODIUM 40 MG INJ 80 MG IVP (09:52)
[2024-12-29 09:53] LABS: PCR FLU A Negative PCR FLU A (Negative); PCR FLU B Negative PCR FLU B (Negative); PCR RSV Negative PCR RSV (Negative); SARS PCR* Negative SARS-CoV-2 (Negative)
[2024-12-29 10:04] LABS: Lactate* 0.9 mmol/L (0.5-1.9)
--- OUTSIDE RECORDS SUMMARY | 2024-12-29 10:04 | XMS_ITS | Encounter Summary ---
Author Organization [facility] Address [address] [place] [address] Care Team Providers Care Linen Aide Name Role Phone Unavailable Primary Care Provider Unavailabl e Reason for Visit * Reason Comments Back Pain Abdominal Pain RUQ abd pain Encounter Details Date Type Department Care Team (Late st Contact Info) Description 12/12/2024 10:49 PM PASSENGER AGENT - 12/13/2024 12:35 AM [facility] Emergency [facility] [address] [place] [address] [phone] Morales Zaidi, P.A.-C. [address] [place] [address] [phone] Urinary Tract Infection Site Not Specified (Primary Dx) Discharge Disposition: Home or Self Care Social History Tobacco Use Types Packs/Day Years Used Date Smoking Tobacco: Former Cigarettes Smokeless Tobacco: Never Alcohol Use Standard Drinks/Week Comments Not Currently 0 (1 standard drink = 0.6 oz pur e alcohol) [facility] Utilities Answer Date Recorded In the past 12 months has [employer], gas, oil, or water [employer] threatened to shut off services in your [...] your living situation today? I have a [facility] place to live 04/06/2024 Comments Unknown Sex and Gender Information Value Date Recorded Sex Assigned at Female 04/06/2024 7:27 PM CDT Legal Sex Female 1:30 AM PASSENGER AGENT Gender Identity Female 04/06/2024 7:27 PM CDT Sexual Orientation Straight 04/06/2024 7: 27 PM CDT documented as of this encounter Last Filed Vital Signs Vital Sign Reading Time Taken Comments Blood Pressure 118/80 12/13/2024 12:00 AM PASSENGER AGENT Pulse - - Temperature 36.3 C (97.3 F) 12/12/2024 10:48 PM PASSENGER AGENT Respiratory Rate 20 12/13/2024 12:00 AM PASSENGER AGENT Oxygen Saturation 99% 12/13/2024 12:00 AM PASSENGER AGENT Inhaled Oxygen Concentration - - Weight 44.7 kg (98 lb 8.7 oz) 12/12/2024 10:47 P M PASSENGER AGENT Height - - Body Mass Index 18.13 02/18/2015 3:52 PM CDT documented in this encounter Discharge Instructions * Discharge Instructions* Morales Zaidi, P.A.-C. - 12/13/2024 12:19 AM PASSENGER AGENT You appear to be suffering from a urinary tract infection. You are being placed on an antibiotic. Take this medication as prescribed. Please return to the ER if new symptoms develop, current symptomsworsen, or you becomes concerned. Otherwise please follow up with your care team. ENGER AGENT * Attachments The following attachments cannot be sent through Care Everywhere. * Urinary Tract Infection Adult (Malaysian) documented in this encounter Medications at Time of Discharge albuterol 90 mcg/actuation inhaler Inhale 1-2 puffs every 4 (four) hours as needed. 05/19/2023 cholecalciferol (Vitamin D3) 50 mcg (2,000 Unit) capsule daily. diphenhydrAMINE-l cul-xmgw-xqo hydrox-simeth (FIRST-MOUTHWASH BLM) [phone] mg/30 mL suspensionIndicat ions:Esophagitis Unspecified Without Bleeding [...] Not Specified Morales Zaidi P.A.-C. 12/14/24 0638 ENGER AGENT documented in this encounter Plan of Treatment Not on file documented as of this encounter Procedures Procedure Name Priority Date/Time Associated Diagnosis Comments URINALYSIS WITH MICROSCOPIC IF INDICATED, U Routine 12/12/2024 11:50 PM PASSENGER AGENT HC URINALYSIS AUTO W MICRO Routine 12/12/2024 11:50 PM PASSENGER AGENT SARS CORONAVIRUS 2, PCR RAPID, V STAT 12/12/2024 11:02 PM PASSENGER AGENT GROUP A STREP PCR, THROAT STAT 12/12/2024 11:02 PM PASSENGER AGENT INFLUENZA A, B, RSV, PCR, POCT STAT 12/12/2024 11:02 PM PASSENGER AGENT MORPHOLOGY EVALUATION STAT 12/12/2024 11:01 PM PASSENGER AGENT MANUAL DIFFERENTIAL, B STAT 11:01 PM PASSENGER AGENT CBC WITH DIFFERENTIAL, B STAT 12/12/2024 11:01 PM PASSENGER AGENT LIPASE, S/P STAT 12/12/2024 11:01 PM PASSENGER AGENT COMPREHENSIVE METABOLIC PANEL, S/P STAT 12/12/2024 11:01 PM PASSENGER AGENT documented in this encounter Results * (ABNORMAL) Microscopic Manual (12/12/2024 11:50 PM PASSENGER AGENT) White Blood Cells 11-20(A) /hpf 12/13/2024 12:12 AM PASSENGER AGENT CNFL Comment: ----REFERENCE VALUE---- Males: 0-3 Females: 0-10 Unknown: 0-10 Red Blood Cells Occ-2 0 - 2 /hpf 12/13/2024 12:12 AM PASSENGER AGENT CNFL Squamous Cells Occ-3 /hpf 12/13/2024 12:12 AM PASSENGER AGENT CNFL Bacteria Present(A) None Seen 12/13/2024 12:12 AM PASSENGER AGENT CNFL Urine 12/12/2024 11:5 0 PM PASSENGER AGENT 12/12/2024 11:50 PM PASSENGER AGENT Morales Zaidi P.A.-C. LAB URINE ORDERABLES Fin al Result [facility] [address] [place] [address], [place] CNFL [facility] [place] [address] * (ABNORMAL) Urinalysis with Microscopic if Indicated: Urine, Midstream (12/12/2024 11:50 PM PASSENGER AGENT) Source Urine, Urine, Midstream 12/12/2024 11:50 PM PASSENGER AGENT CNFL Clarity Cloudy(A) Clear 12/12/2024 11:53 PM PASSENGER AGENT CNFL Color Yellow 12/12/2024 11:53 PM PASSENGER AGENT CNFL Comment: ----REFERENCE VALUE---- Colorless Yellow Julia Blood Negative Negative 12/12/2024 11:53 PM PASSENGER AGENT CNFL Nitrite Positive(A) Negative 12/12/2024 11:53 PM PASSENGER AGENT CNFL Leukocyte Esterase Small(A) Negative 12/12/2024 11:53 PM PASSENGER AGENT CNFL Protein 30(A) mg/dL 12/12/2024 11:53 PM PASSENGER AGENT CNFL Comment: ----REFERENCE VALUE---- Negative Trace Glucose Negative Negative mg/dL 12/12/2024 11:53 PM PASSENGER AGENT CNFL Ketones, QI(U) 15(A) Negative mg/dL 12/12/2024 11:53 PM PASSENGER AGENT CNFL Bilirubin Negative Negative 12/12/2024 11:53 PM PASSENGER AGENT CNFL pH 6.0 5.0 - 8.0 12/12/2024 11:53 PM PASSENGER AGENT CNFL Specific Prosper 1.025 1.001 - 1.035 12/12/2024 11:53 PM PASSENGER AGENT CNFL Urobilinogen 0.2 0.2 - 1.0 mg/dL 12/12/2024 11:53 PM PASSENGER AGENT CNFL Urine (Urine, Midstream) 12/12/2024 11:50 PM PASSENGER AGENT 12/12/2024 11:50 PM PASSENGER AGENT Morales Zaidi P.A.-C. LAB URINE ORDERABLES Fin al Result Performing Organization Address [facility]/ZIP Co de Phone Number [facility] [address] [place] [phone], [facility] in [address] [address] * Influenza A/B and RSV, PCR, Point of Care (12/12/2024 11:02 PM PASSENGER AGENT) Influenza A, POCT Negative Negative 12/12/2024 11:31 PM PASSENGER AGENT CNFL Influenza B, POCT Negative Negative 12/12/2024 11:31 PM PASSENGER AGENT CNFL Resp Syncytial Virus, POCT Negative Negative 12/12/2024 11:31 PM PASSENGER AGENT [facility] Swab (Nasopharynx) 12/12/2024 11:02 PM PASSENGER AGENT 12/12/2024 11:06 PM PASSENGER AGENT Morales Zaidi P.A.-C. LAB POCT ORDERABLES - DE VICE Final Result Performing Organization Address [facility]/ZIP Co de Phone Number [address] [address], [facility] in [address] [address] * SARS Coronavirus 2, PCR Rapid Symptomatic (12/12/2024 11:02 PM PASSENGER AGENT) SARS CoV-2, PCR, Rapid, V Undetected Undetected 12/12/2024 11:08 PM PASSENGER AGENT CNFL SARS Coronavirus 2, Source, Rapid Swab, Nasopharynx 12/12/2024 11:06 PM PASSENGER AGENT CNFL Swab (Nasopharynx) 12/12/2024 11:02 PM PASSENGER AGENT 12/12/2024 11:06 PM PASSENGER AGENT Morales Zaidi P.A.-C. LAB MICROBIOLOGY - GENER AL ORDERABLES Final Result Performing Organization Address [facility] Co de Phone Number [facility] [address] [place] [phone], [place] [address] * Group A Streptococcus PCR, Throat (12/12/2024 11:02 PM PASSENGER AGENT) Strep Group A, PCR, POCT Negative Negative 12/12/2024 11:09 PM PASSENGER AGENT CNFL Swab (Throat) 12/12/2024 11: 02 PM PASSENGER AGENT 12/12/2024 11:06 PM PASSENGER AGENT Morales Zaidi P.A.-C. LAB MICROBIOLOGY - GENER AL ORDERABLES Final Result Performing Organization Address [facility] Co de Phone Number [facility] [address] [place] [phone], [address] [address] * (ABNORMAL) Manual Differential, Blood (12/12/2024 11:01 PM PASSENGER AGENT) Segmented Neutrophils 87(H) 50 - 75 % 12/13/2024 12:07 AM PASSENGER AGENT CNFL Lymphocytes % 7(L) 18 - 42 % 12/13/2024 12:07 AM PASSENGER AGENT CNFL Monocytes 6 2 - 11 % 12/13/2024 12:07 AM PASSENGER AGENT CNFL Manual Absolute Neutrophil Count 6.44 1.56 - 6.45 x10(9)/L 12/13/2024 12:07 AM PASSENGER AGENT CNFL Comment: ----ADDITIONAL INFORMATION---- The manual absolute neutrophil count is derived from a manual differential count and therefore is not exactly comparable to the automated absolute neutrophil count. Blood 12/12/2024 11:0 1 PM PASSENGER AGENT 12/12/2024 11:03 PM PASSENGER AGENT Morales Zaidi P.A.-C. LAB BLOOD ADD-ON Final R esult [address] [address], [address] [address] * (ABNORMAL) Morphology Evaluation (12/12/2024 11:01 PM PASSENGER AGENT) RBC Morphology See Specific Findings 12/13/2024 12:07 AM PASSENGER AGENT CNFL PLT Morphology Normal 12/13/2024 12:07 AM PASSENGER AGENT CNFL PLT Estimate Adequate Adequate 12/13/2024 12:07 AM PASSENGER AGENT CNFL Anisocytosis Slight(A) 12/13/2024 12:07 AM PASSENGER AGENT CNFL Macrocytosis Slight(A) Not Seen 12/13/2024 12:07 AM PASSENGER AGENT CNFL Blood 12/12/2024 11:0 1 PM PASSENGER AGENT 12/12/2024 11:03 PM PASSENGER AGENT us Morales Zaidi P.A.-C. LAB BLOOD ADD-ON Final R esult [address] [address], [address] [address] * Lipase (12/12/2024 11:01 PM PASSENGER AGENT) Lipase, P 19 13 - 60 U/L 12/12/2024 11:22 PM PASSENGER AGENT CNFL Blood (Blood, Venous) 12/12/2024 11:01 PM PASSENGER AGENT 12/12/2024 11:03 PM PASSENGER AGENT us Morales Zaidi P.A.-C. LAB BLOOD ADD-ON Final R esult [facility] [address] [place] [address], [address] [address] * (ABNORMAL) Comprehensive Metabolic Panel (12/12/2024 11:01 PM PASSENGER AGENT) Potassium, P 3.2(L) 3.6 - 5.2 mmol/L 12/12/2024 11:22 PM PASSENGER AGENT CNFL Sodium, P 136 135 - 145 mmol/L 12/12/2024 11:22 PM PASSENGER AGENT CNFL Chloride, P 104 98 - 107 mmol/L 12/12/2024 11:22 PM PASSENGER AGENT CNFL Bicarbonate, P 23 22 - 29 mmol/L 12/12/2024 11:22 PM PASSENGER AGENT CNFL Anion Gap, P 9 7 - 15 12/12/2024 11:22 PM PASSENGER AGENT CNFL BUN (Blood Urea Nitrogen), P 10 6 - 21 mg/dL 12/12/2024 11:22 PM PASSENGER AGENT CNFL Creatinine 0.64 0.59 - 1.04 mg/dL 12/12/2024 11:22 PM PASSENGER AGENT CNFL Estimated GFR (eGFR) >90 >=60 mL/min/BS A 12/12/2024 11:22 PM PASSENGER AGENT CNFL Comment: Estimated GFR calculated using the 2020 CKD_EPI creatinine equation. Calcium, Total, P 8.0(L) 8.8 - 10.2 mg/dL 12/12/2024 11:22 PM PASSENGER AGENT CNFL Glucose, P 109 70 - 140 mg/dL 12/12/2024 11:22 PM PASSENGER AGENT CNFL Protein, Total, P 5.3(L) 6.3 - 7.9 g/dL 12/12/2024 11:22 PM PASSENGER AGENT CNFL Albumin, P 3.4(L) 3.5 - 5.0 g/dL 12/12/2024 11:22 PM PASSENGER AGENT CNFL Aspartate Aminotransferase (AST), P 13 8 - 43 U/L 12/12/2024 11:22 PM PASSENGER AGENT CNFL Alkaline Phosphatase, P 90 35 - 104 U/L 12/12/2024 11:22 PM PASSENGER AGENT CNFL Alanine Aminotransferase (ALT), P 24 7 - 45 U/L 12/12/2024 11:22 PM PASSENGER AGENT CNFL Bilirubin, Total, P 0.4 0.0 - 1.2 mg/dL 12/12/2024 11:22 PM PASSENGER AGENT CNFL Blood (Blood, Venous) 12/12/2024 11:01 PM PASSENGER AGENT 12/12/2024 11:03 PM PASSENGER AGENT us Morales Zaidi P.A.-C. LAB BLOOD ADD-ON Final R esult [facility] [address] [place] [phone], [place] CNFL [facility] [place] [address] * (ABNORMAL) CBC with Differential, Blood (12/12/2024 11:01 PM PASSENGER AGENT) Hemoglobin 9.8(L) 11.6 - 15.0 g/dL 12/12/2024 11:11 PM PASSENGER AGENT CNFL Hematocrit 28.7(L) 35.5 - 44.9 % 12/12/2024 11:11 PM PASSENGER AGENT CNFL Erythrocytes 2.89(L) 3.92 - 5.13 x10(12)/ L 12/12/2024 11:11 PM PASSENGER AGENT CNFL MCV 99.3(H) 78.2 - 97.9 fL 12/12/2024 11:11 PM PASSENGER AGENT CNFL RBC Distrib Width 15.2 12.2 - 16.1 % 12/12/2024 11:11 PM PASSENGER AGENT CNFL Platelet Count 157 157 - 371 x10(9)/L 12/12/2024 11:11 PM PASSENGER AGENT CNFL Leukocytes 7.4 3.4 - 9.6 x10(9)/L 12/12/2024 11:11 PM PASSENGER AGENT CNFL Neutrophils See manual differential 1.56 - 6.45 x10(9)/L 12/12/2024 11:58 PM PASSENGER AGENT CNFL Comment: REVISED RESULTS ----PREVIOUSLY REPORTED ---- 6.29 x10(9)/L Flagged as: Normal (Reported 12/12/2024 23:11) Lymphocytes CANCELED x10(9)/L 12/12/2024 11:58 PM PASSENGER AGENT CNFL Comment: REVISED RESULTS ----PREVIOUSLY REPORTED ---- 0.44 x10(9)/L Flagged as: Abnormal_Low (Reported 12/12/2024 23:11) Monocytes CANCELED x10(9)/L 12/12/2024 11:58 PM PASSENGER AGENT CNFL Comment: REVISED RESULTS ----PREVIOUSLY REPORTED ---- 0.58 x10(9)/L Flagged as: Normal (Reported 12/12/2024 23:11) Eosinophils CANCELED x10(9)/L 12/12/2024 11:58 PM PASSENGER AGENT CNFL Comment: REVISED RESULTS ----PREVIOUSLY REPORTED ---- <0.04 x10(9)/L Flagged as: Normal (Reported 12/12/2024 23:11) Basophils CANCELED x10(9)/L 12/12/2024 11:58 PM PASSENGER AGENT CNFL Comment: REVISED RESULTS ----PREVIOUSLY REPORTED ---- <0.04 x10(9)/L Flagged as: Normal (Reported 12/12/2024 23:11) Blood (Blood, Venous) 12/12/2024 11:01 PM PASSENGER AGENT 12/12/2024 11:03 PM PASSENGER AGENT Morales Zaidi P.A.-C. LAB BLOOD ADD-ON Edited Result - Final [facility] [address] [place] [address], [facility] [place] [address] documented in this encounter Visit Diagnoses Diagnosis [...] Non-CatheterIndications:Lower UTI, Non-Catheter Given 12/13/2024 12:31 AM PASSENGER AGENT 300 mg documented in this encounter Active and Recently Administered Medications Times are shown in PASSENGER AGENT. Scheduled Medication Order 12/11/2024 12/12/2024 12/13/2024 cefdinir [...] Pending 12/12/2024 12/12/2024 12/12/2024 1 1:29 PM PASSENGER AGENT documented as of this encounter
--- OUTSIDE RECORDS SUMMARY | 2024-12-29 10:04 | XMS_ITS | Clinical Summary ---
Author Organization [facility] Address [address] [place] [address] Care Team Providers Care Gun Welder Name Role Phone Unavailable Primary Care Provider Unavailabl e Source Comments Patient records contain information from all sites at [facility]. For routine questions regarding patient records, call [phone] during business hours, M-F 8:00 AM - 5:00 PM Central Time. Record requests for emergency care only can be directed to [phone] at any time.[facility] Allergies Active Allergy Reactions Criticality Noted Date Comments Venom-Honey Bee Anaphylaxis High 02/18/2015 Medications diphenhydrAMINE -[id number] hydrox-simeth ([facility] H BLM) [phone] mg/30 mL suspensionIndic ations:Esophagi tis Unspecified [...] Department Care Team Description 12/12/2024 10:49 PM CHAIR MECHANIC - 12/13/2024 12:35 AM CHAIR MECHANIC Emergency [facility] [address] [place] [phone] Morales Zaidi P.A.-C. Urinary Tract Infection Site Not Specified (Primary Dx) Discharge Disposition: Home or Self Care 10/13/2024 2:36 PM CHAIR MECHANIC - 10/13/2024 11:59 PM CHAIR MECHANIC Hospital Encounter Department of Radiation Oncology in [address] [phone] Yahaira Beltrán M.D. Discharge Disposition: Home or Self Care 10/13/2024 Documentation Department of Radiation Oncology in [address] [phone] Yahaira Beltrán M.D. 10/12/2024 2:41 PM CHAIR MECHANIC - 10/12/2024 11:59 PM CHAIR MECHANIC Hospital Encounter Department of Radiation Oncology in [address] [address] Yhaaira Beltrán M.D. Discharge Disposition: Home or Self Care 10/11/2024 2:20 PM CHAIR MECHANIC - 10/11/2024 4:26 PM CHAIR MECHANIC Hospital Encounter Department of Radiation Oncology in [address] [address] Yahaira Beltrán M.D. 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 Discharge Disposition: Home or Self Care 10/10/2024 2:51 PM CHAIR MECHANIC - 10/10/2024 11:59 PM CHAIR MECHANIC Hospital Encounter Department of Radiation Oncology in [address] [address] Yahaira Beltrán M.D. Discharge Disposition: Home or Self Care 10/09/2024 2:41 PM CHAIR MECHANIC - 10/09/2024 11:59 PM CHAIR MECHANIC Hospital Encounter Department of Radiation Oncology in [address] [phone] Yahaira Beltrán M.D. Discharge Disposition: Home or [...] drink = 0.6 oz pur e alcohol) [facility] Utilities Answer Date Recorded In the past 12 months has e [employer], gas, oil, or water [employer] threatened to shut off services in your [...] your living situation today? I have a [facility] place to live 04/06/2024 Comments Unknown Sex and Gender Information Value Date Recorded Sex Assigned at Female 04/06/2024 7:27 PM CDT Legal Sex Female 1:30 AM CHAIR MECHANIC Gender Identity Female 04/06/2024 7:27 PM CDT Sexual Orientation Straight 04/06/2024 7: 27 PM CDT Last Filed Vital Signs Vital Sign Reading Time Taken Comments Blood Pressure 118/80 12/13/2024 12:00 AM CHAIR MECHANIC Pulse 97 10/11/2024 2:47 PM CHAIR MECHANIC Temperature 36.3 C (97.3 F) 12/12/2024 10:48 PM CHAIR MECHANIC Respiratory Rate 20 12/13/2024 12:0 0 AM CHAIR MECHANIC Oxygen Saturation 99% 12/13/2024 12: 00 AM CHAIR MECHANIC Inhaled Oxygen Concentration - - Weight 44.7 kg (98 lb 8.7 oz) 12/12/2024 10:47 PM CHAIR MECHANIC Height 157 cm (5' 1.81) 02/18/2015 3:5 [...] AUTO W MICRO Routine 12/12/2024 11:50 PM CHAIR MECHANIC URINALYSIS WITH MICROSCOPIC IF INDICATED, U Routine 12/12/2024 11:50 PM CHAIR MECHANIC INFLUENZA A, B, RSV, PCR, POCT STAT 12/12/2024 11:02 PM CHAIR MECHANIC SARS CORONAVIRUS 2, PCR RAPID, V STAT 12/12/2024 11:02 PM CHAIR MECHANIC GROUP A STREP PCR, THROAT STAT 12/12/2024 11:02 PM CHAIR MECHANIC MANUAL DIFFERENTIAL, B STAT 11:01 PM CHAIR MECHANIC MORPHOLOGY EVALUATION STAT 12/12/2024 11:01 PM CHAIR MECHANIC LIPASE, S/P STAT 12/12/2024 11:01 PM CHAIR MECHANIC COMPREHENSIVE METABOLIC PANEL, S/P STAT 12/12/2024 11:01 PM CHAIR MECHANIC CBC WITH DIFFERENTIAL, B STAT 12/12/2024 11:01 PM CHAIR MECHANIC OUTSIDE NM PET Routine 11/25/2024 4:30 PM CHAIR MECHANIC OUTSIDE MR NEURO Routine 11/03/2024 7:50 AM CHAIR MECHANIC OUTSIDE MR NEURO Routine 11/03/2024 7:45 AM CHAIR MECHANIC OUTSIDE MR NEURO Routine 11/03/2024 7:40 AM CHAIR MECHANIC OUTSIDE MR NEURO Routine 11/03/2024 7:35 AM CHAIR MECHANIC ARIA COURSE COMPLETE TREATMENT INFORMATION Routine 10/13/2024 2:49 PM CHAIR MECHANIC ARIA DAILY TREATMENT INFORMATION Routine 10/13/2024 2:49 PM CHAIR MECHANIC ARIA DAILY TREATMENT INFORMATION Routine 10/12/2024 2:59 PM CHAIR MECHANIC ARIA DAILY TREATMENT INFORMATION Routine 10/11/2024 2:42 PM CHAIR MECHANIC ARIA DAILY TREATMENT INFORMATION Routine 10/10/2024 3:08 PM CHAIR MECHANIC ARIA DAILY TREATMENT INFORMATION Routine 10/09/2024 3:17 PM CHAIR MECHANIC OUTSIDE MG MAMMOGRAM Routine 07/10/2014 8:18 AM CDT from Last 3 Months or Most Recently Relevant to Health Maintenance Results * (ABNORMAL) Urinalysis with Microscopic if Indicated: Urine, Midstream (12/12/2024 11:50 PM CHAIR MECHANIC) Source Urine, Urine, Midstream 12/12/2024 11:50 PM CHAIR MECHANIC CNFL Clarity Cloudy(A) Clear 12/12/2024 11:53 PM CHAIR MECHANIC CNFL Color Yellow 12/12/2024 11:53 PM CHAIR MECHANIC CNFL Comment: ----REFERENCE VALUE---- Colorless Yellow Julia Blood Negative Negative 12/12/2024 11:53 PM CHAIR MECHANIC CNFL Nitrite Positive(A) Negative 12/12/2024 11:53 PM CHAIR MECHANIC CNFL Leukocyte Esterase Small(A) Negative 12/12/2024 11:53 PM CHAIR MECHANIC CNFL Protein 30(A) mg/dL 12/12/2024 11:53 PM CHAIR MECHANIC CNFL Comment: ----REFERENCE VALUE---- Negative Trace Glucose Negative Negative mg/dL 12/12/2024 11:53 PM CHAIR MECHANIC CNFL Ketones, QI(U) 15(A) Negative mg/dL 12/12/2024 11:53 PM CHAIR MECHANIC CNFL Bilirubin Negative Negative 12/12/2024 11:53 PM CHAIR MECHANIC CNFL pH 6.0 5.0 - 8.0 12/12/2024 11:53 PM CHAIR MECHANIC CNFL Specific [place] 1.025 1.001 - 1.035 12/12/2024 11:53 PM CHAIR MECHANIC CNFL Urobilinogen 0.2 0.2 - 1.0 mg/dL 12/12/2024 11:53 PM CHAIR MECHANIC CNFL Urine (Urine, Midstream) 12/12/2024 11:50 PM CHAIR MECHANIC 12/12/2024 11:50 PM CHAIR MECHANIC us Morales Zaidi P.A.-C. LAB URINE ORDERABLES Fin al Result Performing Organization Address City/State/[facility] Co de Phone Number [facility] [address] [place] [address], [facility] CNFL [facility] [place] [address] * (ABNORMAL) Microscopic Manual (12/12/2024 11:50 PM CHAIR MECHANIC) White Blood Cells 11-20(A) /hpf 12/13/2024 12:12 AM CHAIR MECHANIC CNFL Comment: ----REFERENCE VALUE---- Males: 0-3 Females: 0-10 Unknown: 0-10 Red Blood Cells Occ-2 0 - 2 /hpf 12/13/2024 12:12 AM CHAIR MECHANIC CNFL Squamous Cells Occ-3 /hpf 12/13/2024 12:12 AM CHAIR MECHANIC CNFL Bacteria Present(A) None Seen 12/13/2024 12:12 AM CHAIR MECHANIC CNFL Urine 12/12/2024 11:5 0 PM CHAIR MECHANIC 12/12/2024 11:50 PM CHAIR MECHANIC Morales Zaidi P.A.-C. LAB URINE ORDERABLES Fin al Result [address] [address], [facility] in [address] [address] * SARS Coronavirus 2, PCR Rapid Symptomatic (12/12/2024 11:02 PM CHAIR MECHANIC) SARS CoV-2, PCR, Rapid, V Undetected Undetected 12/12/2024 11:08 PM CHAIR MECHANIC [place] SARS Coronavirus 2, Source, Rapid Swab, Nasopharynx 12/12/2024 11:06 PM CHAIR MECHANIC [facility] Swab (Nasopharynx) 12/12/2024 11:02 PM CHAIR MECHANIC 12/12/2024 11:06 PM CHAIR MECHANIC Morales Zaidi P.A.-C. LAB MICROBIOLOGY - GENER AL ORDERABLES Final Result Performing Organization Address [facility]/ZIP Co de Phone Number [facility] [address] [place] [phone], [facility] in [address] [address] * Group A Streptococcus PCR, Throat (12/12/2024 11:02 PM CHAIR MECHANIC) Strep Group A, PCR, POCT Negative Negative 12/12/2024 11:09 PM CHAIR MECHANIC CNFL Swab (Throat) 12/12/2024 11: 02 PM CHAIR MECHANIC 12/12/2024 11:06 PM CHAIR MECHANIC Morales Zaidi P.A.-C. LAB MICROBIOLOGY - GENER AL ORDERABLES Final Result [facility] [address] [place] [phone], [facility] in [address] [address] * Influenza A/B and RSV, PCR, Point of Care (12/12/2024 11:02 PM CHAIR MECHANIC) Influenza A, POCT Negative Negative 12/12/2024 11:31 PM CHAIR MECHANIC CNFL Influenza B, POCT Negative Negative 12/12/2024 11:31 PM CHAIR MECHANIC CNFL Resp Syncytial Virus, POCT Negative Negative 12/12/2024 11:31 PM CHAIR MECHANIC CNFL Swab (Nasopharynx) 12/12/2024 11:02 PM CHAIR MECHANIC 12/12/2024 11:06 PM CHAIR MECHANIC Morales YeungC. LAB POCT ORDERABLES - DE VICE Final Result Performing Organization Address [facility]/ZIP Co de Phone Number [address] [address], [facility] in [address] [address] * (ABNORMAL) Morphology Evaluation (12/12/2024 11:01 PM CHAIR MECHANIC) Pathologist [facility] RBC Morphology See Specific Findings 12/13/2024 12:07 AM CHAIR MECHANIC CNFL PLT Morphology Normal 12/13/2024 12:07 AM CHAIR MECHANIC CNFL PLT Estimate Adequate Adequate 12/13/2024 12:07 AM CHAIR MECHANIC CNFL Anisocytosis Slight(A) 12/13/2024 12:07 AM CHAIR MECHANIC CNFL Macrocytosis Slight(A) Not Seen 12/13/2024 12:07 AM CHAIR MECHANIC CNFL Blood 12/12/2024 11:0 1 PM CHAIR MECHANIC 12/12/2024 11:03 PM CHAIR MECHANIC Morales YeungC. LAB BLOOD ADD-ON Final R esult [facility] [address] [place] [phone], [facility] in [address] [place] [address] * (ABNORMAL) Manual Differential, Blood (12/12/2024 11:01 PM CHAIR MECHANIC) Pathologist [facility] Segmented Neutrophils 87(H) 50 - 75 % 12/13/2024 12:07 AM CHAIR MECHANIC CNFL Lymphocytes % 7(L) 18 - 42 % 12/13/2024 12:07 AM CHAIR MECHANIC CNFL Monocytes 6 2 - 11 % 12/13/2024 12:07 AM CHAIR MECHANIC CNFL Manual Absolute Neutrophil Count 6.44 1.56 - 6.45 x10(9)/L 12/13/2024 12:07 AM CHAIR MECHANIC CNFL Comment: ----ADDITIONAL INFORMATION---- The manual absolute neutrophil count is derived from a manual differential count and therefore is not exactly comparable to the automated absolute neutrophil count. Blood 12/12/2024 11:0 1 PM CHAIR MECHANIC 12/12/2024 11:03 PM CHAIR MECHANIC Morales Zaidi P.A.-C. LAB BLOOD ADD-ON Final R esult [facility] [address] [place] [phone], [facility] in [address] [address] * (ABNORMAL) CBC with Differential, Blood (12/12/2024 11:01 PM CHAIR MECHANIC) Hemoglobin 9.8(L) 11.6 - 15.0 g/dL 12/12/2024 11:11 PM CHAIR MECHANIC CNFL Hematocrit 28.7(L) 35.5 - 44.9 % 12/12/2024 11:11 PM CHAIR MECHANIC CNFL Erythrocytes 2.89(L) 3.92 - 5.13 x10(12)/ L 12/12/2024 11:11 PM CHAIR MECHANIC CNFL MCV 99.3(H) 78.2 - 97.9 fL 12/12/2024 11:11 PM CHAIR MECHANIC CNFL RBC Distrib Width 15.2 12.2 - 16.1 % 12/12/2024 11:11 PM CHAIR MECHANIC CNFL Platelet Count 157 157 - 371 x10(9)/L 12/12/2024 11:11 PM CHAIR MECHANIC CNFL Leukocytes 7.4 3.4 - 9.6 x10(9)/L 12/12/2024 11:11 PM CHAIR MECHANIC CNFL Neutrophils See manual differential 1.56 - 6.45 x10(9)/L 12/12/2024 11:58 PM CHAIR MECHANIC CNFL Comment: REVISED RESULTS ----PREVIOUSLY REPORTED ---- 6.29 x10(9)/L Flagged as: Normal (Reported 12/12/2024 23:11) Lymphocytes CANCELED x10(9)/L 12/12/2024 11:58 PM CHAIR MECHANIC CNFL Comment: REVISED RESULTS ----PREVIOUSLY REPORTED ---- 0.44 x10(9)/L Flagged as: Abnormal_Low (Reported 12/12/2024 23:11) Monocytes CANCELED x10(9)/L 12/12/2024 11:58 PM CHAIR MECHANIC CNFL Comment: REVISED RESULTS ----PREVIOUSLY REPORTED ---- 0.58 x10(9)/L Flagged as: Normal (Reported 12/12/2024 23:11) Eosinophils CANCELED x10(9)/L 12/12/2024 11:58 PM CHAIR MECHANIC CNFL Comment: REVISED RESULTS ----PREVIOUSLY REPORTED ---- <0.04 x10(9)/L Flagged as: Normal (Reported 12/12/2024 23:11) Basophils CANCELED x10(9)/L 12/12/2024 11:58 PM CHAIR MECHANIC CNFL Comment: REVISED RESULTS ----PREVIOUSLY REPORTED ---- <0.04 x10(9)/L Flagged as: Normal (Reported 12/12/2024 23:11) Blood (Blood, Venous) 12/12/2024 11:01 PM CHAIR MECHANIC 12/12/2024 11:03 PM CHAIR MECHANIC us Morales Zaidi P.A.-C. LAB BLOOD ADD-ON Edited Result - Final Performing Organization Address City/State/[facility] Co de Phone Number [facility] [address] [place] [address], [facility] CNFL [facility] in [address] [address] * Lipase (12/12/2024 11:01 PM CHAIR MECHANIC) Lipase, P 19 13 - 60 U/L 12/12/2024 11:22 PM CHAIR MECHANIC CNFL Blood (Blood, Venous) 12/12/2024 11:01 PM CHAIR MECHANIC 12/12/2024 11:03 PM CHAIR MECHANIC us Morales Zaidi P.A.-C. LAB BLOOD ADD-ON Final R esult [facility] [address] [place] [phone], [facility] CNFL [facility] [place] [address] * (ABNORMAL) Comprehensive Metabolic Panel (12/12/2024 11:01 PM CHAIR MECHANIC) Potassium, P 3.2(L) 3.6 - 5.2 mmol/L 12/12/2024 11:22 PM CHAIR MECHANIC CNFL Sodium, P 136 135 - 145 mmol/L 12/12/2024 11:22 PM CHAIR MECHANIC CNFL Chloride, P 104 98 - 107 mmol/L 12/12/2024 11:22 PM CHAIR MECHANIC CNFL Bicarbonate, P 23 22 - 29 mmol/L 12/12/2024 11:22 PM CHAIR MECHANIC CNFL Anion Gap, P 9 7 - 15 12/12/2024 11:22 PM CHAIR MECHANIC CNFL BUN (Blood Urea Nitrogen), P 10 6 - 21 mg/dL 12/12/2024 11:22 PM CHAIR MECHANIC CNFL Creatinine 0.64 0.59 - 1.04 mg/dL 12/12/2024 11:22 PM CHAIR MECHANIC CNFL Estimated GFR (eGFR) >90 >=60 mL/min/BS A 12/12/2024 11:22 PM CHAIR MECHANIC CNFL Comment: Estimated GFR calculated using the 2020 CKD_EPI creatinine equation. Calcium, Total, P 8.0(L) 8.8 - 10.2 mg/dL 12/12/2024 11:22 PM CHAIR MECHANIC CNFL Glucose, P 109 70 - 140 mg/dL 12/12/2024 11:22 PM CHAIR MECHANIC CNFL Protein, Total, P 5.3(L) 6.3 - 7.9 g/dL 12/12/2024 11:22 PM CHAIR MECHANIC CNFL Albumin, P 3.4(L) 3.5 - 5.0 g/dL 12/12/2024 11:22 PM CHAIR MECHANIC CNFL Aspartate Aminotransferase (AST), P 13 8 - 43 U/L 12/12/2024 11:22 PM CHAIR MECHANIC CNFL Alkaline Phosphatase, P 90 35 - 104 U/L 12/12/2024 11:22 PM CHAIR MECHANIC CNFL Alanine Aminotransferase (ALT), P 24 7 - 45 U/L 12/12/2024 11:22 PM CHAIR MECHANIC CNFL Bilirubin, Total, P 0.4 0.0 - 1.2 mg/dL 12/12/2024 11:22 PM CHAIR MECHANIC CNFL Blood (Blood, Venous) 12/12/2024 11:01 PM CHAIR MECHANIC 12/12/2024 11:03 PM CHAIR MECHANIC us Morales Zaidi P.A.-C. LAB BLOOD ADD-ON Final R esult [facility] [address] [place] [address], [facility] CNFL [facility] [place] [address] * PET skull to mid thigh-Outside NM Pet (11/25/2024 4:30 PM CHAIR MECHANIC) 11/25/2024 4:27 PM CHAIR MECHANIC Narrative IIMS - 11/25/2024 6:24 PM CHAIR MECHANIC This order has been created and auto-finalized [...] wo/w con-Outside MR Neuro (11/03/2024 7:50 AM CHAIR MECHANIC) Only the most recent of4 resultswithin the time period is included. Narrative IIMS - 11/17/2024 10:14 AM CHAIR MECHANIC This order has been created and auto-finalized to support the import of outside images. If available, original interpretation can be found on the Media Tab in Chart Review, in Document Viewer, as an image in QREADS or as an Addendum. If a re-interpretation or overread is required please follow defined workflow. us Provider Not In System IMG MRI PROCEDURES Final Result [facility] NA * Aria Course Complete Treatment Information (10/13/2024 2:49 PM CHAIR MECHANIC) Course ID [id number] CARR ARIA Course Start Date 4 08:48 CHAIR MECHANIC CARR ARIA Course End Date 4 13:21 CHAIR MECHANIC CARR ARIA First Treatment Date 4 15:06 CHAIR MECHANIC CARR ARIA Last Treatment Date 4 14:49 CHAIR MECHANIC CARR ARIA Treatment Elapsed Days 4 CARR ARIA Reference Point [id number] CARR ARIA Dosage Given to Date cGy 2500 CARR ARIA Reference Point [id number] CARR ARIA Dosage Given to Date cGy 2500 CARR ARIA Plan ID [id number] CARR ARIA Fractions Treated to Date 5 CARR ARIA Planned Total Fractions 5 CARR ARIA Prescribed Dose Per Fraction 500 CARR ARIA Prescription Dose in cGy 2500 CARR ARIA Plan Primary Reference Point [id number] CARR ARIA Plan ID [id number] CARR ARIA Fractions Treated to Date 5 CARR ARIA Planned Total Fractions 5 CARR ARIA Prescribed Dose Per Fraction 500 CARR ARIA Prescription Dose in cGy 2500 CARR ARIA Plan Primary Reference Point [id number] CARR ARIA 10/13/2024 2:49 PM CHAIR MECHANIC us Provider Not In System RADIATION ONCOLOGY ORDERA BLES Final Result CARR ARIA na * Aria Daily Treatment Information (10/13/2024 2:49 PM CHAIR MECHANIC) Only the most recent of5 resultswithin the time period is included. Course ID [id number] CARR ARIA Course Start Date 4 08:48 CHAIR MECHANIC CARR ARIA First Treatment Date 4 15:06 CHAIR MECHANIC CARR ARIA Last Treatment Date 4 14:49 CHAIR MECHANIC CARR ARIA Treatment Elapsed Days 4 CARR ARIA Reference Point [id number] CARR ARIA Dosage Given to Date cGy 2500 CARR ARIA Session Dosage Given 500 CARR ARIA Reference Point [id number] CARR ARIA Dosage Given to Date cGy 2500 CARR ARIA Session Dosage Given 500 CARR ARIA Plan ID [id number] CARR ARIA Fractions Treated to Date 5 CARR ARIA Planned Total Fractions 5 CARR ARIA Prescribed Dose Per Fraction 500 CARR ARIA Prescription Dose in cGy 2500 CARR ARIA Plan Primary Reference Point [id number] CARR ARIA Plan ID [id number] CARR ARIA Fractions Treated to Date 5 CARR ARIA Planned Total Fractions 5 CARR ARIA Prescribed Dose Per Fraction 500 CARR ARIA Prescription Dose in cGy 2500 CARR ARIA Plan Primary Reference Point [id number] CARR ARIA 10/13/2024 2:49 PM CHAIR MECHANIC Provider Not In System RADIATION ONCOLOGY ORDERA BLES Final Result BRUNO KELLOGGA na * Outside MG Mammogram (07/10/2014 8:18 AM CDT) 07/10/2014 8:18 AM CDT Addenda Addendum by ProviderHolly M.D. on 07/10/2014 8:18 AM CDT ODM^^^MCR XR MAMMO POST CLIP PLCMT LT 07/10/2014 08:18:03 Historical Provider IMG BI PROCEDURES Final Resu lt [facility] [address] [place] [address], [facility] from Last 3 Months or Most Recently Relevant to Health Maintenance Insurance [facility]
--- OUTSIDE RECORDS SUMMARY | 2024-12-29 10:04 | XMS_ITS | Clinical Summary ---
Author Organization [facility] Address [place], [place] [address] Care Team Providers Care Transport Tank Technician Name Role Phone Pcp, No Primary Care [...] Department Care Team Description 12/27/2024 Nurse Triage [facility] [address] [place] [address] Francie Marcos PA Vomiting 12/19/2024 Orders Only [facility] Scanner 1 scan: (1-Ord) [place], CHEST ABDOMEN PELVIS W/ CONTRAST, 12/19/2024 12/18/2024 Orders Only [facility] Scanner 1 scan: (1-Ord) [facility], XR CHEST 2V, 12/18/2024 11/25/2024 Orders Only [facility] Scanner 1 scan: (1-Ord) [place], SKULL TO MID THIGHS, 11/25/2024 11/08/2024 Telephone [facility] [address] [place] [address] Oneil العلي, AuD 11/03/2024 Orders Only [facility] Scanner 1 scan: (1-Ord) [facility], MR THORACIC SPINE WO/W CON, 11/03/2024 11/03/2024 Orders Only [facility] Scanner 1 scan: (1-Ord) [facility], MR LUMBAR SPINE WWO CONTRAST, 11/03/2024 11/03/2024 Orders Only [facility] Scanner 1 scan: (1-Ord) [facility], MR CERVICAL SPINE WWO CONTRAST, 11/03/2024 11/03/2024 Orders Only [facility] Scanner 1 scan: (1-Ord) [facility], MR HEAD/BRAIN WWO CONTRAST, 11/03/2024 10/06/2024 2:30 PM FINE ARTS INSTRUCTOR Office Visit [facility] [address] [place] [address] Oneil العلي AuD Hearing Problem 10/05/2024 1:50 PM FINE ARTS INSTRUCTOR Office Visit [facility] [address] [place] [address] Arya Pavon MD Hearing Problem (Having a hard time hearing-seems to be getting worse) 10/05/2024 Travel from Last 3 Months Immunizations Name Administration Dates Next Due COVID-19 vaccine (Ernie's 30mcg/0.3mL) P FMDV 03/08/2021,02/15/2021 Td (Age >=7 [...] on file Legal Sex Female 6:22 AM FINE ARTS INSTRUCTOR Gender Identity Not on file Sexual Orientation Not on file Obstetrics History Last Filed Vital Signs Vital Sign Reading Time Taken Comments Blood Pressure 125/78 10/05/2024 1:48 PM FINE ARTS INSTRUCTOR Pulse 104 10/05/2024 1:48 PM FINE ARTS INSTRUCTOR Temperature 36.8 C (98.3 F) 07/17/2021 2:48 PM CDT Respiratory Rate - - Oxygen Saturation 100% 10/05/2024 1:48 PM FINE ARTS INSTRUCTOR Inhaled Oxygen Concentration - - Weight 46.3 kg (102 lb) 10/05/2024 1:48 PM FINE ARTS INSTRUCTOR Height 155.4 cm (5' 1.18) 02/05/2023 2:50 PM CD T Body Mass Index 19.16 02/05/2023 2:50 PM CDT Plan of Treatment Upcoming Encounters Date Type Department Care Team (Late st Contact Info) Description 12/29/2024 3:15 PM FINE ARTS INSTRUCTOR Office Visit [facility] [address] [place] [address] Nahomi Valera PA [address] [place] [address] Health Maintenance Due Date Last Done Comments [...] Associated Diagnosis Comments SCAN-CT INTERPRETATION 12:00 AM FINE ARTS INSTRUCTOR SCAN-RADIOLOGY REPORT 12/18/2024 12:00 AM FINE ARTS INSTRUCTOR SCAN-PET SCAN 11/25/2024 12:00 AM FINE ARTS INSTRUCTOR SCAN-MRI INTERPRETATION 11/03/2024 12:00 AM FINE ARTS INSTRUCTOR SCAN-MRI INTERPRETATION 11/03/2024 12:00 AM FINE ARTS INSTRUCTOR SCAN-MRI INTERPRETATION 11/03/2024 12:00 AM FINE ARTS INSTRUCTOR SCAN-MRI INTERPRETATION 11/03/2024 12:00 AM FINE ARTS INSTRUCTOR OCCULT BLOOD IFOBT STOOL Routine 02/09/2023 10:57 AM CDT Screening for colon cancer LC LIPID PANEL AND CHOL/HDL RATIO Routine 02/05/2023 3:41 PM CDT Hyperlipidemia, unspecified hyperlipidemia type from Last 3 Months or Most Recently Relevant to Health Maintenance Results * SCAN-CT INTERPRETATION (12/19/2024 12:00 AM FINE ARTS INSTRUCTOR) Anatomical Region Laterality Modality Other us Scanner OTHER Final Result * SCAN-RADIOLOGY REPORT (12/18/2024 12:00 AM FINE ARTS INSTRUCTOR) Anatomical Region Laterality Modality Other us Scanner OTHER Final Result * SCAN-PET SCAN (11/25/2024 12:00 AM FINE ARTS INSTRUCTOR) Anatomical Region Laterality Modality Other us Scanner OTHER Final Result * SCAN-MRI INTERPRETATION (11/03/2024 12:00 AM FINE ARTS INSTRUCTOR) Only the most recent of4 resultswithin the time period is included. Anatomical Region Laterality Modality Other us Scanner OTHER Final Result * OCCULT BLOOD IFOBT STOOL (02/09/2023 10:57 AM CDT) STOOL BLOOD ,IFOBT Negative Negative 02/12/2023 9:44 AM CDT [facility] Stool STOOL SPECIMEN / Unknown Non-Blood / Unknown 02/09/2023 10:57 AM CDT 02/11/2023 10:57 AM CDT Francie [facility]OR[facility] Final Resu lt [facility] [address] [place] [address], [place] [phone] * (ABNORMAL) LC LIPID PANEL AND CHOL/HDL RATIO (02/05/2023 3:41 PM CDT) Cholesterol, Total 205(H) 100 - 199 mg/dL 02/09/2023 9:10 AM CDT [facility] Triglycerides 215(H) 0 - 149 mg/dL 02/09/2023 9:10 AM CDT [facility] HDL Cholesterol 62 >39 mg/dL 9:10 AM CDT [facility] VLDL Cholesterol Pepe 37 5 - 40 mg/dL 02/09/2023 9:10 AM CDT [facility] LDL Chol Calc (NIH) 106(H) 0 - 99 mg/dL 02/09/2023 9:10 AM CDT [facility] T. Chol/HDL Ratio 3.3 0.0 - 4.4 ratio 02/09/2023 9:10 AM CDT [facility] Comment: T. Chol/HDL Ratio Men Women 1/2 Avg.Risk 3.4 3.3 Avg.Risk 5.0 4.4 2X Avg.Risk 9.6 7.1 3X Avg.Risk 23.4 11.0 Blood BLOOD SPECIMEN / Unknown Venipuncture / Unknown 02/05/2023 3:41 PM CDT 02/05/2023 3:42 PM CDT Narrative [facility] - 02/09/2023 9:10 AM CDT Performed at: [facility] - [facility] [place] [id number] Children'S Literature Professor: Ferny Bro MD, Phone: [phone] us Francie GARAY SEND OUTS Final Resu lt [facility] [address] [place] [address], from Last 3 Months or Most Recently Relevant to Health Maintenance Insurance Care Teams Transport Tank Technician Relationship Specialty Start Date End Date Pcp, No . PCP - General 05/19/23
--- OUTSIDE RECORDS SUMMARY | 2024-12-29 10:04 | XMS_ITS ---
Author Organization [facility] Address [address] [place] [address] Care Team Providers Care Septic Tank Setter Name Role Phone Unavailable Primary Care Provider [...] 5 2 ,500 cGy Reference Points Delivered [id number] 10/09/2024 - 10/13/2024 2,500 cGy [id number] 10/09/2024 - 10/13/2024 2,500 cGy * Radiation Therapy: CraniospinalOverview* First Treatment Date Last Treatment Date Treatment Site Technique Goal Episode Provider 04/03/2024 04/14/2024 Craniospinal Palliative Liz Ortega, RYayaN. 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 Treatment Courses* Course [id number] 04/06/2024 - 04/14/2024 Treatment Period Fraction Dose Fractions Total Dose Plans Planned [id number] 04/06/2024 - 04/14/2024 300 cGy 7 / 7 2,100 cGy Reference Points Delivered [id number] 04/06/2024 - 04/14/2024 2,100 cGy * Course 1xCranioSpn 04/03/2024 - 04/05/2024 Treatment Period Fraction Dose Fractions Total Dose Plans Planned [id number] 04/03/2024 - 04/05/2024 300 cGy 3 / 10 3 ,000 cGy [id number] 04/03/2024 - 04/05/2024 300 cGy 3 / 10 3,000 cGy [id number] 04/03/2024 - 04/05/2024 300 cGy 3 / 10 3,000 cGy Reference Points Delivered [id number] 04/03/2024 - 04/05/2024 900 cGy [id number] 04/03/2024 - 04/05/2024 900 cGy [id number] 04/03/2024 - 04/05/2024 900 cGy
[2024-12-29 10:09] LABS: Basophils Percent Auto 0.3 % (0.0-3.0); Eosinophils Percent Auto 0.2 % (0.0-7.0); Hematocrit 25.8 % (33.0-51.0); Hemoglobin* 8.3 gm/dL (12.0-16.0); Immature Granulocytes Pct Auto 0.9 %; Lymphocytes Percent Auto 4.4 % (20-44); Mean Corpuscular HGB Conc 32 gm/dL (32-36); Mean Corpuscular Hemoglobin 32 pg (26-34); Mean Corpuscular Volume 99 fL (80-100); Monocytes Percent Auto 9.9 % (0.0-11.0); Neutrophils Percent Auto 84.3 % (42.0-72.0); Platelet Count* 313 K/uL (140-440); RDW Coefficient of Variation % 16.7 % (11.5-15.5); Red Blood Count 2.61 m/uL (4.00-5.20)
[2024-12-29 10:10] LABS: Slide Review Reflex No
[2024-12-29 10:21] LABS: Albumin* 3.2 g/dL (3.3-5.0); Chloride* 99 mmol/L (96-114)
[2024-12-29 10:22] LABS: Sodium* 137 mmol/L (135-149)
[2024-12-29 10:24] LABS: Creatinine* 0.6 mg/dL (0.5-1.5); Est. Creatinine Clearance* 40.82; Estimated Glomerular Filt Rate 101 ml/min
[2024-12-29 10:25] LABS: Alanine Aminotransferase* 40 U/L (4-35); Alkaline Phosphatase* 82 U/L (40-150); Anion Gap 7 mEq/L (7-15); Aspartate Amino Transferase* 29 U/L (12-35); Bilirubin Direct* 0.3 mg/dL (0.0-0.5); Bilirubin Total* 0.4 mg/dL (0.1-1.5); Blood Urea Nitrogen* 17 mg/dL (7-30); Calcium* 9.3 mg/dL (8.4-10.6); Carbon Dioxide* 31 mmol/L (20-32); Glucose* 100 mg/dL (60-115); Magnesium* 1.9 mg/dL (1.5-2.6); Total Protein* 5.9 g/dL (6.0-8.3)
[2024-12-29 10:37] LABS: NT Pro B Type NatriureticPept* 153 pg/mL; Troponin I* < 0.01 ng/mL (0.01-0.04)
[2024-12-29 10:38] LABS: C Reactive Protein* 11.8 mg/dL (0.5-1.0)
[2024-12-29 13:16] LABS: Appearance Urine Clear (Clear); Bilirubin Urine 2+ (Negative); Blood Urine Negative (Negative); Color Urine Yellow (Yellow); Glucose Urine Negative (Negative); Ketones Urine 3+ (Negative); Leukocyte Esterase Urine Negative (Negative); Nitrite Urine Negative (Negative); Protein Urine 1+ (Negative); Specific Gravity Urine >= 1.030 (1.000-1.030); Urobilinogen Urine 0.2 (0.2-1.0)
[2024-12-29] MEDS: PIPERACILLIN/TAZOBACTAM 3.375 GM in 0.9 % SODIUM CHLORIDE Mini-bag 100 ML IVPB (13:23)
--- NOTE | 2024-12-29 14:08 | PC.SOCIAL ---
Addendum entered by ANNELISE Merino 12/29/24 15:57: Social work consult: attraction worker obtained son, Huber Lanier, phone number #[phone]. attraction worker also obtained pt's granddaughter, Ti Lanier, phone number #[phone], if needed as a second(son) and third(granddaughter) contact. Pt is being admitted to Med/Surg from the ED. Social work to follow-up as needed. Original Note: Social work consult: attraction worker met with the pt and her son, Huber, and granddaughter today in the Emergency Room. Pt stated that she has previously completed POA paperwork with an senior trial attorney naming her daughter, Telma, her POA and now she is thinking that she wants to change that to her other son whom was not present in the room today. attraction worker explained that the hospital did not have the pt's POA paperwork on file as of yet(social sciences research scientist checked). Pt said that it's been at home and she hasn't turned it into the hospital. Pt was recently inpatient on Med/Surg for a week and discharged home on 12/25/24, with family support/caregiving. Pt states that her daughter, Telma, takes care of her when she gets done with work and overnight and her granddaughter takes care of her during the day when Telma is at work. Pt states that sometimes she feels her daughter, Telma, does not give her the best medical advice and advises her to not go to the Emergency Room and tells her that she doesn't need to go when she feels she does need to go in. Pt's son, Huber, states that he and his brother do not always agree with what their sister, Telma, states she thinks would be the right course of action for their mother's healthcare. Pt also expressed this and that is why she wants to change her POA. Neither the pt or her family members in the room expressed safety concerns about the care that Telma provides for the pt. attraction worker explained that the POA would go into affect when the pt reaches the point of not being able to make medical decisions about herself. attraction worker explained to the pt that if she thinks she needs to be seen in the Emergency Room she has every right to go in no matter what her daughter is telling her. attraction worker explained to the pt that she can call 911 also. attraction worker did bring a blank copy of [employer] [place] POA form for the pt's use if she does indeed decide to change her POA paperwork. attraction worker also provided pt's son and granddaughter with the phone number for [facility] # ([place] [facility]) if they feel they need to report anything about their mother to Adult Protective Services in the future. Pt's son and granddaughter were already aware of this resource. attraction worker also provided the pt and her family with a list of Hospice Care Agencies. Pt and her family wanted more information about Hospice, but the pt is not sure if this is what she wants. attraction worker encouraged the pt to talk to her Oncologist about hospice, as she was not sure how much more cancer treatment may be recommended for her ongoing. Pt does have an appointment on Wednesday(01/01/25) at the [facility]. Social work to follow-up as needed.
[2024-12-29 14:12] LABS: Other Sediment Urine Moderate; RBC Urine 0-2 (0-2); Squamous Epithelial Cell Urine Few (None-Few); WBC Urine 0-2 (0-5)
--- NOTE | 2024-12-29 16:10 | P.ANES_ITS ---
Anesthesia Charges Start Date/Time Anesthesia Start Date: 12/29/24 Anesthesia Start Time: 15:35 Stop Date/Time Anesthesia Stop Date: 12/29/24 Anesthesia Stop Time: 16:05 Summary Emergency: REGULATORY ANALYST Coding CPT Codes CPT Codes: ANES UPR GI NDSC PX NOS - 36106 ([id number]) P4 - PT W/SEV SYS DIS THREAT LIFE, QZ - REGULATORY ANALYST SVC W/O PAPER CUP MACHINE TENDER BY Additional Codes: Summary - Emergency: REGULATORY ANALYST ([id number])
--- NOTE | 2024-12-29 16:10 | W.ANESCHARGE ---
Anesthesia Charges Start Date/Time Anesthesia Start Date: 12/29/24 Anesthesia Start Time: 15:35 Stop Date/Time Anesthesia Stop Date: 12/29/24 Anesthesia Stop Time: 16:05 Summary Emergency: ALODIZE MACHINE HELPER Coding CPT Codes CPT Codes: ANES UPR GI NDSC PX NOS - 95340 ([id number]) P4 - PT W/SEV SYS DIS THREAT LIFE, QZ - ALODIZE MACHINE HELPER SVC W/O BUCKLE SEWER MACHINE BY Additional Codes: Summary - Emergency: ALODIZE MACHINE HELPER ([id number])
--- NOTE | 2024-12-29 17:43 | PM.IMHP1 ---
Hospitalist- H&P: HPI History of Present Illness Date Seen: 12/29/24 Chief complaint: Vomiting Blood/Weakness Narrative: Kimmy Castro is a 64 year old female with stage IV breast cancer and recent hospitalization for pneumonia who now presents to the emergency department with worsening coffee-ground emesis, poor oral intake and fever. Patient was hospitalized here from December 18 2024 to 12/25/2024 for moderate to severe patchy bilateral ground-glass opacities suggestive of pneumonia. She was treated as a community-acquired pneumonia and clinically improved with improvement in her cough, fatigue and malaise. She had a low-grade fever that had resolved. Since discharge she has noted subjective fever chills recently. She had a temperature of 101.4? F in the emergency department. During that hospital stay she was also diagnosed with disseminated zoster and treated with acyclovir. All of her zoster lesions are crusted over now. They are not causing any symptoms. She was noted to have anemia during her last hospital stay. She received 1 unit of blood transfusion during her last hospital stay. She was diagnosed clinically with GERD and started on Protonix. She has not been taking the Protonix because of nausea and vomiting. Her family tells me that she has been having coffee-ground emesis for at least a week possibly 2 weeks. She also reports that she has been having melanotic stools during that time. No previous history of GI bleeding. She is on Xarelto. She very infrequently takes ibuprofen for pain. No aspirin. She has had a very poor appetite since becoming ill. Prior to that she was eating okay. In the past week her appetite has been very poor along with her coffee-ground emesis. She is not having any abdominal pain. She has been quite weak. She has been walking with a walker and standby assistance of her daughter or her knees. They stay with her 24 hours a day and are up when she is up. They note she is still quite unsteady on her feet and therefore there providing standby assistance. Review of Systems Narrative: She reports her cough is better but still persistent. It is nonproductive. She is not having any dyspnea. No chest pain. She is not aware palpitations though she has tachycardia. She has very poor appetite and has been eating little. Nausea and vomiting are quite persistent. When she coughs it will often lead to a post-tussive emesis. She has had melanotic stools as well. She reports no abdominal pain. No urinary symptoms. [facility] Medical History (Updated 12/29/24 @ 18:08 by Erwin Doran MD) Immunocompromised ?D84.9 - Immunodeficiency, unspecified (ICD-10) Sepsis ?A41.9 - Sepsis, unspecified organism (ICD-10) Disseminated zoster ?B02.7 - Disseminated zoster (ICD-10) History of DVT (deep vein thrombosis) ?Z86.718 - Personal history of other venous thrombosis and embolism (ICD-10) Chemotherapy management, encounter for ?Z51.11 - Encounter for antineoplastic chemotherapy (ICD-10) Breast cancer metastasized to multiple sites ?C50.919 - Malignant neoplasm of unspecified site of unspecified female breast (ICD-10) Leptomeningeal disease ?G96.198 - Other disorders of meninges, not elsewhere classified (ICD-10) Malignant neoplasm metastatic to left breast ?C79.81 - Secondary malignant neoplasm of breast (ICD-10) 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 ?C50.919 - Malignant neoplasm of unspecified site of unspecified female breast (ICD-10) CKD (chronic kidney disease) ?N18.9 - Chronic kidney disease, unspecified (ICD-10) S/P radiation therapy < 4 weeks ago ?Z92.3 - Personal history of irradiation (ICD-10) Left hip pain ?M25.552 - Pain in left hip (ICD-10) Metastasis to bone ?C79.51 - Secondary malignant neoplasm of bone (ICD-10) Central venous catheter in place ?Z78.9 - Other specified health status (ICD-10) DVT of axillary vein, acute right ?I82.A11 - Acute embolism and thrombosis of right axillary vein (ICD-10) Surgical History H/O mastectomy ?Z90.10 - Acquired absence of unspecified breast and nipple (ICD-10) Social History (Updated 12/29/24 @ 17:58 by Erwin Doran MD) Narrative: Was living independently in [place] until her last hospital stay. Now her daughter Telma and her niece are staying with her 24/7 Daughter Telma would be medical decision maker/POA. Nonsmoker, rare ETOH. DNR/DNI What is your current living situation?: I presently have a place to live Problems where you live: no known problems Problems where you live details: none In the past 12 months, utilities in danger of being shut off: no In past 12 months, lack of transportation kept you from medical appts, meetings, work, or getting things needed for daily living: no In the past 12 mos, have been you worried that your food would run out before you had money to buy more?: never true In the past 12 mos, the food you bought just didn't last and you didn't have money to buy more?: never true Highest level of school completed/degree received: GED or equivalent Smoking Status: Former smoker Do you use any of these nicotine containing products: None Second hand tobacco smoke exposure: No How often do you have a drink containing alcohol: monthly or less How often do you have six or more drinks on one occasion: Never AUDIT-C Alcohol total score: 1 Non-prescribed substance use: denies use Caffeine: Yes How often does anyone, including family, friends and others, physically hurt you: never How often does anyone, including family, friends and others, insult or talk down to you: never How often does anyone, including family, friends and others, threaten you with harm: never How often does anyone, including family, friends and others, scream or curse at you: never service: No Meds Home Medications and Allergies Home Medications ?Medication ?Instructions ?Recorded ?Confirmed ?Type cholecalciferol (vitamin D3) 50 50 mcg PO DAILY 06/09/22 12/29/24 History mcg (2,000 unit) capsule loratadine 10 mg tablet 10 mg PO DAILY PRN 06/11/22 12/29/24 History multivitamin 1 tab PO QAM 06/11/22 12/29/24 History calcium 315 mg (as 2 tab PO BID 11/05/22 12/29/24 History citrate)-vitamin D3 6.25 mcg (250 unit) tablet (Citracal + Vitamin D Maximum) ibuprofen 400 mg tablet 400 mg PO TID PRN 01/07/23 12/29/24 History albuterol sulfate 90 mcg/actuation 2 puff inhalation Q2H PRN 05/21/23 12/29/24 History aerosol inhaler vitamin B complex 1 cap PO DAILY 08/16/24 12/29/24 History rivaroxaban 10 mg tablet (Xarelto) 10 mg PO DAILY 12/29/24 12/29/24 History Allergies Allergy/AdvReac Type Severity Reaction Status Date / Time bee venom protein (honey bee) Allergy Verified 12/29/24 09:00 Exam Narrative: Exam Narrative: She is alert and appears in no distress. She gives her own history corroborated by her daughter. She has fair recall of recent events. She has significant mental slowing possibly from the residual effects from anesthesia during her EGD. Eyes are normal. Extraocular movements are full. Visual mendez intact. Oropharynx is normal. There is no facial asymmetry. Neck is supple without mass or adenopathy. Respirations are clear to auscultation. She has diminished breath sounds without wheezing rales or rhonchi. Cardiovascular: S1, S2, regular tachycardia. Abdomen: Bowel sounds active. Abdomen is soft without tenderness or mass. Skin is notable for widely distributed 3-4 mm crusts consistent with healing zoster over her trunk. No evidence for erythema or infection. No other rash. Upper and lower extremities move well. She has some difficulty following instructions for neurologic testing but no focal weakness. She has intact pulses. No edema. Const: Vital Signs, click to edit/add: Vital Signs - 24 hr 12/29/24 08:58 12/29/24 09:00 12/29/24 09:01 Temperature 101.4 F H Pulse Rate 127 H 126 H Pulse Rate [Pulse Oximeter] 124 H Respiratory Rate 32 H Blood Pressure 115/82 Blood Pressure [Ri ght Arm] Blood Pressure [Ri ght Upper Arm] 115/82 Pulse Oximetry 97 96 96 Oxygen Delivery Me thod Room Air 12/29/24 09:01 12/29/24 09:13 12/29/24 09:15 Temperature Pulse Rate 124 H 123 H Pulse Rate [Pulse Oximeter] Respiratory Rate Blood Pressure Blood Pressure [Ri ght Arm] Blood Pressure [Ri ght Upper Arm] Pulse Oximetry 97 95 96 Oxygen Delivery Me thod 12/29/24 09:30 12/29/24 09:45 12/29/24 09:59 Temperature Pulse Rate 123 H 125 H 121 H Pulse Rate [Pulse Oximeter] Respiratory Rate Blood Pressure 88/59 L Blood Pressure [Ri ght Arm] Blood Pressure [Ri ght Upper Arm] Pulse Oximetry 95 94 95 Oxygen Delivery Me thod 12/29/24 10:00 12/29/24 10:01 12/29/24 10:02 Temperature Pulse Rate 121 H 120 H 121 H Pulse Rate [Pulse Oximeter] Respiratory Rate Blood Pressure 88/59 L 88/63 L Blood Pressure [Ri ght Arm] Blood Pressure [Ri ght Upper Arm] Pulse Oximetry 95 94 94 Oxygen Delivery Me thod 12/29/24 10:15 12/29/24 10:37 12/29/24 10:45 Temperature Pulse Rate 118 H 118 H 122 H Pulse Rate [Pulse Oximeter] Respiratory Rate Blood Pressure Blood Pressure [Ri ght Arm] Blood Pressure [Ri ght Upper Arm] Pulse Oximetry 96 94 93 Oxygen Delivery Me thod 12/29/24 11:00 12/29/24 11:01 12/29/24 11:15 Temperature Pulse Rate 119 H 117 H 119 H Pulse Rate [Pulse Oximeter] Respiratory Rate Blood Pressure 111/75 Blood Pressure [Ri ght Arm] Blood Pressure [Ri ght Upper Arm] Pulse Oximetry 96 96 95 Oxygen Delivery Me thod 12/29/24 11:30 12/29/24 11:31 12/29/24 11:32 Temperature Pulse Rate 121 H 119 H 119 H Pulse Rate [Pulse Oximeter] Respiratory Rate Blood Pressure 106/74 Blood Pressure [Ri ght Arm] Blood Pressure [Ri ght Upper Arm] Pulse Oximetry 95 94 95 Oxygen Delivery Me thod 12/29/24 12:01 12/29/24 12:05 12/29/24 12:06 Temperature Pulse Rate 125 H 124 H Pulse Rate [Pulse Oximeter] Respiratory Rate Blood Pressure 81/49 L 90/60 Blood Pressure [Ri ght Arm] Blood Pressure [Ri ght Upper Arm] Pulse Oximetry 97 95 Oxygen Delivery Me thod 12/29/24 12:15 12/29/24 12:30 12/29/24 12:31 Temperature 98.9 F Pulse Rate 119 H 120 H 121 H Pulse Rate [Pulse Oximeter] Respiratory Rate Blood Pressure 74/52 L Blood Pressure [Ri ght Arm] Blood Pressure [Ri ght Upper Arm] Pulse Oximetry 94 94 95 Oxygen Delivery Me thod 12/29/24 12:36 12/29/24 12:45 12/29/24 12:47 Temperature Pulse Rate 120 H 122 H 120 H Pulse Rate [Pulse Oximeter] Respiratory Rate Blood Pressure 100/67 102/68 Blood Pressure [Ri ght Arm] Blood Pressure [Ri ght Upper Arm] Pulse Oximetry 96 95 95 Oxygen Delivery Me thod 12/29/24 12:47 12/29/24 12:47 12/29/24 13:11 Temperature Pulse Rate 120 H 120 H 119 H Pulse Rate [Pulse Oximeter] Respiratory Rate Blood Pressure 102/68 102/68 108/78 Blood Pressure [Ri ght Arm] Blood Pressure [Ri ght Upper Arm] Pulse Oximetry 95 95 96 Oxygen Delivery Tn thod 12/29/24 13:12 12/29/24 13:17 12/29/24 13:30 Temperature Pulse Rate 119 H 120 H 116 H Pulse Rate [Pulse Oximeter] Respiratory Rate Blood Pressure Blood Pressure [Ri ght Arm] Blood Pressure [Ri ght Upper Arm] Pulse Oximetry 94 94 94 Oxygen Delivery Tn thod 12/29/24 13:31 12/29/24 13:45 12/29/24 14:00 Temperature Pulse Rate 117 H 119 H 115 H Pulse Rate [Pulse Oximeter] Respiratory Rate Blood Pressure 101/68 Blood Pressure [Ri ght Arm] Blood Pressure [Ri ght Upper Arm] Pulse Oximetry 95 94 94 Oxygen Delivery Me thod 12/29/24 14:01 12/29/24 14:15 12/29/24 16:18 Temperature 98.0 F Pulse Rate 115 H 118 H Pulse Rate [Pulse Oximeter] 117 H Respiratory Rate 24 Blood Pressure 87/61 L Blood Pressure [Ri ght Arm] 102/70 Blood Pressure [Ri ght Upper Arm] Pulse Oximetry 95 95 93 Oxygen Delivery Me thod Room Air 12/29/24 16:18 Temperature Pulse Rate Pulse Rate [Pulse Oximeter] Respiratory Rate 24 Blood Pressure Blood Pressure [Ri ght Arm] Blood Pressure [Ri ght Upper Arm] Pulse Oximetry 93 Oxygen Delivery Me thod Room Air Documenting provider has reviewed patient's vital signs: yes Hospitalist - H&P: Result Labs Labs: Short CBC 12/29/24 Range/Units 09:50 WBC 11.10 H (4.50-11.00) K/uL Hgb 8.3 L (12.0-16.0) gm/dL Hct 25.8 L (33.0-51.0) % Plt Count 313 (140-440) K/uL BMP 12/29/24 09:50 Sodium 137 Potassium 4.0 Chloride 99 Carbon Dioxide 31 BUN 17 Creatinine 0.6 Glucose 100 Calcium 9.3 Cardiac Enzymes 12/29/24 Range/Units 09:50 Troponin I < 0.01 L (0.01-0.04) ng/mL Liver Function 12/29/24 Range/Units 09:50 Total Bilirubin 0.4 (0.1-1.5) mg/dL Direct Bilirubin 0.3 (0.0-0.5) mg/dL AST 29 (12-35) U/L ALT 40 H (4-35) U/L Alkaline Phosphatase 82 (40-150) U/L Albumin 3.2 L (3.3-5.0) g/dL Urine 12/29/24 Range/Units 09:14 Urine Color Yellow (Yellow) Urine Appearance Clear (Clear) Urine pH 6.0 (5.0-8.5) Ur Specific [place] >= 1.030 (1.000-1.030) Urine Protein 1+ A (Negative) Urine Glucose (UA) Negative (Negative) ECG Attestation: I personally reviewed and interpreted this ECG as follows: (Sinus tachycardia.) Imaging Chest x-ray: Radiologist's impression: INDICATION: Shortness of breath TECHNIQUE: Chest 2 views. COMPARISON: X-ray chest December 21, 2024 FINDINGS/ IMPRESSION: There is interval improvement in the lung aeration with improvement in multifocal pneumonia, predominantly in bilateral upper lobes. Persistent airspace opacity into the left mid and lower zone. Cardiac size is within normal limit without pulmonary edema. No effusion or pneumothorax. Left IJ [id number] catheter is in place. Assessment and Plan Assessment and plan (1) Sepsis: Problem comment: Patient presents with tachycardia, fever, hypotension. Source for this is uncertain. Does not appear to be a complication of disseminated zoster. Does not appear to be a worsening of pneumonia. Cultures are pending. Vanc and Zosyn pending cultures Status: Acute (2) GI bleed: Problem comment: This appears to be acute worsening on chronic problem. Will temporarily hold Xarelto. Will permanently hold ibuprofen. PPI. Monitor hemoglobin. EGD today shows gastritis/gastric erosions. Status: Acute (3) Anemia: Problem comment: Acute on chronic. At least partially due to upper GI bleeding from gastritis. Continue to monitor. Status: Acute (4) Disseminated zoster: Problem comment: Developed last week. Likely due to immunocompromise status from Cancer Treatment. Now crusted over. Status: Acute (5) Community acquired pneumonia: Problem comment: Clinically this is improving. Continue to monitor. Vanc and Zosyn pending cultures and clinical course Status: Acute (6) History of DVT (deep vein thrombosis): Problem comment: - right axillary vein, 2015, anticoagulated chronically. Hold anticoagulation temporarily. Resume if hemoglobin stabilizes. Status: Acute (7) Breast cancer metastasized to multiple sites: Problem comment: - bone, leptomeningeal disease - follows with Oncology team locally, currently on [place]uzamab (holding in the setting of acute illness) Status: Acute (8) Immunocompromised: Problem comment: Due to therapy for breast cancer Status: Acute Plan 64-year-old female admitted to the hospital for management of apparent sepsis and gastrointestinal bleeding. Patient is high risk due to metastatic cancer, chemotherapy, anticoagulation, abnormal vitals. Broad-spectrum IV antibiotics given recent hospitalization. Close monitoring of hemoglobin and vital signs. Total Time Spent Total Time Spent: Total time spent today is 75 minutes in coordination of care and discussing with patient and family and other providers ongoing evaluation management of GI bleeding, risk for DVT, sepsis and immune compromise status.
[2024-12-29] MEDS: ONDANSETRON 2 MG/ML inj 4 MG IVP (18:08)
[2024-12-29] MEDS: 0.9 % SODIUM CHLORIDE 1000 ml 1,000 ML 75 ML IV (18:08)
[2024-12-29] MEDS: PIPERACILLIN/TAZOBACTAM 2.25 GM in 0.9 % SODIUM CHLORIDE Mini-bag 100 ML IVPB (19:34)
[2024-12-29] MEDS: POTASSIUM CHLORIDE 10 MEQ CAPSULE ER 20 MEQ PO (21:05)
[2024-12-29] MEDS: PANTOPRAZOLE SODIUM 40 MG INJ IVP (21:05)
--- NOTE | 2024-12-29 23:13 | PC.NURSE ---
Pt arrived to the floor at 1610, alert, oriented and vitally stable, though tachycardic. Tele reads sinus tachycardia. Pt denies pain. Pt had episode of emesis (25 cc), prn zofran given, pt stated improvement with nausea. Pt has poor appetite though tolerated a regular diet well. Multiple scabbed lesions throughout body from previous chicken pox diagnosis. Pt states weakness, 1-2a walker and gait belt for transfers. Pt in bed, appears to be resting, call light within reach.
[2024-12-30] VITALS (13 sets, daily range): BP systolic 89–107; BP diastolic 52–70; PULSE 97–112; RESP 15–28; TEMP 36.8–37.9; O2SAT 92–97
[2024-12-30] MEDS: PIPERACILLIN/TAZOBACTAM 2.25 GM in 0.9 % SODIUM CHLORIDE Mini-bag 100 ML IVPB ×4 (01:38→21:14)
[2024-12-30] MEDS: ACETAMINOPHEN 325 MG TABLET 650 MG PO (01:39)
[2024-12-30] MEDS: 0.9 % SODIUM CHLORIDE 1000 ml 1,000 ML 75 ML IV (06:18)
[2024-12-30] MEDS: OMEPRAZOLE 20 MG CAPSULE DR 40 MG PO (06:19)
[2024-12-30 07:13] LABS: Basophils Absolute Auto 0.03 K/uL (0.00-0.30); Basophils Percent Auto 0.3 % (0.0-3.0); Eosinophils Absolute Auto 0.03 K/uL (0.00-0.50); Eosinophils Percent Auto 0.3 % (0.0-7.0); Hematocrit 31.3 % (33.0-51.0); Immature Granulocytes Abs Auto 0.08 K/uL (0.00-0.30); Immature Granulocytes Pct Auto 0.9 %; Lymphocytes Percent Auto 6.9 % (20-44); Mean Corpuscular HGB Conc 32 gm/dL (32-36); Mean Corpuscular Hemoglobin 31 pg (26-34); Mean Corpuscular Volume 98 fL (80-100); Monocytes Percent Auto 7.3 % (0.0-11.0); Neutrophils Percent Auto 84.3 % (42.0-72.0); Platelet Count* 278 K/uL (140-440); RDW Coefficient of Variation % 17.5 % (11.5-15.5); Red Blood Count 3.21 m/uL (4.00-5.20); White Blood Count* 9.03 K/uL (4.50-11.00)
[2024-12-30 07:16] LABS: Slide Review Reflex No
[2024-12-30 07:20] LABS: Chloride* 105 mmol/L (96-114); Potassium* 3.8 mmol/L (3.6-5.1); Sodium* 140 mmol/L (135-149)
[2024-12-30 07:23] LABS: Creatinine* 0.7 mg/dL (0.5-1.5); Est. Creatinine Clearance* 37.85; Estimated Glomerular Filt Rate 97 ml/min
[2024-12-30 07:24] LABS: Anion Gap 8 mEq/L (7-15); Blood Urea Nitrogen* 12 mg/dL (7-30); Calcium* 8.6 mg/dL (8.4-10.6); Carbon Dioxide* 27 mmol/L (20-32); Glucose* 91 mg/dL (60-115)
[2024-12-30 07:40] LABS: C Reactive Protein* 12.3 mg/dL (0.5-1.0)
[2024-12-30] MEDS: POTASSIUM CHLORIDE 10 MEQ CAPSULE ER 20 MEQ PO ×2 (09:30→21:14)
[2024-12-30] MEDS: MULTIVITAMIN/MINERALS 1 TABLET 1 TAB PO (09:30)
--- NOTE | 2024-12-30 15:27 | PC.NURSE ---
Patient alert and orientedx4. Flat affect most of the shift. Did not order breakfast, stated that family borught in lunch. Up to the chair with Ax1 with a walker and gaitbelt this shift. NSR/Sinus tachy on tele. Able to communicate needs
--- NOTE | 2024-12-30 18:28 | P.IMPN_ITS ---
Progress Note: A&P Assessment and plan (1) Sepsis: Problem details: Patient presents with tachycardia, fever, hypotension. Source for this is uncertain. Does not appear to be a complication of disseminated zoster. Does not appear to be a worsening of pneumonia. Cultures are pending. Vanc and Zosyn pending cultures. Vancomycin stopped with negative MRSA swab Status: Acute (2) Immunocompromised: Problem details: Due to therapy for breast cancer Status: Acute (3) GI bleed: Problem details: This appears to be acute worsening on chronic problem. Will temporarily hold Xarelto. Will permanently hold ibuprofen. PPI. Monitor hemoglobin. EGD today shows gastritis/gastric erosions. Status: Acute (4) Anemia: Problem details: Acute on chronic. At least partially due to upper GI bleeding from gastritis. Continue to monitor. Status: Acute (5) Community acquired pneumonia: Problem details: Clinically this is improving. Continue to monitor. Zosyn pending cultures and clinical course Status: Acute (6) Malnutrition: Problem details: Weight loss of 12 kg in 9 months. I suspect this is related to metastatic breast cancer primarily. Discussed with patient and family ways to address this. Nutritional consult. Status: Acute (7) Disseminated zoster: Problem details: Developed last week. Likely due to immunocompromise status from Cancer Treatment. Now crusted over. Status: Acute Plan Patient appears to be clinically improving. No obvious new site of infection. Continue broad-spectrum antibiotics pending cultures and clinical course. Ongoing conversation with patient and family about current health status, goals of care and disposition plan Time Spent With Patient Total time spent: Total time spent today is 45 minutes in coordination of care discussing with patient family a ongoing plan of care Subjective Date Seen: 12/30/24 Interval history: Admission H&P: Kimmy Castro is a 64 year old female with stage IV breast cancer and recent hospitalization for pneumonia who now presents to the emergency department with worsening coffee-ground emesis, poor oral intake and fever. Patient was hospitalized here from December 18 2024 to 12/25/2024 for moderate to severe patchy bilateral ground-glass opacities suggestive of pneumonia. She was treated as a community-acquired pneumonia and clinically improved with improvement in her cough, fatigue and malaise. She had a low-grade fever that had resolved. Since discharge she has noted subjective fever chills recently. She had a temperature of 101.4? F in the emergency department. During that hospital stay she was also diagnosed with disseminated zoster and treated with acyclovir. All of her zoster lesions are crusted over now. They are not causing any symptoms. She was noted to have anemia during her last hospital stay. She received 1 unit of blood transfusion during her last hospital stay. She was diagnosed clinically with GERD and started on Protonix. She has not been taking the Protonix because of nausea and vomiting. Her family tells me that she has been having coffee-ground emesis for at least a week possibly 2 weeks. She also reports that she has been having melanotic stools during that time. No previous history of GI bleeding. She is on Xarelto. She very infrequently takes ibuprofen for pain. No aspirin. She has had a very poor appetite since becoming ill. Prior to that she was eating okay. In the past week her appetite has been very poor along with her coffee-ground emesis. She is not having any abdominal pain. She has been quite weak. She has been walking with a walker and standby assistance of her daughter or her knees. They stay with her 24 hours a day and are up when she is up. They note she is still quite unsteady on her feet and therefore there providing standby assistance. 12/30/2024: Patient reports feeling better today. She feels a little stronger. She thinks her fever is a little better. Her vital signs have improved. She received 1 unit blood transfusion last night and her hemoglobin went from 7-10. She had 1 melanotic stool this afternoon. She did not eat breakfast due to no appetite. Exam Narrative: Exam Narrative: She is alert and appears in no distress. She gives her own history. Respirations with an occasional crackle and diminished breath sounds but no wheezing. No consolidation. Cardiovascular: S1, S2, regular rate and rhythm. Abdomen: Bowel sounds present. Abdomen is soft without significant tenderness. No mass. Extremities without edema. She has intact peripheral pulses. Const: Vital Signs, click to edit/add: Vital Signs - 24 hr 12/29/24 19:00 12/29/24 19:12/29/24 23:00 Temperature 99.2 F Pulse Rate 116 H 109 H Pulse Rate [Pulse Oximeter] 117 H Respiratory Rate 18 Blood Pressure Blood Pressure [Ri ght Arm] 84/51 L Pulse Oximetry 97 Oxygen Delivery Me thod Room Air 12/30/24 01:19 12/30/24 03:00 12/30/24 03:12 Temperature 100.3 F H 99.3 F 99.3 F Pulse Rate 107 H Pulse Rate [Pulse Oximeter] 112 H 107 H Respiratory Rate 18 18 18 Blood Pressure 94/60 Blood Pressure [Ri ght Arm] 90/67 94/60 Pulse Oximetry 92 93 93 Oxygen Delivery Me thod Room Air Room Air Room Air 12/30/24 03:30 12/30/24 04:00 12/30/24 04:30 Temperature 99.2 F 99.3 F 99.8 F H Pulse Rate 106 H 103 H 106 H Pulse Rate [Pulse Oximeter] Respiratory Rate 18 18 18 Blood Pressure 89/59 L 100/62 99/64 Blood Pressure [Ri ght Arm] Pulse Oximetry 92 96 94 Oxygen Delivery Me thod Room Air Room Air Room Air 12/30/24 06:00 12/30/24 06:39 12/30/24 08:00 Temperature 99.3 F 99.8 F H Pulse Rate 108 H 97 Pulse Rate [Pulse Oximeter] Respiratory Rate 18 Blood Pressure 101/70 Blood Pressure [Ri ght Arm] Pulse Oximetry 94 Oxygen Delivery Me thod Room Air 12/30/24 08:00 12/30/24 08:01 12/30/24 11:40 Temperature 98.8 F 98.3 F Pulse Rate Pulse Rate [Pulse Oximeter] 97 100 97 Respiratory Rate 15 28 H 15 Blood Pressure Blood Pressure [Ri ght Arm] 104/67 107/62 Pulse Oximetry 96 97 Oxygen Delivery Me thod Room Air 12/30/24 15:51 12/30/24 15:51 Temperature 98.9 F Pulse Rate Pulse Rate [Pulse Oximeter] 97 104 H Respiratory Rate 15 16 Blood Pressure Blood Pressure [Ri ght Arm] 102/65 Pulse Oximetry 92 Oxygen Delivery Me thod Room Air Documenting provider has reviewed patient's vital signs: yes Labs Labs: Laboratory Results - last 24 hr 12/29/24 12/29/24 12/30/24 20:00 20:16 06:52 WBC 9.03 RBC 3.21 L Hgb 7.0 L* 10.0 L Hct 31.3 L MCV 98 MCH 31 MCHC 32 RDW Coeff of Delfino 17.5 H Plt Count 278 Neut % (Auto) 84.3 H Lymph % (Auto) 6.9 L [place] % (Auto) 7.3 Eos % (Auto) 0.3 Baso % (Auto) 0.3 Neut # (Auto) 7.60 H Lymph # (Auto) 0.60 L [place] # (Auto) 0.70 Eos # (Auto) 0.03 Baso # (Auto) 0.03 Abs Immat Gran (auto) 0.08 Imm/Tot Granulo (auto) 0.9 Sodium 140 Potassium 3.8 Chloride 105 Carbon Dioxide 27 Anion Gap 8 BUN 12 Creatinine 0.7 Estimated Creat Clear 37.85 Estimated GFR 97 Glucose 91 Calcium 8.6 C-Reactive Protein 12.3 H Blood Type O Positive Antibody Screen NEGATIVE Crossmatch (AHG) See Detail
--- NOTE | 2024-12-30 18:58 | PC.NURSE ---
Nursing Care Hours: [id number] Pt this shift calm and cooperative with flat affect. No c/o pain. Soft BP with tachycardia noted. Aid reports pt BM that looks really dark in the toilet. New hat placed in toilet for stool possible stool occult sample or just to visualize clearer. Port patent. Vanco infusing. Pt refused ensure.
--- NOTE | 2024-12-30 23:51 | PC.NURSE ---
Received pt at 1900. Alert, oriented and vitally stable. Pt up to bathroom via 1a, walker and gait belt. Pt states no nausea or pain. Pt had a small bm. Pt in bed, appears to be resting, call light within reach. ?
[2024-12-31] VITALS (12 sets, daily range): BP systolic 80–114; BP diastolic 56–72; PULSE 90–110; RESP 16–34; TEMP 37–37.4; O2SAT 94–98
[2024-12-31] MEDS: PIPERACILLIN/TAZOBACTAM 2.25 GM in 0.9 % SODIUM CHLORIDE Mini-bag 100 ML IVPB ×4 (02:15→20:40)
[2024-12-31] MEDS: HEPARIN 500 UNIT/5 ML SYRINGE IVF ×2 (03:00→12:10)
[2024-12-31] MEDS: OMEPRAZOLE 20 MG CAPSULE DR 40 MG PO (06:40)
--- NOTE | 2024-12-31 07:49 | PC.NURSE ---
End of shift [id number] ? RN took over pt care at approximately 2300. Pt observed to sleep during majority of shift. Up with standby assistance and walker/gait belt to bathroom. Functionally incontinent of bowel and bladder during shift. Tolerating RA, denies pain, n/v. Appears to be resting in bed comfortably with call light within reach. Expanse downtime from approximately [id number]
[2024-12-31 08:16] LABS: Basophils Absolute Auto 0.04 K/uL (0.00-0.30); Basophils Percent Auto 0.5 % (0.0-3.0); Eosinophils Absolute Auto 0.04 K/uL (0.00-0.50); Eosinophils Percent Auto 0.5 % (0.0-7.0); Hematocrit 26.9 % (33.0-51.0); Hemoglobin* 8.6 gm/dL (12.0-16.0); Immature Granulocytes Abs Auto 0.12 K/uL (0.00-0.30); Immature Granulocytes Pct Auto 1.5 %; Lymphocytes Percent Auto 8.5 % (20-44); Mean Corpuscular HGB Conc 32 gm/dL (32-36); Mean Corpuscular Hemoglobin 31 pg (26-34); Mean Corpuscular Volume 98 fL (80-100); Platelet Count* 274 K/uL (140-440); RDW Coefficient of Variation % 17.9 % (11.5-15.5); Red Blood Count 2.76 m/uL (4.00-5.20); White Blood Count* 8.11 K/uL (4.50-11.00)
[2024-12-31 08:19] LABS: Slide Review Reflex No
[2024-12-31 08:32] LABS: Chloride* 109 mmol/L (96-114); Potassium* 3.4 mmol/L (3.6-5.1); Sodium* 141 mmol/L (135-149)
[2024-12-31 08:35] LABS: Creatinine* 0.7 mg/dL (0.5-1.5); Est. Creatinine Clearance* 38.01; Estimated Glomerular Filt Rate 97 ml/min
[2024-12-31 08:36] LABS: Anion Gap 7 mEq/L (7-15); Blood Urea Nitrogen* 7 mg/dL (7-30); Calcium* 8.2 mg/dL (8.4-10.6); Carbon Dioxide* 25 mmol/L (20-32); Glucose* 79 mg/dL (60-115)
[2024-12-31 08:39] LABS: C Reactive Protein* 7.6 mg/dL (0.5-1.0)
[2024-12-31] MEDS: POTASSIUM CHLORIDE 10 MEQ CAPSULE ER 20 MEQ PO ×2 (09:59→20:40)
[2024-12-31] MEDS: SODIUM CHLORIDE 0.9 % (FLUSH) 10 ML SYRINGE 5 ML IVF (10:00)
[2024-12-31] MEDS: MULTIVITAMIN/MINERALS 1 TABLET 1 TAB PO (10:00)
[2024-12-31] MEDS: ACETAMINOPHEN 325 MG TABLET 650 MG PO ×2 (10:10→20:40)
[2024-12-31] MEDS: POTASSIUM BICARB 25 MEQ EFFERVESCENT TAB PO (12:11)
--- NOTE | 2024-12-31 19:21 | PC.NURSE ---
Nursing Care Hours: [id number] Pt this shift calm and cooperative, alert and oriented. Pain reported to inner R ear ranging from 3/10 to 10/10. treated with acetaminophen and no further c/o about it. Moist cough noted, LS clear, spo2 stable on RA. Blood draw done through port per protocol. Sinus tach 102-115 bpm. Intermittent hypotension with stable MAP and asymptomatic. Reported to hospitalist. Oral temp of 99.4, retaken after 2 hours and 98.6. Up in chair for breakfast. Declined lunch and family brought in food for dinner.
[2024-12-31] MEDS: 0.9 % SODIUM CHLORIDE 250 ml 250 ML 35 ML IV (20:43)
--- NOTE | 2024-12-31 21:42 | P.IMPN_ITS ---
Progress Note: A&P Assessment and plan (1) Sepsis: Problem details: Patient presents with tachycardia, fever, hypotension. Source for this is uncertain. Does not appear to be a complication of disseminated zoster. Does not appear to be a worsening of pneumonia. Cultures are pending. Vanc and Zosyn pending cultures. Vancomycin stopped with negative MRSA swab Status: Acute (2) Immunocompromised: Problem details: Due to therapy for breast cancer Status: Acute (3) GI bleed: Problem details: This appears to be acute worsening on chronic problem. Will temporarily hold Xarelto. Will permanently hold ibuprofen. PPI. Monitor hemoglobin. EGD today shows gastritis/gastric erosions. Status: Acute (4) Anemia: Problem details: Acute on chronic. At least partially due to upper GI bleeding from gastritis. Continue to monitor. Status: Acute (5) Community acquired pneumonia: Problem details: Clinically this is improving. Continue to monitor. Zosyn pending cultures and clinical course Status: Acute (6) Malnutrition: Problem details: Weight loss of 12 kg in 9 months. I suspect this is related to metastatic breast cancer primarily. Discussed with patient and family ways to address this. Nutritional consult. Status: Acute (7) Disseminated zoster: Problem details: Developed last week. Likely due to immunocompromise status from Cancer Treatment. Now crusted over. Status: Acute (8) Left ear pain: Problem details: Intermittent stabbing sensation in left ear. Exam is normal. I suspect this is neuropathic. This is not severe enough at this time that she would want treatment for it that may increase side effects. Status: Acute (9) Nausea: Problem details: She has fairly severe nausea which has been treated home with Benadryl. This has been working for her so I think it can be reasonably continued but they may want to get children's Benadryl elix to titrate down the dose as the patient is also having significant sedation Status: Acute (10) Varicella: Problem details: - + PCR on admission - IV Acyclovir (12/18/24); treat for 7-10 days or until all lesions crusted over Status: Acute (11) Palliative care encounter: Problem details: Patient currently seeking I prolonging treatments including breast cancer treatment. We discussed how her quality of life may not improve with these treatments. The offer is made that she can switch to palliative care orientation at any time of her choosing. In the meantime will continue interventions to keep her alive and to support her returning home with family Status: Acute (12) Discharge planning issues: Problem details: Family are committed to providing 24/7 care to keep her in the home. We discussed the importance of improved nutrition and ongoing exercise, primarily walking frequently during the day, to maintain her independence Status: Acute Plan Continue in hospital for ongoing evaluation monitoring for possible life- threatening infection with her fever/possible sepsis pending blood cultures and clinical course and monitoring of GI bleeding. Continue to monitor and manage her malnutrition and poor oral intake. Therapy to address disability. Possible discharge to home tomorrow if able to manage adequate oral intake and no serious infection Time Spent With Patient Total time spent: Total time spent today is 55 minutes in evaluation and management and discussing with patient and family multiple chronic problems above, palliative care and discharge planning. Subjective Date Seen: 12/31/24 Interval history: Admission H&P: Kimmy Castro is a 64 year old female with stage IV breast cancer and recent hospitalization for pneumonia who now presents to the emergency department with worsening coffee-ground emesis, poor oral intake and fever. Patient was hospitalized here from December 18 2024 to 12/25/2024 for moderate to severe patchy bilateral ground-glass opacities suggestive of pneumonia. She was treated as a community-acquired pneumonia and clinically improved with impr ovement in her cough, fatigue and malaise. She had a low-grade fever that had resolved. Since discharge she has noted subjective fever chills recently. She had a temperature of 101.4? F in the emergency department. During that hospital stay she was also diagnosed with disseminated zoster and treated with acyclovir. All of her zoster lesions are crusted over now. They are not causing any symp toms. She was noted to have anemia during her last hospital stay. She received 1 unit of blood transfusion during her last hospital stay. She was diagnosed clinically with GERD and started on Protonix. She has not been taking the Protonix because of nausea and vomiting. Her family tells me that she has been having coffee-ground emesis for at least a week possibly 2 weeks. She also reports that she has been having melanotic stools during that time. No previous history of GI bleeding. She is on Xarelto. She very infrequently takes ibuprofen for pain. No aspirin. She has had a very poor appetite since becoming ill. Prior to that she was eating okay. In the past week her appetite has been very poor along with her coffee-ground emesis. She is not having any abdominal pain. She has been quite weak. She has been walking with a walker and standby assistance of her daughter or her knees. They stay with her 24 hours a day and are up when she is up. They note she is still quite unsteady on her feet and therefore there providing standby assistance. 12/30/2024: Patient reports feeling better today. She feels a little stronger. She thinks her fever is a little better. Her vital signs have improved. She received 1 unit blood transfusion last night and her hemoglobin went from 7-10. She had 1 melanotic stool this afternoon. She did not eat breakfast due to no appetite. 12/31/2024: Patient reports feeling little better today. She reports her appetite is better but family has not noted much improvement in her oral intake. She still feeling quite weak. She had 1 melanotic stool yesterday and 1 today. She is still anxious to go home. Discussion with patient and family about current health status and discharge planning today. Patient's most serious health problems are her breast cancer which I think is causing her weight loss and very poor appetite. This is contributing to her weakness and disability from being unable to live independently. Family continues to remain committed to keeping her in her home with 14/06 support. She continues to want breast cancer treatment. Palliative care and hospice were brought up as options when the time comes when she seeks palliative treatment over life prolonging interventions. Exam Narrative: Exam Narrative: She is alert and appears in no distress. Speech is normal. Ears are examined bilaterally and appear normal. She reports intermittent sharp pain in her left ear. No obvious cause is seen. Respirations are clear to auscultation with diminished breath sounds. Cardiovascular: S1, S2, regular rate and rhythm. Abdomen is soft without tenderness or mass. Extremities without edema. Const: Vital Signs, click to edit/add: Vital Signs - 24 hr 12/31/24 00:43 12/31/24 03:53 12/31/24 07:30 Temperature Pulse Rate 99 95 Pulse Rate [Pulse Oximeter] 104 H Respiratory Rate 18 Blood Pressure [Ri ght Arm] 110/70 Pulse Oximetry 94 Oxygen Delivery Me thod Room Air 12/31/24 08:07 12/31/24 08:07 12/31/24 10:06 Temperature 98.9 F Pulse Rate Pulse Rate [Pulse Oximeter] 104 H 104 H 110 H Respiratory Rate 18 18 Blood Pressure [Ri ght Arm] 98/65 80/56 L Pulse Oximetry 94 Oxygen Delivery Me thod Room Air 12/31/24 11:00 12/31/24 15:00 12/31/24 15:00 Temperature 99.4 F Pulse Rate Pulse Rate [Pulse Oximeter] 102 H 102 H 102 H Respiratory Rate 18 16 16 Blood Pressure [Ri ght Arm] 102/63 82/58 L Pulse Oximetry 94 98 Oxygen Delivery Me thod Room Air Room Air 12/31/24 17:49 12/31/24 18:00 12/31/24 19:00 Temperature 98.6 F 99.2 F Pulse Rate 101 H Pulse Rate [Pulse Oximeter] 110 H 97 Respiratory Rate 18 34 H Blood Pressure [Ri ght Arm] 114/68 111/72 Pulse Oximetry 94 94 Oxygen Delivery Me thod Room Air Room Air Documenting provider has reviewed patient's vital signs: yes Labs Labs: Laboratory Results - last 24 hr 12/29/24 12/31/24 20:00 08:06 WBC 8.11 RBC 2.76 L Hgb 8.6 L Hct 26.9 L MCV 98 MCH 31 MCHC 32 RDW Coeff of Delfino 17.9 H Plt Count 274 Neut % (Auto) 80.0 H Lymph % (Auto) 8.5 L [place] % (Auto) 9.0 Eos % (Auto) 0.5 Baso % (Auto) 0.5 Neut # (Auto) 6.50 Lymph # (Auto) 0.70 L [place] # (Auto) 0.70 Eos # (Auto) 0.04 Baso # (Auto) 0.04 Abs Immat Gran (auto) 0.12 Imm/Tot Granulo (auto) 1.5 Sodium 141 Potassium 3.4 L Chloride 109 Carbon Dioxide 25 Anion Gap 7 BUN 7 Creatinine 0.7 Estimated Creat Clear 38.01 Estimated GFR 97 Glucose 79 Calcium 8.2 L C-Reactive Protein 7.6 H Crossmatch ([facility]) See Detail
[2025-01-01] MEDS: PIPERACILLIN/TAZOBACTAM 2.25 GM in 0.9 % SODIUM CHLORIDE Mini-bag 100 ML IVPB ×4 (02:24→20:44)
[2025-01-01 03:00] VITALS: BP 113/63; PULSE 107; RESP 22; TEMP 36.5; O2SAT 94
[2025-01-01] MEDS: 0.9 % SODIUM CHLORIDE 250 ml 250 ML 30 ML IV (04:57)
[2025-01-01] MEDS: ACETAMINOPHEN 325 MG TABLET 650 MG PO (04:58)
[2025-01-01] MEDS: OMEPRAZOLE 20 MG CAPSULE DR 40 MG PO (06:24)
[2025-01-01 06:47] LABS: Basophils Absolute Auto 0.02 K/uL (0.00-0.30); Basophils Percent Auto 0.3 % (0.0-3.0); Eosinophils Absolute Auto 0.03 K/uL (0.00-0.50); Eosinophils Percent Auto 0.5 % (0.0-7.0); Hematocrit 26.5 % (33.0-51.0); Hemoglobin* 8.5 gm/dL (12.0-16.0); Immature Granulocytes Abs Auto 0.03 K/uL (0.00-0.30); Immature Granulocytes Pct Auto 0.5 %; Lymphocytes Percent Auto 7.6 % (20-44); Mean Corpuscular HGB Conc 32 gm/dL (32-36); Mean Corpuscular Hemoglobin 32 pg (26-34); Mean Corpuscular Volume 99 fL (80-100); Monocytes Percent Auto 11.1 % (0.0-11.0); Platelet Count* 287 K/uL (140-440); RDW Coefficient of Variation % 17.6 % (11.5-15.5); Red Blood Count 2.69 m/uL (4.00-5.20); White Blood Count* 5.96 K/uL (4.50-11.00)
[2025-01-01 07:00] VITALS: BP 110/79; PULSE 104; PULSE 94; RESP 20; TEMP 37.2; O2SAT 97
[2025-01-01 07:00] LABS: Chloride* 109 mmol/L (96-114); Potassium* 3.5 mmol/L (3.6-5.1); Sodium* 142 mmol/L (135-149)
[2025-01-01 07:03] LABS: Creatinine* 0.7 mg/dL (0.5-1.5); Estimated Glomerular Filt Rate 97 ml/min
[2025-01-01 07:04] LABS: Anion Gap 8 mEq/L (7-15); Blood Urea Nitrogen* 7 mg/dL (7-30); Calcium* 8.3 mg/dL (8.4-10.6); Carbon Dioxide* 25 mmol/L (20-32); Glucose* 87 mg/dL (60-115)
[2025-01-01 07:05] LABS: Slide Review Reflex No
[2025-01-01 07:07] LABS: C Reactive Protein* 5.9 mg/dL (0.5-1.0)
[2025-01-01] MEDS: POTASSIUM CHLORIDE 10 MEQ CAPSULE ER 20 MEQ PO (08:48)
[2025-01-01] MEDS: MULTIVITAMIN/MINERALS 1 TABLET 1 TAB PO (08:48)
[2025-01-01 09:32] VITALS: BMI 16.7
[2025-01-01] MEDS: HEPARIN 500 UNIT/5 ML SYRINGE IVF ×4 (09:36→21:35)
[2025-01-01 11:00] VITALS: BP 86/63; PULSE 103; RESP 18; TEMP 37; O2SAT 98
[2025-01-01 13:22] LABS: Hemoglobin* 8.7 gm/dL (12.0-16.0)
[2025-01-01 13:47] LABS: Troponin I* < 0.01 ng/mL (0.01-0.04)
[2025-01-01] MEDS: LACTATED RINGERS 500 ML 500 ML IV (14:09)
[2025-01-01 15:00] VITALS: BP 117/75; PULSE 94; RESP 20; TEMP 37.1; O2SAT 95
[2025-01-01 15:57] LABS: Lactate* 0.6 mmol/L (0.5-1.9)
--- NOTE | 2025-01-01 16:10 | P.IMPN_ITS ---
Progress Note: A&P Assessment and plan (1) Sepsis: Problem details: Patient presents with tachycardia, fever, hypotension. Source for this is uncertain. Does not appear to be a complication of disseminated zoster. Does not appear to be a worsening of pneumonia. Cultures are pending. Vanc and Zosyn pending cultures. Vancomycin stopped with negative MRSA swab Status: Acute (2) Immunocompromised: Problem details: Due to therapy for breast cancer Status: Acute (3) GI bleed: Problem details: This appears to be acute worsening on chronic problem. Will temporarily hold Xarelto. Will permanently hold ibuprofen. PPI. Monitor hemoglobin. EGD today shows gastritis/gastric erosions. Status: Acute (4) Anemia: Problem details: Acute on chronic. At least partially due to upper GI bleeding from gastritis. Continue to monitor. Status: Acute (5) Community acquired pneumonia: Problem details: Clinically this is improving. Continue to monitor. Zosyn pending cultures and clinical course Status: Acute (6) Malnutrition: Problem details: Weight loss of 12 kg in 9 months. I suspect this is related to metastatic breast cancer primarily. Discussed with patient and family ways to address this. Nutritional consult. Status: Acute (7) Disseminated zoster: Problem details: Developed last week. Likely due to immunocompromise status from Cancer Treatment. Now crusted over. Status: Acute (8) Left ear pain: Problem details: Intermittent stabbing sensation in left ear. Exam is normal. I suspect this is neuropathic. This is not severe enough at this time that she would want treatment for it that may increase side effects. Status: Acute (9) Nausea: Problem details: She has fairly severe nausea which has been treated home with Benadryl. This has been working for her so I think it can be reasonably continued but they may want to get children's Benadryl elix to titrate down the dose as the patient is also having significant sedation Status: Acute (10) Varicella: Problem details: - + PCR on admission - IV Acyclovir (12/18/24); treat for 7-10 days or until all lesions crusted over Status: Acute (11) Palliative care encounter: Problem details: Patient currently seeking I prolonging treatments including breast cancer treatment. We discussed how her quality of life may not improve with these treatments. The offer is made that she can switch to palliative care orientation at any time of her choosing. In the meantime will continue interventions to keep her alive and to support her returning home with family Status: Acute (12) Discharge planning issues: Problem details: Family are committed to providing 24/7 care to keep her in the home. We discussed the importance of improved nutrition and ongoing exercise, primarily walking frequently during the day, to maintain her independence Status: Acute (13) Hypotension: Problem details: Patient has developed hypotension today. This was present on admission but improved with fluid resuscitation. She is asymptomatic for other cause of hypotension. Continue to evaluate for sepsis, blood loss, cardiogenic or distributive shock. Consider adrenal insufficiency. Status: Acute Plan 64-year-old female with metastatic breast cancer admitted with sepsis and GI bleeding. No obvious source of sepsis identified. Cultures negative today 8. Hemoglobin has stabilized. she has been on vancomycin and piperacillin tazobactam. Vancomycin was discontinued. Zosyn continues now pending further cultures. Now hypotension again. Cause is not clear. ongoing evaluation and treatment pending. Total time spent today is 60 minutes in coordination of care, discussion with patient and family and other providers management of hypotension in the context of metastatic cancer and GI bleed Subjective Date Seen: 01/01/25 Interval history: Admission H&P: Kimmy Castro is a 64 year old female with stage IV breast cancer and recent hospitalization for pneumonia who now presents to the emergency department with worsening coffee-ground emesis, poor oral intake and fever. Patient was hospitalized here from December 18 2024 to 12/25/2024 for moderate to severe patchy bilateral ground-glass opacities suggestive of pneumonia. She was treated as a community-acquired pneumonia and clinically improved with improvement in her cough, fatigue and malaise. She had a low-grade fever that had resolved. Since discharge she has noted subjective fever chills recently. She had a temperature of 101.4? F in the emergency department. During that hospital stay she was also diagnosed with disseminated zoster and treated with acyclovir. All of her zoster lesions are crusted over now. They are not causing any symptoms. She was noted to have anemia during her last hospital stay. She received 1 unit of blood transfusion during her last hospital stay. She was diagnosed clinically with GERD and started on Protonix. She has not been taking the Protonix because of nausea and vomiting. Her family tells me that she has been having coffee-ground emesis for at least a week possibly 2 weeks. She also reports that she has been having melanotic stools during that time. No previous history of GI bleeding. She is on Xarelto. She very infrequently takes ibuprofen for pain. No aspirin. She has had a very poor appetite since becoming ill. Prior to that she was eating okay. In the past week her appetite has been very poor along with her coffee-ground emesis. She is not having any abdominal pain. She has been quite weak. She has been walking with a walker and standby assistance of her daughter or her knees. They stay with her 24 hours a day and are up when she is up. They note she is still quite unsteady on her feet and therefore there providing standby assistance. 12/30/2024: Patient reports feeling better today. She feels a little stronger. She thinks her fever is a little better. Her vital signs have improved. She received 1 unit blood transfusion last night and her hemoglobin went from 7-10. She had 1 melanotic stool this afternoon. She did not eat breakfast due to no appetite. 12/31/2024: Patient reports feeling little better today. She reports her appet ite is better but family has not noted much improvement in her oral intake. She still feeling quite weak. She had 1 melanotic stool yesterday and 1 today. She is still anxious to go home. Discussion with patient and family about current health status and discharge planning today. Patient's most serious health problems are her breast cancer which I think is causing her weight loss and very poor appetite. This is contributing to her weakness and disability from being unable to live independently. Family continues to remain committed to keeping her in her home with 14/06 support. She continues to want breast cancer treatment. Palliative care and hospice were brought up as options when the time comes when she seeks palliative treatment over life prolonging interventions. 01/01/2025: Patient continues to report improvement. Maximum temperature 99.4?. Some cough but getting better. No dyspnea. Poor appetite but able to eat some today. Still having an occasional melanotic stool. No shortness of breath or chest pain. No abdominal pain. No urinary symptoms. Later this morning I went to see her. She was still feeling fine but her blood pressure was 80/40. She was asymptomatic with this. Recheck continued to show blood pressures in that range with a mean arterial pressure in the 50s. Repeat evaluation did not show an obvious cause for hypotension from sepsis, blood los s, cardiogenic shock. She continued to feel well. Received a bolus of fluid and blood pressure improved. Exam Narrative: Exam Narrative: She is alert and appears in no distress. She is oriented to her circumstances. Respirations are clear to auscultation. Diminished breath sounds with a rare basilar crackle. Cardiovascular: S1, S2, regular tachycardia. Abdomen is soft without tenderness or mass. Extremities without edema. Good perfusion in all 4 extremities. Const: Vital Signs, click to edit/add: Vital Signs - 24 hr 12/31/24 17:49 12/31/24 18:00 12/31/24 19:00 Temperature 98.6 F 99.2 F Pulse Rate 101 H Pulse Rate [Pulse Oximeter] 110 H 97 Respiratory Rate 18 34 H Blood Pressure [Ri ght Arm] 114/68 111/72 Pulse Oximetry 94 94 Oxygen Delivery Me thod Room Air Room Air 12/31/24 23:00 12/31/24 23:22 01/01/25 03:00 Temperature 99.3 F 97.7 F Pulse Rate 90 Pulse Rate [Pulse Oximeter] 95 107 H Respiratory Rate 24 22 Blood Pressure [Ri ght Arm] 109/71 113/63 Pulse Oximetry 95 94 Oxygen Delivery Me thod Room Air Room Air 01/01/25 07:00 01/01/25 07:00 01/01/25 07:00 Temperature 99.0 F Pulse Rate 94 Pulse Rate [Pulse Oximeter] 104 H 104 H Respiratory Rate 20 20 Blood Pressure [Ri ght Arm] 110/79 Pulse Oximetry 97 Oxygen Delivery Me thod Room Air 01/01/25 11:00 Temperature 98.6 F Pulse Rate Pulse Rate [Pulse Oximeter] 103 H Respiratory Rate 18 Blood Pressure [Ri ght Arm] 86/63 L Pulse Oximetry 98 Oxygen Delivery Me thod Room Air Documenting provider has reviewed patient's vital signs: yes Labs Labs: Laboratory Results - last 24 hr 12/29/24 01/01/25 01/01/25 20:00 06:20 12:55 WBC 5.96 RBC 2.69 L Hgb 8.5 L 8.7 L Hct 26.5 L MCV 99 MCH 32 MCHC 32 RDW Coeff of Delfino 17.6 H Plt Count 287 Neut % (Auto) 80.0 H Lymph % (Auto) 7.6 L [place] % (Auto) 11.1 H Eos % (Auto) 0.5 Baso % (Auto) 0.3 Neut # (Auto) 4.80 Lymph # (Auto) 0.50 L [place] # (Auto) 0.70 Eos # (Auto) 0.03 Baso # (Auto) 0.02 Abs Immat Gran (auto) 0.03 Imm/Tot Granulo (auto) 0.5 Sodium 142 Potassium 3.5 L Chloride 109 Carbon Dioxide 25 Anion Gap 8 BUN 7 Creatinine 0.7 Estimated Creat Clear 37.60 Estimated GFR 97 Glucose 87 Lactate Calcium 8.3 L Troponin I < 0.01 L C-Reactive Protein 5.9 H Crossmatch ([facility]) See Detail 01/01/25 15:51 WBC RBC Hgb Hct MCV MCH MCHC RDW Coeff of Delfino Plt Count Neut % (Auto) Lymph % (Auto) [place] % (Auto) Eos % (Auto) Baso % (Auto) Neut # (Auto) Lymph # (Auto) [place] # (Auto) Eos # (Auto) Baso # (Auto) Abs Immat Gran (auto) Imm/Tot Granulo (auto) Sodium Potassium Chloride Carbon Dioxide Anion Gap BUN Creatinine Estimated Creat Clear Estimated GFR Glucose Lactate 0.6 Calcium Troponin I C-Reactive Protein Crossmatch ([facility])
[2025-01-01 19:00] VITALS: BP 113/80; PULSE 100; RESP 20; TEMP 37.4; O2SAT 97
--- NOTE | 2025-01-01 19:19 | PC.NURSE ---
End of shift: patient alert and oriented. afebrile this shift. VSS. BP soft at 1100, MD notified and bolus given. on Recheck, BP WNL. Patient up to BR and chair, SBA with walker and GB. Patient does not have much of an appetite. Port on L chest Hep. locked.
[2025-01-01] MEDS: POTASSIUM CHLORIDE 10 MEQ CAPSULE ER 30 MEQ PO (20:46)
[2025-01-01] MEDS: SODIUM CHLORIDE 0.9 % (FLUSH) 10 ML SYRINGE 5 ML IVF ×2 (20:46→21:35)
[2025-01-01 23:00] VITALS: BP 122/79; PULSE 95; PULSE 99; RESP 16; TEMP 37.4; O2SAT 96
[2025-01-02 03:00] VITALS: BP 113/66; PULSE 101; RESP 16; TEMP 37.3; O2SAT 94
[2025-01-02] MEDS: PIPERACILLIN/TAZOBACTAM 2.25 GM in 0.9 % SODIUM CHLORIDE Mini-bag 100 ML IVPB ×2 (03:00→09:35)
[2025-01-02] MEDS: COSYNTROPIN 0.25 MG VIAL IVP (06:09)
[2025-01-02 06:22] LABS: Basophils Absolute Auto 0.04 K/uL (0.00-0.30); Basophils Percent Auto 0.7 % (0.0-3.0); Eosinophils Absolute Auto 0.03 K/uL (0.00-0.50); Eosinophils Percent Auto 0.5 % (0.0-7.0); Hemoglobin* 8.2 gm/dL (12.0-16.0); Immature Granulocytes Abs Auto 0.04 K/uL (0.00-0.30); Immature Granulocytes Pct Auto 0.7 %; Lymphocytes Percent Auto 9.6 % (20-44); Mean Corpuscular HGB Conc 32 gm/dL (32-36); Mean Corpuscular Hemoglobin 31 pg (26-34); Mean Corpuscular Volume 99 fL (80-100); Monocytes Percent Auto 10.5 % (0.0-11.0); Platelet Count* 296 K/uL (140-440); RDW Coefficient of Variation % 17.6 % (11.5-15.5); Red Blood Count 2.63 m/uL (4.00-5.20); White Blood Count* 5.72 K/uL (4.50-11.00)
[2025-01-02 06:26] LABS: Slide Review Reflex No
[2025-01-02 06:35] LABS: Chloride* 109 mmol/L (96-114); Potassium* 3.6 mmol/L (3.6-5.1); Sodium* 142 mmol/L (135-149)
[2025-01-02 06:38] LABS: Anion Gap 5 mEq/L (7-15); Blood Urea Nitrogen* 4 mg/dL (7-30); Carbon Dioxide* 28 mmol/L (20-32); Creatinine* 0.7 mg/dL (0.5-1.5); Est. Creatinine Clearance* 37.15; Estimated Glomerular Filt Rate 97 ml/min
[2025-01-02 06:39] LABS: Calcium* 8.6 mg/dL (8.4-10.6); Glucose* 90 mg/dL (60-115)
[2025-01-02] MEDS: OMEPRAZOLE 20 MG CAPSULE DR 40 MG PO (07:10)
[2025-01-02] MEDS: HEPARIN 500 UNIT/5 ML SYRINGE IVF ×2 (07:11→10:51)
--- NOTE | 2025-01-02 07:17 | PC.NURSE ---
End of shift report [id number]: Pleasant and cooperative with cares. Denies any pain, SOB or chest pain. Patient has productive cough, patient able to spit up thick, clear sputum. 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
[2025-01-02 08:16] VITALS: BP 119/80; PULSE 106; RESP 24; TEMP 37.7; O2SAT 95
[2025-01-02 08:19] VITALS: PULSE 100
[2025-01-02] MEDS: POTASSIUM CHLORIDE 10 MEQ CAPSULE ER 30 MEQ PO (09:35)
[2025-01-02] MEDS: MULTIVITAMIN/MINERALS 1 TABLET 1 TAB PO (09:35)
[2025-01-02] MEDS: SODIUM CHLORIDE 0.9 % (FLUSH) 10 ML SYRINGE 5 ML IVF (10:50)
--- NOTE | 2025-01-02 17:03 | PM.DS1 ---
DS: Providers Provider Date Seen: 01/02/25 Date of admission: 12/29/24 16:10 Primary care physician: Nahomi Valera PA-C Admitting Clinician: Erwin Doran MD Attending Physician on discharge: Erwin Doran MD Date of Discharge: 01/02/25 DS: Diagnosis Discharge Diagnosis (1) Sepsis: Status: Acute Problem details: Patient presents with tachycardia, fever, hypotension. Source for this is uncertain. Does not appear to be a complication of disseminated zoster. Does not appear to be a worsening of pneumonia. Cultures are negative. Treated with Zosyn pending clinical course and cultures. Fever improved but continues to have a low-grade fever between 99 and 100. Blood pressure and pulse improved but still relatively low blood pressure and mild tachycardia persist (2) Immunocompromised: Status: Acute Problem details: Due to therapy for breast cancer (3) GI bleed: Status: Acute Problem details: This appears to be acute worsening on chronic problem. Will temporarily hold Xarelto. Will permanently hold ibuprofen. PPI. Monitor hemoglobin. EGD today shows gastritis/gastric erosions. Hemoglobin has been stable (4) Anemia: Status: Acute Problem details: Acute on chronic. At least partially due to upper GI bleeding from gastritis. Continue to monitor. (5) Community acquired pneumonia: Status: Acute Problem details: Clinically this is improving. Continue to monitor. Zosyn pending cultures and clinical course. No other clinical evidence of worsening pneumonia (6) Malnutrition: Status: Acute Problem details: Weight loss of 12 kg in 9 months. I suspect this is related to metastatic breast cancer primarily. Discussed with patient and family ways to address this. Nutritional consult. (7) Disseminated zoster: Status: Acute Problem details: Developed last week. Likely due to immunocompromise status from Cancer Treatment. Now crusted over. (8) Left ear pain: Status: Acute Problem details: Intermittent stabbing sensation in left ear. Exam is normal. I suspect this is neuropathic. This is not severe enough at this time that she would want treatment for it that may increase side effects. (9) Nausea: Status: Acute Problem details: She has fairly severe nausea which has been treated home with Benadryl. This has been working for her so I think it can be reasonably continued but they may want to get children's Benadryl elix to titrate down the dose as the patient is also having significant sedation (10) Palliative care encounter: Status: Acute Problem details: Patient currently seeking life prolonging treatments including breast cancer treatment. We discussed how her quality of life may not improve with these treatments. She may not be strong enough to receive ongoing breast cancer treatment. She is struggling to keep her strength up to live independently. She continues to lose weight. Prognosis is poor. I expect readmissions for frailty and complications of metastatic breast cancer. The offer is made that she can switch to palliative care orientation at any time of her choosing. In the meantime will continue interventions to keep her alive and to support her returning home with family (11) Discharge planning issues: Status: Acute Problem details: Family are committed to providing 24/7 care to keep her in the home. We discussed the importance of improved nutrition and ongoing exercise, primarily walking frequently during the day, to maintain her independence (12) Hypotension: Status: Acute Problem details: Patient had hypotension the day prior to discharge. She received a bolus of fluid and this resolved without recurrence. It was asymptomatic. Cosyntropin stim test was done on the day of discharge and will need followup of those results next week. I anticipate that she may have ongoing issues with hypotension and tachycardia as well as fever possibly related to tumor fever. DS: Summary Hospital Course Hospital Course: Interval history: Admission H&P: Kimmy Castro is a 64 year old female with stage IV breast cancer and recent hospitalization for pneumonia who now presents to the emergency department with worsening coffee-ground emesis, poor oral intake and fever. Patient was hospitalized here from December 18 2024 to 12/25/2024 for moderate to severe patchy bilateral ground-glass opacities suggestive of pneumonia. She was treated as a community-acquired pneumonia and clinically improved with improvement in her cough, fatigue and malaise. She had a low-grade fever that had resolved. Since discharge she has noted subjective fever chills recently. She had a temperature of 101.4? F in the emergency department. During that hospital stay she was also diagnosed with disseminated zoster and treated with acyclovir. All of her zoster lesions are crusted over now. They are not causing any symptoms. She was noted to have anemia during her last hospital stay. She received 1 unit of blood transfusion during her last hospital stay. She was diagnosed clinically with GERD and started on Protonix. She has not been taking the Protonix because of nausea and vomiting. Her family tells me that she has been having coffee-ground emesis for at least a week possibly 2 weeks. She also reports that she has been having melanotic stools during that time. No previous history of GI bleeding. She is on Xarelto. She very infrequently takes ibuprofen for pain. No aspirin. She has had a very poor appetite since becoming ill. Prior to that she was eating okay. In the past week her appetite has been very poor along with her coffee-ground emesis. She is not having any abdominal pain. She has been quite weak. She has been walking with a walker and standby assistance of her daughter or her knees. They stay with her 24 hours a day and are up when she is up. They note she is still quite unsteady on her feet and therefore there providing standby assistance. 12/30/2024: Patient reports feeling better today. She feels a little stronger. She thinks her fever is a little better. Her vital signs have improved. She received 1 unit blood transfusion last night and her hemoglobin went from 7-10. She had 1 melanotic stool this afternoon. She did not eat breakfast due to no appetite. 12/31/2024: Patient reports feeling little better today. She reports her appetite is better but family has not noted much improvement in her oral intake. She still feeling quite weak. She had 1 melanotic stool yesterday and 1 today. She is still anxious to go home. Discussion with patient and family about current health status and discharge planning today. Patient's most serious health problems are her breast cancer which I think is causing her weight loss and very poor appetite. This is contributing to her weakness and disability from being unable to live independently. Family continues to remain committed to keeping her in her home with 14/06 support. She continues to want breast cancer treatment. Palliative care and hospice were brought up as options when the time comes when she seeks palliative treatment over life prolonging interventions. 01/01/2025: Patient continues to report improvement. Maximum temperature 99.4?. Some cough but getting better. No dyspnea. Poor appetite but able to eat some today. Still having an occasional melanotic stool. No shortness of breath or chest pain. No abdominal pain. No urinary symptoms. Later this morning I went to see her. She was still feeling fine but her blood pressure was 80/40. She was asymptomatic with this. Recheck continued to show blood pressures in that range with a mean arterial pressure in the 50s. Repeat evaluation did not show an obvious cause for hypotension from sepsis, blood loss, cardiogenic shock. She continued to feel well. Received a bolus of fluid and blood pressure improved. 01/02/2025. Patient continues to report feeling well. Hypotension has resolved. She has had a low-grade fever around 99-100. Pulse has been around 100. Blood pressures have been in the 110s to 120s over 60s to 70s. She is anxious to go home. Again had palliative care discussion today with the patient and family. Her prognosis is poor I think she will continue to get weaker, lose weight, potentially have tumor related fevers, have low blood pressure and tachycardia and get readmitted for declining health. Hospice is available when she is ready. Time Spent with Patient Time attestation: Total time spent providing and/or coordinating discharge services: 40 minutes Time spent: Greater than 30 minutes Exam Narrative: Exam Narrative: She is alert and appears in no distress. Speech is normal. Respirations are clear to auscultation except for few crackles and somewhat diminished breath sounds at the lung base on the left. Cardiovascular: S1, S2, regular rate and rhythm. Abdomen is soft without tenderness or mass. Extremities without edema. Const: Vital Signs, click to edit/add: Vital Signs - 24 hr 01/01/25 19:00 01/01/25 23:00 01/01/25 23:00 Temperature 99.3 F Pulse Rate 99 Pulse Rate [Pulse Oximeter] 100 95 Respiratory Rate 20 16 Blood Pressure [Ri ght Arm] 113/80 Pulse Oximetry 97 Oxygen Delivery Me thod Room Air 01/01/25 23:00 01/02/25 03:00 01/02/25 08:16 Temperature 99.3 F 99.1 F 99.8 F H Pulse Rate Pulse Rate [Pulse Oximeter] 95 101 H 106 H Respiratory Rate 16 16 24 Blood Pressure [Ri ght Arm] 122/79 113/66 119/80 Pulse Oximetry 96 94 95 Oxygen Delivery Me thod Room Air Room Air Room Air 01/02/25 08:19 Temperature Pulse Rate 100 Pulse Rate [Pulse Oximeter] Respiratory Rate Blood Pressure [Ri ght Arm] Pulse Oximetry Oxygen Delivery Me thod Documenting provider has reviewed patient's vital signs: yes DS: Data Data Completed and Pending Labs on day of discharge: Labs from last 24 hours 01/02/25 01/02/25 01/02/25 07:10 06:40 06:10 WBC 5.72 RBC 2.63 L Hgb 8.2 L Hct 26.0 L MCV 99 MCH 31 MCHC 32 RDW Coeff of Delfino 17.6 H Plt Count 296 Neut % (Auto) 78.0 H Lymph % (Auto) 9.6 L Livingston % (Auto) 10.5 Eos % (Auto) 0.5 Baso % (Auto) 0.7 Neut # (Auto) 4.50 Lymph # (Auto) 0.50 L Livingston # (Auto) 0.60 Eos # (Auto) 0.03 Baso # (Auto) 0.04 Abs Immat Gran (auto) 0.04 Imm/Tot Granulo (auto) 0.7 Sodium 142 Potassium 3.6 Chloride 109 Carbon Dioxide 28 Anion Gap 5 L BUN 4 L Creatinine 0.7 Estimated Creat Clear 37.15 Estimated GFR 97 Glucose 90 Calcium 8.6 Cortisol Pending Cortisol 30 Minute Pending Cortisol 60 Minute Pending Preliminary micro results at discharge 12/29/24 09:50 Blood Culture - Preliminary Blood NO GROWTH AFTER 96 HOURS Imaging Chest x-ray: Radiologist's impression: INDICATION: Shortness of breath TECHNIQUE: Chest 2 views. COMPARISON: X-ray chest December 21, 2024 FINDINGS/ IMPRESSION: There is interval improvement in the lung aeration with improvement in multifocal pneumonia, predominantly in bilateral upper lobes. Persistent airspace opacity into the left mid and lower zone. Cardiac size is within normal limit without pulmonary edema. No effusion or pneumothorax. Left IJ [id number] catheter is in place. Dictated by Maritza Avila MD @ 12/29/2024 10:45:08 AM Discharge Plan Discharge Disposition: Home w/ Parent or Adult Date of Admission: 12/29/24 16:10 Attending Provider on Discharge: Erwin Doran Primary Care Provider: Nahomi Valera Condition: Stable Anticipated Discharge Date/Time: 01/02/25 10:29 Discharge Medications: Continued albuterol sulfate 90 mcg/actuation HFA aerosol inhaler 2 puff inhalation Q2H PRN vitamin B complex Capsule 1 cap PO DAILY cholecalciferol (vitamin D3) 50 mcg (2,000 unit) capsule 50 mcg PO DAILY loratadine 10 mg tablet 10 mg PO DAILY PRN multivitamin Tablet 1 tab PO QAM calcium citrate-vitamin D3 [Citracal + D Maximum] 315 mg-6.25 mcg (250 unit) tablet 2 tab PO BID prochlorperazine maleate [Compazine] 5 mg tablet 5 mg PO BID PRN (Reason: nausea and vomiting) Qty: 30 0RF potassium chloride 20 mEq tablet,ER particles/crystals 20 meq PO BID Qty: 180 0RF (DME) miscellaneous medical supply Liquid See Rx Instructions .Route Qty: 60 1RF Rx Instructions: Viscous lidocaine, 5-10 mL q.6 hours p.r.n., 60 mL pantoprazole 40 mg tablet,delayed release (DR/EC) 40 mg PO DAILY Qty: 14 1RF ondansetron 4 mg tablet,disintegrating 4 mg PO Q8H PRN (Reason: nausea and vomiting) Qty: 15 0RF acetaminophen 325 mg capsule 650 mg PO Q8H PRN10 Days Qty: 30 0RF Held Xarelto 10 mg tablet 10 mg PO DAILY Hold Instructions: Resume on 01/09/25. Resume Xarelto when stools are no longer black. Continue to monitor for black or bloody stools. Discontinued ibuprofen 400 mg tablet 400 mg PO TID PRN Discharge Orders: Discharge Order (Routine); Ordered 01/02/25 Ordered By: Erwin Doran Patient Education: Sepsis (DC), Community Acquired Pneumonia (DC) Activity Level: Up with assist and Use Walker Discharge Diet: Regular Follow Up Appointments: Subha Fry MD [Staff Physician] - (Follow-up next week. Check CBC next week. Follow-up results of cosyntropin stimulation test) Nahomi Valera PA-C [Primary Care Provider] - Forms: [employer] Info Instructions
[2025-01-03 17:17] LABS: Cortisol 0 Min 20.4 ug/dL
== END 2025-01-02 11:49 | disposition home or self-care (01) | DRG 871 ==
LOC: ED 14:41 → OP CLINIC 15:48 → MEDSURG 15:48 → OP CLINIC 17:40 → MEDSURG 17:40
PROVIDERS: Admitting Provider Family Medicine; Emergency Provider Family Medicine; PCP Student in an Organized Health Care Education/Training Program; Visit Provider Family Medicine
DX: A41.9 Sepsis, unspecified organism (principal); E43 Unspecified severe protein-calorie malnutrition; J18.9 Pneumonia, unspecified organism; K29.01 Acute gastritis with bleeding; K29.51 Unspecified chronic gastritis with bleeding; D62 Acute posthemorrhagic anemia; Z68.1 Body mass index [BMI] 19.9 or less, adult; B02.7 Disseminated zoster; D84.821 Immunodeficiency due to drugs; B01.9 Varicella without complication; C79.51 Secondary malignant neoplasm of bone; C79.81 Secondary malignant neoplasm of breast; N18.9 Chronic kidney disease, unspecified; G96.198 Other disorders of meninges, not elsewhere classified; R63.4 Abnormal weight loss; Z79.60 Long term (current) use of unspecified immunomodulators and immunosuppressants; R11.0 Nausea; Z79.01 Long term (current) use of anticoagulants; C50.912 Malignant neoplasm of unspecified site of left female breast; K21.9 Gastro-esophageal reflux disease without esophagitis; H92.02 Otalgia, left ear; Z86.718 Personal history of other venous thrombosis and embolism
CPT/HCPCS: 00731; 36415; 36430; 43235; 71046; 80048; 80076; 81001; 82533; 83605; 83735; 83880; 84484; 85018; 85025; 86140; 86850; 86900; 86901; 86922; 87040; 87081; 87086; 87631; 93005; 94761; 97110; 97116; 97162; 97166; 97530; 97535; 99140; 99284; 99285; A9153; A9270; J0834; J1642; J2405; J2470; J2543; J2704; J3370; J3490; J7030; J7050; J7120; P9016

== ENCOUNTER 2025-01-01 09:50 | Outpatient (RCR) | payer OTHER, SELFPAY ==
[2024-07-05 15:15] LABS: Basophils Percent Auto 0.6 % (0.0-3.0); Eosinophils Percent Auto 0.6 % (0.0-7.0); Hematocrit 28.1 % (33.0-51.0); Hemoglobin* 9.2 gm/dL (12.0-16.0); Immature Granulocytes Pct Auto 1.1 %; Lymphocytes Percent Auto 10.8 % (20-44); Mean Corpuscular HGB Conc 33 gm/dL (32-36); Mean Corpuscular Hemoglobin 33 pg (26-34); Mean Corpuscular Volume 101 fL (80-100); Monocytes Percent Auto 23.1 % (0.0-11.0); Neutrophils Percent Auto 63.8 % (42.0-72.0); Platelet Count* 172 K/uL (140-440); RDW Coefficient of Variation % 16.4 % (11.5-15.5); Red Blood Count 2.78 m/uL (4.00-5.20); White Blood Count* 3.51 K/uL (4.50-11.00)
[2024-07-05 15:30] LABS: Albumin* 3.9 g/dL (3.3-5.0); Chloride* 105 mmol/L (96-114); Potassium* 3.7 mmol/L (3.6-5.1); Sodium* 135 mmol/L (135-149)
[2024-07-05 15:32] LABS: Creatinine* 0.7 mg/dL (0.5-1.5); Estimated Glomerular Filt Rate 98 ml/min
[2024-07-05 15:33] LABS: Alanine Aminotransferase* 10 U/L (4-35); Alkaline Phosphatase* 63 U/L (40-150); Anion Gap 6 mEq/L (7-15); Aspartate Amino Transferase* 24 U/L (12-35); Bilirubin Total* 0.6 mg/dL (0.1-1.5); Blood Urea Nitrogen* 6 mg/dL (7-30); Calcium* 9.3 mg/dL (8.4-10.6); Carbon Dioxide* 24 mmol/L (20-32); Glucose* 114 mg/dL (60-115); Magnesium* 1.9 mg/dL (1.5-2.6); Total Protein* 6.4 g/dL (6.0-8.3)
[2024-07-05 15:59] LABS: Slide Review Reflex No
[2024-07-07 08:04] VITALS: BP 106/70; PULSE 92; RESP 18; TEMP 36.4; O2SAT 99
[2024-07-07] MEDS: ACETAMINOPHEN 325 MG TABLET 650 MG PO (08:21)
--- NOTE | 2024-07-07 08:25 | ONC.NURNOTE ---
I met with patient in the [facility]. We discussed side effects of her new Sacituzumab chemotherapy regimen, with emphasis on diarrhea and myelosuppression. We also reviewed management of both. Patient denies any questions or concerns. Consent obtained.
[2024-07-07] MEDS: FAMOTIDINE 20 MG, diphenhydrAMINE 50 MG in 0.9 % SODIUM CHLORIDE 100 ml 100 ML 412 MG IVPB (08:36)
[2024-07-07] MEDS: PALONOSETRON 0.25 MG/5 ML inj IV (09:04)
[2024-07-07] MEDS: dexAMETHasone 12 MG in 0.9 % SODIUM CHLORIDE 100 ml 100 ML 404.8 MG IVPB (09:04)
[2024-07-07] MEDS: FOSAPREPITANT 150 MG inj 150 MG in 0.9 % SODIUM CHLORIDE 250 ml 250 ML 700 MG IVPB (09:25)
[2024-07-07] MEDS: SODIUM CHLORIDE 0.9 % (FLUSH) 10 ML SYRINGE IVF ×2 (10:13→13:40)
[2024-07-07] MEDS: 0.9 % SODIUM CHLORIDE 250 ml IV (10:13)
[2024-07-07] MEDS: HEPARIN 500 UNIT/5 ML SYRINGE IVF (13:40)
--- NOTE | 2024-07-10 15:18 | ONC.NURNOTE ---
Addendum entered by Carolyn Hamm 07/10/24 15:32: Patient returned call. States she is doing really good. [place] a little tired the day after but otherwise denies any side effects. Confirmed plan for labs 07/12 after work. Patient verbalizes understanding. Original Note: Message left for patient to see how she is tolerating her new chemotherapy. Requested return call with an update.
[2024-07-12 15:10] LABS: Basophils Percent Auto 0.4 % (0.0-3.0); Eosinophils Percent Auto 3.4 % (0.0-7.0); Hematocrit 27.8 % (33.0-51.0); Hemoglobin* 9.3 gm/dL (12.0-16.0); Immature Granulocytes Pct Auto 0.4 %; Lymphocytes Percent Auto 10.5 % (20-44); Mean Corpuscular HGB Conc 34 gm/dL (32-36); Mean Corpuscular Hemoglobin 33 pg (26-34); Mean Corpuscular Volume 98 fL (80-100); Monocytes Percent Auto 6.3 % (0.0-11.0); Platelet Count* 155 K/uL (140-440); RDW Coefficient of Variation % 15.4 % (11.5-15.5); Red Blood Count 2.83 m/uL (4.00-5.20); White Blood Count* 2.37 K/uL (4.50-11.00)
[2024-07-12 15:21] LABS: Slide Review Reflex No
[2024-07-12 15:31] LABS: Albumin* 4.1 g/dL (3.3-5.0); Chloride* 100 mmol/L (96-114); Potassium* 3.9 mmol/L (3.6-5.1); Sodium* 132 mmol/L (135-149)
[2024-07-12 15:33] LABS: Creatinine* 0.8 mg/dL (0.5-1.5); Estimated Glomerular Filt Rate 83 ml/min
[2024-07-12 15:34] LABS: Alanine Aminotransferase* 16 U/L (4-35); Alkaline Phosphatase* 70 U/L (40-150); Anion Gap 7 mEq/L (7-15); Aspartate Amino Transferase* 23 U/L (12-35); Bilirubin Total* 0.4 mg/dL (0.1-1.5); Blood Urea Nitrogen* 9 mg/dL (7-30); Calcium* 9.4 mg/dL (8.4-10.6); Carbon Dioxide* 25 mmol/L (20-32); Glucose* 112 mg/dL (60-115); Total Protein* 6.6 g/dL (6.0-8.3)
--- NOTE | 2024-07-12 15:51 | ONC.NURNOTE ---
Pt here for assessment for C1D8 Trodelvy for 07/14. She is feeling well and is in good spirits; some tiredness after treatment on Wednesday. She was able to attend and enjoy her son's wednesday evening. Assessment documented; labs WNL and reviewed with pharmacy. Confirmed with Darryl Arnold ok to order Trodelvy. Confirmed with pt to come 07/14 @0815 for Trodelvy infusion; she verbalizes understanding.
[2024-07-14 08:01] VITALS: BP 104/70; PULSE 101; RESP 18; TEMP 36.1; O2SAT 95
[2024-07-14] MEDS: ACETAMINOPHEN 325 MG TABLET 650 MG PO (08:24)
[2024-07-14] MEDS: FAMOTIDINE 20 MG, diphenhydrAMINE 25 MG in 0.9 % SODIUM CHLORIDE 100 ml 100 ML 309 MG IVPB (08:37)
[2024-07-14] MEDS: dexAMETHasone 12 MG in 0.9 % SODIUM CHLORIDE 100 ml 100 ML 405 MG IVPB (09:09)
[2024-07-14] MEDS: FOSAPREPITANT 150 MG inj 150 MG in 0.9 % SODIUM CHLORIDE 250 ml 250 ML 510 MG IVPB (09:29)
[2024-07-14] MEDS: PALONOSETRON 0.25 MG/5 ML inj IV (09:29)
[2024-07-14] MEDS: 0.9 % SODIUM CHLORIDE 250 ml IV (10:20)
[2024-07-14] MEDS: PEGFILGRASTIM-CBQV (ONBODY) 6 MG/0.6 ML SUBCUT (12:53)
[2024-07-14] MEDS: SODIUM CHLORIDE 0.9 % (FLUSH) 10 ML SYRINGE IVF (13:24)
[2024-07-14] MEDS: HEPARIN 500 UNIT/5 ML SYRINGE IVF (13:24)
[2024-07-25] MEDS: HEPARIN 500 UNIT/5 ML SYRINGE IVF (15:00)
[2024-07-25] MEDS: SODIUM CHLORIDE 0.9 % (FLUSH) 10 ML SYRINGE IVF (15:00)
[2024-07-25 15:09] LABS: Basophils Absolute Auto 0.02 K/uL (0.00-0.30); Basophils Percent Auto 0.3 % (0.0-3.0); Eosinophils Absolute Auto 0.02 K/uL (0.00-0.50); Eosinophils Percent Auto 0.3 % (0.0-7.0); Hematocrit 27.1 % (33.0-51.0); Hemoglobin* 8.8 gm/dL (12.0-16.0); Immature Granulocytes Abs Auto 0.38 K/uL (0.00-0.30); Lymphocytes Percent Auto 7.8 % (20-44); Mean Corpuscular HGB Conc 33 gm/dL (32-36); Mean Corpuscular Hemoglobin 33 pg (26-34); Mean Corpuscular Volume 101 fL (80-100); Neutrophils Percent Auto 73.6 % (42.0-72.0); Platelet Count* 135 K/uL (140-440); RDW Coefficient of Variation % 16.7 % (11.5-15.5); Red Blood Count 2.69 m/uL (4.00-5.20); White Blood Count* 7.56 K/uL (4.50-11.00)
[2024-07-25 15:20] LABS: Slide Review Reflex Yes
[2024-07-25 15:26] LABS: Albumin* 4.1 g/dL (3.3-5.0); Chloride* 99 mmol/L (96-114); Sodium* 130 mmol/L (135-149)
[2024-07-25 15:29] LABS: Alkaline Phosphatase* 83 U/L (40-150); Anion Gap 6 mEq/L (7-15); Aspartate Amino Transferase* 23 U/L (12-35); Bilirubin Total* 0.4 mg/dL (0.1-1.5); Blood Urea Nitrogen* 8 mg/dL (7-30); Carbon Dioxide* 25 mmol/L (20-32); Creatinine* 0.9 mg/dL (0.5-1.5); Estimated Glomerular Filt Rate 72 ml/min; Total Protein* 6.3 g/dL (6.0-8.3)
[2024-07-25 15:30] LABS: Alanine Aminotransferase* 14 U/L (4-35); Calcium* 9.8 mg/dL (8.4-10.6); Glucose* 131 mg/dL (60-115); Magnesium* 2.1 mg/dL (1.5-2.6)
[2024-07-25 16:01] LABS: Slide Review Acceptable Review (Acceptable)
[2024-07-28 08:18] VITALS: BP 90/63; PULSE 98; RESP 16; TEMP 36.6; O2SAT 100
[2024-07-28] MEDS: 0.9 % SODIUM CHLORIDE 1000 ml 1,000 ML IV (08:30)
[2024-07-28] MEDS: PALONOSETRON 0.25 MG/5 ML inj IV (09:18)
[2024-07-28] MEDS: ACETAMINOPHEN 325 MG TABLET 650 MG PO (09:18)
[2024-07-28] MEDS: FAMOTIDINE 20 MG, diphenhydrAMINE 25 MG in 0.9 % SODIUM CHLORIDE 100 ml 100 ML 309 MG IVPB (09:19)
--- NOTE | 2024-07-28 09:35 | ONC.NURNOTE ---
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 potassium refill also sent in. diving supervisor will see Carolyn at 11am. asstment wnl except oriana on arrival. states she was cold. cleared once given warm blankets and heated recliner. is using boost at home. states needs to doctor it up. like ice cream or smoothy.
[2024-07-28] MEDS: dexAMETHasone 12 MG in 0.9 % SODIUM CHLORIDE 100 ml 100 ML 404.8 MG IVPB (09:54)
[2024-07-28] MEDS: FOSAPREPITANT 150 MG inj 150 MG in 0.9 % SODIUM CHLORIDE 250 ml 250 ML 510 MG IVPB (10:46)
[2024-07-28 11:23] VITALS: BMI 19.3
--- NOTE | 2024-07-28 14:22 | ONC.NURNOTE ---
Stayed 1/2 hr after treatment ashly well.
[2024-08-02 15:22] LABS: Basophils Percent Auto 0.5 % (0.0-3.0); Hematocrit 22.8 % (33.0-51.0); Lymphocytes Percent Auto 18.3 % (20-44); Mean Corpuscular HGB Conc 32 gm/dL (32-36); Mean Corpuscular Hemoglobin 33 pg (26-34); Mean Corpuscular Volume 103 fL (80-100); Monocytes Percent Auto 12.5 % (0.0-11.0); Neutrophils Percent Auto 67.7 % (42.0-72.0); Platelet Count* 127 K/uL (140-440); Red Blood Count 2.21 m/uL (4.00-5.20); White Blood Count* 2.08 K/uL (4.50-11.00)
[2024-08-02 15:27] LABS: Hemoglobin* 7.3 gm/dL (12.0-16.0); Slide Review Reflex No
[2024-08-02 15:44] LABS: Albumin* 3.8 g/dL (3.3-5.0); Chloride* 102 mmol/L (96-114); Potassium* 3.8 mmol/L (3.6-5.1); Sodium* 131 mmol/L (135-149)
[2024-08-02 15:46] LABS: Anion Gap 6 mEq/L (7-15); Bilirubin Total* 0.6 mg/dL (0.1-1.5); Carbon Dioxide* 23 mmol/L (20-32); Creatinine* 0.8 mg/dL (0.5-1.5); Est. Creatinine Clearance* 43.15; Estimated Glomerular Filt Rate 83 ml/min
[2024-08-02 15:47] LABS: Alanine Aminotransferase* 23 U/L (4-35); Alkaline Phosphatase* 76 U/L (40-150); Aspartate Amino Transferase* 24 U/L (12-35); Blood Urea Nitrogen* 12 mg/dL (7-30); Calcium* 9.3 mg/dL (8.4-10.6); Glucose* 107 mg/dL (60-115); Total Protein* 6.1 g/dL (6.0-8.3)
--- NOTE | 2024-08-02 16:12 | ONC.NURNOTE ---
Addendum entered by Nelli Golden RN 08/03/24 10:17: Trodelvy is delayed and won't arrive until the afternoon. LMOM for patient to come in for type and cross tonight, so that all can still be administered on Wednesday. If patient unable to come in today for T&C by 1600, nursing can send ordes to Lab. Original Note: Pt here for labs/assessment prior to C2D8 Trodelvy 08/04. Pt feeling well overall; notes some swelling in bilateral ankle, minimal. Pt began day 1 or 3 days sodium tabs today. Hgb 7.3, otherwise labs WNL. Pt denies s/s bleeding/dark stools, etc; she is taking her Xarelto as ordered. Reviewed with Carole Renee APRN. Plan for pt to proceed with Trodelvy C2D8 on 08/04; pharmacy updated. Plan for pt to on 08/04 bring stool sample for GUIAC testing and draw Type & Cross. Order 1 unit of blood and give Trodelvy while blood processing. Pt verbalizes understanding of this plan. See paper chart for orders.
[2024-08-04 09:02] VITALS: BP 100/70; PULSE 99; RESP 16; TEMP 36.3; O2SAT 100
[2024-08-04 09:23] VITALS: BP 98/63; PULSE 92; RESP 16; TEMP 36.8; O2SAT 96
[2024-08-04 09:43] LABS: Fecal Occult Blood* Negative (Negative)
[2024-08-04 10:08] VITALS: BP 112/71; PULSE 84; RESP 16; TEMP 36.6; O2SAT 100
[2024-08-04 11:00] VITALS: BP 95/61; PULSE 85; RESP 16; TEMP 36.5; O2SAT 99
[2024-08-04 11:30] VITALS: BP 105/66; PULSE 84; RESP 16; TEMP 36.6; O2SAT 99
[2024-08-04] MEDS: ACETAMINOPHEN 325 MG TABLET 650 MG PO (12:03)
[2024-08-04] MEDS: FAMOTIDINE 20 MG, diphenhydrAMINE 25 MG in 0.9 % SODIUM CHLORIDE 100 ml 100 ML 309 MG IVPB (12:04)
[2024-08-04] MEDS: PALONOSETRON 0.25 MG/5 ML inj IV (12:05)
[2024-08-04 12:30] VITALS: BP 102/63; PULSE 96; RESP 16; TEMP 36.5; O2SAT 100
[2024-08-04] MEDS: dexAMETHasone 12 MG in 0.9 % SODIUM CHLORIDE 100 ml 100 ML 405 MG IVPB (12:31)
[2024-08-04] MEDS: FOSAPREPITANT 150 MG inj 150 MG in 0.9 % SODIUM CHLORIDE 250 ml 250 ML 510 MG IVPB (12:52)
[2024-08-04] MEDS: HEPARIN 500 UNIT/5 ML SYRINGE IVF (15:13)
[2024-08-04] MEDS: PEGFILGRASTIM-CBQV (ONBODY) 6 MG/0.6 ML SUBCUT (15:13)
[2024-08-04] MEDS: SODIUM CHLORIDE 0.9 % (FLUSH) 10 ML SYRINGE IVF (15:13)
--- NOTE | 2024-08-04 16:16 | ONC.NURNOTE ---
Carole aware pt did not receive atropine prior to trodelvy infusion. Pt tolerated infusion well over 1.5 hours. Pt notified after discharge, voicemail left that pt can take an imodium per Carole if she would like to proactive. Pt also given option to return to clinic to receive it if she would like. No return call.
[2024-08-16] MEDS: HEPARIN 500 UNIT/5 ML SYRINGE IVF (12:45)
[2024-08-16] MEDS: SODIUM CHLORIDE 0.9 % (FLUSH) 10 ML SYRINGE IVF (12:45)
[2024-08-16 12:52] LABS: Basophils Absolute Auto 0.02 K/uL (0.00-0.30); Basophils Percent Auto 0.2 % (0.0-3.0); Eosinophils Absolute Auto 0.01 K/uL (0.00-0.50); Eosinophils Percent Auto 0.1 % (0.0-7.0); Hematocrit 31.4 % (33.0-51.0); Immature Granulocytes Abs Auto 0.18 K/uL (0.00-0.30); Immature Granulocytes Pct Auto 2.1 %; Lymphocytes Percent Auto 8.4 % (20-44); Mean Corpuscular HGB Conc 32 gm/dL (32-36); Mean Corpuscular Hemoglobin 34 pg (26-34); Mean Corpuscular Volume 105 fL (80-100); Monocytes Percent Auto 9.8 % (0.0-11.0); Neutrophils Percent Auto 79.4 % (42.0-72.0); Platelet Count* 176 K/uL (140-440); RDW Coefficient of Variation % 16.8 % (11.5-15.5); Red Blood Count 2.98 m/uL (4.00-5.20); White Blood Count* 8.78 K/uL (4.50-11.00)
[2024-08-16 12:55] LABS: Slide Review Reflex No
[2024-08-16 13:11] LABS: Albumin* 4.1 g/dL (3.3-5.0); Chloride* 106 mmol/L (96-114)
[2024-08-16 13:12] LABS: Potassium* 4.1 mmol/L (3.6-5.1); Sodium* 135 mmol/L (135-149)
[2024-08-16 13:14] LABS: Alkaline Phosphatase* 98 U/L (40-150); Anion Gap 7 mEq/L (7-15); Aspartate Amino Transferase* 23 U/L (12-35); Bilirubin Total* 0.3 mg/dL (0.1-1.5); Blood Urea Nitrogen* 10 mg/dL (7-30); Carbon Dioxide* 22 mmol/L (20-32); Creatinine* 0.8 mg/dL (0.5-1.5); Est. Creatinine Clearance* 43.04; Estimated Glomerular Filt Rate 83 ml/min; Total Protein* 6.5 g/dL (6.0-8.3)
[2024-08-16 13:15] LABS: Alanine Aminotransferase* 16 U/L (4-35); Calcium* 9.5 mg/dL (8.4-10.6); Glucose* 84 mg/dL (60-115)
[2024-08-18 08:24] VITALS: BP 99/64; PULSE 102; RESP 18; TEMP 36.2; O2SAT 99
[2024-08-18] MEDS: ACETAMINOPHEN 325 MG TABLET 650 MG PO (09:05)
[2024-08-18] MEDS: FAMOTIDINE 20 MG, diphenhydrAMINE 25 MG in 0.9 % SODIUM CHLORIDE 100 ml 100 ML 410 MG IVPB (09:06)
[2024-08-18] MEDS: PALONOSETRON 0.25 MG/5 ML inj IV (09:26)
[2024-08-18] MEDS: dexAMETHasone 12 MG in 0.9 % SODIUM CHLORIDE 100 ml 100 ML 404.8 MG IVPB (09:26)
[2024-08-18] MEDS: FOSAPREPITANT 150 MG inj 150 MG in 0.9 % SODIUM CHLORIDE 250 ml 250 ML 510 MG IVPB (09:47)
[2024-08-18] MEDS: 0.9 % SODIUM CHLORIDE 250 ml IV (13:13)
[2024-08-18] MEDS: HEPARIN 500 UNIT/5 ML SYRINGE IVF (13:14)
[2024-08-18] MEDS: SODIUM CHLORIDE 0.9 % (FLUSH) 10 ML SYRINGE IVF (13:14)
[2024-08-23 15:37] LABS: Basophils Percent Auto 0.3 % (0.0-3.0); Eosinophils Percent Auto 0.3 % (0.0-7.0); Hematocrit 29.1 % (33.0-51.0); Hemoglobin* 9.6 gm/dL (12.0-16.0); Immature Granulocytes Pct Auto 1.1 %; Lymphocytes Percent Auto 13.1 % (20-44); Mean Corpuscular HGB Conc 33 gm/dL (32-36); Mean Corpuscular Hemoglobin 34 pg (26-34); Mean Corpuscular Volume 104 fL (80-100); Monocytes Percent Auto 7.4 % (0.0-11.0); Neutrophils Percent Auto 77.8 % (42.0-72.0); Platelet Count* 171 K/uL (140-440); RDW Coefficient of Variation % 15.7 % (11.5-15.5); Red Blood Count 2.81 m/uL (4.00-5.20); Slide Review Reflex No
[2024-08-23 15:51] LABS: Chloride* 101 mmol/L (96-114)
[2024-08-23 15:52] LABS: Sodium* 132 mmol/L (135-149)
[2024-08-23 15:54] LABS: Anion Gap 8 mEq/L (7-15); Aspartate Amino Transferase* 20 U/L (12-35); Bilirubin Total* 0.5 mg/dL (0.1-1.5); Carbon Dioxide* 23 mmol/L (20-32); Creatinine* 0.8 mg/dL (0.5-1.5); Est. Creatinine Clearance* 42.63; Estimated Glomerular Filt Rate 83 ml/min; Total Protein* 6.2 g/dL (6.0-8.3)
[2024-08-23 15:55] LABS: Alanine Aminotransferase* 17 U/L (4-35); Alkaline Phosphatase* 83 U/L (40-150); Blood Urea Nitrogen* 13 mg/dL (7-30); Calcium* 9.7 mg/dL (8.4-10.6); Glucose* 146 mg/dL (60-115)
[2024-08-25 08:47] VITALS: BP 97/65; PULSE 98; RESP 16; TEMP 36.6; O2SAT 98
[2024-08-25] MEDS: 0.9 % SODIUM CHLORIDE 250 ml IV (09:00)
[2024-08-25] MEDS: ACETAMINOPHEN 325 MG TABLET 650 MG PO (09:20)
[2024-08-25] MEDS: dexAMETHasone 12 MG in 0.9 % SODIUM CHLORIDE 100 ml 100 ML 405 MG IVPB (09:21)
[2024-08-25] MEDS: PALONOSETRON 0.25 MG/5 ML inj IV (09:21)
[2024-08-25] MEDS: FAMOTIDINE 20 MG, diphenhydrAMINE 25 MG in 0.9 % SODIUM CHLORIDE 100 ml 100 ML 309 MG IVPB (09:43)
[2024-08-25] MEDS: FOSAPREPITANT 150 MG inj 150 MG in 0.9 % SODIUM CHLORIDE 250 ml 250 ML 510 MG IVPB (10:08)
[2024-08-26 10:56] VITALS: BP 107/66; PULSE 94; RESP 18; TEMP 36.8; O2SAT 100
[2024-08-26] MEDS: PEGFILGRASTIM-CBQV (Udenyca) 6 MG/0.6 ML SUBCUT (11:03)
--- NOTE | 2024-08-26 11:09 | PC.NURSE ---
Vitally stable, denies pain. Tolerated Subq injection, left floor ambulating independently at 1107.
--- NOTE | 2024-08-30 09:32 | ONC.NURNOTE ---
Addendum entered by Chary Garcia RN 08/30/24 10:45: Called [facility] back to let them know that Carolyn is usually unable to answer her phone during work hours and she should be calling them after 3 pm today. Per [facility] they need to finalize there schedule and at this time she will need to be rescheduled to 09/14. RN left message for [facility] [employer] with an update. Original Note: RN received a call from [facility] that they have not been able to get a hold of Carolyn to do her pre screening questions for her scan on 08/31. Per [facility] if they don't here from her within the hour they will need to reschedule the scan. RN attempted to call patient and LVM that she needed to call [facility] to complete her pre screening. Updated Mechelle CARPIO.
[2024-08-31] MEDS: SODIUM CHLORIDE 0.9 % (FLUSH) 10 ML SYRINGE IVF (16:45)
[2024-08-31] MEDS: HEPARIN 500 UNIT/5 ML SYRINGE IVF (16:45)
--- NOTE | 2024-08-31 16:50 | PC.NURSE ---
Pt was in PET scanner and needed her port heparin locked after procedure. Meds per eMAR prn order. Carole Maier aware.
[2024-09-05 15:35] LABS: Basophils Percent Auto 0.2 % (0.0-3.0); Eosinophils Percent Auto 0.2 % (0.0-7.0); Hematocrit 29.9 % (33.0-51.0); Hemoglobin* 9.8 gm/dL (12.0-16.0); Lymphocytes Percent Auto 4.7 % (20-44); Mean Corpuscular HGB Conc 33 gm/dL (32-36); Mean Corpuscular Hemoglobin 34 pg (26-34); Mean Corpuscular Volume 104 fL (80-100); Monocytes Percent Auto 6.5 % (0.0-11.0); Neutrophils Percent Auto 83.4 % (42.0-72.0); Platelet Count* 200 K/uL (140-440); RDW Coefficient of Variation % 16.6 % (11.5-15.5); Red Blood Count 2.87 m/uL (4.00-5.20); White Blood Count* 13.27 K/uL (4.50-11.00)
[2024-09-05 15:47] LABS: Chloride* 100 mmol/L (96-114)
[2024-09-05 15:48] LABS: Albumin* 4.3 g/dL (3.3-5.0); Potassium* 3.4 mmol/L (3.6-5.1); Sodium* 133 mmol/L (135-149)
[2024-09-05 15:50] LABS: Creatinine* 0.8 mg/dL (0.5-1.5); Est. Creatinine Clearance* 42.39; Estimated Glomerular Filt Rate 83 ml/min
[2024-09-05 15:51] LABS: Alanine Aminotransferase* 13 U/L (4-35); Alkaline Phosphatase* 99 U/L (40-150); Anion Gap 10 mEq/L (7-15); Aspartate Amino Transferase* 21 U/L (12-35); Bilirubin Total* 0.3 mg/dL (0.1-1.5); Blood Urea Nitrogen* 10 mg/dL (7-30); Calcium* 9.6 mg/dL (8.4-10.6); Carbon Dioxide* 23 mmol/L (20-32); Glucose* 80 mg/dL (60-115); Total Protein* 6.6 g/dL (6.0-8.3)
[2024-09-05 16:01] LABS: Slide Review Reflex Yes
[2024-09-05 16:07] LABS: Slide Review Acceptable Review (Acceptable)
[2024-09-08] MEDS: ACETAMINOPHEN 325 MG TABLET 650 MG PO (08:01)
[2024-09-08] MEDS: 0.9 % SODIUM CHLORIDE 250 ml IV (08:01)
[2024-09-08 08:03] VITALS: BP 103/67; PULSE 98; RESP 16; TEMP 36.7; O2SAT 99
[2024-09-08] MEDS: FOSAPREPITANT 150 MG inj 150 MG in 0.9 % SODIUM CHLORIDE 250 ml 250 ML 510 MG IVPB (08:55)
[2024-09-08] MEDS: PALONOSETRON 0.25 MG/5 ML inj IV (10:19)
[2024-09-08] MEDS: HEPARIN 500 UNIT/5 ML SYRINGE IVF (12:31)
[2024-09-08] MEDS: SODIUM CHLORIDE 0.9 % (FLUSH) 10 ML SYRINGE IVF (12:31)
[2024-09-15 08:12] VITALS: BP 95/64; PULSE 95; RESP 16; TEMP 37; O2SAT 100
[2024-09-15] MEDS: ACETAMINOPHEN 325 MG TABLET 650 MG PO (08:52)
[2024-09-15] MEDS: 0.9 % SODIUM CHLORIDE 250 ml IV (08:53)
[2024-09-15] MEDS: PALONOSETRON 0.25 MG/5 ML inj IV (08:54)
[2024-09-15] MEDS: FAMOTIDINE 10 MG/ML inj 20 MG IVP (08:56)
[2024-09-15] MEDS: diphenhydrAMINE 50 MG/ML inj 25 MG IVP (08:59)
[2024-09-15] MEDS: dexAMETHasone 12 MG in 0.9 % SODIUM CHLORIDE 100 ml 100 ML 405 MG IVPB (09:02)
[2024-09-15] MEDS: FOSAPREPITANT 150 MG inj 150 MG in 0.9 % SODIUM CHLORIDE 250 ml 250 ML 510 MG IVPB (09:21)
--- NOTE | 2024-09-15 11:52 | ONC.NURNOTE ---
Patient in clinic today for C4D8 Sacituzumab, patient will be due for her Udenyca injection tomorrow or Wednesday. Patient opted to come into Med/Surg on Wednesday for her injection. She will be due at 1130. Order sent over to Med/Surg and RN updated pharmacy that patient will be coming in on Sunday 09/16.
[2024-09-16 11:30] VITALS: BP 107/66; PULSE 99; RESP 18; TEMP 37.2; O2SAT 98
[2024-09-16] MEDS: PEGFILGRASTIM-CBQV (Udenyca) 6 MG/0.6 ML SUBCUT (11:31)
--- NOTE | 2024-09-16 11:41 | PC.NURSE ---
Carolyn arrives for injection today. States she has had several doses with no side effects or reactions. Declines waiting for observation and opted to discharge after injection.
--- NOTE | 2024-09-20 14:35 | ONC.NURNOTE ---
Request for pathology add-on test faxed to [facility], . Request for HER2 IHC testing to be done on her original breast cancer surgery path (4.1 cm [address] node per Dr[address] Vogt's recommendation) from 08/21/2014.
[2024-09-26 14:13] LABS: Basophils Percent Auto 0.4 % (0.0-3.0); Eosinophils Percent Auto 0.2 % (0.0-7.0); Hemoglobin* 9.9 gm/dL (12.0-16.0); Immature Granulocytes Pct Auto 2.3 %; Lymphocytes Percent Auto 5.1 % (20-44); Mean Corpuscular HGB Conc 32 gm/dL (32-36); Mean Corpuscular Hemoglobin 34 pg (26-34); Mean Corpuscular Volume 105 fL (80-100); Monocytes Percent Auto 7.1 % (0.0-11.0); Neutrophils Percent Auto 84.9 % (42.0-72.0); Platelet Count* 198 K/uL (140-440); RDW Coefficient of Variation % 16.8 % (11.5-15.5); Red Blood Count 2.95 m/uL (4.00-5.20)
[2024-09-26 14:36] LABS: Albumin* 4.1 g/dL (3.3-5.0); Chloride* 102 mmol/L (96-114); Potassium* 3.6 mmol/L (3.6-5.1); Sodium* 135 mmol/L (135-149)
[2024-09-26 14:38] LABS: Anion Gap 9 mEq/L (7-15); Bilirubin Total* 0.2 mg/dL (0.1-1.5); Carbon Dioxide* 24 mmol/L (20-32); Creatinine* 0.7 mg/dL (0.5-1.5); Est. Creatinine Clearance* 42.29; Estimated Glomerular Filt Rate 97 ml/min
[2024-09-26 14:39] LABS: Alanine Aminotransferase* 15 U/L (4-35); Alkaline Phosphatase* 101 U/L (40-150); Aspartate Amino Transferase* 17 U/L (12-35); Blood Urea Nitrogen* 7 mg/dL (7-30); Calcium* 9.7 mg/dL (8.4-10.6); Glucose* 97 mg/dL (60-115); Magnesium* 2.1 mg/dL (1.5-2.6); Total Protein* 6.3 g/dL (6.0-8.3)
[2024-09-26 14:48] LABS: Slide Review Reflex No
[2024-09-29 07:51] VITALS: BP 108/71; PULSE 93; RESP 18; TEMP 36.9; O2SAT 98
[2024-09-29] MEDS: ACETAMINOPHEN 325 MG TABLET 650 MG PO (07:59)
[2024-09-29] MEDS: SODIUM CHLORIDE 0.9 % (FLUSH) 10 ML SYRINGE IVF ×4 (08:07→11:30)
[2024-09-29] MEDS: diphenhydrAMINE 50 MG/ML inj 25 MG IVP (08:07)
[2024-09-29] MEDS: FAMOTIDINE 10 MG/ML inj 20 MG IVP (08:24)
[2024-09-29] MEDS: PALONOSETRON 0.25 MG/5 ML inj IV (08:25)
[2024-09-29] MEDS: FOSAPREPITANT 150 MG inj 150 MG in 0.9 % SODIUM CHLORIDE 250 ml 250 ML 800 MG IVPB (08:49)
[2024-09-29] MEDS: ZOLEDRONIC ACID 3.3 MG in 0.9 % SODIUM CHLORIDE 100 ml 100 ML 412 MG IVPB (09:12)
[2024-09-29] MEDS: HEPARIN 500 UNIT/5 ML SYRINGE IVF (11:20)
[2024-10-04 15:02] LABS: Basophils Absolute Auto 0.01 K/uL (0.00-0.30); Basophils Percent Auto 0.2 % (0.0-3.0); Eosinophils Absolute Auto 0.01 K/uL (0.00-0.50); Eosinophils Percent Auto 0.2 % (0.0-7.0); Hematocrit 29.4 % (33.0-51.0); Hemoglobin* 9.5 gm/dL (12.0-16.0); Immature Granulocytes Abs Auto 0.06 K/uL (0.00-0.30); Immature Granulocytes Pct Auto 1.2 %; Lymphocytes Percent Auto 10.2 % (20-44); Mean Corpuscular HGB Conc 32 gm/dL (32-36); Mean Corpuscular Hemoglobin 34 pg (26-34); Mean Corpuscular Volume 104 fL (80-100); Monocytes Percent Auto 7.8 % (0.0-11.0); Neutrophils Percent Auto 80.4 % (42.0-72.0); Platelet Count* 176 K/uL (140-440); RDW Coefficient of Variation % 15.7 % (11.5-15.5); Red Blood Count 2.82 m/uL (4.00-5.20); White Blood Count* 4.88 K/uL (4.50-11.00)
[2024-10-04 15:06] LABS: Slide Review Reflex No
[2024-10-04 15:14] LABS: Albumin* 4.2 g/dL (3.3-5.0); Chloride* 102 mmol/L (96-114); Sodium* 134 mmol/L (135-149)
[2024-10-04 15:15] LABS: Potassium* 3.4 mmol/L (3.6-5.1)
[2024-10-04 15:17] LABS: Alanine Aminotransferase* 22 U/L (4-35); Alkaline Phosphatase* 86 U/L (40-150); Anion Gap 8 mEq/L (7-15); Aspartate Amino Transferase* 21 U/L (12-35); Bilirubin Total* 0.3 mg/dL (0.1-1.5); Blood Urea Nitrogen* 14 mg/dL (7-30); Carbon Dioxide* 24 mmol/L (20-32); Creatinine* 0.7 mg/dL (0.5-1.5); Est. Creatinine Clearance* 41.91; Estimated Glomerular Filt Rate 97 ml/min; Total Protein* 6.6 g/dL (6.0-8.3)
[2024-10-04 15:18] LABS: Calcium* 9.6 mg/dL (8.4-10.6); Glucose* 92 mg/dL (60-115)
[2024-10-06 07:53] VITALS: BP 107/70; PULSE 93; RESP 18; TEMP 36.2; O2SAT 99
[2024-10-06] MEDS: ACETAMINOPHEN 325 MG TABLET 650 MG PO (08:27)
[2024-10-06] MEDS: FAMOTIDINE 10 MG/ML inj 20 MG IVP (08:28)
[2024-10-06] MEDS: PALONOSETRON 0.25 MG/5 ML inj IV (08:28)
[2024-10-06] MEDS: diphenhydrAMINE 50 MG/ML inj 25 MG IVP (08:29)
[2024-10-06] MEDS: FOSAPREPITANT 150 MG inj 150 MG in 0.9 % SODIUM CHLORIDE 250 ml 250 ML 510 MG IVPB (08:57)
[2024-10-07 10:53] VITALS: BP 106/63; PULSE 85; RESP 18; TEMP 36.5; O2SAT 100
[2024-10-07] MEDS: PEGFILGRASTIM-CBQV (Udenyca) 6 MG/0.6 ML SUBCUT (10:55)
--- NOTE | 2024-10-13 13:51 | URNOTE ---
Addendum entered by Kendra Lora RN 10/18/24 10:44: Pt carries [facility] (Neulasta) Pegfilgrastim ([id number]) has been approved 10/27/2024-04/27/2025, Ref #[id number] Original Note: Pegfilgrastim ([id number]) has been approved 10/27/2024-04/27/2024 Ref #[id number]
[2024-10-16 14:03] LABS: Basophils Percent Auto 0.1 % (0.0-3.0); Eosinophils Percent Auto 0.1 % (0.0-7.0); Hematocrit 31.7 % (33.0-51.0); Hemoglobin* 10.2 gm/dL (12.0-16.0); Immature Granulocytes Pct Auto 2.3 %; Lymphocytes Percent Auto 3.4 % (20-44); Mean Corpuscular HGB Conc 32 gm/dL (32-36); Mean Corpuscular Hemoglobin 34 pg (26-34); Mean Corpuscular Volume 105 fL (80-100); Monocytes Percent Auto 7.2 % (0.0-11.0); Neutrophils Percent Auto 86.9 % (42.0-72.0); Platelet Count* 210 K/uL (140-440); RDW Coefficient of Variation % 16.2 % (11.5-15.5); Red Blood Count 3.02 m/uL (4.00-5.20); White Blood Count* 14.96 K/uL (4.50-11.00)
[2024-10-16 14:08] LABS: Slide Review Reflex No
[2024-10-16 14:20] LABS: Albumin* 4.2 g/dL (3.3-5.0); Chloride* 107 mmol/L (96-114); Sodium* 136 mmol/L (135-149)
[2024-10-16 14:21] LABS: Potassium* 3.9 mmol/L (3.6-5.1)
[2024-10-16 14:23] LABS: Alanine Aminotransferase* 15 U/L (4-35); Alkaline Phosphatase* 110 U/L (40-150); Anion Gap 7 mEq/L (7-15); Aspartate Amino Transferase* 17 U/L (12-35); Bilirubin Total* 0.1 mg/dL (0.1-1.5); Blood Urea Nitrogen* 11 mg/dL (7-30); Calcium* 9.5 mg/dL (8.4-10.6); Carbon Dioxide* 22 mmol/L (20-32); Creatinine* 0.7 mg/dL (0.5-1.5); Est. Creatinine Clearance* 42.06; Estimated Glomerular Filt Rate 97 ml/min; Glucose* 104 mg/dL (60-115); Total Protein* 6.4 g/dL (6.0-8.3)
[2024-10-16 14:24] LABS: Magnesium* 1.9 mg/dL (1.5-2.6)
[2024-10-16] MEDS: HEPARIN 500 UNIT/5 ML SYRINGE IVF (15:02)
[2024-10-16] MEDS: SODIUM CHLORIDE 0.9 % (FLUSH) 10 ML SYRINGE IVF (15:02)
[2024-10-20 08:22] VITALS: BP 104/68; PULSE 98; RESP 18; TEMP 36.4; O2SAT 96
[2024-10-20] MEDS: ACETAMINOPHEN 325 MG TABLET 650 MG PO (08:52)
[2024-10-20] MEDS: PALONOSETRON 0.25 MG/5 ML inj IV (09:14)
[2024-10-20] MEDS: diphenhydrAMINE 50 MG/ML inj 25 MG IVP (09:16)
[2024-10-20] MEDS: FAMOTIDINE 10 MG/ML inj 20 MG IVP (09:16)
[2024-10-20] MEDS: FOSAPREPITANT 150 MG inj 150 MG in 0.9 % SODIUM CHLORIDE 250 ml 250 ML 510 MG IVPB (09:42)
[2024-10-20] MEDS: HEPARIN 500 UNIT/5 ML SYRINGE IVF (12:08)
[2024-10-20] MEDS: SODIUM CHLORIDE 0.9 % (FLUSH) 10 ML SYRINGE IVF (12:08)
[2024-10-25 15:06] LABS: Basophils Absolute Auto 0.01 K/uL (0.00-0.30); Basophils Percent Auto 0.2 % (0.0-3.0); Eosinophils Absolute Auto 0.01 K/uL (0.00-0.50); Eosinophils Percent Auto 0.2 % (0.0-7.0); Hematocrit 28.4 % (33.0-51.0); Hemoglobin* 9.3 gm/dL (12.0-16.0); Immature Granulocytes Abs Auto 0.06 K/uL (0.00-0.30); Immature Granulocytes Pct Auto 1.2 %; Lymphocytes Percent Auto 6.7 % (20-44); Mean Corpuscular HGB Conc 33 gm/dL (32-36); Mean Corpuscular Hemoglobin 34 pg (26-34); Mean Corpuscular Volume 104 fL (80-100); Monocytes Percent Auto 7.4 % (0.0-11.0); Neutrophils Percent Auto 84.3 % (42.0-72.0); Platelet Count* 155 K/uL (140-440); RDW Coefficient of Variation % 15.8 % (11.5-15.5); Red Blood Count 2.73 m/uL (4.00-5.20); White Blood Count* 5.11 K/uL (4.50-11.00)
[2024-10-25 15:10] LABS: Slide Review Reflex No
[2024-10-25 15:21] LABS: Albumin* 4.1 g/dL (3.3-5.0); Chloride* 106 mmol/L (96-114); Sodium* 136 mmol/L (135-149)
[2024-10-25 15:22] LABS: Potassium* 4.1 mmol/L (3.6-5.1)
[2024-10-25 15:24] LABS: Alkaline Phosphatase* 90 U/L (40-150); Anion Gap 7 mEq/L (7-15); Aspartate Amino Transferase* 20 U/L (12-35); Bilirubin Total* 0.3 mg/dL (0.1-1.5); Blood Urea Nitrogen* 13 mg/dL (7-30); Carbon Dioxide* 23 mmol/L (20-32); Total Protein* 6.2 g/dL (6.0-8.3)
[2024-10-25 15:25] LABS: Alanine Aminotransferase* 19 U/L (4-35); Calcium* 9.7 mg/dL (8.4-10.6); Glucose* 93 mg/dL (60-115)
[2024-10-25 15:46] LABS: Creatinine* 0.7 mg/dL (0.5-1.5); Est. Creatinine Clearance* 40.82; Estimated Glomerular Filt Rate 97 ml/min
[2024-10-27 08:28] VITALS: BP 109/73; PULSE 93; RESP 16; TEMP 36.9; O2SAT 100
[2024-10-27] MEDS: SODIUM CHLORIDE 0.9 % (FLUSH) 10 ML SYRINGE IVF ×2 (08:49→12:01)
[2024-10-27] MEDS: diphenhydrAMINE 25 MG CAPSULE PO (08:55)
[2024-10-27] MEDS: ACETAMINOPHEN 325 MG TABLET 650 MG PO (08:56)
[2024-10-27] MEDS: 0.9 % SODIUM CHLORIDE 500 ML IV (08:56)
[2024-10-27] MEDS: FAMOTIDINE 20 MG TABLET PO (09:02)
[2024-10-27] MEDS: PALONOSETRON 0.25 MG/5 ML inj IV (09:04)
[2024-10-27] MEDS: dexAMETHasone 12 MG in 0.9 % SODIUM CHLORIDE 100 ml 100 ML 400 MG IVPB (09:23)
[2024-10-27] MEDS: FOSAPREPITANT 150 MG inj 150 MG in 0.9 % SODIUM CHLORIDE 250 ml 250 ML 510 MG IVPB (09:43)
[2024-10-27] MEDS: HEPARIN 500 UNIT/5 ML SYRINGE IVF (12:01)
[2024-11-02] MEDS: SODIUM CHLORIDE 0.9 % (FLUSH) 10 ML SYRINGE IVF (15:41)
[2024-11-02] MEDS: HEPARIN 500 UNIT/5 ML SYRINGE IVF (15:41)
[2024-11-03] MEDS: SODIUM CHLORIDE 0.9 % (FLUSH) 10 ML SYRINGE IVF (10:08)
[2024-11-03] MEDS: HEPARIN 500 UNIT/5 ML SYRINGE IVF (10:08)
[2024-11-06] MEDS: SODIUM CHLORIDE 0.9 % (FLUSH) 10 ML SYRINGE IVF (13:55)
[2024-11-06] MEDS: HEPARIN 500 UNIT/5 ML SYRINGE IVF (13:55)
[2024-11-06 14:48] LABS: Albumin* 3.8 g/dL (3.3-5.0); Chloride* 106 mmol/L (96-114); Potassium* 3.7 mmol/L (3.6-5.1); Sodium* 135 mmol/L (135-149)
[2024-11-06 14:49] LABS: Basophils Percent Auto 0.2 % (0.0-3.0); Eosinophils Percent Auto 0.1 % (0.0-7.0); Hematocrit 30.6 % (33.0-51.0); Hemoglobin* 9.9 gm/dL (12.0-16.0); Immature Granulocytes Pct Auto 2.4 %; Lymphocytes Percent Auto 2.8 % (20-44); Mean Corpuscular HGB Conc 32 gm/dL (32-36); Mean Corpuscular Hemoglobin 34 pg (26-34); Mean Corpuscular Volume 106 fL (80-100); Neutrophils Percent Auto 87.5 % (42.0-72.0); Platelet Count* 207 K/uL (140-440); RDW Coefficient of Variation % 16.5 % (11.5-15.5); Red Blood Count 2.89 m/uL (4.00-5.20)
[2024-11-06 14:50] LABS: Creatinine* 0.7 mg/dL (0.5-1.5); Est. Creatinine Clearance* 41.65; Estimated Glomerular Filt Rate 97 ml/min
[2024-11-06 14:51] LABS: Alanine Aminotransferase* 17 U/L (4-35); Alkaline Phosphatase* 130 U/L (40-150); Anion Gap 8 mEq/L (7-15); Aspartate Amino Transferase* 19 U/L (12-35); Bilirubin Total* 0.2 mg/dL (0.1-1.5); Blood Urea Nitrogen* 12 mg/dL (7-30); Carbon Dioxide* 21 mmol/L (20-32); Glucose* 115 mg/dL (60-115); Total Protein* 6.1 g/dL (6.0-8.3)
[2024-11-06 14:52] LABS: Calcium* 8.9 mg/dL (8.4-10.6)
[2024-11-06 15:07] LABS: Slide Review Reflex No
[2024-11-10 08:11] VITALS: BP 92/58; PULSE 104; RESP 16; TEMP 36.8; O2SAT 98
[2024-11-10] MEDS: FAMOTIDINE 20 MG TABLET PO (08:27)
[2024-11-10] MEDS: diphenhydrAMINE 25 MG CAPSULE PO (08:28)
[2024-11-10] MEDS: ACETAMINOPHEN 325 MG TABLET 650 MG PO (08:28)
[2024-11-10] MEDS: SODIUM CHLORIDE 0.9 % (FLUSH) 10 ML SYRINGE IVF ×2 (08:32→11:20)
[2024-11-10] MEDS: PALONOSETRON 0.25 MG/5 ML inj IV (08:34)
[2024-11-10] MEDS: dexAMETHasone 12 MG in 0.9 % SODIUM CHLORIDE 100 ml 100 ML 402 MG IVPB (08:35)
[2024-11-10] MEDS: FOSAPREPITANT 150 MG inj 150 MG in 0.9 % SODIUM CHLORIDE 250 ml 250 ML 510 MG IVPB (08:54)
--- NOTE | 2024-11-10 10:32 | ONC.NURNOTE ---
Per Darryl in Pharmacy, ok to do labs and Trodelvy infusion same day on 11/17/24.
[2024-11-10] MEDS: HEPARIN 500 UNIT/5 ML SYRINGE IVF (11:20)
[2024-11-17 07:58] VITALS: BP 101/66; PULSE 104; RESP 16; TEMP 36.4; O2SAT 100
[2024-11-17 08:12] LABS: Basophils Percent Auto 0.4 % (0.0-3.0); Eosinophils Percent Auto 0.9 % (0.0-7.0); Hematocrit 30.7 % (33.0-51.0); Immature Granulocytes Pct Auto 0.9 %; Lymphocytes Percent Auto 13.3 % (20-44); Mean Corpuscular HGB Conc 33 gm/dL (32-36); Mean Corpuscular Hemoglobin 34 pg (26-34); Mean Corpuscular Volume 104 fL (80-100); Monocytes Percent Auto 16.9 % (0.0-11.0); Neutrophils Percent Auto 67.6 % (42.0-72.0); Platelet Count* 175 K/uL (140-440); RDW Coefficient of Variation % 15.7 % (11.5-15.5); Red Blood Count 2.96 m/uL (4.00-5.20); White Blood Count* 2.25 K/uL (4.50-11.00)
[2024-11-17 08:17] LABS: Slide Review Reflex No
[2024-11-17 08:27] LABS: Albumin* 3.8 g/dL (3.3-5.0); Chloride* 105 mmol/L (96-114); Potassium* 3.6 mmol/L (3.6-5.1); Sodium* 135 mmol/L (135-149)
[2024-11-17 08:29] LABS: Creatinine* 0.6 mg/dL (0.5-1.5); Estimated Glomerular Filt Rate 101 ml/min
[2024-11-17 08:30] LABS: Alanine Aminotransferase* 27 U/L (4-35); Alkaline Phosphatase* 81 U/L (40-150); Anion Gap 5 mEq/L (7-15); Aspartate Amino Transferase* 18 U/L (12-35); Bilirubin Total* 0.3 mg/dL (0.1-1.5); Blood Urea Nitrogen* 11 mg/dL (7-30); Carbon Dioxide* 25 mmol/L (20-32); Glucose* 143 mg/dL (60-115); Total Protein* 5.9 g/dL (6.0-8.3)
[2024-11-17 08:31] LABS: Calcium* 9.7 mg/dL (8.4-10.6)
[2024-11-17] MEDS: diphenhydrAMINE 25 MG CAPSULE PO (09:02)
[2024-11-17] MEDS: ACETAMINOPHEN 325 MG TABLET 650 MG PO (09:03)
[2024-11-17] MEDS: dexAMETHasone 12 MG in 0.9 % SODIUM CHLORIDE 100 ml 100 ML 400 MG IVPB (09:09)
[2024-11-17] MEDS: FAMOTIDINE 20 MG TABLET PO (09:09)
[2024-11-17] MEDS: PALONOSETRON 0.25 MG/5 ML inj IV (09:10)
[2024-11-17] MEDS: FOSAPREPITANT 150 MG inj 150 MG in 0.9 % SODIUM CHLORIDE 250 ml 250 ML 510 MG IVPB (09:31)
[2024-11-17] MEDS: HEPARIN 500 UNIT/5 ML SYRINGE IVF (12:09)
[2024-11-17] MEDS: SODIUM CHLORIDE 0.9 % (FLUSH) 10 ML SYRINGE IVF (12:10)
[2024-11-17] MEDS: 0.9 % SODIUM CHLORIDE 500 ML IV (12:10)
--- OUTSIDE RECORDS SUMMARY | 2024-11-23 07:06 | XMS_ITS | Continuity of Care Document ---
Author Name NwHIN User [place]-a llowed Address Unknown Organization Unknown Address Unknown Procedures FILTER APPLIED:Only known Procedures with Onset Date within the last 5 years Procedure Date Procedure Provider Additiona l Information Status CHEMO IV INFUSION 1 HR (74211) Completed TX/PRO/DX INJ SAME DRUG STOPPER SETTER (91880) Completed MRI BRAIN STEM W/O W/DYE (02098) Completed MRI NECK SPINE W/O W/DYE (61795) Completed OFFICE O/P EST SF 10 MIN (31511) Completed MRI CHEST SPINE W/O W/DYE (97683) Completed MRI LUMBAR SPINE W/O W/DYE (48837) Completed OFFICE O/P EST HI 40 MIN (24667) Completed OFFICE O/P EST LOW 20 MIN (18412) Completed PET IMAGE W/CT SKULL-THIGH (40477) Completed ASSAY OF SERUM POTASSIUM (16881) Completed THER/PROPH/DIAG INJ IV PUSH (93066) Completed COMPLETE CBC W/AUTO DIFF WBC (84765) Completed DRAW BLOOD OFF VENOUS DEVICE (75366) Completed COMPREHEN METABOLIC PANEL (99139) Completed ASSAY OF SERUM POTASSIUM (54692) Completed OFFICE O/P EST SF 10 MIN (49159) Completed PET IMAGE W/CT SKULL-THIGH (76396) Completed OFFICE O/P EST LOW 20 MIN (56838) Completed OFFICE O/P EST MOD 30 MIN (13337) Completed THER/PROPH/DIAG INJ IV PUSH (35632) Completed ROUTINE VENIPUNCTURE (40459) Completed DRAW BLOOD OFF VENOUS DEVICE (23050) Completed COMPREHEN METABOLIC PANEL (45614) Completed COMPLETE CBC W/AUTO DIFF WBC (05499) Completed IMMUNOASSAY TUMOR CA 15-3 (30318) Completed Encounters FILTER APPLIED:Only known Encounters with Admission Date within the last 5 years Encounter Location Admission Discharge Billing Code Electrical And Instrument Engineer [facility] Out[facility]ha forrest
--- OUTSIDE RECORDS SUMMARY | 2024-11-23 07:06 | XMS_ITS ---
Author Organization [facility] Address [address] [place] [address] Care Team Providers Care Upper Lining Cementer Name Role Phone Unavailable Unavailable Unavailable Surgery Details Not on file Complications Check Surgery Details section. Procedure Estimated Blood Loss Check Surgery Details section. Procedure Findings Check Surgery Details section. Procedure Specimens Taken Check Surgery Details section.
--- OUTSIDE RECORDS SUMMARY | 2024-11-23 07:06 | XMS_ITS | Referral Summary ---
Author Organization [facility] Address [address] [place] [address] Care Team Providers Care Inspector Floor Sub Assembly Name Role Phone Unavailable Primary Care Provider Unavailabl e Source Comments Patient records contain information from all sites at [facility]. For routine questions regarding patient records, call [phone] during business hours, M-F 8:00 AM - 5:00 PM Central Time. Record requests for emergency care only can be directed to [phone] at any time.[facility] Encounters Date Type Department Care Team Description 10/13/2024 Documentation Department of Radiation Oncology in [address] [address] Yahaira Beltrán M.D. 10/13/2024 2:36 PM POUNCING LATHE OPERATOR - 10/13/2024 11:59 PM POUNCING LATHE OPERATOR Hospital Encounter Department of Radiation Oncology in [address] [address] Yahaira Beltrán M.D. Discharge Disposition: Home or Self Care 10/12/2024 2:41 PM POUNCING LATHE OPERATOR - 10/12/2024 11:59 PM POUNCING LATHE OPERATOR Hospital Encounter Department of Radiation Oncology in [address] [address] Yahaira Beltrán M.D. Discharge Disposition: Home or Self Care 10/11/2024 2:20 PM POUNCING LATHE OPERATOR - 10/11/2024 4:26 PM POUNCING LATHE OPERATOR Hospital Encounter Department of Radiation Oncology in [address] [address] Yahaira Beltrán M.D. Secondary Malignant Neoplasm Bone (HCC); Malignant Neoplasm Of Breast Female Left (HCC) 10/11/2024 2:20 PM POUNCING LATHE OPERATOR - 10/11/2024 11:59 PM POUNCING LATHE OPERATOR Hospital Encounter Department of Radiation Oncology in [address] [address] Yahaira Beltrán M.D. Discharge Disposition: Home or Self Care 10/10/2024 2:51 PM POUNCING LATHE OPERATOR - 10/10/2024 11:59 PM POUNCING LATHE OPERATOR Hospital Encounter Department of Radiation Oncology in [address] [phone] Yahaira Beltrán M.D. Discharge Disposition: Home or Self Care 10/09/2024 2:41 PM POUNCING LATHE OPERATOR - 10/09/2024 11:59 PM POUNCING LATHE OPERATOR Hospital Encounter Department of Radiation Oncology in [address] [address] Yahaira Beltrán M.D. Discharge Disposition: Home or Self Care 09/26/2024 2:49 PM POUNCING LATHE OPERATOR - 09/26/2024 4:03 PM POUNCING LATHE OPERATOR Hospital Encounter Department of Radiation Oncology in [address] [address] Yahaira Beltrán M.D. Secondary Malignant Neoplasm Bone (HCC); Malignant Neoplasm Of Breast Female Left (HCC) 09/26/2024 2:12 PM POUNCING LATHE OPERATOR - 09/26/2024 2:48 PM POUNCING LATHE OPERATOR Hospital Encounter Department of Radiation Oncology in [address] [address] Yahaira Beltrán M.D. Secondary Malignant Neoplasm Bone (HCC) (Primary Dx); Malignant Neoplasm Of Breast Female Left (HCC) 09/22/2024 Orders Only Department of Radiation Oncology in [address] [phone] Debbie Claudio APRN, C.N.P., D.N.PYaya Secondary Malignant Neoplasm Bone (HCC) (Primary Dx); Malignant Neoplasm Of Breast Female Left (HCC) from Last 3 Months Allergies Active Allergy Reactions Criticality Noted Date Comments Venom-Honey Bee Anaphylaxis High 02/18/2015 Medications diphenhydrAMINE- nfiw-zhfm-vyd hydrox-simeth (FIRST-MOUTHWASH BLM) [phone] 0 mg/30 mL suspensionIndica tions:Esophagiti s Unspecified Without Bleeding Swish and swallow 15 mL 4 (four) times a day with meals and bedtime. Benadryl:Lidoca ine 2% Viscous:Maalox Maxiumum Strength 1:1:1. 480 mL 2 4 Active Additional Information Patient not taking.Reported on 09/26/2024 albuterol 90 mcg/actuation inhaler Inhale 1-2 puffs every 4 (four) hours as needed. 3 Active cholecalciferol (Vitamin D3) 50 mcg (2,000 Unit) capsule daily. Active loratadine (Claritin) 10 mg tablet daily. Active multivitamin tablet Take 1 tablet by mouth daily. 5 Active potassium chloride (Klor-Con M) 20 mEq ER tablet Take 20 mEq by mouth 2 (two) times a day. Active Xarelto 10 mg tablet Take 10 mg by mouth. 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 No 04/06/2024 Exercise Vital Sign Answer Date Recorde d On average, how many days pe r week do you engage in moderate to strenuous exercise (like a brisk walk)? 2 days 04/06/2024 On average, how many minutes do you engage in exercise at this level? 20 min 04/06/2024 Hunger Vital Sign Answer Date Recorded Within the past 12 months, y ou worried that your food would run out before you got the money to buy more. Never true 04/06/20 Within the past 12 months, t he food you bought just didn't last and you didn't have money to get more. Never true 04/06/2024 PRAPARE - Transportation Answer Date Re corded In the past 12 months, has l ack of transportation kept you from medical appointments or from getting medications? No 03/22 In the past 12 months, has l ack of transportation kept you from meetings, work, or from getting things needed for daily living? No 04/06/2024 Nutrition Answer Date Recorded On average, how many serving s of fruits and vegetables do you eat per day (serving size is equal to 1 cup or approximately the size of a tennis ball)? 3-5 04/06/2024 Dental Answer Date Recorded Dental: Regular Dentist Yes 04/06/20 Employment Answer Date Recorded Employment status Employed and actively working without restrictions 04/06/2024 Housing Stability Answer Date Recorded What is your living situation today? I have a [facility] place to live 04/06/2024 Comments Unknown Sex and Gender Information Value Date Recorded Sex Assigned at Female 04/06/2024 7:27 PM CDT Legal Sex Female 1:30 AM POUNCING LATHE OPERATOR Gender Identity Female 04/06/2024 7:27 PM CDT Sexual Orientation Straight 04/06/2024 7: 27 PM CDT Last Filed Vital Signs Vital Sign Reading Time Taken Comments Blood Pressure 113/59 10/11/2024 2:47 PM POUNCING LATHE OPERATOR Pulse 97 10/11/2024 2:47 PM POUNCING LATHE OPERATOR Temperature 36.3 C (97.4 F) 10/11/2024 2:47 PM POUNCING LATHE OPERATOR Respiratory Rate - - Oxygen Saturation - - Inhaled Oxygen Concentration - - Weight 45.4 kg (100 lb 1.4 oz) 10/11/2024 2:47 PM POUNCING LATHE OPERATOR Height 157 cm (5' 1.81) 02/18/2015 3:5 2 PM CDT Vital sign result from Clinical Notes. Body Mass Index 18.42 02/18/2015 3:52 PM CDT Plan of Treatment Not on file Procedures Procedure Name Priority Date/Time Associated Diagnosis Comments OUTSIDE MR NEURO Routine 11/03/2024 7:50 AM POUNCING LATHE OPERATOR OUTSIDE MR NEURO Routine 11/03/2024 7:45 AM POUNCING LATHE OPERATOR OUTSIDE MR NEURO Routine 11/03/2024 7:40 AM POUNCING LATHE OPERATOR OUTSIDE MR NEURO Routine 11/03/2024 7:35 AM POUNCING LATHE OPERATOR ARIA COURSE COMPLETE TREATMENT INFORMATION Routine 10/13/2024 2:49 PM POUNCING LATHE OPERATOR ARIA DAILY TREATMENT INFORMATION Routine 10/13/2024 2:49 PM POUNCING LATHE OPERATOR ARIA DAILY TREATMENT INFORMATION Routine 10/12/2024 2:59 PM POUNCING LATHE OPERATOR ARIA DAILY TREATMENT INFORMATION Routine 10/11/2024 2:42 PM POUNCING LATHE OPERATOR ARIA DAILY TREATMENT INFORMATION Routine 10/10/2024 3:08 PM POUNCING LATHE OPERATOR ARIA DAILY TREATMENT INFORMATION Routine 10/09/2024 3:17 PM POUNCING LATHE OPERATOR INITIAL RAD ONC TREATMENT PLANNING CT SIMULATION Routine 09/26/2024 3:00 PM POUNCING LATHE OPERATOR Secondary Malignant Neoplasm Bone (HCC) Malignant Neoplasm Of Breast Female Left (HCC) OUTSIDE DX SKELETAL Routine 09/08/2024 1 2:50 PM CDT OUTSIDE DX SKELETAL Routine 09/08/2024 1 2:45 PM CDT OUTSIDE MR NEURO Routine 09/01/2024 8:25 AM CDT OUTSIDE MR NEURO Routine 09/01/2024 8:20 AM CDT OUTSIDE MR NEURO Routine 09/01/2024 8:15 AM CDT OUTSIDE MR NEURO Routine 09/01/2024 8:10 AM CDT OUTSIDE NM PET Routine 08/31/2024 5:10 PM CDT OUTSIDE MG MAMMOGRAM Routine 07/10/2014 8:18 AM CDT from Last 3 Months or Most Recently Relevant to Health Maintenance Results * MR head/brain wo/w con-Outside MR Neuro (11/03/2024 7:50 AM POUNCING LATHE OPERATOR) Only the most recent of8 resultswithin the time period is included. Narrative [facility] - 11/17/2024 10:14 AM POUNCING LATHE OPERATOR This order has been created and auto-finalized to support the import of outside images. If available, original interpretation can be found on the Media Tab in Chart Review, in Document Viewer, as an image in QREADS or as an Addendum. If a re-interpretation or overread is required please follow defined workflow. us Provider Not In System IMG MRI PROCEDURES Final Result [facility] NA * Aria Course Complete Treatment Information (10/13/2024 2:49 PM POUNCING LATHE OPERATOR) Course ID [id number] CARR ARIA Course Start Date 4 08:48 POUNCING LATHE OPERATOR CARR ARIA Course End Date 4 13:21 POUNCING LATHE OPERATOR CARR ARIA First Treatment Date 4 15:06 POUNCING LATHE OPERATOR CARR ARIA Last Treatment Date 4 14:49 POUNCING LATHE OPERATOR CARR ARIA Treatment Elapsed Days 4 CARR ARIA Reference Point [id number] CARR ARIA Dosage Given to Date cGy 2500 CARR ARI[facility] Reference Point [id number] [facility] Dosage Given to Date cGy 2500 CARR ARI[facility] Plan ID [id number] CARR ARIA Fractions Treated to Date 5 CARR ARIA Planned Total Fractions 5 CARR ARIA Prescribed Dose Per Fraction 500 CARR ARIA Prescription Dose in cGy 2500 CARR ARIA Plan Primary Reference Point [id number] CARR ARIA Plan ID [id number] CARR ARIA Fractions Treated to Date 5 CARR ARIA Planned Total Fractions 5 CARR ARIA Prescribed Dose Per Fraction 500 CARR ARIA Prescription Dose in cGy 2500 CARR ARIA Plan Primary Reference Point [id number] CARR ARIA 10/13/2024 2:49 PM POUNCING LATHE OPERATOR us Provider Not In System RADIATION ONCOLOGY ORDERA BLES Final Result Performing Organization Address City/[facility] Co de Phone Number BRUNO BUTLER na * Aria Daily Treatment Information (10/13/2024 2:49 PM POUNCING LATHE OPERATOR) Only the most recent of5 resultswithin the time period is included. Course ID [id number] CARR ARIA Course Start Date 4 08:48 POUNCING LATHE OPERATOR CARR ARIA First Treatment Date 4 15:06 POUNCING LATHE OPERATOR CARR ARIA Last Treatment Date 4 14:49 POUNCING LATHE OPERATOR CARR ARIA Treatment Elapsed Days 4 CARR ARIA Reference Point [id number] CARR ARIA Dosage Given to Date cGy 2500 CARR ARIA Session Dosage Given 500 CARR ARIA Reference Point [id number] CARR ARIA Dosage Given to Date cGy 2500 [facility]ARR ARIA Session Dosage Given 500 CARR ARIA Plan ID [id number] [facility]ARR ARIA Fractions Treated to Date 5 CARR ARIA Planned Total Fractions 5 CARR ARIA Prescribed Dose Per Fraction 500 CARR ARIA Prescription Dose in cGy 2500 CARR ARIA Plan Primary Reference Point [id number] CARR [facility] Plan ID [id number] [facility]ARR [facility] Fractions Treated to Date 5 CARR ARIA Planned Total Fractions 5 CARR ARIA Prescribed Dose Per Fraction 500 CARR ARIA Prescription Dose in cGy 2500 CARR ARIA Plan Primary Reference Point [id number] CARR ARIA 10/13/2024 2:49 PM POUNCING LATHE OPERATOR us Provider Not In System RADIATION ONCOLOGY ORDERA BLES Final Result Performing Organization Address [facility] de Phone Number BRUNO BUTLER na * Initial Rad Onc Treatment Planning CT Simulation without IV Contrast (09/26/2024 3:00 PM POUNCING LATHE OPERATOR) Narrative CARR ARIA - 09/26/2024 3:00 PM POUNCING LATHE OPERATOR Bety Marmolejo, RTT 09/26/2024 3:09 PM Initial Rad Onc Treatment Planning CT Simulation without IV Contrast Performed by: Yahaira Beltrán M.D. Authorized by: Yahaira Beltrán M.D. Yahaira Beltrán M.D. RADIATION ONCOLOGY ORDERA BLES Final Result Performing Organization Address [facility] de Phone Number BRUNO BUTLER na * XR femur RT 2V-Outside Skeletal Xray (09/08/2024 12:50 PM CDT) Only the most recent of2 resultswithin the time period is included. 09/08/2024 12:4 5 PM CDT Narrative [facility] - 09/08/2024 1:52 PM CDT This order has been created and auto-finalized to support the import of outside images. If available, original interpretation can be found on the Media Tab in Chart Review, in Document Viewer, as an image in QREADS or as an Addendum. If a re-interpretation or overread is required please follow defined workflow. Provider Not In System IMG DIAGNOSTIC IMAGING CT OCEDURES Final Result Performing Organization Address [facility] de Phone Number [facility] NA * PET skull to mid thigh-Outside NM Pet (08/31/2024 5:10 PM CDT) Narrative [facility] - 09/01/2024 4:12 PM CDT This order has been created and auto-finalized to support the import of outside images. If available, original interpretation can be found on the Media Tab in Chart Review, in Document Viewer, as an image in QREADS or as an Addendum. If a re-interpretation or overread is required please follow defined workflow. Provider Not In System IMG NM PROCEDURES Final R esult Performing Organization Address [facility] de Phone Number [facility] NA * Outside MG Mammogram (07/10/2014 8:18 AM CDT) 07/10/2014 8:18 AM CDT Addenda Addendum by ProviderHolly M.D. on 07/10/2014 8:18 AM CDT ODM^^^MCR XR MAMMO POST CLIP PLCMT LT 07/10/2014 08:18:03 Historical Provider IMG BI PROCEDURES Final Resu lt [facility] [address] [place] [address], [place]UST from Last 3 Months or Most Recently Relevant to Health Maintenance Insurance [facility]
--- OUTSIDE RECORDS SUMMARY | 2024-11-23 07:06 | XMS_ITS | Clinical Summary ---
Author Organization [facility] Address [place], [place] [address] Care Team Providers Care Caving Guide Name Role Phone Pcp, No Primary Care Provider Unavailabl e Allergies Active Allergy Reactions Criticality Noted Date Comments Venom-Honey Bee Anaphylaxis High 07/09/2022 Medications Calcium carbonate (OYSTERSHELL CALCIUM) 500 mg tablet Take 3 tablets by mouth once daily. 0 6 Active potassium chloride (KLOR-CON M20) 20 mEq Extended-Release tablet TAKE 1 TABLET ORALLY TWICE A DAY. 3 Active Xarelto 10 mg tablet Take 10 mg by mouth. 3 Active loratadine (CLARITIN) 10 mg tablet Daily Active cholecalciferol (VITAMIN D3) 2,000 unit capsule Daily Active zoledronic acid (ZOMETA) 4 mg/5 mL injection Inject 4 mg intravenous every 3 months. 0 3 Active albuterol HFA (PRO-AIR; VENTOLIN; PROVENTIL) 90 mcg/actuation inhalerIndicatio ns:Mild intermittent reactive airway disease without complication Inhale 1-2 Puffs by mouth every 4 hours if needed for Shortness Of Breath or Wheezing. 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 Occlusive thrombus in internal jugular vein, non occlusive thrombus in subclavian, axillary, and upper basilic veins. Occurred January 2015 following chemotherapy for breast cancer. Port A Cath present right upper chest area. Infiltrating ductal carcinoma of breast 08/02/20 Resolved Problems Problem Noted Date Diagnosed Date Resolved Date Acute venous embolism and th rombosis of deep veins of upper extremity 10/05/2024 10/05/2024 DVT (deep venous thrombosis) 10/05/2024 10/05/2024 DVT of axillary vein, acute right 10/05/2024 10/05/2024 Anticoagulation monitoring, INR range 2-3 02/19/2015 02/25/2016 Smoking 08/10/2008 11/27/2014 Encounters Date Type Department Care Team Description 11/08/2024 Telephone [facility] [address] [place] [address] Oneil العلي AuD 11/03/2024 Orders Only [facility] Scanner 1 scan: (1-Ord) [facility], MR THORACIC SPINE WO/W CON, 11/03/2024 11/03/2024 Orders Only [facility] Scanner 1 scan: (1-Ord) [facility], MR LUMBAR SPINE WWO CONTRAST, 11/03/2024 11/03/2024 Orders Only [facility] Scanner 1 scan: (1-Ord) [facility], MR CERVICAL SPINE WWO CONTRAST, 11/03/2024 11/03/2024 Orders Only [facility] Scanner 1 scan: (1-Ord) [facility], MR HEAD/BRAIN WWO CONTRAST, 11/03/2024 10/06/2024 2:30 PM ASSISTANT CASE MANAGER Office Visit [facility] [address] [place] [address] Oneil العلي AuD Hearing Problem 10/05/2024 1:50 PM ASSISTANT CASE MANAGER Office Visit [facility] [address] [place] [address] Arya Pavon MD Hearing Problem (Having a hard time hearing-seems to be getting worse) 10/05/2024 Travel 09/22/2024 Lab Requisition [facility] [phone] Subha Fry MD 09/08/2024 Orders Only [facility] Scanner 1 scan: (1-Ord) [place], XR HIP RT MIN 2V, 09/08/2024 09/08/2024 Orders Only [facility] Scanner 1 scan: (1-Ord) [facility], XR FEMUR RT, 09/08/2024 09/01/2024 Orders Only [facility] Scanner 1 scan: (1-Ord) [place], MR CERVICAL SPINE WO/W CON, 09/01/2024 09/01/2024 Orders Only [facility] Scanner 1 scan: (1-Ord) [place], MR THORACIC SPINE WO/W CON, 09/01/2024 09/01/2024 Orders Only [facility] Scanner 1 scan: (1-Ord) [place], MR HAD/BRAIN WO/W CON, 09/01/2024 09/01/2024 Orders Only [facility] Scanner 1 scan: (1-Ord) [facility], LUMBAR SPINE WWO CON, 09/01/2024 08/31/2024 Orders Only [facility] Scanner 1 scan: (1-Ord) [facility], PET/CT EYES TO THIGHS, 08/31/2024 from Last 3 Months Immunizations Name Administration Dates Next Due COVID-19 vaccine (StarGen 30mcg/0.3mL) [place] 03/08/2021,02/15/2021 Td (Age >=7 Years) 06/25/2003 Tdap 08/15/2014 Family History Medical History Relation Name Comments Diabetes Father Cancer-breast Maternal Grandmother Diabetes Mother Anesthesia Problem No Family History Blood Disease No Family History Cancer-colon No Family History Cancer-ovarian No Family History Relation Name Status Comments Father Maternal Grandmother Mother Social History Tobacco Use Types Packs/Day Years Used Date Smoking Tobacco: Former Cigarettes Smokeless Tobacco: Never Tobacco Cessation:Counseling Given: Yes Alcohol Use Standard Drinks/Week Comments Yes 0 (1 standard drink = 0.6 oz pur e alcohol) 2-3 times per month [facility] Utilities Answer Date Recorded Do you have trouble paying f or utilities (for example, heat, electricity, water, phone)? Yes 10/05/2024 PHQ-2 Answer Date Recorded PHQ-2 TOTAL SCORE 0 02/05/2023 Social Connections Answer Date Recorded Do you often feel lonely or isolated from those around you? 0 10/05/2024 Financial Resource Strain Answer Date R ecorded Difficulty of Paying Living Expenses 3 10/05/2024 Difficulty of Paying Living Expenses Not on file 10/05/2024 Food Insecurity Answer Date Recorded Do you worry your food will run out before you are able to buy more? 1 10/05/2024 Transportation Needs Answer Date Record ed Does lack of transportation keep you from medica l appointments? 1 10/05/2024 Does lack of transportation keep you from work, meetings or getting things that you need? 1 10/05/2024 Housing Stability Answer Date Recorded What is your housing situation today? 1 10/05/2024 Comments No Sex and Gender Information Value Date Recorded Sex Assigned at Not on file Legal Sex Female 6:22 AM ASSISTANT CASE MANAGER Gender Identity Not on file Sexual Orientation Not on file Obstetrics History Last Filed Vital Signs Vital Sign Reading Time Taken Comments Blood Pressure 125/78 10/05/2024 1:48 PM ASSISTANT CASE MANAGER Pulse 104 10/05/2024 1:48 PM ASSISTANT CASE MANAGER Temperature 36.8 C (98.3 F) 07/17/2021 2:48 PM CDT Respiratory Rate - - Oxygen Saturation 100% 10/05/2024 1:48 PM ASSISTANT CASE MANAGER Inhaled Oxygen Concentration - - Weight 46.3 kg (102 lb) 10/05/2024 1:48 PM ASSISTANT CASE MANAGER Height 155.4 cm (5' 1.18) 02/05/2023 2:50 PM CD T Body Mass Index 19.16 02/05/2023 2:50 PM CDT Plan of Treatment Upcoming Encounters Date Type Department Care Team (Late st Contact Info) Description 12/14/2024 8:15 AM ASSISTANT CASE MANAGER Office Visit [address] [phone] Dagmar Hall MD [address] [facility] [address] [place] [address] Health Maintenance Due Date Last Done Comments HIV for age 15-65 1976 Hepatitis C screening for ag e 18-79 1979 Pneumococcal series for age 50+ (1 of 2 - PCV) 1980 Zoster (shingles) series for age 50+ (1 of 2) 1980 COVID-19 vaccine series (3 - Pfizer risk series) 04/05/2021 03/08/2021, 02/15/2021 RSV vaccine for adults or (1 - Risk 60-74 years 1-dose series) 2021 BMI (ht and wt on same day) for age 18+ 02/06/2024 02/05/2023, 07/17/2021, 06/17/2018, Additional history exists Depression screening for age 12+ 02/10/2024 02/09/2023, 02/05/2023, 07/17/2021, Additional history exists Fecal testing non-DNA (FIT,FOBT,iFOBT) for age 45-75 02/10/2024 02/09/2023, 10/13/2021, 03/08/2018, Additional history exists Influenza for age 50-64 07/23/2024 Tetanus booster 08/15/2024 08/15/2014, 06/25/2003 Lipids for age 45-75 02/06/2028 02/05/2023, 03/03/2018, 03/05/2016, Additional history exists Tdap Completed 08/15/2014 Procedures Procedure Name Priority Date/Time Associated Diagnosis Comments SCAN-MRI INTERPRETATION 11/03/2024 12:00 AM ASSISTANT CASE MANAGER SCAN-MRI INTERPRETATION 11/03/2024 12:00 AM ASSISTANT CASE MANAGER SCAN-MRI INTERPRETATION 11/03/2024 12:00 AM ASSISTANT CASE MANAGER SCAN-MRI INTERPRETATION 11/03/2024 12:00 AM ASSISTANT CASE MANAGER LAB TRACKING EVENT Routine 09/22/2024 12 :42 PM CDT PATH-MISC/ANCILLARY TEST Routine 09/22/2024 12:42 PM CDT SCAN-RADIOLOGY REPORT 09/08/2024 12:00 AM CDT SCAN-RADIOLOGY REPORT 09/08/2024 12:00 AM CDT SCAN-MRI INTERPRETATION 09/01/2024 12:00 AM CDT SCAN-MRI INTERPRETATION 09/01/2024 12:00 AM CDT SCAN-MRI INTERPRETATION 09/01/2024 12:00 AM CDT SCAN-MRI INTERPRETATION 09/01/2024 12:00 AM CDT SCAN-PET SCAN 08/31/2024 12:00 AM CDT OCCULT BLOOD IFOBT STOOL Routine 02/09/2023 10:57 AM CDT Screening for colon cancer LC LIPID PANEL AND CHOL/HDL RATIO Routine 02/05/2023 3:41 PM CDT Hyperlipidemia, unspecified hyperlipidemia type from Last 3 Months or Most Recently Relevant to Health Maintenance Results * SCAN-MRI INTERPRETATION (11/03/2024 12:00 AM ASSISTANT CASE MANAGER) Only the most recent of8 resultswithin the time period is included. Anatomical Region Laterality Modality Other us Scanner OTHER Final Result * LAB TRACKING EVENT (09/22/2024 12:42 PM CDT) Other (Other) Client Collect / Unknown 09/22/2024 12:42 PM CDT 09/22/2024 12:42 PM CDT Subha Fry MD LAB BILL ONLY Final Result [facility] [address] [place] [address], * PATH-MISC/ANCILLARY TEST (09/22/2024 12:42 PM CDT) Case Report Surgical Pathology Report Case: [id number] Authorizing Provider: Subha Fry MD Collected: 09/22/2024 1242 Ordering Location: [facility] Received: 09/22/2024 1243 Pathologist: Caryl Morris MD Specimen: Left Breast, Trac[facility] [id number] t 09/26/2024 10:09 AM ASSISTANT CASE MANAGER [facility] Results HER2 by IHC: Negative (1+ by manual morphometry) 09/26/2024 10:09 AM ASSISTANT CASE MANAGER [facility] Clinical Information Breast Cancer 09/26/2024 10:09 AM [facility] Gross Description Received is one block labeled with the patient's name for HER2 IHC testing. 09/26/2024 10:09 AM [facility] Microscopic Description The final diagnosis is based on microscopic examination of appropriate sections of all specimens. 09/26/2024 10:09 AM [facility] Additional Information Interpreted at [facility] - [address] [facility] [address], [place] [address] Immunohistoche hoang controls were reviewed and approved by the pathologist during this examination. 09/26/2024 10:09 AM [facility] Other (Left Breast) 09/22/2024 12:42 PM CDT 09/22/2024 12:43 PM CDT us Subha Fry MD PATHOLOGY/CYTOLOGY Final Resul t Performing Organization Address City/[facility] Phone Number [facility] [address] [place] [address], [place] * SCAN-RADIOLOGY REPORT (09/08/2024 12:00 AM CDT) Only the most recent of2 resultswithin the time period is included. Anatomical Region Laterality Modality Other us Scanner OTHER Final Result * SCAN-PET SCAN (08/31/2024 12:00 AM CDT) Anatomical Region Laterality Modality Other us Scanner OTHER Final Result * OCCULT BLOOD IFOBT STOOL (02/09/2023 10:57 AM CDT) STOOL BLOOD ,IFOBT Negative Negative 02/12/2023 9:44 AM CDT [facility] Stool STOOL SPECIMEN / Unknown Non-Blood / Unknown 02/09/2023 10:57 AM CDT 02/11/2023 10:57 AM CDT us [facility] Final Resu lt [facility] [address] [place] [address], [place] [phone] * (ABNORMAL) LC LIPID PANEL AND CHOL/HDL RATIO (02/05/2023 3:41 PM CDT) [facility] Cholesterol, Total 205(H) 100 - 199 mg/dL 02/09/2023 9:10 AM CDT [facility] Triglycerides 215(H) 0 - 149 mg/dL 02/09/2023 9:10 AM CDT [facility] HDL Cholesterol 62 >39 mg/dL 9:10 AM CDT [facility] VLDL Cholesterol Pepe 37 5 - 40 mg/dL 02/09/2023 9:10 AM T [facility] LDL Chol Calc (NIH) 106(H) 0 - 99 mg/dL 02/09/2023 9:10 AM CDT [facility] T. Chol/HDL Ratio 3.3 0.0 - 4.4 ratio 02/09/2023 9:10 AM CDT [facility] Comment: T. Chol/HDL Ratio Men Women 1/2 Avg.Risk 3.4 3.3 Avg.Risk 5.0 4.4 2X Avg.Risk 9.6 7.1 3X Avg.Risk 23.4 11.0 Blood BLOOD SPECIMEN / Unknown Venipuncture / Unknown 02/05/2023 3:41 PM CDT 02/05/2023 3:42 PM CDT Narrative [facility] - 02/09/2023 9:10 AM CDT Performed at: [address] [place] [id number] Bakery Supervisor: Ferny Bro MD, Phone: [phone] us Francie [facility] SEND OUTS Final Resu lt [facility] ([facility] [address] [place] [address], from Last 3 Months or Most Recently Relevant to Health Maintenance Insurance Care Teams Caving Guide Relationship Specialty Start Date End Date Pcp, No . PCP - General 05/19/23
--- OUTSIDE RECORDS SUMMARY | 2024-11-23 07:06 | XMS_ITS | Clinical Summary ---
Author Organization [facility] Address [address] [place] [address] Care Team Providers Care Steam Frame Operator Name Role Phone Unavailable Primary Care Provider Unavailabl e Source Comments Patient records contain information from all sites at [facility]. For routine questions regarding patient records, call [phone] during business hours, M-F 8:00 AM - 5:00 PM Central Time. Record requests for emergency care only can be directed to [phone] at any time.[facility] Allergies Active Allergy Reactions Criticality Noted Date Comments Venom-Honey Bee Anaphylaxis High 02/18/2015 Medications diphenhydrAMINE- tkal-uskp-qjk hydrox-simeth (FIRST-MOUTHWASH BLM) 14-088-056-400-4 0 mg/30 mL suspensionIndica tions:Esophagiti s Unspecified [...] Left 024 Secondary Malignant Neoplasm Bone 03/09/2024 Encounters Date Type Department Care Team Description 10/13/2024 2:36 PM INSURANCE ADVISOR - 10/13/2024 11:59 PM INSURANCE ADVISOR Hospital Encounter Department of Radiation Oncology in [address] [address] Yahaira Beltrán M.D. Discharge Disposition: Home or Self Care 10/13/2024 Documentation Department of Radiation Oncology in [address] [address] Yahaira Beltrán M.D. 10/12/2024 2:41 PM INSURANCE ADVISOR - 10/12/2024 11:59 PM INSURANCE ADVISOR Hospital Encounter Department of Radiation Oncology in [address] [address] Yahaira Beltrán M.D. Discharge Disposition: Home or Self Care 10/11/2024 2:20 PM INSURANCE ADVISOR - 10/11/2024 4:26 PM INSURANCE ADVISOR Hospital Encounter Department of Radiation Oncology in [address] [address] Yahaira Beltrán M.D. Secondary Malignant Neoplasm Bone (HCC); Malignant Neoplasm Of Breast Female Left (HCC) 10/11/2024 2:20 PM INSURANCE ADVISOR - 10/11/2024 11:59 PM INSURANCE ADVISOR Hospital Encounter Department of Radiation Oncology in [address] [address] Yahaira Beltrán M.D. Discharge Disposition: Home or Self Care 10/10/2024 2:51 PM INSURANCE ADVISOR - 10/10/2024 11:59 PM INSURANCE ADVISOR Hospital Encounter Department of Radiation Oncology in [address] [address] Yahaira Beltrán M.D. Discharge Disposition: Home or Self Care 10/09/2024 2:41 PM INSURANCE ADVISOR - 10/09/2024 11:59 PM INSURANCE ADVISOR Hospital Encounter Department of Radiation Oncology in [address] [address] Yahaira Beltrán M.D. Discharge Disposition: Home or Self Care 09/26/2024 2:49 PM INSURANCE ADVISOR - 09/26/2024 4:03 PM INSURANCE ADVISOR Hospital Encounter Department of Radiation Oncology in [address] [address] Yahaira Beltrán M.D. Secondary Malignant Neoplasm Bone (HCC); Malignant Neoplasm Of Breast Female Left (HCC) 09/26/2024 2:12 PM INSURANCE ADVISOR - 09/26/2024 2:48 PM INSURANCE ADVISOR Hospital Encounter Department of Radiation Oncology in [address] [address] Yahaira Beltrán M.D. Secondary Malignant Neoplasm Bone (HCC) (Primary Dx); Malignant Neoplasm Of Breast Female Left (HCC) 09/22/2024 Orders Only Department of Radiation Oncology in [address] [address] Debbie Claudio APRN, C.N.P., D.N.P. Secondary Malignant Neoplasm Bone (HCC) (Primary Dx); Malignant Neoplasm Of Breast Female Left (HCC) from Last 3 Months Family History Medical History Relation Name Comments Breast cancer Maternal Grandmother Relation Name Status Comments Maternal Grandmother Social History Tobacco Use Types Packs/Day Years Used Date Smoking Tobacco: Former Cigarettes Smokeless Tobacco: Never Tobacco Cessation:Counseling Given: Not Answered Alcohol Use Standard Drinks/Week Comments Not Currently 0 (1 standard drink = 0.6 oz pur e alcohol) [facility] Utilities Answer Date Recorded In the past 12 months has [employer], [employer], oil, or water [employer] threatened to shut off services in your [...] money to buy more. Never true 04/06/20 24 Within the past 12 months, t he [...] your living situation today? I have a [facility] place to live 04/06/2024 Comments Unknown Sex and Gender Information Value Date Recorded Sex Assigned at Female 04/06/2024 7:27 PM CDT Legal Sex Female 1:30 AM INSURANCE ADVISOR Gender Identity Female 04/06/2024 7:27 PM CDT Sexual Orientation Straight 04/06/2024 7: 27 PM CDT Last Filed Vital Signs Vital Sign Reading Time Taken Comments Blood Pressure 113/59 10/11/2024 2:47 PM INSURANCE ADVISOR Pulse 97 10/11/2024 2:47 PM INSURANCE ADVISOR Temperature 36.3 C (97.4 F) 10/11/2024 2:47 PM INSURANCE ADVISOR Respiratory Rate - - Oxygen Saturation - - Inhaled Oxygen Concentration - - Weight 45.4 kg (100 lb 1.4 oz) 10/11/2024 2:47 PM INSURANCE ADVISOR Height 157 cm (5' 1.81) 02/18/2015 3:5 2 PM CDT Vital sign result from Clinical Notes. Body Mass Index 18.42 02/18/2015 3:52 PM CDT Plan of Treatment Health Maintenance Due Date Last Done Comments CT Colonography 1961 Cologuard 1961 Colonoscopy 1961 Colorectal Cancer Screening 1961 FIT 1961 Fasting Glucose for Diabetes Screening 1961 HIV Screening 1961 Hepatitis C Screening 1961 Pneumococcal vaccine (50+ years) (1 of 2 - PCV) 1980 Zoster Vaccines (1 of 2) 1980 COVID-19 Vaccine (3 - Pfizer risk series) 04/05/2021 03/08/2021, 02/15/2021 RSV vaccine - (32-36 weeks) or 60+ years (1 - Risk 60-74 years 1-dose series) 2021 Depression Screening (Annual PHQ-2) 11/22/2023 DTaP,Tdap,and Td Vaccines (2 - Td or Tdap) 08/15/2024 08/15/2014, 06/25/2003 Influenza Vaccine (#1) 2024 Lipid (Cholesterol) Screening 02/06/2028 02/05/2023 Mammogram Discontinued 07/10/2014, 07/06/2014 HPV Vaccines Aged Out No longer eligi ble based on patient's age to complete this topic IPV Vaccines Aged Out No longer eligi ble based on patient's age to complete this topic Procedures Procedure Name Priority Date/Time Associated Diagnosis Comments OUTSIDE MR NEURO Routine 11/03/2024 7:50 AM INSURANCE ADVISOR OUTSIDE MR NEURO Routine 11/03/2024 7:45 AM INSURANCE ADVISOR OUTSIDE MR NEURO Routine 11/03/2024 7:40 AM INSURANCE ADVISOR OUTSIDE MR NEURO Routine 11/03/2024 7:35 AM INSURANCE ADVISOR ARIA COURSE COMPLETE TREATMENT INFORMATION Routine 10/13/2024 2:49 PM INSURANCE ADVISOR ARIA DAILY TREATMENT INFORMATION Routine 10/13/2024 2:49 PM INSURANCE ADVISOR ARIA DAILY TREATMENT INFORMATION Routine 10/12/2024 2:59 PM INSURANCE ADVISOR ARIA DAILY TREATMENT INFORMATION Routine 10/11/2024 2:42 PM INSURANCE ADVISOR ARIA DAILY TREATMENT INFORMATION Routine 10/10/2024 3:08 PM INSURANCE ADVISOR ARIA DAILY TREATMENT INFORMATION Routine 10/09/2024 3:17 PM INSURANCE ADVISOR INITIAL RAD ONC TREATMENT PLANNING CT SIMULATION Routine 09/26/2024 3:00 PM INSURANCE ADVISOR Secondary Malignant Neoplasm Bone (HCC) Malignant Neoplasm [...] wo/w con-Outside MR Neuro (11/03/2024 7:50 AM INSURANCE ADVISOR) Only the most recent of8 resultswithin the time period is included. Narrative IIMS - 11/17/2024 10:14 AM INSURANCE ADVISOR This order has been created and auto-finalized to support the import of outside images. If available, original interpretation can be found on the Media Tab in Chart Review, in Document Viewer, as an image in QREADS or as an Addendum. If a re-interpretation or overread is required please follow defined workflow. us Provider Not In System IMG MRI PROCEDURES Final Result II NA * Aria Course Complete Treatment Information (10/13/2024 2:49 PM INSURANCE ADVISOR) Course ID 2xHip CARR ARIA Course Start Date 4 08:48 INSURANCE ADVISOR CARR ARIA Course End Date 4 13:21 INSURANCE ADVISOR CARR ARIA First Treatment Date 4 15:06 INSURANCE ADVISOR CARR ARIA Last Treatment Date 4 14:49 INSURANCE ADVISOR CARR ARIA Treatment Elapsed Days 4 CARR ARIA Reference Point [id number] CARR ARIA Dosage Given to Date cGy 2500 CARR ARIA Reference Point [id number] CARR ARIA Dosage Given to Date cGy 2500 CARR ARIA Plan ID [id number] CARR ARIA Fractions Treated to Date 5 CARR ARIA Planned Total Fractions 5 CARR ARIA Prescribed Dose Per Fraction 500 CARR ARIA Prescription Dose in cGy 2500 CARR ARIA Plan Primary Reference Point [id number] CARR ARIA Plan ID [id number] CARR ARIA Fractions Treated to Date 5 CARR ARIA Planned Total Fractions 5 CARR ARIA Prescribed Dose Per Fraction 500 CARR ARIA Prescription Dose in cGy 2500 CARR ARIA Plan Primary Reference Point [id number] CARR ARIA 10/13/2024 2:49 PM INSURANCE ADVISOR us Provider Not In System RADIATION ONCOLOGY ORDERA BLES Final Result CARR LUKE na * Aria Daily Treatment Information (10/13/2024 2:49 PM INSURANCE ADVISOR) Only the most recent of5 resultswithin the time period is included. Course ID 2xHip CARR ARIA Course Start Date 4 08:48 INSURANCE ADVISOR CARR ARIA First Treatment Date 4 15:06 INSURANCE ADVISOR CARR ARIA Last Treatment Date 4 14:49 INSURANCE ADVISOR CARR ARIA Treatment Elapsed Days 4 CARR ARIA Reference Point [id number] CARR ARIA Dosage Given to Date cGy 2500 CARR ARIA Session Dosage Given 500 CARR ARIA Reference Point [id number] CARR ARIA Dosage Given to Date cGy 2500 CARR ARIA Session Dosage Given 500 CARR ARIA Plan ID [id number] CARR ARIA Fractions Treated to Date 5 CARR ARIA Planned Total Fractions 5 CARR ARIA Prescribed Dose Per Fraction 500 CARR ARIA Prescription Dose in cGy 2500 CARR ARIA Plan Primary Reference Point [id number] CARR ARIA Plan ID [id number] CARR ARIA Fractions Treated to Date 5 CARR ARIA Planned Total Fractions 5 CARR ARIA Prescribed Dose Per Fraction 500 CARR ARIA Prescription Dose in cGy 2500 CARR ARIA Plan Primary Reference Point [id number] CARR ARIA 10/13/2024 2:49 PM INSURANCE ADVISOR us Provider Not In System RADIATION ONCOLOGY ORDERA BLES Final Result Performing Organization Address City/[facility] Co de Phone Number BRUNO BUTLER na * Initial Rad Onc Treatment Planning CT Simulation without IV Contrast (09/26/2024 3:00 PM INSURANCE ADVISOR) Narrative CARR ARIA - 09/26/2024 3:00 PM INSURANCE ADVISOR Bety Marmolejo, RTT 09/26/2024 3:09 PM Initial Rad Onc Treatment Planning CT Simulation without IV Contrast Performed by: Yahaira Beltrán M.D. Authorized by: Yahaira Beltrán M.D. Yahaira Beltrán M.D. RADIATION ONCOLOGY ORDERSharif BLEKristen Final Result BRUNO BUTLER na * XR femur RT [...] workflow. us Provider Not In System IMG DIAGNOSTIC IMAGING LA OCEDURES Final Result Performing Organization Address City/[facility] Co de Phone Number IIMS NA * PET skull to mid thigh-Outside NM Pet (08/31/2024 5:10 PM CDT) Narrative IIMS - 09/01/2024 4:12 PM CDT This order has been created and auto-finalized to support the import of outside images. If available, original interpretation can be found on the Media Tab in Chart Review, in Document Viewer, as an image in QREADS or as an Addendum. If a re-interpretation or overread is required please follow defined workflow. us Provider Not In System IMG NM PROCEDURES Final R esult Performing Organization Address [facility] de Phone Number IIMS NA * Outside MG Mammogram (07/10/2014 8:18 AM CDT) 07/10/2014 8:18 AM CDT Addenda Addendum by Provider, Dutch Barrera on 07/10/2014 8:18 AM CDT ODM^^^MCR XR MAMMO POST CLIP PLCMT LT 07/10/2014 08:18:03 Historical Provider IMG BI PROCEDURES Final Resu lt Performing Organization Address [facility] de Phone Number [facility] [address] [place] [address] from Last 3 Months or Most Recently Relevant to Health Maintenance Insurance [facility]
--- OUTSIDE RECORDS SUMMARY | 2024-11-23 07:07 | XMS_ITS ---
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 Past Plans No past plan information found. Radiation Treatments * Plan Last Treated On Elapsed Days Fractions Treated Prescribed Fraction Dose Prescribed Total Dose F1HipL 10/13/2024 4 5 of 5 500 cGy 2,500 cGy F1HipR 10/13/2024 4 5 of 5 500 cGy 2,500 cGy [id number] 04/14/2024 8 7 of 7 300 cGy 2,100 cG y [id number] 04/05/2024 2 3 of 10 300 cGy 3,000 cGy [id number] e 04/05/2024 2 3 of 10 300 cGy 3,000 cGy [id number] e 04/05/2024 2 3 of 10 300 cGy 3,000 cGy Reference Point Last Treated On Elapsed Days Session Dose Total Dose [id number] 10/13/2024 4 500 cGy 2,500 cGy [id number] 10/13/2024 4 500 cGy 2,500 cGy [id number] 04/14/2024 8 300 cGy 2,100 cGy [id number] 04/05/2024 2 300 cGy 900 cGy [id number] 04/05/2024 2 300 cGy 900 cGy [id number] 04/05/2024 2 300 cGy 900 cGy
--- OUTSIDE RECORDS SUMMARY | 2024-11-23 07:07 | XMS_ITS | Encounter Summary ---
Author Organization [facility] Address [address] [place] [address] Care Team Providers Care Track Grinder Operator Name Role Phone Unavailable Primary Care Provider Unavailabl e Reason for Visit * Radiation Therapy (Routine) - Closed Specialty Diagnoses / Procedures Referred By Jodie fernandez Referred To Contact Diagnoses Secondary Malignant Neoplasm Bone (HCC) Malignant Neoplasm Of Breast Female Left (HCC) Procedures Prior Auth Rad Tx IA RADTN TX DEL >=1 MEV COMPLEX IA GUIDANCE FOR LOC RAD TX IA 3D RAD THER ISODOSE FIELD PLAN Yahaira Beltrán M.D. [address] [place] [address] Phone: tel: fax: [facility] Referral ID Status Reason Start Date Expiration Date Visits Re quested Visits Authorized [id number] Closed 10/02/2024 09/22/2025 5 5 Encounter Details Date Type Department Care Team (Latest Contact Info) Description 10/09/2024 2:41 PM SUPERVISOR FABRICATION AND ASSEMBLY - 10/09/2024 11:59 PM [facility] Hospital Encounter Department of Radiation Oncology in [place], [place] [address] [place] [address] Yahaira Beltrán M.D. [address] [place] [phone] Discharge Disposition: Home or Self Care Social History Tobacco Use Types Packs/Day Years Used Date Smoking Tobacco: Former Cigarettes Smokeless Tobacco: Never Alcohol Use Standard Drinks/Week Comments Not Currently 0 (1 standard drink = 0.6 oz pur e alcohol) [facility] Utilities Answer Date Recorded In the past 12 months has th e [employer], gas, oil, or water company threatened to shut off services in your [...] your living situation today? I have a [facility] place to live 04/06/2024 Comments Unknown Sex and Gender Information Value Date Recorded Sex Assigned at Female 04/06/2024 7:27 PM CDT Legal Sex Female 1:30 AM SUPERVISOR FABRICATION AND ASSEMBLY Gender Identity Female 04/06/2024 7:27 PM CDT Sexual Orientation Straight 04/06/2024 7: 27 PM CDT documented as of this encounter Medications at Time of Discharge albuterol 90 mcg/actuation inhaler Inhale 1-2 puffs every 4 (four) hours as needed. 05/19/2023 cholecalciferol (Vitamin D3) 50 mcg (2,000 Unit) capsule daily. diphenhydrAMINE-l qjd-bqxz-asi hydrox-simeth (FIRST-MOUTHWASH BLM) 06-686-286-400-40 mg/30 mL suspensionIndicat ions:Esophagitis Unspecified Without Bleeding Swish and swallow 15 mL 4 (four) times a day with meals and bedtime. Benadryl:Lidoc fatimah 2% Viscous:Maalox Maxiumum Strength 1:1:1. 480 mL 2 04/18/2024 loratadine (Claritin) 10 mg tablet daily. multivitamin tablet Take 1 tablet by mouth daily. 02/18/2015 potassium chloride (Klor-Con M) 20 mEq ER tablet Take 20 mEq by mouth 2 (two) times a day. Xarelto 10 mg tablet Take 10 mg by mouth. 01/20/2023 documented as of this encounter Plan of Treatment Not on file documented as of this encounter Visit Diagnoses Not on filedocumented in this encounter
--- OUTSIDE RECORDS SUMMARY | 2024-11-23 07:07 | XMS_ITS | Encounter Summary ---
Author Organization [facility] Address [address] [place] [address] Care Team Providers Care Bi Lead Name Role Phone Unavailable Primary Care Provider Unavailabl e Reason for Visit * Radiation Therapy (Routine) - Closed Specialty Diagnoses / Procedures Referred By Jodie fernandez Referred To Contact Diagnoses Secondary Malignant Neoplasm Bone (HCC) Malignant Neoplasm Of Breast Female Left (HCC) Procedures Prior Auth Rad Tx MA RADTN TX DEL >=1 MEV COMPLEX [place] GUIDANCE FOR LOC RAD TX MA 3D RAD THER ISODOSE FIELD PLAN Yahaira Beltrán M.D. [address] [place] [address] Phone: tel: fax: [facility] Referral ID Status Reason Start Date Expiration Date Visits Re quested Visits Authorized [id number] Closed 10/02/2024 09/22/2025 5 5 Encounter Details Date Type Department Care Team (Latest Contact Info) Description 10/13/2024 2:36 PM MIDDLE SCHOOL TEACHER - 10/13/2024 11:59 PM [facility] Hospital Encounter Department of Radiation Oncology in [place], [place] [address] [place] [address] Yahaira Beltrán M.D. [address] [place] [phone] Discharge Disposition: Home or Self Care Social History Tobacco Use Types Packs/Day Years Used Date Smoking Tobacco: Former Cigarettes Smokeless Tobacco: Never Alcohol Use Standard Drinks/Week Comments Not Currently 0 (1 standard drink = 0.6 oz pur e alcohol) [facility] Utilities Answer Date Recorded In the past 12 months has th e [employer], gas, oil, or water company threatened to [...] your living situation today? I have a [facility] place to live 04/06/2024 Comments Unknown Sex and Gender Information Value Date Recorded Sex Assigned at Female 04/06/2024 7:27 PM CDT Legal Sex Female 1:30 AM MIDDLE SCHOOL TEACHER Gender Identity Female 04/06/2024 7:27 PM CDT Sexual Orientation Straight 04/06/2024 7: 27 PM CDT documented as of this encounter Medications at Time of Discharge albuterol 90 mcg/actuation inhaler Inhale 1-2 puffs every 4 (four) hours as needed. 05/19/2023 cholecalciferol (Vitamin D3) 50 mcg (2,000 Unit) capsule daily. diphenhydrAMINE-l qqq-ekza-ftx hydrox-simeth (FIRST-MOUTHWASH BLM) 13-309-647-400-40 mg/30 mL suspensionIndicat ions:Esophagitis Unspecified Without Bleeding [...]
--- OUTSIDE RECORDS SUMMARY | 2024-11-23 07:07 | XMS_ITS | Encounter Summary ---
Author Organization [facility] Address [address] [place] [address] Care Team Providers Care Live Out Nanny Name Role Phone Unavailable Primary Care Provider Unavailabl e Encounter Details Date Type Department Care Team (Late st Contact Info) Description 10/13/2024 Documentation Department of Radiation Oncology in [place], [place] [address] [place] [phone] Yahaira Beltrán M.D. [address] [place] [phone] Social History Tobacco Use Types Packs/Day Years Used Date Smoking Tobacco: Former Cigarettes Smokeless Tobacco: Never Alcohol Use Standard Drinks/Week Comments Not Currently 0 (1 standard drink = 0.6 oz pur e alcohol) [facility] Utilities Answer Date Recorded In the past 12 months has th e [employer], gas, oil, or water [employer] threatened to shut off services in your [...] your living situation today? I have a [facility] place to live 04/06/2024 Comments Unknown Sex and Gender Information Value Date Recorded Sex Assigned at Female 04/06/2024 7:27 PM CDT Legal Sex Female 1:30 AM WASH OIL PUMP OPERATOR HELPER Gender Identity Female 04/06/2024 7:27 PM CDT Sexual Orientation Straight 04/06/2024 7: 27 PM CDT documented as of this encounter Miscellaneous Notes * Radiation Completion Notes - Rosanna Alvarez R.N. - 10/13/2024 11:59 PM CST DIAGNOSIS: Secondary Malignant Neoplasm Bone Attending Physician: Yahaira Beltrán M.D. Treatment Intent: Palliative Concomitant Therapy: None Single Plan Treatment Course: 2xHip Plan ID Fractions Dose / Fraction (cGy) Dose Treated (cGy) Dose Planned (cGy) First Treatment Last Treatment Elapsed Days F1HipL 5 / 5 500 2500 2500 10/09/2024 10/13/2024 4 F1HipR 5 / 5 500 2500 2500 10/09/2024 10/13/2024 4 Course Summary 10/09/2024 10/13/2024 4 Radiation Modality: Photons CLINICAL SUMMARY Mrs. Kimmy Castro completed radiation treatment as planned without interruptions. The courseof treatment was tolerated well. The patient experienced no acute toxicities during radiation treatment. TREATMENT RESPONSE: Response to treatment will be determined by post-treatment imaging and/or laboratory work. RECOMMENDED FOLLOW UP: Primary Medical Oncologist - Dr. Fry Signed by: Rosanna Alvarez R.N., 10/30/2024 2:10 PM WASH OIL PUMP OPERATOR HELPER [facility] [address] [place] [phone] Cosigned by Yahaira Beltrán M.D. at 10/30/2024 3:09 PM WASH OIL PUMP OPERATOR HELPER OIL PUMP OPERATOR HELPER OIL PUMP OPERATOR HELPER documented in this encounter Plan of Treatment Not on file documented as of this encounter Visit Diagnoses Not on filedocumented in this encounter
--- OUTSIDE RECORDS SUMMARY | 2024-11-23 07:07 | XMS_ITS | Encounter Summary ---
Author Organization [facility] Address [address] [place] [address] Care Team Providers Care Threader Operator Name Role Phone Unavailable Primary Care Provider Unavailabl e Reason for Visit * Radiation Therapy (Routine) - Closed Specialty Diagnoses / Procedures Referred By Jodie fernandez Referred To Contact Diagnoses Secondary Malignant Neoplasm Bone (HCC) Malignant Neoplasm Of Breast Female Left (HCC) Procedures Prior Auth Rad Tx [place] RADTN TX DEL >=1 MEV COMPLEX [place] GUIDANCE FOR LOC RAD TX [place] 3D RAD THER ISODOSE FIELD PLAN Yahaira Beltrán M.D. [address] [place] [address] Phone: tel: fax: [facility] Referral ID Status Reason Start Date Expiration Date Visits Re quested Visits Authorized [id number] Closed 10/02/2024 09/22/2025 5 5 Encounter Details Date Type Department Care Team (Latest Contact Info) Description 10/11/2024 2:20 PM HOP WORKER - 10/11/2024 11:59 PM [facility] Hospital Encounter Department of Radiation Oncology in [place], [place] [address] [place] [address] Yahaira Beltrán M.D. [address] [place] [phone] Discharge Disposition: Home or Self Care Social History Tobacco Use Types Packs/Day Years Used Date Smoking Tobacco: Former Cigarettes Smokeless Tobacco: Never Alcohol Use Standard Drinks/Week Comments Not Currently 0 (1 standard drink = 0.6 oz pur e alcohol) [facility] Utilities Answer Date Recorded In the past 12 months has th e [employer], gas, oil, or water company threatened to [...] your living situation today? I have a [facility] place to live 04/06/2024 Comments Unknown Sex and Gender Information Value Date Recorded Sex Assigned at Female 04/06/2024 7:27 PM CDT Legal Sex Female 1:30 AM HOP WORKER Gender Identity Female 04/06/2024 7:27 PM CDT Sexual Orientation Straight 04/06/2024 7: 27 PM CDT documented as of this encounter Medications at Time of Discharge albuterol 90 mcg/actuation inhaler Inhale 1-2 puffs every 4 (four) hours as needed. 05/19/2023 cholecalciferol (Vitamin D3) 50 mcg (2,000 Unit) capsule daily. diphenhydrAMINE-l tlr-aegj-bhm hydrox-simeth (FIRST-MOUTHWASH BLM) [id number] mg/30 mL suspensionIndicat ions:Esophagitis Unspecified Without Bleeding [...]
--- OUTSIDE RECORDS SUMMARY | 2024-11-23 07:07 | XMS_ITS | Encounter Summary ---
Author Organization [facility] Address [address] [place] [address] Care Team Providers Care Nuclear Medicine Specialist Name Role Phone Unavailable Primary Care Provider Unavailabl e Reason for Referral * Radiation Therapy (Routine) - Authorized Specialty Diagnoses / Procedures Referred By Jodie fernandez Referred To Contact Diagnoses Secondary Malignant Neoplasm Bone (HCC) Malignant Neoplasm Of Breast Female Left (HCC) Procedures Management Visit Yahaira Beltrán M.D. [address] [place] [address] Phone: tel: fax: [facility] Region Referral ID Status Reason Start Date Expiration Date V isits Requested Visits Authorized [id number] Authorized 09/22/2024 09/22/2025 10 10 OPHYSICS PROFESSOR Reason for Visit * Radiation Therapy (Routine) - Authorized Specialty Diagnoses / Procedures Referred By Jodie fernandez Referred To Contact Diagnoses Secondary Malignant Neoplasm Bone (HCC) Malignant Neoplasm Of Breast Female Left (HCC) Procedures Management Visit Yahaira Beltrán M.D. [address] [place] [address] Phone: tel: fax: [facility] Region Referral ID Status Reason Start Date Expiration Date V isits Requested Visits Authorized [id number] Authorized 09/22/2024 09/22/2025 10 10 Encounter Details Date Type Department Care Team (Latest Contact Info) Description 10/11/2024 2:20 PM ASTROPHYSICS PROFESSOR - 10/11/2024 4:26 PM ASTROPHYSICS PROFESSOR Hospital Encounter Department of Radiation Oncology in [place], [place] [address] [place] [address] Yahaira Beltrán M.D. [address] [place] [address] Secondary Malignant Neoplasm Bone (HCC); Malignant Neoplasm Of Breast Female Left (HCC) Social History Tobacco Use Types Packs/Day Years Used Date Smoking Tobacco: Former Cigarettes Smokeless Tobacco: Never Alcohol Use Standard Drinks/Week Comments Not Currently 0 (1 standard drink = 0.6 oz pur e alcohol) [facility] Utilities Answer Date Recorded In the past 12 months has e electric, gas, oil, or water company threatened to [...] your living situation today? I have a [facility] place to live 04/06/2024 Comments Unknown Sex and Gender Information Value Date Recorded Sex Assigned at Female 04/06/2024 7:27 PM CDT Legal Sex Female 1:30 AM ASTROPHYSICS PROFESSOR Gender Identity Female 04/06/2024 7:27 PM CDT Sexual Orientation Straight 04/06/2024 7: 27 PM CDT documented as of this encounter Last Filed Vital Signs Vital Sign Reading Time Taken Comments Blood Pressure 113/59 10/11/2024 2:47 PM ASTROPHYSICS PROFESSOR Pulse 97 10/11/2024 2:47 PM ASTROPHYSICS PROFESSOR Temperature 36.3 C (97.4 F) 10/11/2024 2:47 PM ASTROPHYSICS PROFESSOR Respiratory Rate - - Oxygen Saturation - - Inhaled Oxygen Concentration - - Weight 45.4 kg (100 lb 1.4 oz) 10/11/2024 2:47 P M ASTROPHYSICS PROFESSOR Height - - Body Mass Index 18.42 02/18/2015 3:52 PM CDT documented in this encounter Medications at Time of Discharge albuterol 90 mcg/actuation inhaler Inhale 1-2 puffs every 4 (four) hours as needed. 05/19/2023 cholecalciferol (Vitamin D3) 50 mcg (2,000 Unit) capsule daily. diphenhydrAMINE-l qks-ncsn-qzr hydrox-simeth (FIRST-MOUTHWASH BLM) [id number] mg/30 mL suspensionIndicat ions:Esophagitis Unspecified Without Bleeding [...] mouth. 01/20/2023 documented as of this encounter Progress Notes * Yahaira Beltrán M.D. - 10/11/2024 3:15 PM CST ATTESTATION FOR MANAGEMENT VISIT I saw and evaluated the patient and participated in the jose portions of the service as noted below.I reviewed the documentation of Ms. Susanna Dobson RN and agree with the findings and plan. Thepatient appears well on exam. We will continue with radiation as planned and we anticipate that tabitha complete treatments this week. We anticipate that Mrs. Kimmy Castro will complete radiation treatment as planned without interruptions. The course of treatment was tolerated well. The patient experienced no new toxicities during radiation treatment. Follow-up will be with Dr. rFy and Ms. Baptiste; we will leave follow-ups with us on an as needed basis. Yahaira Beltrán M.D., 10/11/2024 SUBJECTIVE CHIEF COMPLAINT/REASON FOR VISIT Evaluation for side effects while receiving radiation treatment for 1. Secondary Malignant Neoplasm Bone (HCC) 2. Malignant Neoplasm Of Breast Female Left (HCC) SUPERVISED BY: Yahaira Beltrán M.D. HISTORY OF PRESENT ILLNESS Mrs. Kimmy Castro is a 64 y.o. female with metastatic breast cancer with progressive bilateral hip disease . Treatment Course: 2xHip Plan ID Fractions Dose / Fraction (cGy) Dose Treated (cGy) Dose Planned (cGy) First Treatment Last Treatment Elapsed Days F1HipL 3 / 5 500 1500 2500 10/09/2024 10/11/2024 2 F1HipR 3 / 5 500 1500 2500 10/09/2024 10/11/2024 2 Course Summary 10/09/2024 10/11/2024 2 The patient was seen and examined today with Dr. Beltrán. The patient reports to be feeing well overall. She denies pain or skin irritation. She has no new issues or concerns at this time. PATIENT REPORTED SYMPTOM SCREEN: FATIGUE (Scale: 0 = no fatigue; 10 = worst fatigue you can imagine): not reported PAIN (Scale: 0 = no pain; 10 = worst pain you can imagine): not reported OVERALL QUALITY OF LIFE (Scale: 0 = as bad as can be; 10 = as good as can be): not reported OBJECTIVE BP 113/59 (BP Location: Right arm, Patient Position: Sitting, Cuff Size: Regular) Pulse 97 Temp36.3 ??C (Temporal) Wt 45.4 kg BMI 18.42 kg/m?? PHYSICAL EXAMINATION General: Alert and oriented, in no apparent distress. ASSESSMENT / PLAN #1 Metastatic breast cancer with bilateral hip metastases #2 Radiation therapy to bilateral hips initiated on October 09, 2024; anticipated date of completion October 13, 2024 The patient is tolerating radiation treatment well overall. Reviewed post radiation recovery time frame and side effects. Patient will have ongoing follow up with Dr. Fry at [facility]. Follow up with Dr. Beltrán will be on an as needed basis. She will continue with radiation treatment as planned. She can contact our care team with any questions or concerns. Signed by: Susanna Dobson R.N. 10/11/2024 4:03 PM ASTROPHYSICS PROFESSOR OPHYSICS PROFESSOR documented in this encounter Plan of Treatment Scheduled Orders Name Type Priority Associated Diagnoses Orde r Schedule Management Visit Radiation Oncology Routine Secondary Malignant Neoplasm Bone (HCC) Malignant Neoplasm Of Breast Female Left (HCC) Once for 1 Occurrences starting 10/11/2024 until 10/11/2024 documented as of this encounter Visit Diagnoses Diagnosis Secondary Malignant Neoplasm Bone (HCC) Malignant Neoplasm Of Breast Female Left (HCC) documented in this encounter
--- OUTSIDE RECORDS SUMMARY | 2024-11-23 07:07 | XMS_ITS | Encounter Summary ---
Author Organization [facility] Address [address] [place] [address] Care Team Providers Care Cardiology Coordinator Name Role Phone Unavailable Primary Care Provider Unavailabl e Reason for Visit * Radiation Therapy (Routine) - Closed Specialty Diagnoses / Procedures Referred By Jodie fernandez Referred To Contact Diagnoses Secondary Malignant Neoplasm Bone (HCC) Malignant Neoplasm Of Breast Female Left (HCC) Procedures Prior Auth Rad Tx NE RADTN TX DEL >=1 MEV COMPLEX NE GUIDANCE FOR LOC RAD TX NE 3D RAD THER ISODOSE FIELD PLAN Yahaira Beltrán M.D. [address] [place] [address] Phone: tel: fax: [facility] Referral ID Status Reason Start Date Expiration Date Visits Re quested Visits Authorized [id number] Closed 10/02/2024 09/22/2025 5 5 Encounter Details Date Type Department Care Team (Latest Contact Info) Description 10/10/2024 2:51 PM ICE RESURFACING MACHINE OPERATORS - 10/10/2024 11:59 PM [facility] Hospital Encounter Department of Radiation Oncology in [place], [place] [address] [place] [address] Yahaira Beltrán M.D. [address] [place] [phone] Discharge Disposition: Home or Self Care Social History Tobacco Use Types Packs/Day Years Used Date Smoking Tobacco: Former Cigarettes Smokeless Tobacco: Never Alcohol Use Standard Drinks/Week Comments Not Currently 0 (1 standard drink = 0.6 oz pur e alcohol) [facility] Utilities Answer Date Recorded In the past 12 months has th e [employer], gas, oil, or water company threatened to [...] your living situation today? I have a [facility] place to live 04/06/2024 Comments Unknown Sex and Gender Information Value Date Recorded Sex Assigned at Female 04/06/2024 7:27 PM CDT Legal Sex Female 1:30 AM ICE RESURFACING MACHINE OPERATORS Gender Identity Female 04/06/2024 7:27 PM CDT Sexual Orientation Straight 04/06/2024 7: 27 PM CDT documented as of this encounter Medications at Time of Discharge albuterol 90 mcg/actuation inhaler Inhale 1-2 puffs every 4 (four) hours as needed. 05/19/2023 cholecalciferol (Vitamin D3) 50 mcg (2,000 Unit) capsule daily. diphenhydrAMINE-l uuc-wwxc-aqv hydrox-simeth (FIRST-MOUTHWASH BLM) [id number] mg/30 mL suspensionIndicat ions:Esophagitis Unspecified Without Bleeding [...]
--- OUTSIDE RECORDS SUMMARY | 2024-11-23 07:07 | XMS_ITS | Encounter Summary ---
Author Organization [facility] Address [address] [place] [address] Care Team Providers Care General Repairer Name Role Phone Unavailable Primary Care Provider Unavailabl e Reason for Visit * Radiation Therapy (Routine) - Closed Specialty Diagnoses / Procedures Referred By Jodie fernandez Referred To Contact Diagnoses Secondary Malignant Neoplasm Bone (HCC) Malignant Neoplasm Of Breast Female Left (HCC) Procedures Prior Auth Rad Tx AR RADTN TX DEL >=1 MEV COMPLEX AR GUIDANCE FOR LOC RAD TX AR 3D RAD THER ISODOSE FIELD PLAN Yahaira Beltrán M.D. [address] [place] [address] Phone: tel: fax: [facility] Referral ID Status Reason Start Date Expiration Date Visits Re quested Visits Authorized [id number] Closed 10/02/2024 09/22/2025 5 5 Encounter Details Date Type Department Care Team (Latest Contact Info) Description 10/12/2024 2:41 PM PROMOTIONAL MARKETING ANALYST - 10/12/2024 11:59 PM [facility] Hospital Encounter Department of Radiation Oncology in [place], [place] [address] [place] [address] Yahaira Beltrán M.D. [address] [place] [phone] Discharge Disposition: Home or Self Care Social History Tobacco Use Types Packs/Day Years Used Date Smoking Tobacco: Former Cigarettes Smokeless Tobacco: Never Alcohol Use Standard Drinks/Week Comments Not Currently 0 (1 standard drink = 0.6 oz pur e alcohol) [facility] Utilities Answer Date Recorded In the past 12 months has th e [employer], gas, oil, or water company threatened to [...] your living situation today? I have a [facility] place to live 04/06/2024 Comments Unknown Sex and Gender Information Value Date Recorded Sex Assigned at Female 04/06/2024 7:27 PM CDT Legal Sex Female 1:30 AM PROMOTIONAL MARKETING ANALYST Gender Identity Female 04/06/2024 7:27 PM CDT Sexual Orientation Straight 04/06/2024 7: 27 PM CDT documented as of this encounter Medications at Time of Discharge albuterol 90 mcg/actuation inhaler Inhale 1-2 puffs every 4 (four) hours as needed. 05/19/2023 cholecalciferol (Vitamin D3) 50 mcg (2,000 Unit) capsule daily. diphenhydrAMINE-l nna-bjku-yqz hydrox-simeth (FIRST-MOUTHWASH BLM) [id number] mg/30 mL suspensionIndicat ions:Esophagitis Unspecified Without Bleeding [...]
[2024-11-23] MEDS: HEPARIN 500 UNIT/5 ML SYRINGE IVF (14:26)
[2024-11-23] MEDS: SODIUM CHLORIDE 0.9 % (FLUSH) 10 ML SYRINGE IVF (14:26)
[2024-11-28] MEDS: SODIUM CHLORIDE 0.9 % (FLUSH) 10 ML SYRINGE IVF ×2 (08:25→09:20)
[2024-11-28 08:39] LABS: Basophils Absolute Auto 0.03 K/uL (0.00-0.30); Basophils Percent Auto 0.3 % (0.0-3.0); Eosinophils Absolute Auto 0.04 K/uL (0.00-0.50); Eosinophils Percent Auto 0.4 % (0.0-7.0); Hematocrit 34.7 % (33.0-51.0); Hemoglobin* 11.2 gm/dL (12.0-16.0); Immature Granulocytes Abs Auto 0.69 K/uL (0.00-0.30); Immature Granulocytes Pct Auto 6.4 %; Lymphocytes Percent Auto 4.6 % (20-44); Mean Corpuscular HGB Conc 32 gm/dL (32-36); Mean Corpuscular Hemoglobin 34 pg (26-34); Mean Corpuscular Volume 104 fL (80-100); Monocytes Percent Auto 8.2 % (0.0-11.0); Neutrophils Percent Auto 80.1 % (42.0-72.0); Platelet Count* 196 K/uL (140-440); RDW Coefficient of Variation % 16.4 % (11.5-15.5); Red Blood Count 3.33 m/uL (4.00-5.20); White Blood Count* 10.76 K/uL (4.50-11.00)
[2024-11-28 08:57] LABS: Slide Review Reflex Yes
[2024-11-28 09:03] LABS: Chloride* 106 mmol/L (96-114); Potassium* 3.8 mmol/L (3.6-5.1); Sodium* 137 mmol/L (135-149)
[2024-11-28 09:05] LABS: Creatinine* 0.6 mg/dL (0.5-1.5); Est. Creatinine Clearance* 41.03; Estimated Glomerular Filt Rate 101 ml/min
[2024-11-28 09:06] LABS: Alanine Aminotransferase* 17 U/L (4-35); Alkaline Phosphatase* 117 U/L (40-150); Anion Gap 7 mEq/L (7-15); Aspartate Amino Transferase* 18 U/L (12-35); Bilirubin Total* 0.2 mg/dL (0.1-1.5); Blood Urea Nitrogen* 13 mg/dL (7-30); Carbon Dioxide* 24 mmol/L (20-32); Glucose* 91 mg/dL (60-115); Total Protein* 6.2 g/dL (6.0-8.3)
[2024-11-28 09:07] LABS: Calcium* 9.3 mg/dL (8.4-10.6)
[2024-11-28] MEDS: HEPARIN 500 UNIT/5 ML SYRINGE IVF (09:20)
[2024-11-28 09:24] LABS: Slide Review Acceptable Review (Acceptable)
[2024-12-01 08:27] VITALS: BP 104/65; PULSE 108; RESP 16; TEMP 36.7; O2SAT 99
[2024-12-01] MEDS: FAMOTIDINE 20 MG TABLET PO (09:03)
[2024-12-01] MEDS: SODIUM CHLORIDE 0.9 % (FLUSH) 10 ML SYRINGE IVF (09:03)
[2024-12-01] MEDS: ACETAMINOPHEN 325 MG TABLET 650 MG PO (09:04)
[2024-12-01] MEDS: diphenhydrAMINE 25 MG CAPSULE PO (09:05)
[2024-12-01] MEDS: PALONOSETRON 0.25 MG/5 ML inj IV (09:06)
[2024-12-01] MEDS: dexAMETHasone 12 MG in 0.9 % SODIUM CHLORIDE 100 ml 100 ML 408 MG IVPB (09:08)
[2024-12-01] MEDS: FOSAPREPITANT 150 MG inj 150 MG in 0.9 % SODIUM CHLORIDE 250 ml 250 ML 510 MG IVPB (09:25)
[2024-12-05 14:11] LABS: Basophils Absolute Auto 0.01 K/uL (0.00-0.30); Basophils Percent Auto 0.2 % (0.0-3.0); Eosinophils Absolute Auto 0.01 K/uL (0.00-0.50); Eosinophils Percent Auto 0.2 % (0.0-7.0); Hematocrit 31.7 % (33.0-51.0); Hemoglobin* 10.4 gm/dL (12.0-16.0); Immature Granulocytes Abs Auto 0.03 K/uL (0.00-0.30); Immature Granulocytes Pct Auto 0.5 %; Lymphocytes Percent Auto 4.9 % (20-44); Mean Corpuscular HGB Conc 33 gm/dL (32-36); Mean Corpuscular Hemoglobin 33 pg (26-34); Mean Corpuscular Volume 101 fL (80-100); Monocytes Percent Auto 2.3 % (0.0-11.0); Neutrophils Percent Auto 91.9 % (42.0-72.0); Platelet Count* 167 K/uL (140-440); RDW Coefficient of Variation % 15.3 % (11.5-15.5); Red Blood Count 3.13 m/uL (4.00-5.20); White Blood Count* 6.11 K/uL (4.50-11.00)
[2024-12-05 14:31] LABS: Albumin* 3.8 g/dL (3.3-5.0); Chloride* 103 mmol/L (96-114); Potassium* 3.4 mmol/L (3.6-5.1); Sodium* 133 mmol/L (135-149)
[2024-12-05 14:33] LABS: Anion Gap 5 mEq/L (7-15); Bilirubin Total* 0.2 mg/dL (0.1-1.5); Carbon Dioxide* 25 mmol/L (20-32); Creatinine* 0.7 mg/dL (0.5-1.5); Est. Creatinine Clearance* 41.03; Estimated Glomerular Filt Rate 97 ml/min
[2024-12-05 14:34] LABS: Alanine Aminotransferase* 16 U/L (4-35); Alkaline Phosphatase* 95 U/L (40-150); Aspartate Amino Transferase* 16 U/L (12-35); Blood Urea Nitrogen* 22 mg/dL (7-30); Glucose* 172 mg/dL (60-115); Total Protein* 5.9 g/dL (6.0-8.3)
[2024-12-05 14:35] LABS: Calcium* 9.7 mg/dL (8.4-10.6)
[2024-12-05 15:02] LABS: Slide Review Reflex No
--- NOTE | 2024-12-05 15:06 | ONC.NURNOTE ---
Addendum entered by Romy Farley RN 12/06/24 15:43: Labs reviewed by Dr. Fry. Per Ang, pt should be taking potassium at home. Analysis Analyst left message with pt to confirm she is taking potassium 20meq PO BID. Instructed pt to call [facility] if she needs a refill. Also, left in message pt should increase salt intake in diet. Original Note: Pt came in for labs today in anticipation of chemo on Wednesday. All treatment parameters were met. Pharmacy notified. Called pt and LM with update and let her know that her sodium and potassium were both a little low. Encouraged pt to eat potassium and salt rich foods and to call with any questions regarding that. Will follow-up with pt on Wednesday when present if she doesn't call sooner. Will also let MD know.
[2024-12-08 08:29] VITALS: BP 109/75; PULSE 106; RESP 16; TEMP 37.1; O2SAT 99
[2024-12-08] MEDS: ACETAMINOPHEN 325 MG TABLET 650 MG PO (08:43)
[2024-12-08] MEDS: diphenhydrAMINE 25 MG CAPSULE PO (09:01)
[2024-12-08] MEDS: FAMOTIDINE 20 MG TABLET PO (09:02)
[2024-12-08] MEDS: dexAMETHasone 12 MG in 0.9 % SODIUM CHLORIDE 100 ml 100 ML 405 MG IVPB (09:09)
[2024-12-08] MEDS: PALONOSETRON 0.25 MG/5 ML inj IV (09:12)
[2024-12-08] MEDS: FOSAPREPITANT 150 MG inj 150 MG in 0.9 % SODIUM CHLORIDE 250 ml 250 ML 510 MG IVPB (09:26)
[2024-12-08] MEDS: SODIUM CHLORIDE 0.9 % (FLUSH) 10 ML SYRINGE IVF (11:52)
[2024-12-08] MEDS: 0.9 % SODIUM CHLORIDE 500 ML IV (11:52)
[2024-12-08] MEDS: HEPARIN 500 UNIT/5 ML SYRINGE IVF (11:52)
[2024-12-18 12:03] VITALS: BP 96/66; PULSE 133; RESP 19; TEMP 36.4; O2SAT 92
[2024-12-18 12:45] LABS: Hematocrit 32.3 % (33.0-51.0); Hemoglobin* 10.8 gm/dL (12.0-16.0); Immature Granulocytes Abs Auto 0.18 K/uL (0.00-0.30); Immature Granulocytes Pct Auto 1.8 %; Lymphocytes Percent Auto 4.1 % (20-44); Mean Corpuscular HGB Conc 33 gm/dL (32-36); Mean Corpuscular Hemoglobin 33 pg (26-34); Mean Corpuscular Volume 99 fL (80-100); Monocytes Percent Auto 4.7 % (0.0-11.0); Neutrophils Percent Auto 89.4 % (42.0-72.0); Platelet Count* 179 K/uL (140-440); RDW Coefficient of Variation % 15.7 % (11.5-15.5); Red Blood Count 3.27 m/uL (4.00-5.20); White Blood Count* 9.84 K/uL (4.50-11.00)
[2024-12-18 12:55] LABS: Albumin* 3.1 g/dL (3.3-5.0); Chloride* 96 mmol/L (96-114)
[2024-12-18 12:56] LABS: Potassium* 3.1 mmol/L (3.6-5.1); Sodium* 128 mmol/L (135-149)
[2024-12-18 12:58] LABS: Anion Gap 10 mEq/L (7-15); Bilirubin Total* 0.5 mg/dL (0.1-1.5); Carbon Dioxide* 22 mmol/L (20-32); Creatinine* 0.8 mg/dL (0.5-1.5); Estimated Glomerular Filt Rate 83 ml/min
[2024-12-18 12:59] LABS: Alanine Aminotransferase* 24 U/L (4-35); Alkaline Phosphatase* 79 U/L (40-150); Aspartate Amino Transferase* 36 U/L (12-35); Blood Urea Nitrogen* 14 mg/dL (7-30); Glucose* 207 mg/dL (60-115); Total Protein* 5.3 g/dL (6.0-8.3)
[2024-12-18 13:03] LABS: Slide Review Reflex No
[2024-12-18] MEDS: 0.9 % SODIUM CH + KCL 20 mEq/L 1,000 ML 500 ML IV (14:10)
[2024-12-18] MEDS: dexAMETHasone 4 MG/ML VIAL 8 MG IVP (14:11)
[2024-12-18 15:21] LABS: PCR FLU A Negative PCR FLU A (Negative); PCR FLU B Negative PCR FLU B (Negative); PCR RSV Negative PCR RSV (Negative); SARS PCR* Negative SARS-CoV-2 (Negative)
[2024-12-18 16:10] VITALS: BP 102/66; PULSE 107; RESP 40; TEMP 37.9; O2SAT 88
--- NOTE | 2024-12-18 16:52 | ONC.NURNOTE ---
Pt transferred to [facility] via wheelchair; report given to SHIRIN Connell. Pt's daughter Telma accompanied pt. Left f/u appt on calendar for 12/21 with Lynda GARAY at this time. All parties aware.
== END 2025-01-01 23:59 | disposition home or self-care (01) ==
LOC: CCIC 09:50
PROVIDERS: Clinical Nurse Specialist; Physician Assistant; PCP Student in an Organized Health Care Education/Training Program; Referring Provider Student in an Organized Health Care Education/Training Program; Visit Provider Internal Medicine Hematology & Oncology
DX: C50.912 Malignant neoplasm of unspecified site of left female breast (principal); Z17.0 Estrogen receptor positive status [ER+]
CPT/HCPCS: 36415; 36430; 36591; 78815; 80053; 82270; 83735; 85025; 86850; 86900; 86901; 86922; 87070; 87631; 88360; 96361; 96366; 96367; 96372; 96374; 96375; 96376; 96377; 96411; 96413; 96415; 97802; 99211; 99214; 99215; G0463; J2506; A9270; A9552; J0461; J1100; J1200; J1453; J1642; J2469; J3489; J7030; J7050; J9317; P9016; Q5111; S0028

== ENCOUNTER 2025-01-08 16:10 | Emergency (ER) | payer OTHER, SELFPAY ==
[2025-01-08] VITALS (25 sets, daily range): BP systolic 71–135; BP diastolic 52–79; PULSE 79–115; RESP 0–35; TEMP 37.3; O2SAT 79–100
--- OUTSIDE RECORDS SUMMARY | 2025-01-08 16:12 | XMS_ITS | Encounter Summary ---
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 [address] [place] [address] [phone] Urinary Tract Infection Site Not Specified (Primary Dx) Discharge Disposition: Home or Self Care Social History Tobacco Use Types Packs/Day Years Used Date Smoking Tobacco: Former Cigarettes Smokeless Tobacco: Never Alcohol Use Standard Drinks/Week Comments Not Currently 0 (1 standard drink = 0.6 oz pur e alcohol) [facility] Utilities Answer Date Recorded In the past 12 months has [employer], gas, oil, or water [employer] threatened to shut off services in your [...] your living situation today? I have a [facility] place to live 04/06/2024 Comments Unknown Sex and Gender Information Value Date Recorded Sex Assigned at Female 04/06/2024 7:27 PM CDT Legal Sex Female 1:30 AM SEED SERVICE ADVISOR Gender Identity Female 04/06/2024 7:27 PM CDT Sexual Orientation Straight 04/06/2024 7: 27 PM CDT documented as of this encounter Last Filed Vital Signs Vital Sign Reading Time Taken Comments Blood Pressure 118/80 12/13/2024 12:00 AM SEED SERVICE ADVISOR Pulse - - Temperature 36.3 C (97.3 F) 12/12/2024 10:48 PM SEED SERVICE ADVISOR Respiratory Rate 20 12/13/2024 12:00 AM SEED SERVICE ADVISOR Oxygen Saturation 99% 12/13/2024 12:00 AM SEED SERVICE ADVISOR Inhaled Oxygen Concentration - - Weight 44.7 kg (98 lb 8.7 oz) 12/12/2024 10:47 P M SEED SERVICE ADVISOR Height - - Body Mass Index 18.13 02/18/2015 3:52 PM CDT documented in this encounter Discharge Instructions * Discharge Instructions* Morales Zaidi, P.A.-C. - 12/13/2024 12:19 AM SEED SERVICE ADVISOR You appear to be suffering from a urinary tract infection. You are being placed on an antibiotic. Take this medication as prescribed. Please return to the ER if new symptoms develop, current symptomsworsen, or you becomes concerned. Otherwise please follow up with your care team. SERVICE ADVISOR * Attachments The following attachments cannot be sent through Care Everywhere. * Urinary Tract Infection Adult (Latvian) documented in this encounter Medications at Time of Discharge albuterol 90 mcg/actuation inhaler Inhale 1-2 puffs every 4 (four) hours as needed. 05/19/2023 cholecalciferol (Vitamin D3) 50 mcg (2,000 Unit) capsule daily. diphenhydrAMINE-l nmg-vvoj-qyf hydrox-simeth (FIRST-MOUTHWASH BLM) [phone] mg/30 mL suspensionIndicat ions:Esophagitis Unspecified Without Bleeding [...] Not Specified Morales Zaidi P.A.-C. 12/14/24 0638 SERVICE ADVISOR documented in this encounter Plan of Treatment Not on file documented as of this encounter Procedures Procedure Name Priority Date/Time Associated Diagnosis Comments URINALYSIS WITH MICROSCOPIC IF INDICATED, U Routine 12/12/2024 11:50 PM SEED SERVICE ADVISOR HC URINALYSIS AUTO W MICRO Routine 12/12/2024 11:50 PM SEED SERVICE ADVISOR SARS CORONAVIRUS 2, PCR RAPID, V STAT 12/12/2024 11:02 PM SEED SERVICE ADVISOR GROUP A STREP PCR, THROAT STAT 12/12/2024 11:02 PM SEED SERVICE ADVISOR INFLUENZA A, B, RSV, PCR, POCT STAT 12/12/2024 11:02 PM SEED SERVICE ADVISOR MORPHOLOGY EVALUATION STAT 12/12/2024 11:01 PM SEED SERVICE ADVISOR MANUAL DIFFERENTIAL, B STAT 11:01 PM SEED SERVICE ADVISOR CBC WITH DIFFERENTIAL, B STAT 12/12/2024 11:01 PM SEED SERVICE ADVISOR LIPASE, S/P STAT 12/12/2024 11:01 PM SEED SERVICE ADVISOR COMPREHENSIVE METABOLIC PANEL, S/P STAT 12/12/2024 11:01 PM SEED SERVICE ADVISOR documented in this encounter Results * (ABNORMAL) Microscopic Manual (12/12/2024 11:50 PM SEED SERVICE ADVISOR) White Blood Cells 11-20(A) /hpf 12/13/2024 12:12 AM SEED SERVICE ADVISOR CNFL Comment: ----REFERENCE VALUE---- Males: 0-3 Females: 0-10 Unknown: 0-10 Red Blood Cells Occ-2 0 - 2 /hpf 12/13/2024 12:12 AM SEED SERVICE ADVISOR CNFL Squamous Cells Occ-3 /hpf 12/13/2024 12:12 AM SEED SERVICE ADVISOR CNFL Bacteria Present(A) None Seen 12/13/2024 12:12 AM SEED SERVICE ADVISOR CNFL Urine 12/12/2024 11:5 0 PM SEED SERVICE ADVISOR 12/12/2024 11:50 PM SEED SERVICE ADVISOR Morales Zaidi P.A.-C. LAB URINE ORDERABLES Fin al Result [facility] [address] [place] [address], [facility] CNFL [place] [address] * (ABNORMAL) Urinalysis with Microscopic if Indicated: Urine, Midstream (12/12/2024 11:50 PM SEED SERVICE ADVISOR) Source Urine, Urine, Midstream 12/12/2024 11:50 PM SEED SERVICE ADVISOR CNFL Clarity Cloudy(A) Clear 12/12/2024 11:53 PM SEED SERVICE ADVISOR CNFL Color Yellow 12/12/2024 11:53 PM SEED SERVICE ADVISOR CNFL Comment: ----REFERENCE VALUE---- Colorless Yellow Julia Blood Negative Negative 12/12/2024 11:53 PM SEED SERVICE ADVISOR CNFL Nitrite Positive(A) Negative 12/12/2024 11:53 PM SEED SERVICE ADVISOR CNFL Leukocyte Esterase Small(A) Negative 12/12/2024 11:53 PM SEED SERVICE ADVISOR CNFL Protein 30(A) mg/dL 12/12/2024 11:53 PM SEED SERVICE ADVISOR CNFL Comment: ----REFERENCE VALUE---- Negative Trace Glucose Negative Negative mg/dL 12/12/2024 11:53 PM SEED SERVICE ADVISOR CNFL Ketones, QI(U) 15(A) Negative mg/dL 12/12/2024 11:53 PM SEED SERVICE ADVISOR CNFL Bilirubin Negative Negative 12/12/2024 11:53 PM SEED SERVICE ADVISOR CNFL pH 6.0 5.0 - 8.0 12/12/2024 11:53 PM SEED SERVICE ADVISOR CNFL Specific [place] 1.025 1.001 - 1.035 12/12/2024 11:53 PM SEED SERVICE ADVISOR CNFL Urobilinogen 0.2 0.2 - 1.0 mg/dL 12/12/2024 11:53 PM SEED SERVICE ADVISOR CNFL Urine (Urine, Midstream) 12/12/2024 11:50 PM SEED SERVICE ADVISOR 12/12/2024 11:50 PM SEED SERVICE ADVISOR Morales Zaidi P.A.-C. LAB URINE ORDERABLES Fin al Result Performing Organization Address [facility]/ZIP Co de Phone Number [facility] [address] [place] [phone], [facility] in [address] [address] * Influenza A/B and RSV, PCR, Point of Care (12/12/2024 11:02 PM SEED SERVICE ADVISOR) Influenza A, POCT Negative Negative 12/12/2024 11:31 PM SEED SERVICE ADVISOR CNFL Influenza B, POCT Negative Negative 12/12/2024 11:31 PM SEED SERVICE ADVISOR CNFL Resp Syncytial Virus, POCT Negative Negative 12/12/2024 11:31 PM SEED SERVICE ADVISOR [facility] Swab (Nasopharynx) 12/12/2024 11:02 PM SEED SERVICE ADVISOR 12/12/2024 11:06 PM SEED SERVICE ADVISOR Morales Zaidi P.A.-C. LAB POCT ORDERABLES - DE VICE Final Result Performing Organization Address [facility]/ZIP Co de Phone Number [address] [address], [facility] in [address] [address] * SARS Coronavirus 2, PCR Rapid Symptomatic (12/12/2024 11:02 PM SEED SERVICE ADVISOR) SARS CoV-2, PCR, Rapid, V Undetected Undetected 12/12/2024 11:08 PM SEED SERVICE ADVISOR CNFL SARS Coronavirus 2, Source, Rapid Swab, Nasopharynx 12/12/2024 11:06 PM SEED SERVICE ADVISOR CNFL Swab (Nasopharynx) 12/12/2024 11:02 PM SEED SERVICE ADVISOR 12/12/2024 11:06 PM SEED SERVICE ADVISOR Morales Zaidi P.A.-C. LAB MICROBIOLOGY - GENER AL ORDERABLES Final Result Performing Organization Address [facility] Co de Phone Number [facility] [address] [place] [phone], [facility] [place] [address] * Group A Streptococcus PCR, Throat (12/12/2024 11:02 PM SEED SERVICE ADVISOR) Strep Group A, PCR, POCT Negative Negative 12/12/2024 11:09 PM SEED SERVICE ADVISOR CNFL Swab (Throat) 12/12/2024 11: 02 PM SEED SERVICE ADVISOR 12/12/2024 11:06 PM SEED SERVICE ADVISOR Morales Zaidi P.A.-C. LAB MICROBIOLOGY - GENER AL ORDERABLES Final Result Performing Organization Address [facility] Co de Phone Number [facility] [address] [place] [phone], [facility] [address] [address] * (ABNORMAL) Manual Differential, Blood (12/12/2024 11:01 PM SEED SERVICE ADVISOR) Segmented Neutrophils 87(H) 50 - 75 % 12/13/2024 12:07 AM SEED SERVICE ADVISOR CNFL Lymphocytes % 7(L) 18 - 42 % 12/13/2024 12:07 AM SEED SERVICE ADVISOR CNFL Monocytes 6 2 - 11 % 12/13/2024 12:07 AM SEED SERVICE ADVISOR CNFL Manual Absolute Neutrophil Count 6.44 1.56 - 6.45 x10(9)/L 12/13/2024 12:07 AM SEED SERVICE ADVISOR CNFL Comment: ----ADDITIONAL INFORMATION---- The manual absolute neutrophil count is derived from a manual differential count and therefore is not exactly comparable to the automated absolute neutrophil count. Blood 12/12/2024 11:0 1 PM SEED SERVICE ADVISOR 12/12/2024 11:03 PM SEED SERVICE ADVISOR Morales Zaidi P.A.-C. LAB BLOOD ADD-ON Final R esult [address] [address], [address] [address] * (ABNORMAL) Morphology Evaluation (12/12/2024 11:01 PM SEED SERVICE ADVISOR) RBC Morphology See Specific Findings 12/13/2024 12:07 AM SEED SERVICE ADVISOR CNFL PLT Morphology Normal 12/13/2024 12:07 AM SEED SERVICE ADVISOR CNFL PLT Estimate Adequate Adequate 12/13/2024 12:07 AM SEED SERVICE ADVISOR CNFL Anisocytosis Slight(A) 12/13/2024 12:07 AM SEED SERVICE ADVISOR CNFL Macrocytosis Slight(A) Not Seen 12/13/2024 12:07 AM SEED SERVICE ADVISOR CNFL Blood 12/12/2024 11:0 1 PM SEED SERVICE ADVISOR 12/12/2024 11:03 PM SEED SERVICE ADVISOR us Morales Zaidi P.A.-C. LAB BLOOD ADD-ON Final R esult [address] [address], [address] [address] * Lipase (12/12/2024 11:01 PM SEED SERVICE ADVISOR) Lipase, P 19 13 - 60 U/L 12/12/2024 11:22 PM SEED SERVICE ADVISOR CNFL Blood (Blood, Venous) 12/12/2024 11:01 PM SEED SERVICE ADVISOR 12/12/2024 11:03 PM SEED SERVICE ADVISOR us Morales Zaidi P.A.-C. LAB BLOOD ADD-ON Final R esult [facility] [address] [place] [phone], [address] [address] * (ABNORMAL) Comprehensive Metabolic Panel (12/12/2024 11:01 PM SEED SERVICE ADVISOR) Potassium, P 3.2(L) 3.6 - 5.2 mmol/L 12/12/2024 11:22 PM SEED SERVICE ADVISOR CNFL Sodium, P 136 135 - 145 mmol/L 12/12/2024 11:22 PM SEED SERVICE ADVISOR CNFL Chloride, P 104 98 - 107 mmol/L 12/12/2024 11:22 PM SEED SERVICE ADVISOR CNFL Bicarbonate, P 23 22 - 29 mmol/L 12/12/2024 11:22 PM SEED SERVICE ADVISOR CNFL Anion Gap, P 9 7 - 15 12/12/2024 11:22 PM SEED SERVICE ADVISOR CNFL BUN (Blood Urea Nitrogen), P 10 6 - 21 mg/dL 12/12/2024 11:22 PM SEED SERVICE ADVISOR CNFL Creatinine 0.64 0.59 - 1.04 mg/dL 12/12/2024 11:22 PM SEED SERVICE ADVISOR CNFL Estimated GFR (eGFR) >90 >=60 mL/min/BS A 12/12/2024 11:22 PM SEED SERVICE ADVISOR CNFL Comment: Estimated GFR calculated using the 2020 CKD_EPI creatinine equation. Calcium, Total, P 8.0(L) 8.8 - 10.2 mg/dL 12/12/2024 11:22 PM SEED SERVICE ADVISOR CNFL Glucose, P 109 70 - 140 mg/dL 12/12/2024 11:22 PM SEED SERVICE ADVISOR CNFL Protein, Total, P 5.3(L) 6.3 - 7.9 g/dL 12/12/2024 11:22 PM SEED SERVICE ADVISOR CNFL Albumin, P 3.4(L) 3.5 - 5.0 g/dL 12/12/2024 11:22 PM SEED SERVICE ADVISOR CNFL Aspartate Aminotransferase (AST), P 13 8 - 43 U/L 12/12/2024 11:22 PM SEED SERVICE ADVISOR CNFL Alkaline Phosphatase, P 90 35 - 104 U/L 12/12/2024 11:22 PM SEED SERVICE ADVISOR CNFL Alanine Aminotransferase (ALT), P 24 7 - 45 U/L 12/12/2024 11:22 PM SEED SERVICE ADVISOR CNFL Bilirubin, Total, P 0.4 0.0 - 1.2 mg/dL 12/12/2024 11:22 PM SEED SERVICE ADVISOR CNFL Blood (Blood, Venous) 12/12/2024 11:01 PM SEED SERVICE ADVISOR 12/12/2024 11:03 PM SEED SERVICE ADVISOR us Morales Zaidi P.A.-C. LAB BLOOD ADD-ON Final R esult [facility] [address] [place] [phone], [facility] CNFL [place] [address] * (ABNORMAL) CBC with Differential, Blood (12/12/2024 11:01 PM SEED SERVICE ADVISOR) Hemoglobin 9.8(L) 11.6 - 15.0 g/dL 12/12/2024 11:11 PM SEED SERVICE ADVISOR CNFL Hematocrit 28.7(L) 35.5 - 44.9 % 12/12/2024 11:11 PM SEED SERVICE ADVISOR CNFL Erythrocytes 2.89(L) 3.92 - 5.13 x10(12)/ L 12/12/2024 11:11 PM SEED SERVICE ADVISOR CNFL MCV 99.3(H) 78.2 - 97.9 fL 12/12/2024 11:11 PM SEED SERVICE ADVISOR CNFL RBC Distrib Width 15.2 12.2 - 16.1 % 12/12/2024 11:11 PM SEED SERVICE ADVISOR CNFL Platelet Count 157 157 - 371 x10(9)/L 12/12/2024 11:11 PM SEED SERVICE ADVISOR CNFL Leukocytes 7.4 3.4 - 9.6 x10(9)/L 12/12/2024 11:11 PM SEED SERVICE ADVISOR CNFL Neutrophils See manual differential 1.56 - 6.45 x10(9)/L 12/12/2024 11:58 PM SEED SERVICE ADVISOR CNFL Comment: REVISED RESULTS ----PREVIOUSLY REPORTED ---- 6.29 x10(9)/L Flagged as: Normal (Reported 12/12/2024 23:11) Lymphocytes CANCELED x10(9)/L 12/12/2024 11:58 PM SEED SERVICE ADVISOR CNFL Comment: REVISED RESULTS ----PREVIOUSLY REPORTED ---- 0.44 x10(9)/L Flagged as: Abnormal_Low (Reported 12/12/2024 23:11) Monocytes CANCELED x10(9)/L 12/12/2024 11:58 PM SEED SERVICE ADVISOR CNFL Comment: REVISED RESULTS ----PREVIOUSLY REPORTED ---- 0.58 x10(9)/L Flagged as: Normal (Reported 12/12/2024 23:11) Eosinophils CANCELED x10(9)/L 12/12/2024 11:58 PM SEED SERVICE ADVISOR CNFL Comment: REVISED RESULTS ----PREVIOUSLY REPORTED ---- <0.04 x10(9)/L Flagged as: Normal (Reported 12/12/2024 23:11) Basophils CANCELED x10(9)/L 12/12/2024 11:58 PM SEED SERVICE ADVISOR CNFL Comment: REVISED RESULTS ----PREVIOUSLY REPORTED ---- <0.04 x10(9)/L Flagged as: Normal (Reported 12/12/2024 23:11) Blood (Blood, Venous) 12/12/2024 11:01 PM SEED SERVICE ADVISOR 12/12/2024 11:03 PM SEED SERVICE ADVISOR Morales Zaidi P.A.-C. LAB BLOOD ADD-ON Edited Result - Final [facility] [address] [place] [address], [facility] [place] [address] documented in this encounter Visit Diagnoses Diagnosis [...] Non-CatheterIndications:Lower UTI, Non-Catheter Given 12/13/2024 12:31 AM SEED SERVICE ADVISOR 300 mg documented in this encounter Active and Recently Administered Medications Times are shown in SEED SERVICE ADVISOR. Scheduled Medication Order 12/11/2024 12/12/2024 12/13/2024 [email or web address] [...] Pending 12/12/2024 12/12/2024 12/12/2024 1 1:29 PM SEED SERVICE ADVISOR documented as of this encounter
--- OUTSIDE RECORDS SUMMARY | 2025-01-08 16:12 | XMS_ITS | Clinical Summary ---
Author Organization [facility] Address [address] [place] [address] Care Team Providers Care Vice President Safety Name Role Phone Unavailable Primary Care Provider Unavailabl e Source Comments Patient records contain information from all sites at [facility]. For routine questions regarding patient records, call [phone] during business hours, M-F 8:00 AM - 5:00 PM Central Time. Record requests for emergency care only can be directed to [phone] at any time.[facility] Allergies Active Allergy Reactions Criticality Noted Date Comments Venom-Honey Bee Anaphylaxis High 02/18/2015 Medications diphenhydrAMINE -nbah-osic-vur hydrox-simeth ([facility] H BLM) [phone] mg/30 mL suspensionIndic ations:Esophagi tis Unspecified [...] Department Care Team Description 12/12/2024 10:49 PM MAIL LIST PROCESSOR - 12/13/2024 12:35 AM MAIL LIST PROCESSOR Emergency [facility] [address] [place] [phone] Morales Zaidi P.A.-C. Urinary Tract Infection Site Not Specified (Primary Dx) Discharge Disposition: Home or Self Care 10/13/2024 2:36 PM MAIL LIST PROCESSOR - 10/13/2024 11:59 PM MAIL LIST PROCESSOR Hospital Encounter Department of Radiation Oncology in [address] [phone] Yahaira Beltrán M.D. Discharge Disposition: Home or Self Care 10/13/2024 Documentation Department of Radiation Oncology in [address] [address] Yahaira Beltrán M.D. 10/12/2024 2:41 PM MAIL LIST PROCESSOR - 10/12/2024 11:59 PM MAIL LIST PROCESSOR Hospital Encounter Department of Radiation Oncology in [address] [address] Yahaira Beltrán M.D. Discharge Disposition: Home or Self Care 10/11/2024 2:20 PM MAIL LIST PROCESSOR - 10/11/2024 4:26 PM MAIL LIST PROCESSOR Hospital Encounter Department of Radiation Oncology in [address] [address] Yaharia Beltrán M.D. Secondary Malignant Neoplasm Bone (HCC); Malignant Neoplasm Of Breast Female Left (HCC) 10/11/2024 2:20 PM MAIL LIST PROCESSOR - 10/11/2024 11:59 PM MAIL LIST PROCESSOR Hospital Encounter Department of Radiation Oncology in [address] [phone] Yahaira Beltrán M.D. Discharge Disposition: Home or Self Care 10/10/2024 2:51 PM MAIL LIST PROCESSOR - 10/10/2024 11:59 PM MAIL LIST PROCESSOR Hospital Encounter Department of Radiation Oncology in [address] [address] Yahaira Beltrán M.D. Discharge Disposition: Home or Self Care 10/09/2024 2:41 PM MAIL LIST PROCESSOR - 10/09/2024 11:59 PM MAIL LIST PROCESSOR Hospital Encounter Department of Radiation Oncology in [address] [address] Yahaira Beltrán M.D. Discharge Disposition: Home or Self Care from Last 3 Months Family History Medical History Relation Name Comments Breast cancer (cancer in one breast) Maternal Grandmot her Relation Name Status Comments Maternal Grandmother Social History Tobacco Use Types Packs/Day Years Used Date Smoking Tobacco: Former Cigarettes Smokeless Tobacco: Never Tobacco Cessation:Counseling Given: Not Answered Alcohol Use Standard Drinks/Week Comments Not Currently 0 (1 standard drink = 0.6 oz pur e alcohol) [facility] Utilities Answer Date Recorded In the past 12 months has e [employer], gas, oil, or water [employer] threatened to shut off services in your [...] your living situation today? [facility] live 04/06/2024 Comments Unknown Sex and Gender Information Value Date Recorded Sex Assigned at Female 04/06/2024 7:27 PM CDT Legal Sex Female 1:30 AM MAIL LIST PROCESSOR Gender Identity Female 04/06/2024 7:27 PM CDT Sexual Orientation Straight 04/06/2024 7: 27 PM CDT Last Filed Vital Signs Vital Sign Reading Time Taken Comments Blood Pressure 118/80 12/13/2024 12:00 AM MAIL LIST PROCESSOR Pulse 97 10/11/2024 2:47 PM MAIL LIST PROCESSOR Temperature 36.3 C (97.3 F) 12/12/2024 10:48 PM MAIL LIST PROCESSOR Respiratory Rate 20 12/13/2024 12:0 0 AM MAIL LIST PROCESSOR Oxygen Saturation 99% 12/13/2024 12: 00 AM MAIL LIST PROCESSOR Inhaled Oxygen Concentration - - Weight 44.7 kg (98 lb 8.7 oz) 12/12/2024 10:47 PM MAIL LIST PROCESSOR Height 157 cm (5' 1.81) 02/18/2015 3:5 [...] AUTO W MICRO Routine 12/12/2024 11:50 PM MAIL LIST PROCESSOR URINALYSIS WITH MICROSCOPIC IF INDICATED, U Routine 12/12/2024 11:50 PM MAIL LIST PROCESSOR INFLUENZA A, B, RSV, PCR, POCT STAT 12/12/2024 11:02 PM MAIL LIST PROCESSOR SARS CORONAVIRUS 2, PCR RAPID, V STAT 12/12/2024 11:02 PM MAIL LIST PROCESSOR GROUP A STREP PCR, THROAT STAT 12/12/2024 11:02 PM MAIL LIST PROCESSOR MANUAL DIFFERENTIAL, B STAT 11:01 PM MAIL LIST PROCESSOR MORPHOLOGY EVALUATION STAT 12/12/2024 11:01 PM MAIL LIST PROCESSOR LIPASE, S/P STAT 12/12/2024 11:01 PM MAIL LIST PROCESSOR COMPREHENSIVE METABOLIC PANEL, S/P STAT 12/12/2024 11:01 PM MAIL LIST PROCESSOR CBC WITH DIFFERENTIAL, B STAT 12/12/2024 11:01 PM MAIL LIST PROCESSOR OUTSIDE NM PET Routine 11/25/2024 4:30 PM MAIL LIST PROCESSOR OUTSIDE MR NEURO Routine 11/03/2024 7:50 AM MAIL LIST PROCESSOR OUTSIDE MR NEURO Routine 11/03/2024 7:45 AM MAIL LIST PROCESSOR OUTSIDE MR NEURO Routine 11/03/2024 7:40 AM MAIL LIST PROCESSOR OUTSIDE MR NEURO Routine 11/03/2024 7:35 AM MAIL LIST PROCESSOR ARIA COURSE COMPLETE TREATMENT INFORMATION Routine 10/13/2024 2:49 PM MAIL LIST PROCESSOR ARIA DAILY TREATMENT INFORMATION Routine 10/13/2024 2:49 PM MAIL LIST PROCESSOR ARIA DAILY TREATMENT INFORMATION Routine 10/12/2024 2:59 PM MAIL LIST PROCESSOR ARIA DAILY TREATMENT INFORMATION Routine 10/11/2024 2:42 PM MAIL LIST PROCESSOR ARIA DAILY TREATMENT INFORMATION Routine 10/10/2024 3:08 PM MAIL LIST PROCESSOR ARIA DAILY TREATMENT INFORMATION Routine 10/09/2024 3:17 PM MAIL LIST PROCESSOR OUTSIDE MG MAMMOGRAM Routine 07/10/2014 8:18 AM CDT from Last 3 Months or Most Recently Relevant to Health Maintenance Results * (ABNORMAL) Urinalysis with Microscopic if Indicated: Urine, Midstream (12/12/2024 11:50 PM MAIL LIST PROCESSOR) Source Urine, Urine, Midstream 12/12/2024 11:50 PM MAIL LIST PROCESSOR CNFL Clarity Cloudy(A) Clear 12/12/2024 11:53 PM MAIL LIST PROCESSOR CNFL Color Yellow 12/12/2024 11:53 PM MAIL LIST PROCESSOR CNFL Comment: ----REFERENCE VALUE---- Colorless Yellow Julia Blood Negative Negative 12/12/2024 11:53 PM MAIL LIST PROCESSOR CNFL Nitrite Positive(A) Negative 12/12/2024 11:53 PM MAIL LIST PROCESSOR CNFL Leukocyte Esterase Small(A) Negative 12/12/2024 11:53 PM MAIL LIST PROCESSOR CNFL Protein 30(A) mg/dL 12/12/2024 11:53 PM MAIL LIST PROCESSOR CNFL Comment: ----REFERENCE VALUE---- Negative Trace Glucose Negative Negative mg/dL 12/12/2024 11:53 PM MAIL LIST PROCESSOR CNFL Ketones, QI(U) 15(A) Negative mg/dL 12/12/2024 11:53 PM MAIL LIST PROCESSOR CNFL Bilirubin Negative Negative 12/12/2024 11:53 PM MAIL LIST PROCESSOR CNFL pH 6.0 5.0 - 8.0 12/12/2024 11:53 PM MAIL LIST PROCESSOR CNFL Specific Hunter 1.025 1.001 - 1.035 12/12/2024 11:53 PM MAIL LIST PROCESSOR CNFL Urobilinogen 0.2 0.2 - 1.0 mg/dL 12/12/2024 11:53 PM MAIL LIST PROCESSOR CNFL Urine (Urine, Midstream) 12/12/2024 11:50 PM MAIL LIST PROCESSOR 12/12/2024 11:50 PM MAIL LIST PROCESSOR Morales Zaidi P.A.-C. LAB URINE ORDERABLES Fin al Result Performing Organization Address [facility]/State/[facility] Co de Phone Number [facility] [address] [place] [address], [facility] [place] [address] * (ABNORMAL) Microscopic Manual (12/12/2024 11:50 PM MAIL LIST PROCESSOR) White Blood Cells 11-20(A) /hpf 12/13/2024 12:12 AM MAIL LIST PROCESSOR CNFL Comment: ----REFERENCE VALUE---- Males: 0-3 Females: 0-10 Unknown: 0-10 Red Blood Cells Occ-2 0 - 2 /hpf 12/13/2024 12:12 AM MAIL LIST PROCESSOR CNFL Squamous Cells Occ-3 /hpf 12/13/2024 12:12 AM MAIL LIST PROCESSOR CNFL Bacteria Present(A) None Seen 12/13/2024 12:12 AM MAIL LIST PROCESSOR CNFL Urine 12/12/2024 11:5 0 PM MAIL LIST PROCESSOR 12/12/2024 11:50 PM MAIL LIST PROCESSOR Morales Zaidi P.A.-C. LAB URINE ORDERABLES Fin al Result Performing Organization Address City/[facility]/ZIP Co de Phone Number [address] [address], [facility] in [address] [address] * SARS Coronavirus 2, PCR Rapid Symptomatic (12/12/2024 11:02 PM MAIL LIST PROCESSOR) SARS CoV-2, PCR, Rapid, V Undetected Undetected 12/12/2024 11:08 PM MAIL LIST PROCESSOR CNFL SARS Coronavirus 2, Source, Rapid Swab, Nasopharynx 12/12/2024 11:06 PM MAIL LIST PROCESSOR CNOK Swab (Nasopharynx) 12/12/2024 11:02 PM MAIL LIST PROCESSOR 12/12/2024 11:06 PM MAIL LIST PROCESSOR Morales Zaidi P.A.-C. LAB MICROBIOLOGY - GENER AL ORDERABLES Final Result Performing Organization Address [facility] Co de Phone Number [address] [address], [facility] in [address] [address] * Group A Streptococcus PCR, Throat (12/12/2024 11:02 PM MAIL LIST PROCESSOR) Strep Group A, PCR, POCT Negative Negative 12/12/2024 11:09 PM MAIL LIST PROCESSOR CNFL Swab (Throat) 12/12/2024 11: 02 PM MAIL LIST PROCESSOR 12/12/2024 11:06 PM MAIL LIST PROCESSOR Morales Zaidi P.A.-C. LAB MICROBIOLOGY - GENER AL ORDERABLES Final Result Performing Organization Address City/[facility]/ZIP Co de Phone Number [address] [place] [address], [address] [address] * Influenza A/B and RSV, PCR, Point of Care (12/12/2024 11:02 PM MAIL LIST PROCESSOR) Influenza A, POCT Negative Negative 12/12/2024 11:31 PM MAIL LIST PROCESSOR CNFL Influenza B, POCT Negative Negative 12/12/2024 11:31 PM MAIL LIST PROCESSOR CNFL Resp Syncytial Virus, POCT Negative Negative 12/12/2024 11:31 PM MAIL LIST PROCESSOR CNFL Swab (Nasopharynx) 12/12/2024 11:02 PM MAIL LIST PROCESSOR 12/12/2024 11:06 PM MAIL LIST PROCESSOR Morales YeungC. LAB POCT ORDERABLES - DE VICE Final Result Performing Organization Address [facility]/ZIP Co de Phone Number [facility] [address] [place] [address], [address] [address] * (ABNORMAL) Morphology Evaluation (12/12/2024 11:01 PM MAIL LIST PROCESSOR) Pathologist [facility] RBC Morphology See Specific Findings 12/13/2024 12:07 AM MAIL LIST PROCESSOR CNFL PLT Morphology Normal 12/13/2024 12:07 AM MAIL LIST PROCESSOR CNFL PLT Estimate Adequate Adequate 12/13/2024 12:07 AM MAIL LIST PROCESSOR CNFL Anisocytosis Slight(A) 12/13/2024 12:07 AM MAIL LIST PROCESSOR CNFL Macrocytosis Slight(A) Not Seen 12/13/2024 12:07 AM MAIL LIST PROCESSOR CNFL Blood 12/12/2024 11:0 1 PM MAIL LIST PROCESSOR 12/12/2024 11:03 PM MAIL LIST PROCESSOR Morales YeungC. LAB BLOOD ADD-ON Final R esult [facility] [address] [place] [address], [place] [address] [place] [address] * (ABNORMAL) Manual Differential, Blood (12/12/2024 11:01 PM MAIL LIST PROCESSOR) Segmented Neutrophils 87(H) 50 - 75 % 12/13/2024 12:07 AM MAIL LIST PROCESSOR CNFL Lymphocytes % 7(L) 18 - 42 % 12/13/2024 12:07 AM MAIL LIST PROCESSOR CNFL Monocytes 6 2 - 11 % 12/13/2024 12:07 AM MAIL LIST PROCESSOR CNFL Manual Absolute Neutrophil Count 6.44 1.56 - 6.45 x10(9)/L 12/13/2024 12:07 AM MAIL LIST PROCESSOR CNFL Comment: ----ADDITIONAL INFORMATION---- The manual absolute neutrophil count is derived from a manual differential count and therefore is not exactly comparable to the automated absolute neutrophil count. Blood 12/12/2024 11:0 1 PM MAIL LIST PROCESSOR 12/12/2024 11:03 PM MAIL LIST PROCESSOR us Morales Zaidi P.A.-C. LAB BLOOD ADD-ON Final R esult [facility] [address] [place] [address], [facility] in [address] [address] * (ABNORMAL) CBC with Differential, Blood (12/12/2024 11:01 PM MAIL LIST PROCESSOR) Hemoglobin 9.8(L) 11.6 - 15.0 g/dL 12/12/2024 11:11 PM MAIL LIST PROCESSOR CNFL Hematocrit 28.7(L) 35.5 - 44.9 % 12/12/2024 11:11 PM MAIL LIST PROCESSOR CNFL Erythrocytes 2.89(L) 3.92 - 5.13 x10(12)/ L 12/12/2024 11:11 PM MAIL LIST PROCESSOR CNFL MCV 99.3(H) 78.2 - 97.9 fL 12/12/2024 11:11 PM MAIL LIST PROCESSOR CNFL RBC Distrib Width 15.2 12.2 - 16.1 % 12/12/2024 11:11 PM MAIL LIST PROCESSOR CNFL Platelet Count 157 157 - 371 x10(9)/L 12/12/2024 11:11 PM MAIL LIST PROCESSOR CNFL Leukocytes 7.4 3.4 - 9.6 x10(9)/L 12/12/2024 11:11 PM MAIL LIST PROCESSOR CNFL Neutrophils See manual differential 1.56 - 6.45 x10(9)/L 12/12/2024 11:58 PM MAIL LIST PROCESSOR CNFL Comment: REVISED RESULTS ----PREVIOUSLY REPORTED ---- 6.29 x10(9)/L Flagged as: Normal (Reported 12/12/2024 23:11) Lymphocytes CANCELED x10(9)/L 12/12/2024 11:58 PM MAIL LIST PROCESSOR CNFL Comment: REVISED RESULTS ----PREVIOUSLY REPORTED ---- 0.44 x10(9)/L Flagged as: Abnormal_Low (Reported 12/12/2024 23:11) Monocytes CANCELED x10(9)/L 12/12/2024 11:58 PM MAIL LIST PROCESSOR CNFL Comment: REVISED RESULTS ----PREVIOUSLY REPORTED ---- 0.58 x10(9)/L Flagged as: Normal (Reported 12/12/2024 23:11) Eosinophils CANCELED x10(9)/L 12/12/2024 11:58 PM MAIL LIST PROCESSOR CNFL Comment: REVISED RESULTS ----PREVIOUSLY REPORTED ---- <0.04 x10(9)/L Flagged as: Normal (Reported 12/12/2024 23:11) Basophils CANCELED x10(9)/L 12/12/2024 11:58 PM MAIL LIST PROCESSOR CNFL Comment: REVISED RESULTS ----PREVIOUSLY REPORTED ---- <0.04 x10(9)/L Flagged as: Normal (Reported 12/12/2024 23:11) Blood (Blood, Venous) 12/12/2024 11:01 PM MAIL LIST PROCESSOR 12/12/2024 11:03 PM MAIL LIST PROCESSOR us Morales Zaidi P.A.-C. LAB BLOOD ADD-ON Edited Result - Final [facility] [id number] [place] [address], [facility] CNFL [facility] in [address] [address] * Lipase (12/12/2024 11:01 PM MAIL LIST PROCESSOR) Lipase, P 19 13 - 60 U/L 12/12/2024 11:22 PM MAIL LIST PROCESSOR CNFL Blood (Blood, Venous) 12/12/2024 11:01 PM MAIL LIST PROCESSOR 12/12/2024 11:03 PM MAIL LIST PROCESSOR us Morales Zaidi P.A.-C. LAB BLOOD ADD-ON Final R esult [facility] [address] [place] [address], [facility] in [address] [address] * (ABNORMAL) Comprehensive Metabolic Panel (12/12/2024 11:01 PM MAIL LIST PROCESSOR) Potassium, P 3.2(L) 3.6 - 5.2 mmol/L 12/12/2024 11:22 PM MAIL LIST PROCESSOR CNFL Sodium, P 136 135 - 145 mmol/L 12/12/2024 11:22 PM MAIL LIST PROCESSOR CNFL Chloride, P 104 98 - 107 mmol/L 12/12/2024 11:22 PM MAIL LIST PROCESSOR CNFL Bicarbonate, P 23 22 - 29 mmol/L 12/12/2024 11:22 PM MAIL LIST PROCESSOR CNFL Anion Gap, P 9 7 - 15 12/12/2024 11:22 PM MAIL LIST PROCESSOR CNFL BUN (Blood Urea Nitrogen), P 10 6 - 21 mg/dL 12/12/2024 11:22 PM MAIL LIST PROCESSOR CNFL Creatinine 0.64 0.59 - 1.04 mg/dL 12/12/2024 11:22 PM MAIL LIST PROCESSOR CNFL Estimated GFR (eGFR) >90 >=60 mL/min/BS A 12/12/2024 11:22 PM MAIL LIST PROCESSOR CNFL Comment: Estimated GFR calculated using the 2020 CKD_EPI creatinine equation. Calcium, Total, P 8.0(L) 8.8 - 10.2 mg/dL 12/12/2024 11:22 PM MAIL LIST PROCESSOR CNFL Glucose, P 109 70 - 140 mg/dL 12/12/2024 11:22 PM MAIL LIST PROCESSOR CNFL Protein, Total, P 5.3(L) 6.3 - 7.9 g/dL 12/12/2024 11:22 PM MAIL LIST PROCESSOR CNFL Albumin, P 3.4(L) 3.5 - 5.0 g/dL 12/12/2024 11:22 PM MAIL LIST PROCESSOR CNFL Aspartate Aminotransferase (AST), P 13 8 - 43 U/L 12/12/2024 11:22 PM MAIL LIST PROCESSOR CNFL Alkaline Phosphatase, P 90 35 - 104 U/L 12/12/2024 11:22 PM MAIL LIST PROCESSOR CNFL Alanine Aminotransferase (ALT), P 24 7 - 45 U/L 12/12/2024 11:22 PM MAIL LIST PROCESSOR CNFL Bilirubin, Total, P 0.4 0.0 - 1.2 mg/dL 12/12/2024 11:22 PM MAIL LIST PROCESSOR CNFL Blood (Blood, Venous) 12/12/2024 11:01 PM MAIL LIST PROCESSOR 12/12/2024 11:03 PM MAIL LIST PROCESSOR us Morales Zaidi P.A.-C. LAB BLOOD ADD-ON Final R esult [facility] [address] [place] [address], [facility] CNFL [facility] [place] [address] * PET skull to mid thigh-Outside NM Pet (11/25/2024 4:30 PM MAIL LIST PROCESSOR) 11/25/2024 4:27 PM MAIL LIST PROCESSOR Narrative IIMS - 11/25/2024 6:24 PM MAIL LIST PROCESSOR This order has been created and auto-finalized [...] wo/w con-Outside MR Neuro (11/03/2024 7:50 AM MAIL LIST PROCESSOR) Only the most recent of4 resultswithin the time period is included. Narrative IIMS - 11/17/2024 10:14 AM MAIL LIST PROCESSOR This order has been created and auto-finalized [...] Final Result [facility] NA * Aria Course Complete Treatment Information (10/13/2024 2:49 PM MAIL LIST PROCESSOR) Course ID [id number] CARR ARIA Course Start Date 4 08:48 MAIL LIST PROCESSOR CARR ARIA Course End Date 4 13:21 MAIL LIST PROCESSOR CARR ARIA First Treatment Date 4 15:06 MAIL LIST PROCESSOR CARR ARIA Last Treatment Date 4 14:49 MAIL LIST PROCESSOR CARR ARIA Treatment Elapsed Days 4 CARR ARIA Reference Point [id number] CARR ARIA Dosage Given to Date cGy 2500 CARR ARIA Reference Point [id number] CARR ARIA Dosage Given to Date cGy 2500 CARR ARIA Plan ID [id number] CARR ARIA Fractions Treated to Date 5 CARR ARIA Planned Total Fractions 5 CARR ARIA Prescribed Dose Per Fraction 500 CARR ARIA Prescription Dose in cGy 2500 CARR ARIA Plan Primary Reference Point [id number] CARR ARIA Plan ID [id number] CARR ARIA Fractions Treated to Date 5 CARR ARIA Planned Total Fractions 5 CARR ARIA Prescribed Dose Per Fraction 500 CARR ARIA Prescription Dose in cGy 2500 CARR ARIA Plan Primary Reference Point [id number] CARR ARIA 10/13/2024 2:49 PM MAIL LIST PROCESSOR us Provider Not In System RADIATION ONCOLOGY ORDERA BLES Final Result CARR BESSA na * Aria Daily Treatment Information (10/13/2024 2:49 PM MAIL LIST PROCESSOR) Only the most recent of5 resultswithin the time period is included. Course ID [id number] CARR ARIA Course Start Date 4 08:48 MAIL LIST PROCESSOR CARR ARIA First Treatment Date 4 15:06 MAIL LIST PROCESSOR CARR ARIA Last Treatment Date 4 14:49 MAIL LIST PROCESSOR CARR ARIA Treatment Elapsed Days 4 CARR ARIA Reference Point [id number] CARR ARIA Dosage Given to Date cGy 2500 CARR ARIA Session Dosage Given 500 CARR ARIA Reference Point [id number] CARR ARIA Dosage Given to Date cGy 2500 CARR ARIA Session Dosage Given 500 CARR ARIA Plan ID [id number] CARR ARIA Fractions Treated to Date 5 CARR ARIA Planned Total Fractions 5 CARR ARIA Prescribed Dose Per Fraction 500 CARR ARIA Prescription Dose in cGy 2500 CARR ARIA Plan Primary Reference Point [id number] CARR ARIA Plan ID [id number] CARR ARIA Fractions Treated to Date 5 CARR ARIA Planned Total Fractions 5 CARR ARIA Prescribed Dose Per Fraction 500 CARR ARIA Prescription Dose in cGy 2500 CARR ARIA Plan Primary Reference Point [id number] CARR ARIA 10/13/2024 2:49 PM MAIL LIST PROCESSOR Provider Not In System RADIATION ONCOLOGY ORDERA BLES Final Result BRUNO BUTLER na * Outside MG Mammogram (07/10/2014 8:18 AM CDT) 07/10/2014 8:18 AM CDT Addenda Addendum by ProviderHolly M.D. on 07/10/2014 8:18 AM CDT ODM^^^MCR XR MAMMO POST CLIP PLCMT LT 07/10/2014 08:18:03 Historical Provider IMG BI PROCEDURES Final Resu lt [facility] [address] [place] [id number], [facility] from Last 3 Months or Most Recently Relevant to Health Maintenance Insurance [facility]
--- OUTSIDE RECORDS SUMMARY | 2025-01-08 16:12 | XMS_ITS | Clinical Summary ---
Author Organization [employer] [facility] Address [place], [place] [address] Care Team Providers Care Tube Knitter Name Role Phone Pcp, No Primary Care [...] Encounters Date Type Department Care Team Description 12/29/2024 Orders Only [facility] Scanner 1 scan: (1-Ord) [facility], XR CHEST 2V, 12/29/2024 12/27/2024 Nurse Triage [address] [id number] Francie Marcos PA Vomiting 12/19/2024 Orders Only [facility] Scanner 1 scan: (1-Ord) [facility], CHEST ABDOMEN PELVIS W/ CONTRAST, 12/19/2024 12/18/2024 Orders Only [facility] Scanner 1 scan: (1-Ord) [facility], XR CHEST 2V, 12/18/2024 11/25/2024 Orders Only [facility] Scanner 1 scan: (1-Ord) [facility], SKULL TO MID THIGHS, 11/25/2024 11/08/2024 Telephone [facility] [address] [place] [address] Oneil العلي, AuD 11/03/2024 Orders Only [facility] Scanner 1 scan: (1-Ord) [facility], MR THORACIC SPINE WO/W CON, 11/03/2024 11/03/2024 Orders Only [facility] Scanner 1 scan: (1-Ord) [facility], MR LUMBAR SPINE WWO CONTRAST, 11/03/2024 11/03/2024 Orders Only [facility] Scanner 1 scan: (1-Ord) [facility], MR CERVICAL SPINE WWO CONTRAST, 11/03/2024 11/03/2024 Orders Only [facility] Scanner 1 scan: (1-Ord) [facility], MR HEAD/BRAIN WWO CONTRAST, 11/03/2024 from Last 3 Months Immunizations Name Administration Dates Next Due COVID-19 vaccine ([employer] 30mcg/0.3mL) P F, MDV 03/08/2021,02/15/2021 Td (Age >=7 Years) 06/25/2003 Tdap [...] on file Legal Sex Female 6:22 AM LEGAL EXECUTIVE Gender Identity Not on file Sexual Orientation Not on file Obstetrics History Last Filed Vital Signs Vital Sign Reading Time Taken Comments Blood Pressure 125/78 10/05/2024 1:48 PM LEGAL EXECUTIVE Pulse 104 10/05/2024 1:48 PM LEGAL EXECUTIVE Temperature 36.8 C (98.3 F) 07/17/2021 2:48 PM CDT Respiratory Rate - - Oxygen Saturation 100% 10/05/2024 1:48 PM LEGAL EXECUTIVE Inhaled Oxygen Concentration - - Weight 46.3 kg (102 lb) 10/05/2024 1:48 PM LEGAL EXECUTIVE Height 155.4 cm (5' 1.18) 02/05/2023 2:50 PM CD T Body Mass Index 19.16 02/05/2023 2:50 PM CDT Plan of Treatment Health Maintenance [...] Procedure Name Priority Date/Time Associated Diagnosis Comments SCAN-RADIOLOGY REPORT 12/29/2024 12:00 AM LEGAL EXECUTIVE SCAN-CT INTERPRETATION 12:00 AM LEGAL EXECUTIVE SCAN-RADIOLOGY REPORT 12/18/2024 12:00 AM LEGAL EXECUTIVE SCAN-PET SCAN 11/25/2024 12:00 AM LEGAL EXECUTIVE SCAN-MRI INTERPRETATION 11/03/2024 12:00 AM LEGAL EXECUTIVE SCAN-MRI INTERPRETATION 11/03/2024 12:00 AM LEGAL EXECUTIVE SCAN-MRI INTERPRETATION 11/03/2024 12:00 AM LEGAL EXECUTIVE SCAN-MRI INTERPRETATION 11/03/2024 12:00 AM LEGAL EXECUTIVE OCCULT BLOOD IFOBT STOOL Routine 02/09/2023 10:57 AM CDT Screening for colon cancer LC LIPID PANEL AND CHOL/HDL RATIO Routine 02/05/2023 3:41 PM CDT Hyperlipidemia, unspecified hyperlipidemia type from Last 3 Months or Most Recently Relevant to Health Maintenance Results * SCAN-RADIOLOGY REPORT (12/29/2024 12:00 AM LEGAL EXECUTIVE) Only the most recent of2 resultswithin the time period is included. Anatomical Region Laterality Modality Other us Scanner OTHER Final Result * SCAN-CT INTERPRETATION (12/19/2024 12:00 AM LEGAL EXECUTIVE) Anatomical Region Laterality Modality Other us Scanner OTHER Final Result * SCAN-PET SCAN (11/25/2024 12:00 AM LEGAL EXECUTIVE) Anatomical Region Laterality Modality Other us Scanner OTHER Final Result * SCAN-MRI INTERPRETATION (11/03/2024 12:00 AM LEGAL EXECUTIVE) Only the most recent of4 resultswithin the time period is included. Anatomical Region Laterality Modality Other us Scanner OTHER Final Result * OCCULT BLOOD IFOBT STOOL (02/09/2023 10:57 AM CDT) STOOL BLOOD ,IFOBT Negative Negative 02/12/2023 9:44 AM CDT [facility] [place] Stool STOOL SPECIMEN / Unknown Non-Blood / Unknown 02/09/2023 10:57 AM CDT 02/11/2023 10:57 AM CDT us [facility] Final Resu lt [facility] [address] [facility] [place] [address], [place] [phone] * (ABNORMAL) LC LIPID PANEL AND CHOL/HDL RATIO (02/05/2023 3:41 PM CDT) [facility] Cholesterol, Total 205(H) 100 - 199 mg/dL 02/09/2023 9:10 AM CDT [facility] Triglycerides 215(H) 0 - 149 mg/dL 02/09/2023 9:10 AM CDT [facility] HDL Cholesterol 62 >39 mg/dL 9:10 AM CDT [facility] VLDL Cholesterol Pepe 37 5 - 40 mg/dL 02/09/2023 9:10 AM CDT [facility] LDL Chol Calc (NIH) 106(H) 0 - 99 mg/dL 02/09/2023 9:10 AM CDT [facility] T. Chol/HDL Ratio 3.3 0.0 - 4.4 ratio 02/09/2023 9:10 AM CDT [facility] Comment: T. Chol/HDL Ratio Men Women 1/2 Avg.Risk 3.4 3.3 Avg.Risk 5.0 4.4 2X Avg.Risk 9.6 7.1 3X Avg.Risk 23.4 11.0 Blood BLOOD SPECIMEN / Unknown Venipuncture / Unknown 02/05/2023 3:41 PM CDT 02/05/2023 3:42 PM CDT Narrative [facility] - 02/09/2023 9:10 AM CDT Performed at: 01 - [facility] [place] [address] [place], [place] [id number] Energy Efficiency Finance Manager: Ferny Bro MD, Phone: [phone] us Francie [facility] SEND OUTS Final Resu lt [facility] [address] [place] [address], from Last 3 Months or Most Recently Relevant to Health Maintenance Insurance Care Teams Tube Knitter Relationship Specialty Start Date End Date Pcp, No . PCP - General 05/19/23
--- OUTSIDE RECORDS SUMMARY | 2025-01-08 16:12 | XMS_ITS ---
Author Organization [facility] Address [address] [place] [address] Care Team Providers Care Install And Repair Technician Name Role Phone Unavailable Primary Care Provider [...] 5 2 ,500 cGy Reference Points Delivered [id number] 10/09/2024 - 10/13/2024 2,500 cGy [id number] 10/09/2024 - 10/13/2024 2,500 cGy * Radiation Therapy: CraniospinalOverview* First Treatment Date Last Treatment Date Treatment Site Technique Goal Episode Provider 04/03/2024 04/14/2024 Craniospinal Palliative Liz Ortega, RYayaN. 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 Treatment Courses* Course [id number] 04/06/2024 - 04/14/2024 Treatment Period Fraction Dose Fractions Total Dose Plans Planned [id number] 04/06/2024 - 04/14/2024 300 cGy 7 / 7 2,100 cGy Reference Points Delivered [id number] 04/06/2024 - 04/14/2024 2,100 cGy * Course [id number] 04/03/2024 - 04/05/2024 Treatment Period Fraction Dose Fractions Total Dose Plans Planned [id number] 04/03/2024 - 04/05/2024 300 cGy 3 / 10 3 ,000 cGy [id number] 04/03/2024 - 04/05/2024 300 cGy 3 / 10 3,000 cGy [id number] 04/03/2024 - 04/05/2024 300 cGy 3 / 10 3,000 cGy Reference Points Delivered [id number] 04/03/2024 - 04/05/2024 900 cGy [id number] 04/03/2024 - 04/05/2024 900 cGy [id number] 04/03/2024 - 04/05/2024 900 cGy
--- NOTE | 2025-01-08 16:44 | ED_ITS ---
HPI - General Adult General Time Seen by Provider: 16:44 Date Seen: 01/08/25 Chief complaint: Unspecified Complaint, Adult Stated complaint: From [facility] Time Seen by Provider: 01/08/25 16:24 Source: patient, RN notes reviewed and other (Received phone call from provider at [facility]) Mode of arrival: ambulatory Limitations: no limitations History of Present Illness HPI narrative: This 64-year-old female is coming in from [facility] with hypotension, concerns for declining after being evaluated by a Nadege Baptiste PA-C. Patient has had a complex history recently with 2 hospitalizations, latest with the GI bleed, had been on Xarelto. Family states they do not start the Xarelto again until tomorrow. Prior to that she was hospitalized with pneumonia and then had disseminated shingles. She has been complaining of pins and needle sensation in her ears and occasional sharp stabbing pain in her left ear. She did have this at the time of her last hospitalization, no clinical physical exam changes. She is noted to still complain about that. Family notes she has basically sleeping, not eating. Nadege Baptiste feels that there may be something underlying. She does not feel it is progression of patient's cancer. Family is concerned as she has had significant decline in the last month. She has gone from walking and ambulating to basically being wheelchair-bound. Her daughter stays with her at night, granddaughter during the day. She is still in her house. The patient denies any pain or concern at this point. They note that she is really not taking her pills, having difficulty swallowing. Most recent hospitalization was December 29 through January 02 here, had sepsis of unknown etiology, was treated with Zosyn. She did have some recurrent hypotension and tachycardia throughout her stay. She was found to have gastritis with gastric erosion with stigmata of recent bleeding found on EGD on December 29. Family did state that patient was having coffee-ground emesis. She had chronic anemia complicating this with her chemotherapy for breast cancer. She was hospitalized December 18 2 December 25 as well at [place] with moderate to severe patchy bilateral ground-glass opacities suggestive of pneumonia. This was treated as community-acquired pneumonia. She was reported to have disseminated zoster as well. Related Data Home Medications ?Medication ?Instructions ?Recorded ?Confirmed cholecalciferol (vitamin D3) 50 50 mcg PO DAILY 06/09/22 01/08/25 mcg (2,000 unit) capsule loratadine 10 mg tablet 10 mg PO DAILY PRN 06/11/22 01/08/25 multivitamin 1 tab PO QAM 06/11/22 01/08/25 calcium 315 mg (as 2 tab PO BID 11/05/22 01/08/25 citrate)-vitamin D3 6.25 mcg (250 unit) tablet (Citracal + Vitamin D Maximum) albuterol sulfate 90 mcg/actuation 2 puff inhalation Q2H PRN 05/21/23 01/08/25 aerosol inhaler vitamin B complex 1 cap PO DAILY 08/16/24 01/08/25 rivaroxaban 10 mg tablet (Xarelto) 10 mg PO DAILY 12/29/24 01/08/25 Previous Rx's ?Medication ?Instructions ?Recorded miscellaneous medical supply #60 mL 04/14/24 prochlorperazine maleate 5 mg 5 mg PO BID PRN nausea and 06/28/24 tablet (Compazine) vomiting #30 tabs potassium chloride 20 mEq 20 meq PO BID #180 tabs 10/05/24 tablet,extended release(part/cryst) acetaminophen 325 mg capsule 650 mg (2 x 325 mg) PO Q8H PRN 10 12/25/24 days #30 caps ondansetron 4 mg disintegrating 4 mg PO Q8H PRN nausea and 12/25/24 tablet vomiting #15 tabs pantoprazole 40 mg tablet,delayed 40 mg PO DAILY #14 tabs 12/25/24 release Allergies Allergy/AdvReac Type Severity Reaction Status Date / Time bee venom protein (honey bee) Allergy Verified 01/08/25 14:59 [facility] Medical History (Updated 01/08/25 @ 20:00 by Mariajose Keller MD) Hypotension ?I95.9 - Hypotension, unspecified (ICD-10) Discharge planning issues ?Z75.8 - Other problems related to medical facilities and other health care (ICD-10) Palliative care encounter ?Z51.5 - Encounter for palliative care (ICD-10) Nausea ?R11.0 - Nausea (ICD-10) Malnutrition ?E46 - Unspecified protein-calorie malnutrition (ICD-10) Immunocompromised ?D84.9 - Immunodeficiency, unspecified (ICD-10) Sepsis ?A41.9 - Sepsis, unspecified organism (ICD-10) Disseminated zoster ?B02.7 - Disseminated zoster (ICD-10) History of DVT (deep vein thrombosis) ?Z86.718 - Personal history of other venous thrombosis and embolism (ICD-10) Chemotherapy management, encounter for ?Z51.11 - Encounter for antineoplastic chemotherapy (ICD-10) Breast cancer metastasized to multiple sites ?C50.919 - Malignant neoplasm of unspecified site of unspecified female breast (ICD-10) Leptomeningeal disease ?G96.198 - Other disorders of meninges, not elsewhere classified (ICD-10) Malignant neoplasm metastatic to left breast ?C79.81 - Secondary malignant neoplasm of breast (ICD-10) 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 ?C50.919 - Malignant neoplasm of unspecified site of unspecified female breast (ICD-10) CKD (chronic kidney disease) ?N18.9 - Chronic kidney disease, unspecified (ICD-10) S/P radiation therapy < 4 weeks ago ?Z92.3 - Personal history of irradiation (ICD-10) Left hip pain ?M25.552 - Pain in left hip (ICD-10) Metastasis to bone ?C79.51 - Secondary malignant neoplasm of bone (ICD-10) Central venous catheter in place ?Z78.9 - Other specified health status (ICD-10) DVT of axillary vein, acute right ?I82.A11 - Acute embolism and thrombosis of right axillary vein (ICD-10) Surgical History H/O mastectomy ?Z90.10 - Acquired absence of unspecified breast and nipple (ICD-10) Social History (Updated 12/29/24 @ 17:58 by Erwin Doran MD) Narrative: Was living independently in [place] until her last hospital stay. Now her daughter Telma and her niece are staying with her 24/ Daughter Telma would be medical decision maker/POA. Nonsmoker, rare ETOH. DNR/DNI What is your current living situation?: I presently have a place to live Problems where you live: no known problems Problems where you live details: none In the past 12 months, utilities in danger of being shut off: no In past 12 months, lack of transportation kept you from medical appts, meetings, work, or getting things needed for daily living: no In the past 12 mos, have been you worried that your food would run out before you had money to buy more?: never true In the past 12 mos, the food you bought just didn't last and you didn't have money to buy more?: never true Highest level of school completed/degree received: GED or equivalent Smoking Status: Former smoker Do you use any of these nicotine containing products: None Second hand tobacco smoke exposure: No How often do you have a drink containing alcohol: monthly or less How often do you have six or more drinks on one occasion: Never AUDIT-C Alcohol total score: 1 Non-prescribed substance use: denies use Caffeine: Yes How often does anyone, including family, friends and others, physically hurt you : never How often does anyone, including family, friends and others, insult or talk down to you: never How often does anyone, including family, friends and others, threaten you with harm: never How often does anyone, including family, friends and others, scream or curse at you: never service: No Exam Const: Vital Signs, click to edit/add: Vital Signs - 24 hr 01/08/25 16:21 01/08/25 17:01 01/08/25 18:08 Temperature 99.2 F Pulse Rate 98 Pulse Rate [Pulse Oximeter] 115 H Respiratory Rate 18 6 L Blood Pressure 109/68 Blood Pressure [Ri ght Upper Arm] 71/52 L Pulse Oximetry 95 96 98 Oxygen Delivery Me thod Room Air 01/08/25 18:09 01/08/25 18:15 01/08/25 18:16 Temperature Pulse Rate 92 93 93 Pulse Rate [Pulse Oximeter] Respiratory Rate 12 15 7 L Blood Pressure 104/67 Blood Pressure [Ri ght Upper Arm] Pulse Oximetry 98 95 96 Oxygen Delivery Me thod 01/08/25 18:30 01/08/25 18:31 01/08/25 18:34 Temperature Pulse Rate 97 102 H Pulse Rate [Pulse Oximeter] Respiratory Rate 14 15 Blood Pressure 91/68 Blood Pressure [Ri ght Upper Arm] Pulse Oximetry 97 98 96 Oxygen Delivery Me thod Room Air 01/08/25 18:45 01/08/25 18:46 01/08/25 19:04 Temperature Pulse Rate Pulse Rate [Pulse Oximeter] Respiratory Rate 0 L 16 16 Blood Pressure 107/69 Blood Pressure [Ri ght Upper Arm] Pulse Oximetry Oxygen Delivery Me thod 01/08/25 19:05 01/08/25 19:06 01/08/25 19:15 Temperature Pulse Rate 91 91 83 Pulse Rate [Pulse Oximeter] Respiratory Rate 16 19 8 L Blood Pressure 109/71 Blood Pressure [Ri ght Upper Arm] Pulse Oximetry 94 96 100 Oxygen Delivery Me thod 01/08/25 19:17 01/08/25 19:30 01/08/25 19:31 Temperature Pulse Rate 88 79 80 Pulse Rate [Pulse Oximeter] Respiratory Rate 8 L 21 29 H Blood Pressure 135/76 126/71 Blood Pressure [Ri ght Upper Arm] Pulse Oximetry 79 L 95 97 Oxygen Delivery Hi thod 01/08/25 19:45 01/08/25 19:46 Temperature Pulse Rate Pulse Rate [Pulse Oximeter] Respiratory Rate 11 L 11 L Blood Pressure 124/79 Blood Pressure [Ri ght Upper Arm] Pulse Oximetry Oxygen Delivery Me thod Patient was sleeping comfortably, she does awaken to voice and light touch. Finding stubble on her scalp, no skin changes otherwise noted over the scalp. Sclera clear, conjugate gaze. She does seem to be hard of hearing, understands her daughter better than me. When she does talk her speech seems normal. Symmetrical facial function, dry mucosa. Neck slender, no masses noted. She is able to sit up, lungs are clear, no wheezing or crackles, good air entry, no tachypnea, no accessory muscle use. CV regular rate and rhythm, no murmur noted, normal S1-S2, no S3-S4. Abdomen is soft, nontender, nondistended, no organomegaly. She uses her arms to pull the covers back up, she has no lower extremity edema. She will follow commands. Skin visualized without any concerning erythema or lesions. Her TMs do have a little bit of dried cerumen in the canals but the TMs and canals otherwise normal, see no lesions, no erythema, certainly no vesicles. Documenting provider has reviewed patient's vital signs: yes Course Course ED Course: Will certainly get full complement of labs. They would like her port accessed which we can do. Plan on giving her some IV fluids as this hypotension has not necessarily been new. She is not eating and drinking much, do think that there is probably component associated with this. With her recent pneumonia, generalized decline an underlying cancer, have discussed doing noncontrast chest CT as well as a head CT. They are in agreement with this. Reevaluation(s) Time of Reevaluation #1: 19:08 Reevaluation #1: Patient states she is feeling great. She has received about half of her IV fluids, blood pressure has improved. Have reviewed with her daughter that her labs are not pointing to any definitive etiology, procalcitonin is normal, hemoglobin does not require transfusion. Her chest CT is showing improvement, no concerning worsening pneumonia. Her head CT is not showing any definitive pathology. She does not have focal neurologic deficits at this point. I have reviewed with them that there is no definitive need for antibiotics at this point, we have not identified a source of infection but need to await the urinalysis still. We did briefly discuss that she could be placed in the hospital but the goal will be for placement if they can no longer care for her at home. This would mean that she could no longer take chemotherapy. I will let them think on this while we await the urinalysis. Time of Reevaluation #2: 19:56 Reevaluation #2: Have reviewed with her daughter that there is possibly some contamination of the urine but no definitive infection. Will await urine culture. Patient is not neutropenic at this time, doubt that the seen on urinalysis is anything but contamination. Again, will await urine culture. Have discussed with her daughter that this is probably multifactorial decline, treatment with chemotherapy, underlying breast cancer. I do not have anything definitive to treat at this time. They have decided they want to take her home. They have a family meeting tomorrow. We reviewed sometimes patient's decline despite our best treatments and attempts for interventions. I have stressed to watch for changes that might point is to infection, development of fever, concern for specific infectious etiology developing. I have no doubt that they will watch for this, have her re-evaluated if there are concerns. Vital Signs Vital signs: Initial Vital Signs Temperature 99.2 F 01/08/25 16:21 Temperature Source Temporal Artery Scan 01/08/25 16:21 Pulse Rate 115 H 01/08/25 16:21 Respiratory Rate 18 01/08/25 16:21 Blood Pressure 71/52 L 01/08/25 16:21 Blood Pressure Mean 58 L 01/08/25 16:21 Pulse Oximetry 95 01/08/25 16:21 Oxygen Delivery Method Room Air 01/08/25 16:21 Vital Signs Temperature 99.2 F 01/08/25 16:21 Pulse Rate 115 H 01/08/25 16:21 Respiratory Rate 18 01/08/25 16:21 Blood Pressure 71/52 L 01/08/25 16:21 Pulse Oximetry 95 01/08/25 16:21 Oxygen Delivery Method Room Air 01/08/25 16:21 Temperature 99.2 F 01/08/25 16:21 Pulse Rate 80 01/08/25 19:31 Respiratory Rate 11 L 01/08/25 19:46 Blood Pressure 124/79 01/08/25 19:46 Pulse Oximetry 97 01/08/25 19:31 Oxygen Delivery Method Room Air 01/08/25 18:34 Medications Administered Medications: Discontinued Medications Generic Name Dose Route Start Last Admin Trade Name Freq PRN Reason Stop Dose Admin Sodium Chloride 1,000 mls @ 500 mls/hr 01/08/25 17:05 01/08/25 17:45 0.9 % Sodium Chloride 1000 Ml IV 01/08/25 19:04 500 mls/hr .Q2H ISABELLE Administration Medical Decision Making Lab Data Lab results reviewed: Yes I reviewed the patient's lab results Labs: Lab Results 01/08/25 01/08/25 Range/Units 17:44 19:03 WBC 8.37 (4.50-11.00) K/uL RBC 2.82 L (4.00-5.20) m/uL Hgb 8.8 L (12.0-16.0) gm/dL Hct 28.4 L (33.0-51.0) % MCV 101 H (80-100) fL MCH 31 (26-34) pg MCHC 31 L (32-36) gm/dL RDW Coeff of Delfino 17.5 H (11.5-15.5) % Plt Count 375 (140-440) K/uL Neut % (Auto) 82.3 H (42.0-72.0) % Lymph % (Auto) 7.2 L (20-44) % [place] % (Auto) 9.8 (0.0-11.0) % Eos % (Auto) 0.4 (0.0-7.0) % Baso % (Auto) 0.1 (0.0-3.0) % Neut # (Auto) 6.90 (1.7-7.0) K/uL Lymph # (Auto) 0.60 L (0.90-2.90) K/uL [place] # (Auto) 0.80 (0.00-0.90) K/UL Eos # (Auto) 0.03 (0.00-0.50) K/uL Baso # (Auto) 0.01 (0.00-0.30) K/uL Abs Immat Gran (auto) 0.02 (0.00-0.30) K/uL Imm/Tot Granulo (auto) 0.2 % INR 1.07 (0.91-1.10) APTT 35 H (23-33) Seconds Sodium 143 (135-149) mmol/L Potassium 3.3 L (3.6-5.1) mmol/L Chloride 103 (96-114) mmol/L Carbon Dioxide 32 (20-32) mmol/L Anion Gap 8 (7-15) mEq/L BUN 20 (7-30) mg/dL Creatinine 0.7 (0.5-1.5) mg/dL Estimated GFR 97 ml/min Glucose 97 (60-115) mg/dL Lactate 0.7 (0.5-1.9) mmol/L Calcium 8.9 (8.4-10.6) mg/dL Magnesium 2.3 (1.5-2.6) mg/dL Total Bilirubin 0.5 (0.1-1.5) mg/dL AST 21 (12-35) U/L ALT 22 (4-35) U/L Alkaline Phosphatase 64 (40-150) U/L Troponin I < 0.01 L (0.01-0.04) ng/mL C-Reactive Protein 1.4 H (0.5-1.0) mg/dL NT-Pro-B Natriuret Pep 350 pg/mL Total Protein 6.5 (6.0-8.3) g/dL Albumin 3.7 (3.3-5.0) g/dL Procalcitonin 0.07 (<0.50) ng/mL Urine Color Yellow (Yellow) Urine Appearance Cloudy A (Clear) Urine pH 5.5 (5.0-8.5) Ur Specific [place] >= 1.030 (1.000-1.030) Urine Protein 1+ A (Negative) Urine Glucose (UA) Negative (Negative) Urine Ketones 2+ A (Negative) Urine Blood Trace-intact A (Negative) Urine Nitrite Negative (Negative) Urine Bilirubin 2+ A (Negative) Urine Urobilinogen 0.2 (0.2-1.0) Ur Leukocyte Esterase Negative (Negative) Urine RBC 2-5 A (0-2) Urine WBC 2-5 (0-5) Ur Squamous Epith Cells Many A (None-Few) Amorphous Sediment Many A (None) Urine Bacteria Few A (None) Urine Yeast Many A (None) Imaging Data CT scan - chest: Attestation: I have reviewed the pertinent imaging results. Radiologist's impression: Patient: LYLA SUAREZ Facility:?[facility] Patient ID:?[id number] Site Patient ID:?[id number]. Site :?[id number] Study:?CT-Chest W/O-01/08/2025 6:12:29 PM Ordering Physician:?Arianna Billy Final Report: INDICATION: Recent pneumonia, worsening clinical status. TECHNIQUE: CT chest without contrast. COMPARISON: CT chest, abdomen, and pelvis 12/19/2024. FINDINGS: Lungs and pleura: Significant interval improvement in the previously seen diffuse airspace disease within the lungs. There are some residual nodular and ground-glass opacities throughout the lungs, though greatest within the lung bases, [id number]. No pleural effusion or pneumothorax. Heart and vasculature: Heart size is normal. Thoracic aorta and pulmonary artery are normal in caliber. Coronary artery and thoracic aorta atherosclerotic calcification. Lymph nodes/mediastinum: No mediastinal, hilar, or axillary adenopathy. Chest wall: Left chest port tip terminates in the distal SVC. Thyroid: Calcified left thyroid lobe nodules. Upper abdomen: Cholelithiasis. Bones: Unchanged extensive mixed lytic and sclerotic foci throughout the imaged skeleton. IMPRESSION: 1. Significant interval improvement in the previously seen diffuse airspace disease within the lungs. Some residual nodular and ground-glass opacities throughout the lungs, greatest within the left lung base. No pleural effusions. 2. Unchanged osseous metastatic disease within the imaged skeleton. Please note that all CT scans at this facility use dose modulation, iterative reconstruction, and/or weight-based dosing when appropriate to reduce radiation dose to as low as reasonably achievable. Dictated by Arya Peralta MD @ 01/08/2025 6:33:43 PM (Electronic Signature) CT scan - head: Attestation: I have reviewed the pertinent imaging results. Radiologist's impression: Patient: LYLA SUAREZ Facility:?[facility] Patient ID:?[id number] Site Patient ID:?[id number]. Site :?[id number] Study:?CT-Head WITHOUT-01/08/2025 6:13:26 PM Ordering Physician:Dexter Billy Final Report: INDICATION: Altered mental status. Worsening clinical status. Recent pneumonia. TECHNIQUE: CT head without contrast. COMPARISON: MRI brain 11/03/2024. FINDINGS: Mild ill-defined low-attenuation in the periventricular and subcortical white matter suggest chronic small vessel ischemic disease. Intracranial atherosclerosis. No mass effect or midline shift. No hydrocephalus. No CT evidence of acute hemorrhage or infarction. No abnormal extra-axial fluid collection. Bone windows show no acute calvarial fracture. Paranasal sinuses and orbits as imaged are unremarkable. IMPRESSION: No acute intracranial abnormality. Dictated by Yifan Hickman MD @ 01/08/2025 6:32:01 PM Please note that all CT scans at this facility use dose modulation, iterative reconstruction, and/or weight-based dosing when appropriate to reduce radiation dose to as low as reasonably achievable. Dictated by: Yifan Hickman MD @ 01/08/2025 18:32:29 (Electronic Signature) ECG Data Attestation: I personally reviewed and interpreted this ECG as follows: (Sinus tachycardia, 101 beats per minute. Voltage criteria for LVH. No acute ischemic change noted.) Prior ECG tracings: available for review (12/29/2024, sinus tachycardia 127 beats per minute, LVH with repolarization abnormality.) Discharge Plan Discharge Clinical Impression: Weakness Breast cancer metastasized to multiple sites Qualifiers: Laterality: unspecified laterality Qualified Code(s): C50.919 - Malignant neoplasm of unspecified site of unspecified female breast Patient Disposition: Home w/ Parent or Adult Condition: Unchanged Instructions: Weakness (ED) Additional Instructions: Encourage frequent sips of fluids while awake. Encourage any oral intake for food that she will allow. If there is any concern for specific infection developing, new symptoms showing up, find fever developing, please seek re- evaluation. I unfortunately could not find anything specifically identifiable to treat. Prescriptions: No Action albuterol sulfate 90 mcg/actuation HFA aerosol inhaler 2 puff inhalation Q2H PRN vitamin B complex Capsule 1 cap PO DAILY cholecalciferol (vitamin D3) 50 mcg (2,000 unit) capsule 50 mcg PO DAILY loratadine 10 mg tablet 10 mg PO DAILY PRN multivitamin Tablet 1 tab PO QAM calcium citrate-vitamin D3 [Citracal + D Maximum] 315 mg-6.25 mcg (250 unit) tablet 2 tab PO BID prochlorperazine maleate [Compazine] 5 mg tablet 5 mg PO BID PRN (Reason: nausea and vomiting) Qty: 30 0RF potassium chloride 20 mEq tablet,ER particles/crystals 20 meq PO BID Qty: 180 0RF (DME) miscellaneous medical supply Liquid See Rx Instructions .Route Qty: 60 1RF Rx Instructions: Viscous lidocaine, 5-10 mL q.6 hours p.r.n., 60 mL pantoprazole 40 mg tablet,delayed release (DR/EC) 40 mg PO DAILY Qty: 14 1RF ondansetron 4 mg tablet,disintegrating 4 mg PO Q8H PRN (Reason: nausea and vomiting) Qty: 15 0RF acetaminophen 325 mg capsule 650 mg PO Q8H PRN10 Days Qty: 30 0RF Xarelto 10 mg tablet 10 mg PO DAILY Follow Up/Referrals: Nahomi Valera PA-C [Primary Care Provider] - Stand Alone [facility]
--- NOTE | 2025-01-08 17:01 | CRLHL7_ITS ---
For Patients: As a result of the Century Cures Act, medical imaging exams and procedure reports are released immediately into your electronic medical record. You may view this report before your referring provider. If you have questions, please contact your health care provider. INDICATION: Recent pneumonia, worsening clinical status. TECHNIQUE: CT chest without contrast. COMPARISON: CT chest, abdomen, and pelvis 12/19/2024. FINDINGS: Lungs and pleura: Significant interval improvement in the previously seen diffuse airspace disease within the lungs. There are some residual nodular and ground-glass opacities throughout the lungs, though greatest within the lung bases, [id number]-right. No pleural effusion or pneumothorax. Heart and vasculature: Heart size is normal. Thoracic aorta and pulmonary artery are normal in caliber. Coronary artery and thoracic aorta atherosclerotic calcification. Lymph nodes/mediastinum: No mediastinal, hilar, or axillary adenopathy. Chest wall: Left chest port tip terminates in the distal SVC. Thyroid: Calcified left thyroid lobe nodules. Upper abdomen: Cholelithiasis. Bones: Unchanged extensive mixed lytic and sclerotic foci throughout the imaged skeleton. IMPRESSION: 1. Significant interval improvement in the previously seen diffuse airspace disease within the lungs. Some residual nodular and ground-glass opacities throughout the lungs, greatest within the left lung base. No pleural effusions. 2. Unchanged osseous metastatic disease within the imaged skeleton. Please note that all CT scans at this facility use dose modulation, iterative reconstruction, and/or weight-based dosing when appropriate to reduce radiation dose to as low as reasonably achievable. Dictated by Arya Peralta MD @ 01/08/2025 6:33:43 PM (Electronically Signed)
--- NOTE | 2025-01-08 17:01 | CRLHL7_ITS ---
For Patients: As a result of the Cures Act, medical imaging exams and procedure reports are released immediately into your electronic medical record. You may view this report before your referring provider. If you have questions, please contact your health care provider. INDICATION: Altered mental status. Worsening clinical status. Recent pneumonia. TECHNIQUE: CT head without contrast. COMPARISON: MRI brain 11/03/2024. FINDINGS: Mild ill-defined low-attenuation in the periventricular and subcortical white matter suggest chronic small vessel ischemic disease. Intracranial atherosclerosis. No mass effect or midline shift. No hydrocephalus. No CT evidence of acute hemorrhage or infarction. No abnormal extra-axial fluid collection. Bone windows show no acute calvarial fracture. Paranasal sinuses and orbits as imaged are unremarkable. IMPRESSION: No acute intracranial abnormality. Dictated by Yifan Hickman MD @ 01/08/2025 6:32:01 PM Please note that all CT scans at this facility use dose modulation, iterative reconstruction, and/or weight-based dosing when appropriate to reduce radiation dose to as low as reasonably achievable. Dictated by: Yifan Hickman MD @ 01/08/2025 18:32:29 (Electronically Signed)
--- OUTSIDE RECORDS SUMMARY | 2025-01-08 17:06 | XMS_ITS ---
Author Organization [facility] Address [address] [place] [address] Care Team Providers Care Olericulture Teacher Name Role Phone Unavailable Primary Care Provider [...] 5 2 ,500 cGy Reference Points Delivered [id number] 10/09/2024 - 10/13/2024 2,500 cGy [id number] 10/09/2024 - 10/13/2024 2,500 cGy * Radiation Therapy: CraniospinalOverview* First Treatment Date Last Treatment Date Treatment Site Technique Goal Episode Provider 04/03/2024 04/14/2024 Craniospinal Palliative Liz Ortega, RYayaN. 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 Treatment Courses* Course [id number] 04/06/2024 - 04/14/2024 Treatment Period Fraction Dose Fractions Total Dose Plans Planned [id number] 04/06/2024 - 04/14/2024 300 cGy 7 / 7 2,100 cGy Reference Points Delivered [id number] 04/06/2024 - 04/14/2024 2,100 cGy * Course 1xCranioSpn 04/03/2024 - 04/05/2024 Treatment Period Fraction Dose Fractions Total Dose Plans Planned [id number] 04/03/2024 - 04/05/2024 300 cGy 3 / 10 3 ,000 cGy [id number] 04/03/2024 - 04/05/2024 300 cGy 3 / 10 3,000 cGy [id number] 04/03/2024 - 04/05/2024 300 cGy 3 / 10 3,000 cGy Reference Points Delivered [id number] 04/03/2024 - 04/05/2024 900 cGy [id number] 04/03/2024 - 04/05/2024 900 cGy [id number] 04/03/2024 - 04/05/2024 900 cGy
--- OUTSIDE RECORDS SUMMARY | 2025-01-08 17:06 | XMS_ITS | Encounter Summary ---
Author Organization [facility] Address [address] [place] [address] Care Team Providers Care Laboratory Courier Name Role Phone Unavailable Primary Care Provider Unavailabl e Reason for Visit * Reason Comments Back Pain Abdominal Pain RUQ abd pain Encounter Details Date Type Department Care Team (Late st Contact Info) Description 12/12/2024 10:49 PM FAST FOOD RESTAURANT MANAGER - 12/13/2024 12:35 AM [facility] Emergency [place] [facility] [address] [place] [address] [phone] Morales Zaidi, P.A.-C. [address] [place] [address] [phone] Urinary Tract Infection Site Not Specified (Primary Dx) Discharge Disposition: Home or Self Care Social History Tobacco Use Types Packs/Day Years Used Date Smoking Tobacco: Former Cigarettes Smokeless Tobacco: Never Alcohol Use Standard Drinks/Week Comments Not Currently 0 (1 standard drink = 0.6 oz pur e alcohol) [facility] Utilities Answer Date Recorded In the past 12 months has [employer], gas, oil, or water [employer] threatened to shut off services in your [...] your living situation today? I have a [facility] place to live 04/06/2024 Comments Unknown Sex and Gender Information Value Date Recorded Sex Assigned at Female 04/06/2024 7:27 PM CDT Legal Sex Female 1:30 AM FAST FOOD RESTAURANT MANAGER Gender Identity Female 04/06/2024 7:27 PM CDT Sexual Orientation Straight 04/06/2024 7: 27 PM CDT documented as of this encounter Last Filed Vital Signs Vital Sign Reading Time Taken Comments Blood Pressure 118/80 12/13/2024 12:00 AM FAST FOOD RESTAURANT MANAGER Pulse - - Temperature 36.3 C (97.3 F) 12/12/2024 10:48 PM FAST FOOD RESTAURANT MANAGER Respiratory Rate 20 12/13/2024 12:00 AM FAST FOOD RESTAURANT MANAGER Oxygen Saturation 99% 12/13/2024 12:00 AM FAST FOOD RESTAURANT MANAGER Inhaled Oxygen Concentration - - Weight 44.7 kg (98 lb 8.7 oz) 12/12/2024 10:47 P M FAST FOOD RESTAURANT MANAGER Height - - Body Mass Index 18.13 02/18/2015 3:52 PM CDT documented in this encounter Discharge Instructions * Discharge Instructions* Morales Zaidi, P.A.-C. - 12/13/2024 12:19 AM FAST FOOD RESTAURANT MANAGER You appear to be suffering from a urinary tract infection. You are being placed on an antibiotic. Take this medication as prescribed. Please return to the ER if new symptoms develop, current symptomsworsen, or you becomes concerned. Otherwise please follow up with your care team. FOOD RESTAURANT MANAGER * Attachments The following attachments cannot be sent through Care Everywhere. * Urinary Tract Infection Adult (Czech) documented in this encounter Medications at Time of Discharge albuterol 90 mcg/actuation inhaler Inhale 1-2 puffs every 4 (four) hours as needed. 05/19/2023 cholecalciferol (Vitamin D3) 50 mcg (2,000 Unit) capsule daily. diphenhydrAMINE-l uyq-fsgs-fru hydrox-simeth (FIRST-MOUTHWASH BLM) [id number] mg/30 mL suspensionIndicat ions:Esophagitis Unspecified Without Bleeding [...] Not Specified Morales Zaidi P.A.-C. 12/14/24 0638 FOOD RESTAURANT MANAGER documented in this encounter Plan of Treatment Not on file documented as of this encounter Procedures Procedure Name Priority Date/Time Associated Diagnosis Comments URINALYSIS WITH MICROSCOPIC IF INDICATED, U Routine 12/12/2024 11:50 PM FAST FOOD RESTAURANT MANAGER HC URINALYSIS AUTO W MICRO Routine 12/12/2024 11:50 PM FAST FOOD RESTAURANT MANAGER SARS CORONAVIRUS 2, PCR RAPID, V STAT 12/12/2024 11:02 PM FAST FOOD RESTAURANT MANAGER GROUP A STREP PCR, THROAT STAT 12/12/2024 11:02 PM FAST FOOD RESTAURANT MANAGER INFLUENZA A, B, RSV, PCR, POCT STAT 12/12/2024 11:02 PM FAST FOOD RESTAURANT MANAGER MORPHOLOGY EVALUATION STAT 12/12/2024 11:01 PM FAST FOOD RESTAURANT MANAGER MANUAL DIFFERENTIAL, B STAT 11:01 PM FAST FOOD RESTAURANT MANAGER CBC WITH DIFFERENTIAL, B STAT 12/12/2024 11:01 PM FAST FOOD RESTAURANT MANAGER LIPASE, S/P STAT 12/12/2024 11:01 PM FAST FOOD RESTAURANT MANAGER COMPREHENSIVE METABOLIC PANEL, S/P STAT 12/12/2024 11:01 PM FAST FOOD RESTAURANT MANAGER documented in this encounter Results * (ABNORMAL) Microscopic Manual (12/12/2024 11:50 PM FAST FOOD RESTAURANT MANAGER) White Blood Cells 11-20(A) /hpf 12/13/2024 12:12 AM FAST FOOD RESTAURANT MANAGER CNFL Comment: ----REFERENCE VALUE---- Males: 0-3 Females: 0-10 Unknown: 0-10 Red Blood Cells Occ-2 0 - 2 /hpf 12/13/2024 12:12 AM FAST FOOD RESTAURANT MANAGER CNFL Squamous Cells Occ-3 /hpf 12/13/2024 12:12 AM FAST FOOD RESTAURANT MANAGER CNFL Bacteria Present(A) None Seen 12/13/2024 12:12 AM FAST FOOD RESTAURANT MANAGER CNFL Urine 12/12/2024 11:5 0 PM FAST FOOD RESTAURANT MANAGER 12/12/2024 11:50 PM FAST FOOD RESTAURANT MANAGER Morales Zaidi P.A.-C. LAB URINE ORDERABLES Fin al Result [facility] [address] [place] [address], [facility] CNFL [facility] [place] [address] * (ABNORMAL) Urinalysis with Microscopic if Indicated: Urine, Midstream (12/12/2024 11:50 PM FAST FOOD RESTAURANT MANAGER) Source Urine, Urine, Midstream 12/12/2024 11:50 PM FAST FOOD RESTAURANT MANAGER CNFL Clarity Cloudy(A) Clear 12/12/2024 11:53 PM FAST FOOD RESTAURANT MANAGER CNFL Color Yellow 12/12/2024 11:53 PM FAST FOOD RESTAURANT MANAGER CNFL Comment: ----REFERENCE VALUE---- Colorless Yellow Julia Blood Negative Negative 12/12/2024 11:53 PM FAST FOOD RESTAURANT MANAGER CNFL Nitrite Positive(A) Negative 12/12/2024 11:53 PM FAST FOOD RESTAURANT MANAGER CNFL Leukocyte Esterase Small(A) Negative 12/12/2024 11:53 PM FAST FOOD RESTAURANT MANAGER CNFL Protein 30(A) mg/dL 12/12/2024 11:53 PM FAST FOOD RESTAURANT MANAGER CNFL Comment: ----REFERENCE VALUE---- Negative Trace Glucose Negative Negative mg/dL 12/12/2024 11:53 PM FAST FOOD RESTAURANT MANAGER CNFL Ketones, QI(U) 15(A) Negative mg/dL 12/12/2024 11:53 PM FAST FOOD RESTAURANT MANAGER CNFL Bilirubin Negative Negative 12/12/2024 11:53 PM FAST FOOD RESTAURANT MANAGER CNFL pH 6.0 5.0 - 8.0 12/12/2024 11:53 PM FAST FOOD RESTAURANT MANAGER CNFL Specific [place] 1.025 1.001 - 1.035 12/12/2024 11:53 PM FAST FOOD RESTAURANT MANAGER CNFL Urobilinogen 0.2 0.2 - 1.0 mg/dL 12/12/2024 11:53 PM FAST FOOD RESTAURANT MANAGER CNFL Urine (Urine, Midstream) 12/12/2024 11:50 PM FAST FOOD RESTAURANT MANAGER 12/12/2024 11:50 PM FAST FOOD RESTAURANT MANAGER Morales Zaidi P.A.-C. LAB URINE ORDERABLES Fin al Result Performing Organization Address [facility]/ZIP Co de Phone Number [facility] [address] [place] [phone], [facility] in [address] [address] * Influenza A/B and RSV, PCR, Point of Care (12/12/2024 11:02 PM FAST FOOD RESTAURANT MANAGER) Influenza A, POCT Negative Negative 12/12/2024 11:31 PM FAST FOOD RESTAURANT MANAGER CNFL Influenza B, POCT Negative Negative 12/12/2024 11:31 PM FAST FOOD RESTAURANT MANAGER CNFL Resp Syncytial Virus, POCT Negative Negative 12/12/2024 11:31 PM FAST FOOD RESTAURANT MANAGER [facility] Swab (Nasopharynx) 12/12/2024 11:02 PM FAST FOOD RESTAURANT MANAGER 12/12/2024 11:06 PM FAST FOOD RESTAURANT MANAGER Morales Zaidi P.A.-C. LAB POCT ORDERABLES - DE VICE Final Result Performing Organization Address [facility]/ZIP Co de Phone Number [address] [address], [facility] in [address] [address] * SARS Coronavirus 2, PCR Rapid Symptomatic (12/12/2024 11:02 PM FAST FOOD RESTAURANT MANAGER) SARS CoV-2, PCR, Rapid, V Undetected Undetected 12/12/2024 11:08 PM FAST FOOD RESTAURANT MANAGER CNFL SARS Coronavirus 2, Source, Rapid Swab, Nasopharynx 12/12/2024 11:06 PM FAST FOOD RESTAURANT MANAGER CNFL Swab (Nasopharynx) 12/12/2024 11:02 PM FAST FOOD RESTAURANT MANAGER 12/12/2024 11:06 PM FAST FOOD RESTAURANT MANAGER Morales Zaidi P.A.-C. LAB MICROBIOLOGY - GENER AL ORDERABLES Final Result Performing Organization Address [facility] Co de Phone Number [facility] [address] [place] [phone], [facility] [place] [address] * Group A Streptococcus PCR, Throat (12/12/2024 11:02 PM FAST FOOD RESTAURANT MANAGER) Strep Group A, PCR, POCT Negative Negative 12/12/2024 11:09 PM FAST FOOD RESTAURANT MANAGER CNFL Swab (Throat) 12/12/2024 11: 02 PM FAST FOOD RESTAURANT MANAGER 12/12/2024 11:06 PM FAST FOOD RESTAURANT MANAGER Morales Zaidi P.A.-C. LAB MICROBIOLOGY - GENER AL ORDERABLES Final Result Performing Organization Address [facility] Co de Phone Number [facility] [address] [place] [phone], [facility] [address] [address] * (ABNORMAL) Manual Differential, Blood (12/12/2024 11:01 PM FAST FOOD RESTAURANT MANAGER) Segmented Neutrophils 87(H) 50 - 75 % 12/13/2024 12:07 AM FAST FOOD RESTAURANT MANAGER CNFL Lymphocytes % 7(L) 18 - 42 % 12/13/2024 12:07 AM FAST FOOD RESTAURANT MANAGER CNFL Monocytes 6 2 - 11 % 12/13/2024 12:07 AM FAST FOOD RESTAURANT MANAGER CNFL Manual Absolute Neutrophil Count 6.44 1.56 - 6.45 x10(9)/L 12/13/2024 12:07 AM FAST FOOD RESTAURANT MANAGER CNFL Comment: ----ADDITIONAL INFORMATION---- The manual absolute neutrophil count is derived from a manual differential count and therefore is not exactly comparable to the automated absolute neutrophil count. Blood 12/12/2024 11:0 1 PM FAST FOOD RESTAURANT MANAGER 12/12/2024 11:03 PM FAST FOOD RESTAURANT MANAGER Morales Zaidi P.A.-C. LAB BLOOD ADD-ON Final R esult [address] [address], [address] [address] * (ABNORMAL) Morphology Evaluation (12/12/2024 11:01 PM FAST FOOD RESTAURANT MANAGER) RBC Morphology See Specific Findings 12/13/2024 12:07 AM FAST FOOD RESTAURANT MANAGER CNFL PLT Morphology Normal 12/13/2024 12:07 AM FAST FOOD RESTAURANT MANAGER CNFL PLT Estimate Adequate Adequate 12/13/2024 12:07 AM FAST FOOD RESTAURANT MANAGER CNFL Anisocytosis Slight(A) 12/13/2024 12:07 AM FAST FOOD RESTAURANT MANAGER CNFL Macrocytosis Slight(A) Not Seen 12/13/2024 12:07 AM FAST FOOD RESTAURANT MANAGER CNFL Blood 12/12/2024 11:0 1 PM FAST FOOD RESTAURANT MANAGER 12/12/2024 11:03 PM FAST FOOD RESTAURANT MANAGER us Morales Zaidi P.A.-C. LAB BLOOD ADD-ON Final R esult [address] [address], [address] [address] * Lipase (12/12/2024 11:01 PM FAST FOOD RESTAURANT MANAGER) Lipase, P 19 13 - 60 U/L 12/12/2024 11:22 PM FAST FOOD RESTAURANT MANAGER CNFL Blood (Blood, Venous) 12/12/2024 11:01 PM FAST FOOD RESTAURANT MANAGER 12/12/2024 11:03 PM FAST FOOD RESTAURANT MANAGER us Morales Zaidi P.A.-C. LAB BLOOD ADD-ON Final R esult [facility] [address] [place] [id number], [address] [address] * (ABNORMAL) Comprehensive Metabolic Panel (12/12/2024 11:01 PM FAST FOOD RESTAURANT MANAGER) Potassium, P 3.2(L) 3.6 - 5.2 mmol/L 12/12/2024 11:22 PM FAST FOOD RESTAURANT MANAGER CNFL Sodium, P 136 135 - 145 mmol/L 12/12/2024 11:22 PM FAST FOOD RESTAURANT MANAGER CNFL Chloride, P 104 98 - 107 mmol/L 12/12/2024 11:22 PM FAST FOOD RESTAURANT MANAGER CNFL Bicarbonate, P 23 22 - 29 mmol/L 12/12/2024 11:22 PM FAST FOOD RESTAURANT MANAGER CNFL Anion Gap, P 9 7 - 15 12/12/2024 11:22 PM FAST FOOD RESTAURANT MANAGER CNFL BUN (Blood Urea Nitrogen), P 10 6 - 21 mg/dL 12/12/2024 11:22 PM FAST FOOD RESTAURANT MANAGER CNFL Creatinine 0.64 0.59 - 1.04 mg/dL 12/12/2024 11:22 PM FAST FOOD RESTAURANT MANAGER CNFL Estimated GFR (eGFR) >90 >=60 mL/min/BS A 12/12/2024 11:22 PM FAST FOOD RESTAURANT MANAGER CNFL Comment: Estimated GFR calculated using the 2020 CKD_EPI creatinine equation. Calcium, Total, P 8.0(L) 8.8 - 10.2 mg/dL 12/12/2024 11:22 PM FAST FOOD RESTAURANT MANAGER CNFL Glucose, P 109 70 - 140 mg/dL 12/12/2024 11:22 PM FAST FOOD RESTAURANT MANAGER CNFL Protein, Total, P 5.3(L) 6.3 - 7.9 g/dL 12/12/2024 11:22 PM FAST FOOD RESTAURANT MANAGER CNFL Albumin, P 3.4(L) 3.5 - 5.0 g/dL 12/12/2024 11:22 PM FAST FOOD RESTAURANT MANAGER CNFL Aspartate Aminotransferase (AST), P 13 8 - 43 U/L 12/12/2024 11:22 PM FAST FOOD RESTAURANT MANAGER CNFL Alkaline Phosphatase, P 90 35 - 104 U/L 12/12/2024 11:22 PM FAST FOOD RESTAURANT MANAGER CNFL Alanine Aminotransferase (ALT), P 24 7 - 45 U/L 12/12/2024 11:22 PM FAST FOOD RESTAURANT MANAGER CNFL Bilirubin, Total, P 0.4 0.0 - 1.2 mg/dL 12/12/2024 11:22 PM FAST FOOD RESTAURANT MANAGER CNFL Blood (Blood, Venous) 12/12/2024 11:01 PM FAST FOOD RESTAURANT MANAGER 12/12/2024 11:03 PM FAST FOOD RESTAURANT MANAGER us Morales Zaidi P.A.-C. LAB BLOOD ADD-ON Final R esult [facility] [address] [place] [phone], [facility] CNFL [facility] [place] [address] * (ABNORMAL) CBC with Differential, Blood (12/12/2024 11:01 PM FAST FOOD RESTAURANT MANAGER) Hemoglobin 9.8(L) 11.6 - 15.0 g/dL 12/12/2024 11:11 PM FAST FOOD RESTAURANT MANAGER CNFL Hematocrit 28.7(L) 35.5 - 44.9 % 12/12/2024 11:11 PM FAST FOOD RESTAURANT MANAGER CNFL Erythrocytes 2.89(L) 3.92 - 5.13 x10(12)/ L 12/12/2024 11:11 PM FAST FOOD RESTAURANT MANAGER CNFL MCV 99.3(H) 78.2 - 97.9 fL 12/12/2024 11:11 PM FAST FOOD RESTAURANT MANAGER CNFL RBC Distrib Width 15.2 12.2 - 16.1 % 12/12/2024 11:11 PM FAST FOOD RESTAURANT MANAGER CNFL Platelet Count 157 157 - 371 x10(9)/L 12/12/2024 11:11 PM FAST FOOD RESTAURANT MANAGER CNFL Leukocytes 7.4 3.4 - 9.6 x10(9)/L 12/12/2024 11:11 PM FAST FOOD RESTAURANT MANAGER CNFL Neutrophils See manual differential 1.56 - 6.45 x10(9)/L 12/12/2024 11:58 PM FAST FOOD RESTAURANT MANAGER CNFL Comment: REVISED RESULTS ----PREVIOUSLY REPORTED ---- 6.29 x10(9)/L Flagged as: Normal (Reported 12/12/2024 23:11) Lymphocytes CANCELED x10(9)/L 12/12/2024 11:58 PM FAST FOOD RESTAURANT MANAGER CNFL Comment: REVISED RESULTS ----PREVIOUSLY REPORTED ---- 0.44 x10(9)/L Flagged as: Abnormal_Low (Reported 12/12/2024 23:11) Monocytes CANCELED x10(9)/L 12/12/2024 11:58 PM FAST FOOD RESTAURANT MANAGER CNFL Comment: REVISED RESULTS ----PREVIOUSLY REPORTED ---- 0.58 x10(9)/L Flagged as: Normal (Reported 12/12/2024 23:11) Eosinophils CANCELED x10(9)/L 12/12/2024 11:58 PM FAST FOOD RESTAURANT MANAGER CNFL Comment: REVISED RESULTS ----PREVIOUSLY REPORTED ---- <0.04 x10(9)/L Flagged as: Normal (Reported 12/12/2024 23:11) Basophils CANCELED x10(9)/L 12/12/2024 11:58 PM FAST FOOD RESTAURANT MANAGER CNFL Comment: REVISED RESULTS ----PREVIOUSLY REPORTED ---- <0.04 x10(9)/L Flagged as: Normal (Reported 12/12/2024 23:11) Blood (Blood, Venous) 12/12/2024 11:01 PM FAST FOOD RESTAURANT MANAGER 12/12/2024 11:03 PM FAST FOOD RESTAURANT MANAGER Morales Zaidi P.A.-C. LAB BLOOD ADD-ON Edited Result - Final [facility] [address] [place] [address], [place] [address] documented in this encounter Visit Diagnoses Diagnosis [...] Non-CatheterIndications:Lower UTI, Non-Catheter Given 12/13/2024 12:31 AM FAST FOOD RESTAURANT MANAGER 300 mg documented in this encounter Active and Recently Administered Medications Times are shown in FAST FOOD RESTAURANT MANAGER. Scheduled Medication Order 12/11/2024 12/12/2024 12/13/2024 cefdinir [...] Pending 12/12/2024 12/12/2024 12/12/2024 1 1:29 PM FAST FOOD RESTAURANT MANAGER documented as of this encounter
--- OUTSIDE RECORDS SUMMARY | 2025-01-08 17:06 | XMS_ITS | Clinical Summary ---
Author Organization [facility] Address [address] [place] [address] Care Team Providers Care Child Care Counselor Name Role Phone Unavailable Primary Care Provider Unavailabl e Source Comments Patient records contain information from all sites at [facility]. For routine questions regarding patient records, call [phone] during business hours, M-F 8:00 AM - 5:00 PM Central Time. 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 Urinary Tract Infection Site Not Specified (Primary Dx) Discharge Disposition: Home or Self Care 10/13/2024 2:36 PM SUPERVISOR TRAIN [employer]PERATIONS - 10/13/2024 11:59 PM SUPERVISOR TRAIN [employer]PERATIONS Hospital Encounter Department of Radiation Oncology in [address] [phone] Yahaira Beltrán M.D. Discharge Disposition: Home or Self Care 10/13/2024 Documentation Department of Radiation Oncology in [address] [phone] Yahaira Beltrán M.D. 10/12/2024 2:41 PM SUPERVISOR TRA[employer]PER[employer] - 10/12/2024 11:59 PM SUPERVISOR TRAIN [employer]PERATIONS Hospital Encounter Department of Radiation Oncology in [address] [phone] Yahaira Beltrán M.D. Discharge Disposition: Home or Self Care 10/11/2024 2:20 PM SUPERVISOR TRAIN [employer]PER[employer] - 10/11/2024 4:26 PM SUPERVISOR TRAIN [employer]PERATIONS Hospital Encounter Department of Radiation Oncology in [address] [address] Yahaira Beltrán M.D. 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 Discharge Disposition: Home or Self Care 10/10/2024 2:51 PM SUPERVISOR TRA[employer]PERATIONS - 10/10/2024 11:59 PM SUPERVISOR TRAIN [employer]PERATIONS Hospital Encounter Department of Radiation Oncology in [address] [phone] Yahaira Beltrán M.D. Discharge Disposition: Home or Self Care 10/09/2024 2:41 PM SUPERVISOR TRAIN [employer]PERATIONS - 10/09/2024 11:59 PM SUPERVISOR TRAIN [employer]PERATIONS Hospital Encounter Department of Radiation Oncology in [address] [phone] Yahaira Beltrán M.D. Discharge Disposition: Home or [...] drink = 0.6 oz pur e alcohol) [facility] Utilities Answer Date Recorded In the past 12 months has e Service Route, gas, oil, or water [employer] threatened to shut off services in your [...] CDT Legal Sex Female 1:30 AM SUPERVISOR TRAIN [employer]PER[employer] Gender Identity Female 04/06/2024 7:27 PM CDT Sexual Orientation Straight 04/06/2024 7: 27 PM CDT Last Filed Vital Signs Vital Sign Reading Time Taken Comments Blood Pressure 118/80 12/13/2024 12:00 AM SU[employer]OR [employer]PER[employer] Pulse 97 10/11/2024 2:47 PM [employer]PER[employer]OR [employer]PER[employer] Temperature 36.3 C (97.3 F) 12/12/2024 10:48 PM SUPER[employer]OR TRA[employer]PERATIONS Respiratory Rate 20 12/13/2024 12:0 0 AM SUPERVISOR TRAIN [employer]PERATIONS Oxygen Saturation 99% 12/13/2024 12: 00 AM SUPER[employer]OR TRAIN [employer]PERATIONS Inhaled Oxygen Concentration - - Weight 44.7 kg (98 lb 8.7 oz) 12/12/2024 10:47 PM [employer]PERVISOR TRA[employer]PERATIONS Height 157 cm (5' 1.81) 02/18/2015 3:5 [...] AUTO W MICRO Routine 12/12/2024 11:50 PM SUPERVISOR TRAIN [employer]PERATIONS URINALYSIS WITH MICROSCOPIC IF INDICATED, U Routine 12/12/2024 11:50 PM SUPERVISOR TRAIN [employer]PERATIONS INFLUENZA A, B, RSV, PCR, POCT STAT 12/12/2024 11:02 PM SUPERVISOR TRA[employer]PERATIONS SARS CORONAVIRUS 2, PCR RAPID, V STAT 12/12/2024 11:02 PM SUPERVISOR TRAIN [employer]PERATIONS GROUP A STREP PCR, THROAT STAT 12/12/2024 11:02 PM SUPERVISOR [employer]PERATIONS MANUAL DIFFERENTIAL, B STAT 11:01 PM [employer]OR [employer]PER[employer] MORPHOLOGY EVALUATION STAT 12/12/2024 11:01 PM SUPER[employer]OR TRAIN [employer]PERATIONS LIPASE, S/P STAT 12/12/2024 11:01 PM [employer]PER[employer]OR [employer]PERATIONS COMPREHENSIVE METABOLIC PANEL, S/P STAT 12/12/2024 11:01 PM SUPERVISOR TRAIN [employer]PERATIONS CBC WITH DIFFERENTIAL, B STAT 12/12/2024 11:01 PM SUPERVISOR TRAIN [employer]PERATIONS OUTSIDE NM PET Routine 11/25/2024 4:30 PM SUPERVISOR TRAIN [employer]PERATIONS OUTSIDE MR NEURO Routine 11/03/2024 7:50 AM SUPERVISOR TRAIN [employer]PERATIONS OUTSIDE MR NEURO Routine 11/03/2024 7:45 AM SUPER[employer]OR [employer]IN [employer]PERATIONS OUTSIDE MR NEURO Routine 11/03/2024 7:40 AM SUPERVISOR TRAIN [employer]PERATIONS OUTSIDE MR NEURO Routine 11/03/2024 7:35 AM SUPERVISOR TRAIN OPERATIONS ARIA COURSE COMPLETE TREATMENT INFORMATION Routine 10/13/2024 2:49 PM SUPERVISOR TRAIN [employer]PERATIONS ARIA DAILY TREATMENT INFORMATION Routine 10/13/2024 2:49 PM SUPERVISOR TRAIN OPERATIONS ARIA DAILY TREATMENT INFORMATION Routine 10/12/2024 2:59 PM SUPERVISOR TRAIN [employer]PERATIONS ARIA DAILY TREATMENT INFORMATION Routine 10/11/2024 2:42 PM SUPERVISOR TRAIN OPERATIONS ARIA DAILY TREATMENT INFORMATION Routine 10/10/2024 3:08 PM SUPERVISOR TRAIN [employer]PERATIONS ARIA DAILY TREATMENT INFORMATION Routine 10/09/2024 3:17 PM SUPERVISOR TRAIN [employer]PERATIONS OUTSIDE MG MAMMOGRAM Routine 07/10/2014 8:18 AM CDT from Last 3 Months or Most Recently Relevant to Health Maintenance Results * (ABNORMAL) Urinalysis with Microscopic if Indicated: Urine, Midstream (12/12/2024 11:50 PM SUPERVISOR TRA[employer]PER[employer]) Source Urine, Urine, Midstream 12/12/2024 11:50 PM SUPERVISOR TRA[employer]PER[employer] CNFL Clarity Cloudy(A) Clear 12/12/2024 11:53 PM SUPER[employer]OR TRA[employer]PER[employer] CNFL Color Yellow 12/12/2024 11:53 PM SUPER[employer]OR TRAIN [employer]PER[employer] CNFL Comment: ----REFERENCE VALUE---- Colorless Yellow Julia Blood Negative Negative 12/12/2024 11:53 PM SUPERVISOR TRAIN [employer]PER[employer] CNFL Nitrite Positive(A) Negative 12/12/2024 11:53 PM SUPERVISOR TRAIN [employer]PER[employer] CNFL Leukocyte Esterase Small(A) Negative 12/12/2024 11:53 PM SUPER[employer]OR [employer]PER[employer] CNFL Protein 30(A) mg/dL 12/12/2024 11:53 PM SUPERVISOR TRAIN [employer]PERATIONS CNFL Comment: ----REFERENCE VALUE---- Negative Trace Glucose Negative Negative mg/dL 12/12/2024 11:53 PM SUPER[employer]OR [employer]PER[employer] CNFL Ketones, QI(U) 15(A) Negative mg/dL 12/12/2024 11:53 PM SUPERVISOR [employer]PER[employer] CNFL Bilirubin Negative Negative 12/12/2024 11:53 PM [employer]PER[employer]OR [employer]PER[employer] CNFL pH 6.0 5.0 - 8.0 12/12/2024 11:53 PM SUPERVISOR TRAIN [employer]PER[employer] CNFL Specific [place] 1.025 1.001 - 1.035 12/12/2024 11:53 PM SUPERVISOR TRAIN [employer]PERATIONS CNFL Urobilinogen 0.2 0.2 - 1.0 mg/dL 12/12/2024 11:53 PM SUPERVISOR [employer]PER[employer] CNFL Urine (Urine, Midstream) 12/12/2024 11:50 PM SUPERVISOR TRA[employer]PERATIONS 12/12/2024 11:50 PM SUPERVISOR TRAIN [employer]PERATIONS Morales Zaidi P.A.-C. LAB URINE ORDERABLES Fin al Result Performing Organization Address [facility]/State/[facility] Co de Phone Number [facility] [address] [place] [address], [facility] [place] [address] * (ABNORMAL) Microscopic Manual (12/12/2024 11:50 PM SUPERVISOR TRAIN [employer]PERATIONS) White Blood Cells 11-20(A) /hpf 12/13/2024 12:12 AM SUPERVISOR TRAIN [employer]PERATIONS CNFL Comment: ----REFERENCE VALUE---- Males: 0-3 Females: 0-10 Unknown: 0-10 Red Blood Cells Occ-2 0 - 2 /hpf 12/13/2024 12:12 AM SU[employer]OR [employer]PER[employer] CNFL Squamous Cells Occ-3 /hpf 12/13/2024 12:12 AM [employer]OR [employer]PER[employer] CNFL Bacteria Present(A) None Seen 12/13/2024 12:12 AM SUPER[employer]OR TRAIN [employer]PER[employer] CNFL Urine 12/12/2024 11:5 0 PM SUPER[employer]OR [employer]PERATIONS 12/12/2024 11:50 PM SUPERVISOR TRA[employer]PERATIONS Morales Zaidi P.A.-C. LAB URINE ORDERABLES Fin al Result Performing Organization Address City/[facility]/ZIP Co de Phone Number [address] [address], [facility] in [address] [address] * SARS Coronavirus 2, PCR Rapid Symptomatic (12/12/2024 11:02 PM SUPERVISOR TRAIN [employer]PERATIONS) SARS CoV-2, PCR, Rapid, V Undetected Undetected 12/12/2024 11:08 PM SUPERVISOR TRAIN [employer]PERATIONS CNFL SARS Coronavirus 2, Source, Rapid Swab, Nasopharynx 12/12/2024 11:06 PM SUPERVISOR TRAIN [employer]PERATIONS CNSC Swab (Nasopharynx) 12/12/2024 11:02 PM SUPERVISOR TRAIN [employer]PERATIONS 12/12/2024 11:06 PM SUPERVISOR TRAIN [employer]PERATIONS Morales Zaidi P.A.-C. LAB MICROBIOLOGY - GENER AL ORDERABLES Final Result Performing Organization Address [facility] Co de Phone Number [address] [address], [facility] in [address] [address] * Group A Streptococcus PCR, Throat (12/12/2024 11:02 PM SUPERVISOR TRAIN [employer]PERATIONS) Strep Group A, PCR, POCT Negative Negative 12/12/2024 11:09 PM SUPERVISOR TRAIN [employer]PERATIONS CNFL Swab (Throat) 12/12/2024 11: 02 PM SUPERVISOR TRAIN [employer]PERATIONS 12/12/2024 11:06 PM SUPERVISOR TRAIN [employer]PERATIONS Morales Zaidi P.A.-C. LAB MICROBIOLOGY - GENER AL ORDERABLES Final Result Performing Organization Address City/[facility]/ZIP Co de Phone Number [address] [place] [address], [address] [address] * Influenza A/B and RSV, PCR, Point of Care (12/12/2024 11:02 PM SUPERVISOR TRAIN [employer]PERATIONS) Influenza A, POCT Negative Negative 12/12/2024 11:31 PM SUPERVISOR TRAIN [employer]PERATIONS CNFL Influenza B, POCT Negative Negative 12/12/2024 11:31 PM SUPERVISOR TRAIN [employer]PER[employer] CNFL Resp Syncytial Virus, POCT Negative Negative 12/12/2024 11:31 PM SUPERVISOR TRAIN [employer]PERATIONS CNFL Swab (Nasopharynx) 12/12/2024 11:02 PM SUPERVISOR TRAIN OPERATIONS 12/12/2024 11:06 PM SUPERVISOR TRAIN [employer]PERATIONS Morales YeungC. LAB POCT ORDERABLES - DE VICE Final Result Performing Organization Address [facility]/ZIP Co de Phone Number [facility] [address] [place] [phone], [address] [address] * (ABNORMAL) Morphology Evaluation (12/12/2024 11:01 PM SUPERVISOR TRAIN [employer]PERATIONS) Pathologist [facility] RBC Morphology See Specific Findings 12/13/2024 12:07 AM SUPERVISOR TRAIN [employer]PERATIONS CNFL PLT Morphology Normal 12/13/2024 12:07 AM SUPERVISOR TRAIN [employer]PERATIONS CNFL PLT Estimate Adequate Adequate 12/13/2024 12:07 AM SUPERVISOR TRAIN [employer]PER[employer] CNFL Anisocytosis Slight(A) 12/13/2024 12:07 AM SU[employer]OR TRAIN [employer]PER[employer] CNFL Macrocytosis Slight(A) Not Seen 12/13/2024 12:07 AM SUPERVISOR TRAIN [employer]PER[employer] CNFL Blood 12/12/2024 11:0 1 PM SUPER[employer]OR TRAIN [employer]PERATIONS 12/12/2024 11:03 PM SUPERVISOR TRAIN [employer]PERATIONS Morales YeungC. LAB BLOOD ADD-ON Final R esult [facility] [address] [place] [address], [place] [address] [place] [address] * (ABNORMAL) Manual Differential, Blood (12/12/2024 11:01 PM SUPERVISOR TRA[employer]PERATIONS) Segmented Neutrophils 87(H) 50 - 75 % 12/13/2024 12:07 AM SUPER[employer]OR TRA[employer]PER[employer] CNFL Lymphocytes % 7(L) 18 - 42 % 12/13/2024 12:07 AM SU[employer]OR [employer]IN [employer]PER[employer] CNFL Monocytes 6 2 - 11 % 12/13/2024 12:07 AM SUPER[employer]OR [employer]PER[employer] CNFL Manual Absolute Neutrophil Count 6.44 1.56 - 6.45 x10(9)/L 12/13/2024 12:07 AM SUPER[employer]OR TRAIN [employer]PERATIONS CNFL Comment: ----ADDITIONAL INFORMATION---- The manual absolute neutrophil count is derived from a manual differential count and therefore is not exactly comparable to the automated absolute neutrophil count. Blood 12/12/2024 11:0 1 PM SUPERVISOR TRAIN [employer]PERATIONS 12/12/2024 11:03 PM SUPERVISOR TRAIN [employer]PERATIONS us Morales Zaidi P.A.-C. LAB BLOOD ADD-ON Final R esult [facility] [address] [place] [address], [facility] in [address] [address] * (ABNORMAL) CBC with Differential, Blood (12/12/2024 11:01 PM SUPERVISOR TRA[employer]PERATIONS) Hemoglobin 9.8(L) 11.6 - 15.0 g/dL 12/12/2024 11:11 PM [employer]OR [employer]PER[employer] CNFL Hematocrit 28.7(L) 35.5 - 44.9 % 12/12/2024 11:11 PM [employer]PER[employer]OR [employer]PER[employer] CNFL Erythrocytes 2.89(L) 3.92 - 5.13 x10(12)/ L 12/12/2024 11:11 PM [employer]PER[employer]OR [employer]PER[employer] CNFL MCV 99.3(H) 78.2 - 97.9 fL 12/12/2024 11:11 PM [employer]OR [employer]PER[employer] CNFL RBC Distrib Width 15.2 12.2 - 16.1 % 12/12/2024 11:11 PM [employer]OR [employer]PER[employer] CNFL Platelet Count 157 157 - 371 x10(9)/L 12/12/2024 11:11 PM [employer]OR [employer]PER[employer] CNFL Leukocytes 7.4 3.4 - 9.6 x10(9)/L 12/12/2024 11:11 PM [employer]PER[employer]OR [employer]PER[employer] CNFL Neutrophils See manual differential 1.56 - 6.45 x10(9)/L 12/12/2024 11:58 PM SUPER[employer]OR TRA[employer]PERATIONS CNFL Comment: REVISED RESULTS ----PREVIOUSLY REPORTED ---- 6.29 x10(9)/L Flagged as: Normal (Reported 12/12/2024 23:11) Lymphocytes CANCELED x10(9)/L 12/12/2024 11:58 PM SUPER[employer]OR TRA[employer]PER[employer] CNFL Comment: REVISED RESULTS ----PREVIOUSLY REPORTED ---- 0.44 x10(9)/L Flagged as: Abnormal_Low (Reported 12/12/2024 23:11) Monocytes CANCELED x10(9)/L 12/12/2024 11:58 PM SUPERVISOR TRAIN [employer]PER[employer] CNFL Comment: REVISED RESULTS ----PREVIOUSLY REPORTED ---- 0.58 x10(9)/L Flagged as: Normal (Reported 12/12/2024 23:11) Eosinophils CANCELED x10(9)/L 12/12/2024 11:58 PM SUPER[employer]OR [employer]PER[employer] CNFL Comment: REVISED RESULTS ----PREVIOUSLY REPORTED ---- <0.04 x10(9)/L Flagged as: Normal (Reported 12/12/2024 23:11) Basophils CANCELED x10(9)/L 12/12/2024 11:58 PM SUPERVISOR TRA[employer]PERATIONS CNFL Comment: REVISED RESULTS ----PREVIOUSLY REPORTED ---- <0.04 x10(9)/L Flagged as: Normal (Reported 12/12/2024 23:11) Blood (Blood, Venous) 12/12/2024 11:01 PM SUPERVISOR TRAIN [employer]PERATIONS 12/12/2024 11:03 PM SUPERVISOR TRAIN [employer]PERATIONS us Morales Zaidi P.A.-C. LAB BLOOD ADD-ON Edited Result - Final [facility] [id number] [place] [address], [facility] CNFL [facility] in [address] [address] * Lipase (12/12/2024 11:01 PM SUPERVISOR TRA[employer]PERATIONS) Lipase, P 19 13 - 60 U/L 12/12/2024 11:22 PM SUPERVISOR TRAIN [employer]PERATIONS CNFL Blood (Blood, Venous) 12/12/2024 11:01 PM SUPERVISOR TRAIN [employer]PERATIONS 12/12/2024 11:03 PM SUPERVISOR TRAIN [employer]PERATIONS us Morales Zaidi P.A.-C. LAB BLOOD ADD-ON Final R esult [facility] [address] [place] [phone], [facility] in [address] [address] * (ABNORMAL) Comprehensive Metabolic Panel (12/12/2024 11:01 PM SUPERVISOR [employer]PER[employer]) Potassium, P 3.2(L) 3.6 - 5.2 mmol/L 12/12/2024 11:22 PM [employer]OR [employer]PER[employer] CNFL Sodium, P 136 135 - 145 mmol/L 12/12/2024 11:22 PM [employer]OR [employer]PER[employer] CNFL Chloride, P 104 98 - 107 mmol/L 12/12/2024 11:22 PM [employer]OR [employer]PER[employer] CNFL Bicarbonate, P 23 22 - 29 mmol/L 12/12/2024 11:22 PM [employer]OR [employer]PER[employer] CNFL Anion Gap, P 9 7 - 15 12/12/2024 11:22 PM [employer]OR [employer]PER[employer] CNFL BUN (Blood Urea Nitrogen), P 10 6 - 21 mg/dL 12/12/2024 11:22 PM [employer]OR [employer]PER[employer] CNFL Creatinine 0.64 0.59 - 1.04 mg/dL 12/12/2024 11:22 PM [employer]OR [employer]PER[employer] CNFL Estimated GFR (eGFR) >90 >=60 mL/min/BS A 12/12/2024 11:22 PM [employer]OR [employer]PER[employer] CNFL Comment: Estimated GFR calculated using the 2020 CKD_EPI creatinine equation. Calcium, Total, P 8.0(L) 8.8 - 10.2 mg/dL 12/12/2024 11:22 PM [employer]OR [employer]PER[employer] CNFL Glucose, P 109 70 - 140 mg/dL 12/12/2024 11:22 PM SUPER[employer]OR [employer]PER[employer] CNFL Protein, Total, P 5.3(L) 6.3 - 7.9 g/dL 12/12/2024 11:22 PM [employer]OR [employer]PER[employer] CNFL Albumin, P 3.4(L) 3.5 - 5.0 g/dL 12/12/2024 11:22 PM [employer]OR [employer]PER[employer] CNFL Aspartate Aminotransferase (AST), P 13 8 - 43 U/L 12/12/2024 11:22 PM [employer]PER[employer]OR [employer]PER[employer] CNFL Alkaline Phosphatase, P 90 35 - 104 U/L 12/12/2024 11:22 PM [employer]OR [employer]PER[employer] CNFL Alanine Aminotransferase (ALT), P 24 7 - 45 U/L 12/12/2024 11:22 PM SUPERVISOR TRA[employer]PERATIONS CNFL Bilirubin, Total, P 0.4 0.0 - 1.2 mg/dL 12/12/2024 11:22 PM [employer]PER[employer]OR [employer]PER[employer] CNFL Blood (Blood, Venous) 12/12/2024 11:01 PM SUPERVISOR TRAIN OPERATIONS 12/12/2024 11:03 PM SUPERVISOR TRAIN [employer]PERATIONS us Morales Zaidi P.A.-C. LAB BLOOD ADD-ON Final R esult [facility] [address] [place] [address], [facility] CNFL [facility] [place] [address] * PET skull to mid thigh-Outside NM Pet (11/25/2024 4:30 PM SUPERVISOR TRAIN [employer]PERATIONS) 11/25/2024 4:27 PM SUPERVISOR TRAIN [employer]PERATIONS Narrative IIMS - 11/25/2024 6:24 PM SUPERVISOR TRA[employer]PERATIONS This order has been created and auto-finalized [...] wo/w con-Outside MR Neuro (11/03/2024 7:50 AM SUPERVISOR TRAIN [employer]PERATIONS) Only the most recent of4 resultswithin the time period is included. Narrative IIMS - 11/17/2024 10:14 AM SUPERVISOR TRAIN [employer]PERATIONS This order has been created and auto-finalized to support the import of outside images. If available, original interpretation can be found on the Media Tab in Chart Review, in Document Viewer, as an image in QREADS or as an Addendum. If a re-interpretation or overread is required please follow defined workflow. us Provider Not In System IMG MRI PROCEDURES Final Result [facility] NA * Aria Course Complete Treatment Information (10/13/2024 2:49 PM SUPERVISOR TRAIN OPERATIONS) Course ID [id number] CARR ARIA Course Start Date 4 08:48 SUPERVISOR TRAIN OPERATIONS CARR ARIA Course End Date 4 13:21 SUPERVISOR TRAIN OPERATIONS CARR ARIA First Treatment Date 4 15:06 SUPERVISOR TRAIN OPERATIONS CARR ARIA Last Treatment Date 4 14:49 SUPERVISOR TRAIN OPERATIONS CARR ARIA Treatment Elapsed Days 4 CARR ARIA Reference Point [id number] CARR ARIA Dosage Given to Date cGy 2500 CARR ARIA Reference Point [id number] CARR ARIA Dosage Given to Date cGy 2500 CARR ARIA Plan ID [id number] CARR ARIA Fractions Treated to Date 5 CARR ARIA Planned Total Fractions 5 CARR ARIA Prescribed Dose Per Fraction 500 CARR ARIA Prescription Dose in cGy 2500 CARR ARIA Plan Primary Reference Point [id number] CARR ARIA Plan ID [id number] CARR ARIA Fractions Treated to Date 5 CARR ARIA Planned Total Fractions 5 CARR ARIA Prescribed Dose Per Fraction 500 CARR ARIA Prescription Dose in cGy 2500 CARR ARIA Plan Primary Reference Point [id number] CARR ARIA 10/13/2024 2:49 PM SUPERVISOR TRAIN OPERATIONS us Provider Not In System RADIATION ONCOLOGY ORDERA BLES Final Result CARR BESSA na * Aria Daily Treatment Information (10/13/2024 2:49 PM SUPERVISOR TRAIN OPERATIONS) Only the most recent of5 resultswithin the time period is included. Course ID [id number] CARR ARIA Course Start Date 4 08:48 SUPERVISOR TRAIN OPERATIONS CARR ARIA First Treatment Date 4 15:06 SUPERVISOR TRAIN OPERATIONS CARR ARIA Last Treatment Date 4 14:49 SUPERVISOR TRAIN OPERATIONS CARR ARIA Treatment Elapsed Days 4 CARR ARIA Reference Point [id number] CARR ARIA Dosage Given to Date cGy 2500 CARR ARIA Session Dosage Given 500 CARR ARIA Reference Point [id number] CARR ARIA Dosage Given to Date cGy 2500 CARR ARIA Session Dosage Given 500 CARR ARIA Plan ID [id number] CARR ARIA Fractions Treated to Date 5 CARR ARIA Planned Total Fractions 5 CARR ARIA Prescribed Dose Per Fraction 500 CARR ARIA Prescription Dose in cGy 2500 CARR ARIA Plan Primary Reference Point [id number] CARR ARIA Plan ID [id number] CARR ARIA Fractions Treated to Date 5 CARR ARIA Planned Total Fractions 5 CARR ARIA Prescribed Dose Per Fraction 500 CARR ARIA Prescription Dose in cGy 2500 CARR ARIA Plan Primary Reference Point [id number] CARR ARIA 10/13/2024 2:49 PM SUPERVISOR TRAIN OPERATIONS Provider Not In System RADIATION ONCOLOGY ORDERA BLES Final Result BRUNO BUTLER na * Outside MG Mammogram (07/10/2014 8:18 AM CDT) 07/10/2014 8:18 AM CDT Addenda Addendum by ProviderHolly M.D. on 07/10/2014 8:18 AM CDT ODM^^^MCR XR MAMMO POST CLIP PLCMT LT 07/10/2014 08:18:03 Historical Provider IMG BI PROCEDURES Final Resu lt [facility] [address] [place] [id number], [facility] from Last 3 Months or Most Recently Relevant to Health Maintenance Insurance [facility]
--- OUTSIDE RECORDS SUMMARY | 2025-01-08 17:06 | XMS_ITS | Clinical Summary ---
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 Phone Pcp, No Primary Care [...] Department Care Team Description 12/29/2024 Orders Only [facility] Scanner 1 scan: (1-Ord) [facility], XR CHEST 2V, 12/29/2024 12/27/2024 Nurse Triage [address] [id number] Francie Marcos PA Vomiting 12/19/2024 Orders Only [facility] Scanner 1 scan: (1-Ord) [facility], CHEST ABDOMEN PELVIS W/ CONTRAST, 12/19/2024 12/18/2024 Orders Only [facility] Scanner 1 scan: (1-Ord) [facility], XR CHEST 2V, 12/18/2024 11/25/2024 Orders Only [facility] Scanner 1 scan: (1-Ord) [facility], SKULL TO MID THIGHS, 11/25/2024 11/08/[address] [facility] [address] [place] [address] Oneil العلي, AuD 11/03/2024 Orders Only [facility] Scanner 1 scan: (1-Ord) [facility], MR THORACIC SPINE WO/W CON, 11/03/2024 11/03/2024 Orders Only [facility] Scanner 1 scan: (1-Ord) [facility], MR LUMBAR SPINE WWO CONTRAST, 11/03/2024 11/03/2024 Orders Only [facility] Scanner 1 scan: (1-Ord) [facility], MR CERVICAL SPINE WWO CONTRAST, 11/03/2024 11/03/2024 Orders Only [facility] Scanner 1 scan: (1-Ord) [facility], MR HEAD/BRAIN WWO CONTRAST, 11/03/2024 from Last 3 Months Immunizations Name Administration Dates Next Due COVID-19 vaccine ([employer] 30mcg/0.3mL) P F, MDV 03/08/2021,02/15/2021 Td (Age [...] on file Legal Sex Female 6:22 AM DELIMER Gender Identity Not on file Sexual Orientation Not on file Obstetrics History Last Filed Vital Signs Vital Sign Reading Time Taken Comments Blood Pressure 125/78 10/05/2024 1:48 PM DELIMER Pulse 104 10/05/2024 1:48 PM DELIMER Temperature 36.8 C (98.3 F) 07/17/2021 2:48 PM CDT Respiratory Rate - - Oxygen Saturation 100% 10/05/2024 1:48 PM DELIMER Inhaled Oxygen Concentration - - Weight 46.3 kg (102 lb) 10/05/2024 1:48 PM DELIMER Height 155.4 cm (5' 1.18) 02/05/2023 2:50 [...] Diagnosis Comments SCAN-RADIOLOGY REPORT 12/29/2024 12:00 AM DELIMER SCAN-CT INTERPRETATION 12:00 AM DELIMER SCAN-RADIOLOGY REPORT 12/18/2024 12:00 AM DELIMER SCAN-PET SCAN 11/25/2024 12:00 AM DELIMER SCAN-MRI INTERPRETATION 11/03/2024 12:00 AM DELIMER SCAN-MRI INTERPRETATION 11/03/2024 12:00 AM DELIMER SCAN-MRI INTERPRETATION 11/03/2024 12:00 AM DELIMER SCAN-MRI INTERPRETATION 11/03/2024 12:00 AM DELIMER OCCULT BLOOD IFOBT STOOL Routine 02/09/2023 10:57 AM CDT Screening for colon cancer LC LIPID PANEL AND CHOL/HDL RATIO Routine 02/05/2023 3:41 PM CDT Hyperlipidemia, unspecified hyperlipidemia type from Last 3 Months or Most Recently Relevant to Health Maintenance Results * SCAN-RADIOLOGY REPORT (12/29/2024 12:00 AM DELIMER) Only the most recent of2 resultswithin the time period is included. Anatomical Region Laterality Modality Other us Scanner OTHER Final Result * SCAN-CT INTERPRETATION (12/19/2024 12:00 AM DELIMER) Anatomical Region Laterality Modality Other us Scanner OTHER Final Result * SCAN-PET SCAN (11/25/2024 12:00 AM DELIMER) Anatomical Region Laterality Modality Other us Scanner OTHER Final Result * SCAN-MRI INTERPRETATION (11/03/2024 12:00 AM DELIMER) Only the most recent of4 resultswithin the time period is included. Anatomical Region Laterality Modality Other us Scanner OTHER Final Result * OCCULT BLOOD IFOBT STOOL (02/09/2023 10:57 AM CDT) STOOL BLOOD ,IFOBT Negative Negative 02/12/2023 9:44 AM CDT [facility] Stool STOOL SPECIMEN / Unknown Non-Blood / Unknown 02/09/2023 10:57 AM CDT 02/11/2023 10:57 AM CDT us [facility] [address] [facility] [place] [address], [place] [phone] * (ABNORMAL) LC LIPID PANEL AND CHOL/HDL RATIO (02/05/2023 3:41 PM CDT) [facility] Cholesterol, Total 205(H) 100 - 199 mg/dL 02/09/2023 9:10 AM CDT [facility] Triglycerides 215(H) 0 - 149 mg/dL 02/09/2023 9:10 AM CDT [facility] HDL Cholesterol 62 >39 mg/dL 9:10 AM CDT [facility] VLDL Cholesterol Pepe 37 5 - 40 mg/dL 02/09/2023 9:[address] [facility] LDL Chol Calc (NIH) 106(H) 0 - 99 mg/dL 02/09/2023 9:10 AM CDT [facility] T. Chol/HDL Ratio 3.3 0.0 - 4.4 ratio 02/09/2023 9:[address] [facility] Comment: T. Chol/HDL Ratio Men Women 1/2 Avg.Risk 3.4 3.3 Avg.Risk 5.0 4.4 2X Avg.Risk 9.6 7.1 3X Avg.Risk 23.4 11.0 Blood BLOOD SPECIMEN / Unknown Venipuncture / Unknown 02/05/2023 3:41 PM CDT 02/05/2023 3:42 PM CDT Narrative [facility] - 02/09/2023 9:10 AM CDT Performed at: 01 - [facility] [address] [place], [place] [id number] Tooling Inspector: Ferny Bro MD, Phone: [phone] us Francie [facility]ARAY SEND OUTS Final Resu lt [facility] ([facility] [address] [place] [address], from Last 3 Months or Most Recently Relevant to Health Maintenance Insurance Care Teams 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 PCP - General 05/19/23
[2025-01-08 17:45] LABS: Lactate* 0.7 mmol/L (0.5-1.9)
[2025-01-08] MEDS: 0.9 % SODIUM CHLORIDE 1000 ml 1,000 ML 500 ML IV (17:45)
[2025-01-08 17:48] LABS: Basophils Absolute Auto 0.01 K/uL (0.00-0.30); Basophils Percent Auto 0.1 % (0.0-3.0); Eosinophils Absolute Auto 0.03 K/uL (0.00-0.50); Eosinophils Percent Auto 0.4 % (0.0-7.0); Hematocrit 28.4 % (33.0-51.0); Hemoglobin* 8.8 gm/dL (12.0-16.0); Immature Granulocytes Abs Auto 0.02 K/uL (0.00-0.30); Immature Granulocytes Pct Auto 0.2 %; Lymphocytes Percent Auto 7.2 % (20-44); Mean Corpuscular HGB Conc 31 gm/dL (32-36); Mean Corpuscular Hemoglobin 31 pg (26-34); Mean Corpuscular Volume 101 fL (80-100); Monocytes Percent Auto 9.8 % (0.0-11.0); Neutrophils Percent Auto 82.3 % (42.0-72.0); Platelet Count* 375 K/uL (140-440); RDW Coefficient of Variation % 17.5 % (11.5-15.5); Red Blood Count 2.82 m/uL (4.00-5.20); White Blood Count* 8.37 K/uL (4.50-11.00)
[2025-01-08 17:50] LABS: Slide Review Reflex No
[2025-01-08 18:01] LABS: Albumin* 3.7 g/dL (3.3-5.0); Chloride* 103 mmol/L (96-114)
[2025-01-08 18:02] LABS: Potassium* 3.3 mmol/L (3.6-5.1); Sodium* 143 mmol/L (135-149)
[2025-01-08 18:04] LABS: Bilirubin Total* 0.5 mg/dL (0.1-1.5); Creatinine* 0.7 mg/dL (0.5-1.5); Estimated Glomerular Filt Rate 97 ml/min
[2025-01-08 18:05] LABS: Alanine Aminotransferase* 22 U/L (4-35); Alkaline Phosphatase* 64 U/L (40-150); Anion Gap 8 mEq/L (7-15); Aspartate Amino Transferase* 21 U/L (12-35); Blood Urea Nitrogen* 20 mg/dL (7-30); Calcium* 8.9 mg/dL (8.4-10.6); Carbon Dioxide* 32 mmol/L (20-32); Glucose* 97 mg/dL (60-115); Magnesium* 2.3 mg/dL (1.5-2.6); Total Protein* 6.5 g/dL (6.0-8.3)
[2025-01-08 18:06] LABS: INR 1.07 (0.91-1.10); Partial Thromboplastin Time* 35 Seconds (23-33); Prothrombin Time 14.6 Seconds
[2025-01-08 18:07] LABS: C Reactive Protein* 1.4 mg/dL (0.5-1.0)
[2025-01-08 18:15] LABS: NT Pro B Type NatriureticPept* 350 pg/mL
[2025-01-08 18:21] LABS: Procalcitonin* 0.07 ng/mL (<0.50)
[2025-01-08 18:27] LABS: Troponin I* < 0.01 ng/mL (0.01-0.04)
[2025-01-08 19:17] LABS: Appearance Urine Cloudy (Clear); Bilirubin Urine 2+ (Negative); Blood Urine Trace-intact (Negative); Color Urine Yellow (Yellow); Glucose Urine Negative (Negative); Ketones Urine 2+ (Negative); Leukocyte Esterase Urine Negative (Negative); Nitrite Urine Negative (Negative); Protein Urine 1+ (Negative); Specific Gravity Urine >= 1.030 (1.000-1.030); Urobilinogen Urine 0.2 (0.2-1.0); pH Urine 5.5 (5.0-8.5)
[2025-01-08 19:25] LABS: Amorphous Sediment Urine Many; Bacteria Urine Few; Squamous Epithelial Cell Urine Many (None-Few)
[2025-01-08] MEDS: HEPARIN 500 UNIT/5 ML SYRINGE IVF (20:07)
--- NOTE | 2025-01-08 20:35 | ED.NURSE ---
Pt appeared to be coughing, and was spitting up a lot of spit. Oxygen sats dropped down to 88%, MD notified. Pt O2 levels returned to 95% shortly after, MD notified again.
== END 2025-01-08 20:33 | disposition home or self-care (01) ==
PROVIDERS: Emergency Provider Family Medicine; PCP Student in an Organized Health Care Education/Training Program
DX: R53.1 Weakness (principal); C50.912 Malignant neoplasm of unspecified site of left female breast
CPT/HCPCS: 36415; 70450; 71250; 80053; 81001; 83605; 83735; 83880; 84145; 84484; 85025; 85610; 85730; 86140; 87040; 87086; 93005; 99284; J1642; J7030

== ENCOUNTER 2025-01-15 09:00 | Outpatient (RCR) | payer OTHER, SELFPAY ==
--- NOTE | 2025-01-09 15:04 | ONC.NURNOTE ---
Addendum entered by Romy Farley RN 01/11/25 08:11: Spoke to Telma, pt's daughter. Patient has requested not to see primary care at this time and would like to visit with Dr. Fry on 01/15/25 to discuss hospice. Pt scheduled to see oncologist at 9am on 01/15/25. Instructed family to [facility] if they have any questions or concerns prior to that date. Original Note: Pt seen in ED yesterday after seeing Lynda Baptiste PA-C. Discussed with Dr. Fry and Carole Maier APRN, since pt has had multiple ER visits and hospital admissions, pt should see her primary care physician prior to coming into see the oncologist. Per Ang she could see pt on Wednesday morning for discussion of goals of care. Comp Field Case Manager left message with daughter-Telma and pt's cell phone that appt with Dr. Fry on 01/10/25 has been rescheduled to 01/15/25 at 9am and pt should be seen by primary care prior to that appt.
--- NOTE | 2025-01-15 09:02 | ONC.NURNOTE ---
Addendum entered by Carolyn Hamm 01/19/25 11:29: Call to daughter Telma for an update. Telma states mom is comfortable and they have hospice set up. Denies any needs or concerns. Original Note: Call from patients daughter Telma stating Carolyn will not be coming to her appointment today. Telma shares that Carolyn has not been out of bed all weekend and is very weak. They are meeting with hospice today and will update us on their decision.
== END 2025-07-07 23:59 | disposition home or self-care (01) ==
LOC: CCIC 09:00
PROVIDERS: PCP Student in an Organized Health Care Education/Training Program; Referring Provider Student in an Organized Health Care Education/Training Program; Visit Provider Internal Medicine Hematology & Oncology
DX: C50.912 Malignant neoplasm of unspecified site of left female breast (principal); Z17.0 Estrogen receptor positive status [ER+]
CPT/HCPCS: 99215; G0463